=== PATIENT | female | born 1990 | race Caucasian/White ===

== ENCOUNTER 2019-01-05 08:00 | Inpatient (IN) | payer BC, SELFPAY ==
[2019-01-05 06:23] VITALS: BMI 20.5
[2019-01-05] MEDS: Lactated Ringers 1,000 ML 50 ML IV ×2 (08:30→15:18)
--- NOTE | 2019-01-05 08:47 | PCM.HP.OB ---
History Date of Admission: 01/05/19 Final DEB: 01/11/19 Final DEB Source: US <20 weeks Gestational age: 39 Weeks and 1 Days History of this : This is a 28 year-old, G [2], P [1], at 39+1 weeks gestational age presenting for labor evaluation following initiation of irregular contractions and nauseous and shakey feeling overnight. Patient denies DFM, VB or LOF. Patient initially 3.5/70/-3 and ballotable and then has made cervical change to 4/80/-2. Patient is GBS positive and desires an epidural for pain management during her labor. Allergies mebendazole [From Vermox] Allergy (Verified 01/05/19 06:27) Other Home Medications: Home Medications Calcium Carbonate [Tums] 200 mg PO PRN PRN 01/05/19 Vit No.130/Iron/Folic [ Tablet] 1 each PO DAILY 01/05/19 Thyroid,Pork [Sliding Joint Maker Thyroid] 15 mg PO DAILY 01/05/19 Smoking Status: Never smoker Alcohol: None Number of Fetus(es): 1 Heart Tracing: Baseline 145, moderate variability, few accels, no decels TOCO Analysis: Irregular q 5-10 minutes, mildly palpable History Past Pregnancies: Past Pregnancies Delivery Date Name GA/Weeks Outcome Route Weight Infant Gender Labor Length Anesthesia Delivery Location Provider FO05/2014 40 wks Live - vag. hematoma PP 7#14oz F Epidural [place] [facility]: See [facility] Records Expected Infant Delivery Method: Spontaneous Vaginal Describe any other labor & delivery plans:: Plans for epidural - desires mobility as long as possible Number of Visits: 16 Review of Systems Constitutional: Denies: Chills, Fever, Weight Change HEENT: Denies: Head Aches, Sinus Congestion, Sinus Drainage Cardiovascular: Denies: Chest Pain, Palpitations Respiratory: Denies: Cough, Shortness of breath at rest, Sputum production Gastrointestinal: Denies: Abdominal Pain, Nausea, Vomiting Genitourinary: Denies: Dysuria Musculoskeletal: Denies: Joint Pain, Joint Tenderness Skin: Denies: Rash, Wounds Neurological: Denies: Numbness, Tingling, Focal weakness Psychiatric: Denies: Anxiety, Depression, Homicidal Ideations, Suicidal Ideations Hematologic/ Lymphatic: Denies: Easy Bruising, Easy Bleeding Physical Exam Vitals: VSS, Afebrile General: Alert, Oriented x3, No apparent distress HEENT: Atraumatic, Normocephalic. 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 Negative for: Vulvar lesions Estimated gestational size: Appropriate for gestational size Presentation: Cephalic Cervix Dilation (cm): 4 Station: -2 Effacement (%): 80 Assessment/Plan This is a 28 year-old, G [2], P [1], at 39+1 weeks gestational age, Labor, Category I FHT. P 1) Admit patient, back-up physicians notified of admission 2) Start GBS abx prophylaxis now 3) Epidural on request 4) Reassess for cervical change PRN Angeles Ornelas WOLF HUNTER-CNM
[2019-01-05 08:52] LABS: Absolute Lymphocyte Count 1.35 X10^3/ul (0.83-4.51); Absolute Neutrophil Count 4.9 X10^3/uL (2.0-7.7); Basophil# 0.02 X10^3/uL; Basophil% 0.3 % (0-1); Eosinophil# 0.06 X10^3/uL; Eosinophils% 0.9 % (0-5); Hematocrit 35.7 % (37-47); Hemoglobin 11.9 g/dl (12.0-15.0); Lymphocyte # 1.35 X10^3/ul (4.0); Lymphocyte % 19.2 % (19-41); Mean Corp Hgb Conc 33.3 g/gl (32-36); Mean Corpuscular Hgb 29.5 pg (27.0-32.0); Mean Corpuscular Volume 88.6 fL (81-99); Mean Platelet Vol. 9.6 fl (6.2-12.0); Monocyte# 0.62 X10^3/uL; Monocyte% 8.8 % (0-10); Neutrophil # 4.93 X10^3/uL (2.7-7.7); Neutrophil % 70.1 % (47-70); POSITIVE COUNT NO; POSITIVE DIFFERENTIAL NO; POSITIVE MORPHOLOGY NO; Platelet Count 209 K/mm3 (150-450); RBC Distribution Width CV 14.1 % (11.6-14.6); RBC Distribution Width SD 45.7 fl (35.1-43.9); Red Blood Count 4.03 M/mm3 (4.2-5.4)
--- NOTE | 2019-01-05 08:52 | HP.PCM_ITS ---
History Date of Admission: 01/05/19 Final DEB: 01/11/19 Final DEB Source: US <20 weeks Gestational age: 39 Weeks and 1 Days History of this : This is a 28 year-old, G [2], P [1], at 39+1 weeks gestational age presenting for labor evaluation following initiation of irregular contractions and nauseous and shakey feeling overnight. Patient denies DFM, VB or LOF. Patient initially 3.5/70/-3 and ballotable and then has made cervical change to 4/80/-2. Patient is GBS positive and desires an epidural for pain management during her labor. Allergies mebendazole [From Vermox] Allergy (Verified 01/05/19 06:27) Other Home Medications: Home Medications Calcium Carbonate [Tums] 200 mg PO PRN PRN 01/05/19 Vit No.130/Iron/Folic [ Tablet] 1 each PO DAILY 01/05/19 Thyroid,Pork [Health Concierge Thyroid] 15 mg PO DAILY 01/05/19 Smoking Status: Never smoker Alcohol: None Number of Fetus(es): 1 Heart Tracing: Baseline 145, moderate variability, few accels, no decels TOCO Analysis: Irregular q 5-10 minutes, mildly palpable History Past Pregnancies: Past Pregnancies Delivery Date Name GA/Weeks Outcome Route Weight Infant Gender Labor Length Anesthesia Delivery Location Provider FO05/2014 40 wks Live - vag. hematoma PP 7#14oz F Epidural [place] [facility]: See [facility] Expected Infant Delivery Method: Spontaneous Vaginal Describe any other labor & delivery plans:: Plans for epidural - desires mobility as long as possible Number of Visits: 16 Review of Systems Constitutional: Denies: Chills, Fever, Weight Change HEENT: Denies: Head Aches, Sinus Congestion, Sinus Drainage Cardiovascular: Denies: Chest Pain, Palpitations Respiratory: Denies: Cough, Shortness of breath at rest, Sputum production Gastrointestinal: Denies: Abdominal Pain, Nausea, Vomiting Genitourinary: Denies: Dysuria Musculoskeletal: Denies: Joint Pain, Joint Tenderness Skin: Denies: Rash, Wounds Neurological: Denies: Numbness, Tingling, Focal weakness Psychiatric: Denies: Anxiety, Depression, Homicidal Ideations, Suicidal Ideations Hematologic/ Lymphatic: Denies: Easy Bruising, Easy Bleeding Physical Exam Vitals: VSS, Afebrile General: Alert, Oriented x3, No apparent distress HEENT: Atraumatic, Normocephalic. 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 Negative for: Vulvar lesions Estimated gestational size: Appropriate for gestational size Presentation: Cephalic Cervix Dilation (cm): 4 Station: -2 Effacement (%): 80 Assessment/Plan This is a 28 year-old, G [2], P [1], at 39+1 weeks gestational age, Labor, Category I FHT. P 1) Admit patient, back-up physicians notified of admission 2) Start GBS abx prophylaxis now 3) Epidural on request 4) Reassess for cervical change PRN Angeles Ornelas [employer]-CNM
--- NOTE | 2019-01-05 12:26 | PCM.PN.OB ---
Subjective: Patient has walked around the unit, reporting still irregular contractions but that at times seem stronger and at other times feels like they did this morning. Patient denies sensation of rectal pressure. Patient requests cervical change to assess for labor progress. Objective: VSS, Afebrile Baseline 135, moderate variability, + accels, no decels Ctx irregular q 1-6 minutes, mild to moderately strong to palpation SVE: Unchanged, /-3 (last exam of /-2 was during contraction) - Physical Exam General: Alert, Oriented x3, Cooperative HEENT: Atraumatic, Normocephalic Lungs: Normal air movement Cardiovascular: Regular rate, No murmurs Abdomen: Soft, Non Tender Extremities: No edema, Capillary Refill Less than 3 Seconds Skin: No rashes, No breakdown Musculoskeletal: No Tenderness to Palpation of Joints or Extremities Neurological: Cranial nerves II-XII grossly intact Psych/Mental Status: Normal Affect, Appropriate Weight: 131 lb 6.328 oz Body Mass Index (BMI) 20.5 Laboratory Tests Past 24 Hrs 01/05/19 01/05/19 08:30 08:30 WBC 7.0 RBC 4.03 L Hgb 11.9 L Hct 35.7 L MCV 88.6 MCH 29.5 MCHC 33.3 RDW 14.1 RDW Differential 45.7 H Plt Count 209 MPV 9.6 Immature Gran % (Auto) 0.700 Neut % (Auto) 70.1 H Lymph % (Auto) 19.2 [place] % (Auto) 8.8 Eos % (Auto) 0.9 Baso % (Auto) 0.3 Absolute Neuts (auto) 4.9 Absolute Lymphs (auto) 1.35 Total Counted Not Reportable Blood Type Cancelled Antibody Screen Cancelled Medical Necessity - Tobacco Use Smoking Status: Never smoker Assessment/Plan IUP @ 39+1 weeks, Category I FHT, Early Active Labor P: 1) Options for labor augmentation discussed - pitocin or AROM. Risks/benefits/alternatives discussed. 2) Patient desires to continue natural methods to help promote labor; sitting on birthing ball, ambulation and nipple stimulation discussed. 3) Continue expectant management at this time. Angeles Ornelas APRN-CNM
[2019-01-05] MEDS: fentaNYL-bupivacaine (epidural) 100 ML BAG EPIDURAL (15:36)
[2019-01-05] MEDS: Oxytocin 30 units/NS 500 ml 30 UNITS/500 ML IV.SOLN IV (17:45)
[2019-01-05] MEDS: Oxytocin 30 units/NS 500 ml 30 UNITS/500 ML IV.SOLN 334 UNITS IV (19:03)
[2019-01-05] MEDS: Oxytocin 30 units/NS 500 ml 30 UNITS/500 ML IV.SOLN 167 UNITS IV (19:35)
--- NOTE | 2019-01-05 19:36 | PCM.OPRPT ---
Report of Operation Date of Procedure: 01/05/19 Pre-Operative Diagnosis: Labor @ 39.1 weeks Post-Operative Diagnosis: of viable girl baby Vaginal Delivery Maternal Presentation: Active Labor Patient presented in labor this morning with irregular contractions and feelings of nausea and shakiness. Patient progressed to 4cm and then elected for labor augmentation by Dr. Odilon ARRIAZA using AROM and pitocin. Patient received epidural and then progressed well to C/C/0 station with spontaneous urge to push. Amniotic Membrane Rupture Type: Artificial Amniotic Fluid Description: Clear Final DEB: 01/11/19 Final DEB Source: US <20 weeks Gestational age: 39 Weeks and 1 Days Date of Procedure: 01/05/19 Pre-Operative Diagnosis: Labor @ 39.1 weeks Post-Operative Diagnosis: of viable girl baby Surgery/ Procedure Performed: Spontaneous Vaginal Delivery Type of Anesthesia: Epidural Description of Procedure: Patient pushed well with urge and delivered a viable girl baby over intact perineum at 1855. head delivered OA and then restituted to EMMANUEL SNEED and then OP. Double nuchal cord noted, delay of shoulders noted and shoulders and body was not delivered until next contraction. Terminal meconium noted after baby delivered. Baby was placed on maternal abdomen where he was dried and stimulated. Mouth and nose was bulb suctioned. Infant then had spontaneous cry and respirations. Apgars 8 and 9. weight pending. Umbilical cord then immediately camped and cut and cord blood banking and cord tissue collection done per patient request. Cord blood sample also sent for maternal blood status of O+. Placenta delivered spontaneously by maternal effort via Mac mechanism. Placenta intact with 3VC. Large gush of blood initially noted with fundal massage, IV pitocin initiated for active management of the 3rd stage. FF midline 2FB below umbilicus. EBL = 250cc. Upon inspection of vaginal vault, intact perineum. ++labial swelling noted; patient pushed for ~30 minutes. Ice pack applied to perineum. Patient reports hx of large hematoma after delivery of last child. Will monitor for s/s of vaginal hematoma closely. Sponge and needle count correct. Vaginal sweep negative. Baby to breast, bonding and skin to skin initiated. Angeles Ornelas PRESS CUTTER-CNM Presentation: Vertex Placental Delivery Description: Spontaneous Placenta Disposition: [facility] Cord Vessel Description: 3 Vessels Cord Entanglement: Around neck x 2, loose Estimated Blood Loss: 250 Infant A gender: Female (1 minute): 8 (5 minute): 9 Episiotomy Description: None Laceration: None Medications given after delivery: IV Pitocin Complications: None
[2019-01-06] VITALS: BP 99/55; PULSE 77; RESP 17; TEMP 36.7
[2019-01-06] MEDS: Ibuprofen 600 MG Tablet PO ×4 (00:10→18:40)
[2019-01-06 04:00] VITALS: BP 112/55; PULSE 77; RESP 17; TEMP 37.1
[2019-01-06] MEDS: Acetaminophen 500 MG Tablet 1000 MG PO ×2 (07:48→15:51)
[2019-01-06 08:00] VITALS: BP 111/63; PULSE 65; RESP 15; TEMP 37.1
--- NOTE | 2019-01-06 08:20 | PCM.PN.OB ---
Subjective: Review with nursing. Average lochia. - Physical Exam General: Alert, Cooperative, No apparent distress Vital Signs Temp Pulse Resp BP 98.8 F 77 17 112/55 L 01/06/19 04:00 01/06/19 04:00 01/06/19 04:00 01/06/19 04:00 Oxygen Delivery Method Room Air Weight: 59.6 kg Body Mass Index (BMI) 20.5 Intake and Output for Last 24 Hours 01/04/19 01/05/19 01/06/19 23:59 23:59 23:59 Intake Total 4245 / 4245 Output Total 2100 / 2100 Balance 2145 / 2145 Laboratory Tests Past 24 Hrs 01/05/19 01/05/19 01/05/19 08:30 08:30 12:36 WBC 7.0 RBC 4.03 L Hgb 11.9 L Hct 35.7 L MCV 88.6 MCH 29.5 MCHC 33.3 RDW 14.1 RDW Differential 45.7 H Plt Count 209 MPV 9.6 Immature Gran % (Auto) 0.700 Neut % (Auto) 70.1 H Lymph % (Auto) 19.2 [place] % (Auto) 8.8 Eos % (Auto) 0.9 Baso % (Auto) 0.3 Absolute Neuts (auto) 4.9 Absolute Lymphs (auto) 1.35 Total Counted Not Reportable Blood Type Cancelled O POSITIVE Antibody Screen Cancelled NEGATIVE Medical Necessity - Tobacco Use Smoking Status: Never smoker Assessment/Plan day #1 status post spontaneous vaginal delivery. Patient is doing well. Routine care. Infant is breast-feeding and doing well.
[2019-01-06 11:44] VITALS: BP 95/53; PULSE 88; RESP 15; TEMP 36.6
[2019-01-06 15:45] VITALS: BP 108/61; PULSE 70; RESP 16; TEMP 36.9
[2019-01-06 20:00] VITALS: BP 102/55; PULSE 62; RESP 16; TEMP 36.6
[2019-01-07] MEDS: Acetaminophen 500 MG Tablet 1000 MG PO (00:23)
[2019-01-07] MEDS: Ibuprofen 600 MG Tablet PO ×3 (00:24→13:23)
[2019-01-07 02:00] VITALS: BP 111/67; PULSE 57; RESP 16; TEMP 36.7
--- NOTE | 2019-01-07 08:06 | PCM.PN.OB ---
Subjective: Doing well per patient and nursing staff. Ambulating and taking PO without difficulty. Voiding and passing flatus. without difficulty. Taking tylenol and Ibuprofen for pain. Planning D/C home today. - Physical Exam General: Alert, Oriented x3 HEENT: Atraumatic, Normocephalic Neck: Trachea Midline Lungs: Clear to auscultation, Normal air movement, No rhonchi, No wheeze Cardiovascular: Regular rate, Regular Rhythm, No murmurs Abdomen: Bowel Sounds Present, Soft, - - Fundus firm 2 below U Extremities: No edema, - - Gino's negative Psych/Mental Status: Normal Affect, Appropriate Comment: lochia rubra small amount, no clots Vital Signs Temp Pulse Resp BP 98.1 F 57 L 16 111/67 01/07/19 02:00 01/07/19 02:00 01/07/19 02:00 01/07/19 02:00 Oxygen Delivery Method Room Air Weight: 131 lb 6.328 oz Body Mass Index (BMI) 20.5 Intake and Output for Last 24 Hours 01/05/19 01/06/19 01/07/19 23:59 23:59 23:59 Intake Total 4245 / 4245 Output Total 2100 / 2100 850 / 850 Balance 2145 / 2145 -850 / -850 Medical Necessity - Tobacco Use Smoking Status: Never smoker Assessment/Plan A: PPD #2 P: 1) Reviewed and care. 2) Reviewed discharge instructions and to follow up at 2 weeks and 6 weeks 3) Rx for Ibuprofen for pain.
--- NOTE | 2019-01-07 09:13 | DCINST_ITS ---
Discharge Diet: No Restrictions Discharge Activity: Return to Normal Activity, May Drive, May Shower, May Take a Tub Bath May resume sexual activity in: 4-6 weeks Weight Bearing Status: Full weight bearing Additional Activity Instructions:: Nothing in the vagina for 4-6 weeks. You may return to work/school in 6 weeks. Call your doctor if your incision/area has: Continuous Slow Oozing, Sudden Increased Bleeding, Increased Pain/ Swelling, Increased Redness, Foul Smelling Discharge Call your doctor if you observe: Fever of 101 or Higher, Inability to urinate, Inability to have a bowel movement, Using more than one pad per hour, Shortness of breath, Chest pain, Uncontrolled pain Additional Instructions: If you experience any of the following, contact your healthcare provider. * Bleeding that soaks a pad every hour for 2 hours * Fever 100.4 or higher * Unrelieved incision or abdominal pain * Swelling, redness, discharge or bleeding from your incision or ep isiotomy site * Your incision begins to separate * Problems urinating (including inability to urinate or burning while urinating). * Visual changes * Severe headache * Flu-like symptoms * Pain or redness in one of both of your breasts * Pain, warmth, tenderness or swelling in your legs, especially the calf area * Frequent nausea and vomiting * Symptoms of depression or anxiety If you experience any of the following, call 911 or go to the nearest Emergency Room. * Chest pain * Problems breathing * Seizure activity * Partial or complete paralysis of a body part, slurred speech, weakness or drooping of the face, or a sudden inability to walk or hold your balance Allergies/Adverse Reactions: Allergies mebendazole [From Vermox] Allergy (Verified 01/05/19 06:27) Other Medications to take at Discharge Calcium Carbonate [Tums] 200 mg PO PRN PRN 01/05/19 Vit No.130/Iron/Folic [ Tablet] 1 each PO DAILY 01/05/19 Thyroid,Pork [Black Puller Thyroid] 15 mg PO DAILY 01/05/19 Ibuprofen [Motrin] 600 mg PO Q6H PRN PRN #30 tab 01/07/19 The following prescriptions were given: Ibuprofen [Motrin] 600 mg PO Q6H PRN PRN #30 tab PRN Reason: Mild Pain (-10/23) Please Follow Up With: Annia Gutierrez CNM When: Call to make an appointment with your doctor in 2 weeks and 6 weeks. Primary Care Physician: Zak Giron [Primary Care Provider] - Test Results: Test results from this visit will be discussed in further detail at your follow- up appointment, if applicable.
[2019-01-07 13:00] VITALS: BP 112/75; PULSE 86; RESP 16; TEMP 36.8
[2019-01-07] MEDS: Senna/Docusate Sodium 1 Tablet PO (13:22)
--- NOTE | 2019-01-07 17:43 | NURSING ---
1615 Discharged to home with baby. States she wants to go home and feels able to care for herself and her . To car via wheelchair with baby in car seat in her lap,
== END 2019-01-07 16:15 | disposition home or self-care (01) | DRG 807 ==
LOC: WPOUT 08:07
PROVIDERS: Advanced Practice Midwife; Admitting Provider Obstetrics & Gynecology; Family Provider Family Medicine Geriatric Medicine; PCP Family Medicine Geriatric Medicine; Referring Provider Obstetrics & Gynecology; Visit Provider Obstetrics & Gynecology
DX: O77.0 Labor and delivery complicated by meconium in amniotic fluid (principal); Z37.0 Single live birth; O99.613 Diseases of the digestive system complicating pregnancy, third trimester; K21.9 Gastro-esophageal reflux disease without esophagitis; E06.3 Autoimmune thyroiditis; O99.283 Endocrine, nutritional and metabolic diseases complicating pregnancy, third trimester; O69.81X0 Labor and delivery complicated by cord around neck, without compression, not applicable or unspecified; O99.824 Streptococcus B carrier state complicating childbirth; Z3A.39 39 weeks gestation of pregnancy
CPT/HCPCS: 59025; 59050; 85025; 86850; 86900; 99218; J7120; G0378

== ENCOUNTER 2025-07-20 17:47 | Inpatient (IN) | payer BC, SELFPAY ==
[2025-07-20] VITALS (7 sets, daily range): BP systolic 112–124; BP diastolic 66–89; PULSE 82–99; RESP 16–17; TEMP 36.6–37.4; O2SAT 97–99; BMI 22.1
--- OUTSIDE RECORDS SUMMARY | 2025-07-20 17:16 | XMS RPT_ITS | CCD ---
Author Organization [facility] Care Team Providers [employer] Tender Name Role Phone Jd Giron Primary Care Provider [phone] French Rhodes MD Primary Care Provider Jd Giron MD Primary Care Provider [phone] Jd Giron MD Primary Care Provider French Rhodes MD Primary Care Provider CELENA KELLOGG Attending Unavailable RHODES, FRENCH N Primary Care Unavailable French Rhodes MD Primary Care Provider French Rhodes MD Primary Care Provider AARTI WELLS Referring Unavailable RHODES, FRENCH N Primary Care Unavailable RUSH ONEIL MD Attending Unavailable CLARICE ARRIAZA, RUSH Nagy Primary Care Unavailable French Rhodes MD Primary Care Provider French Rhodes MD Primary Care Provider RANDY ARRIAZA, DR Rosalia GRAHAM Primary Care Physician Noy harini GIRON MD, DR Rosalia GRAHAM Primary Care Unavailcholo HENNESSY MD, DR PFEIFFER Attending UnavailLIBRADO Kaur Attending Unavailable RHODES, FRENCH Primary Care Unavailable PLOTJESSENIA CAUSEY Attending Unavailable RHODES, FRENCH N Primary Care Unavailable PLOTTS, JESSENIA Referring Unavailable RHODES, FRENCH N Primary Care Unavailable ANNIA GUTIERREZ Attending Unavailable RHODES, FRENCH N Primary Care Unavailable HAANAHI, DONNELL Referring Unavailable RHODES, FRENCH N Primary Care Unavailable PLOTLILLIANA, JESSENIA Attending Unavailable RHODES, FRENCH N Primary Care Unavailable HAANAHI, DONNELL Referring Unavailable RHODES, FRENCH N Primary Care Unavailable DONNELL ROMERO Attending Unavailable RHODES, FRENCH N Primary Care Unavailable HAURY, DONNELL Referring Unavailable RHODES, FRENCH N Primary Care Unavailable RHODES, FRENCH N Primary Care Unavailable HAANAHI, DONNELL Attending Unavailable PLOTTS, JESSENIA Attending Unavailable HAURY, DONNELL Referring Unavailable RHODES, FRENCH N Primary Care Unavailable HAURY, DONNELL Referring Unavailable RHODES, FRENCH N Primary Care Unavailable RHODES, FRENCH N Primary Care Unavailable MARLY ASHRAF Attending Unavailable RHODES, FRENCH N Primary Care Unavailable HAURY, DONNELL Referring Unavailable HERNANDEZ GUTIERREZSSICA Referring Unavailable RHODES, FRENCH N Primary Care Unavailable HAURY, DONNELL Attending Unavailable RHODES, FRENCH N Primary Care Unavailable VANESA, JESSENIA Attending Unavailable RHODES, FRENCH N Primary Care Unavailable PLOTTS, JESSENIA Referring Unavailable RHODES, FRENCH N Primary Care Unavailable Allergies Allergy Classification Reported Allergen(s) Allergy Type Date of Onset Reaction(s) Facility Mebendazole (1 source) Mebendazole Drug Allergy 05-26-2017 [facility] (20 sources) Mebendazole; Translations: [MEBENDAZOLE] Drug Allergy 05-26-2017 Rash, Other: See Comments [place], [place] (10 sources) Mebendazole Drug Allergy 05-26-2017 Other, [facility] Medications Current Medications Medication Drug Class(es) Dates Sig (Normalized) Sig (Original) cetirizine hydrochloride 10 mg oral tablet (1 source) Histamine-1 Receptor Antagonist Start: 11-19-2022 End: 12-03-2022 take 1 tablet by mouth once daily cetirizine (ZYRTEC) 10 mg tablet Take 1 tablet by mouth once daily for 14 days. 14 tablet 0 11/19/2022 12/03/2022 Active Comment on above: Take 1 tablet by [facility] th once daily for 14 days. Nutritional Supplements (SM ESTRO VITAL NUTRIENTS EX ST) TABS (8 sources) Nutritional Supplements (SM ESTRO VITAL NUTRIENTS EX ST) TABS Take by mouth 0 Active pantoprazole 20 mg delayed release oral tablet (1 source) Proton Pump Inhibitor Start: 03-21-2025 take 1 tablet by mouth once daily pantoprazole DR (PROTONIX) 20 mg tablet Take 1 tablet by mouth once daily. 30 tablet 2 03/21/2025 Active PNV no.95/ferrous fum/folic ac ( ORAL) (11 sources) PNV no.95/ferrou s fum/folic ac ( ORAL) Take by mouth. Active sodium chloride flush 0.9 % injection 3 mL (2 sources) Start: 01-27-2022 sodium chloride flush 0.9 % injection 3 mL Start: 10-23-2019 sodium chlorid e flush 0.9 % injection 3 mL thyroid ([facility]) 15 mg oral tab let (20 sources) Start: 12-22-2018 thyroid (PUBLICATION DISTRIBUTOR TH YROID) 15 mg tablet Take 1 tablet by mouth once daily. take one tablet 6 days a week, 1/2 tablet on Sundays 30 tablet 12 12/22/2018 Active Start: 04-18-2018 take 0.5 tablet by m outh once daily PUBLICATION DISTRIBUTOR THYROID 15 MG tablet take 1/2 tablet by mouth once daily 0 04/18/2018 Active take 1 tablet by merced th once daily thyroid ([place]) 30 MG tablet Take 30 mg by mouth daily. Active Comment on above: Take 1 tablet by merced th once daily. take one tablet 6 days a week, 1/2 tablet on Sundays Completed/Discontinued Medications Medication Drug Class(es) Dates Sig (Normalized) Sig (Original) aspirin 81 mg delayed release oral tablet (8 sources) Platelet Aggregation Inhibitor, Nonsteroidal Anti-inflammatory Drug Start: 12-27-2024 End: 02-26-2025 take 1 tablet by mouth once daily aspirin, enteric coated (ECOTRIN LOW STRENGTH) 81 mg EC tablet Indications: Encounter for supervision of high risk in first trimester, antepartum (HCC) Take 1 tablet by mouth once daily. 90 tablet 3 12/27/2024 02/26/2025 Discontinued cholecalciferol, vitamin D3, (VITAMIN D3 ORAL) (20 sources) End: 12-27-2024 take 5000 [IU] by mouth once daily cholecalciferol, vitamin D3, (VITAMIN D3 ORAL) Take 5,000 Units by mouth once daily. 12/27/2024 Discontinued take 5000 [IU] by mouth once mario ly cholecalciferol, vitamin D3, (VITAMIN D3 ORAL) Take 5,000 Units by mouth once daily. Active take 5000 [IU] by mouth once mario ly cholecalciferol, vitamin D3, (VITAMIN D3 ORAL) Take 5,000 Units by mouth once daily. 0 Active cholecalciferol, vitamin D3, (VITAMIN D3 ORAL) Take by mouth. 0 Active Comment on above: Take by mouth. Take 5,000 Units by mouth once daily. HERBAL DRUGS ORAL (6 sources) End: 06-26-2022 HERBAL DRUGS ORAL Take by mouth. Tumeric 0 06/26/2022 Discontinued HERBAL DRUGS ORA L Take by mouth. Tumeric 0 Active Comment on above: Take by mouth. Tumer ic Lactobacillus acidophilus (6 sources) End: 06-26-2022 Lactobacillus acidophilus (PROBIOTIC ORAL) Take by mouth. 0 06/26/2022 Discontinued Lactobacillus ac idophilus (PROBIOTIC ORAL) Take by mouth. 0 Active Comment on above: Take by mouth. medroxyPROGESTERone acetate 10 mg oral tablet (10 sources) Progestin Start: 2023 End: 2024 take 1 tablet by mouth once daily medroxyPROGESTERone (PROVERA) 10 mg tablet Take 1 tablet by mouth once daily. 10 tablet 12/24/2023 12/27/2024 Discontinued Comment on above: Take 1 tablet by merced th once daily. Multivitamin preparation (20 sources) End: 2024 take 1 tablet by mouth twice daily multivitamin (MULTIPLE VITAMIN ESSENTIAL ORAL) Take 1 tablet by mouth twice daily. 12/27/2024 Discontinued take 1 tablet by mouth twice mario ly multivitamin (MULTIPLE VITAMIN ESSENTIAL ORAL) Take 1 tablet by mouth twice daily. Active take 1 tablet by mouth twice mario ly multivitamin (MULTIPLE VITAMIN ESSENTIAL ORAL) Take 1 tablet by mouth twice daily. 0 Active Comment on above: Take 1 tablet by merced th twice daily. VITAMIN K2 ORAL (6 sources) End: 06-26-2022 VITAMIN K2 ORAL Take by mouth. 0 06/26/2022 Discontinued VITAMIN K2 ORAL Take by mouth. 0 Active Comment on above: Take by mouth. Problems Active Problems Problem Classification Problem Date Documented Da te Episodic/Chronic Abdominal pain (2 sources) Left upper quadrant pain; Translations: [Left flank pain] Episodic Conditions associated with dizziness or vertigo (1 source) Dizziness; Translations: [Dizziness and giddiness] Episodic Menstrual disorders (10 sources) Menorrhagia; Translations: [Excessive and frequent menstruation with regular cycle] Onset: 02-19-2023 Chronic Nausea and vomiting (1 source) Nausea; Translations: [Nausea] Episodic Nonmalignant breast conditions (2 sources) Diffuse cystic mastopathy of right breast; Translations: [Diffuse cystic mastopathy of left breast] Onset: 09-01-2022 Chronic Nonmalignant breast conditions (4 sources) Pain of breast; Translations: [Mastodynia] Onset: 09-01-2022 Episodic Nonspecific chest pain (1 source) Chest pain; Translations: [Chest pain, unspecified] Episodic Nutritional deficiencies (3 sources) Vitamin D deficiency; Translations: [Vitamin D deficiency, unspecified] Onset: 12-27-2024 12-27-2024 Chronic Other complications of (7 sources) Heartburn; Translations: [Other specified related conditions, second trimester] Onset: 02-26-2025 02-26-2025 Episodic Other complications of (1 source) Supervision of high risk , unspecified, second trimester; Translations: [Supervision of high risk in second trimester (HCC)] Onset: 03-21-2025 Episodic Other complications of (1 source) Supervision of high risk , unspecified, third trimester; Translations: [Supervision of high risk in third trimester (HCC)] Onset: 03-21-2025 Episodic Other complications of (1 source) Other specified related conditions, second trimester; Translations: [Heartburn during in second trimester (HCC)] Onset: 03-21-2025 Episodic Other connective tissue disease (1 source) Pain in left lower limb; Translations: [Pain in left leg] 12-20-2024 Episodic Other endocrine disorders (1 source) Polycystic ovary; Translations: [Polycystic ovarian syndrome] Chronic Other female genital disorders (1 source) Pruritus of vagina; Translations: [Other specified noninflammatory disorders of vagina] Episodic Other female genital disorders (1 source) Vaginal odor; Translations: [Other specified noninflammatory disorders of vagina] Episodic Other gastrointestinal disorders (1 source) Heartburn; Translations: [Heartburn during in second trimester (HCC)] Onset: 03-21-2025 Episodic Other infections; including parasitic (6 sources) H/O: infectious disease; Translations: [Personal history of other infectious and parasitic diseases] 12-08-2024 Episodic Other inflammatory condition of skin (1 source) Pruritus, unspecified; Translations: [Pruritus] Onset: 06-13-2025 Episodic Other lower respiratory disease (1 source) Cough; Translations: [Cough] Episodic Other nutritional; endocrine; and metabolic disorders (20 sources) H/O: thyroid disorder; Translations: [Personal history of other endocrine, nutritional and metabolic disease] 10-27-2019 Episodic Other screening for suspected conditions (not mental disorders or infectious disease) (20 sources) Inconclusive mammogram; Translations: [Patient encounter status] Onset: 06-28-2018 Resolved: 02-07-2019 02-07-2019 Episodic Other skin disorders (3 sources) Finding of neck region; Translations: [Localized swelling, mass and lump, neck] Episodic Other upper respiratory disease (1 source) Pain in throat; Translations: [Throat pain] Episodic Ovarian cyst (2 sources) Corpus luteum cyst; Translations: [Corpus luteum cyst of ovary, unspecified side] Onset: 12-14-2024 Episodic Residual codes; unclassified (1 source) Gestation period, 8 weeks; Translations: [8 weeks gestation of ] 12-27-2024 Episodic Residual codes; unclassified (1 source) Gestation period, 12 weeks; Translations: [12 weeks gestation of ] 01-25-2025 Episodic Residual codes; unclassified (1 source) Gestation period, 17 weeks; Translations: [17 weeks gestation of ] 02-26-2025 Episodic Residual codes; unclassified (1 source) Gestation period, 25 weeks; Translations: [25 weeks gestation of ] 04-26-2025 Episodic Residual codes; unclassified (1 source) 32 weeks gestation of ; Translations: [32 weeks gestation of (HCC)] Onset: 06-12-2025 Episodic Residual codes; unclassified (1 source) 25 weeks gestation of ; Translations: [25 weeks gestation of (HCC)] Onset: 05-15-2025 Episodic Residual codes; unclassified (1 source) 28 weeks gestation of ; Translations: [28 weeks gestation of (HCC)] Onset: 05-15-2025 Episodic Residual codes; unclassified (1 source) 20 weeks gestation of ; Translations: [20 weeks gestation of (HCC)] Onset: 03-21-2025 Episodic Spontaneous (1 source) Miscarriage; Translations: [Complete or unspecified spontaneous without complication] Episodic Unclassified (11 sources) [facility] Education - COMMON Onset: 12-27-2024 12-27-2024 Unclassified (11 sources) Education - [place] Onset: 12-27-2024 12-27-2024 Unclassified (1 source) Rubella non-immune status, antepartum (HCC); Translations: [Rubella non-immune status, antepartum (HCC)] Onset: 12-28-2024 Past or Other Problems Problem Classification Problem Date Documented Date Episodic/Chronic Bacterial infection; unspecified site (16 sources) Bacteria present; Translations: [Streptococcus, group B, as the cause of diseases classified elsewhere] Onset: 12-16-2018 Resolved: 02-07-2019 02-07-2019 Episodic Genitourinary symptoms and ill-defined conditions (2 sources) Dysuria; Translations: [Painful micturition, unspecified] Onset: 01-25-2025 01-25-2025 Episodic Immunizations and screening for infectious disease (3 sources) Patient encounter status; Translations: [Encounter for screening for infections with a predominantly sexual mode of transmission] Onset: 12-29-2024 12-27-2024 Episodic Other complications of (2 sources) Nausea and vomiting; Translations: [Vomiting of , unspecified] Onset: 06-03-2018 Resolved: 02-07-2019 02-07-2019 Episodic Other complications of (14 sources) Vomiting of , unspecified; Translations: [Unspecified vomiting of , unspecified as to episode of care or not applicable] Onset: 06-03-2018 Resolved: 02-07-2019 02-07-2019 Episodic Other complications of (18 sources) High risk ; Translations: [Supervision of high risk , unspecified, first trimester] Onset: 12-27-2024 12-27-2024 Episodic Other complications of (14 sources) Multigravida of advanced maternal age; Translations: [Supervision of elderly multigravida, first trimester] Onset: 12-27-2024 12-27-2024 Episodic Other complications of (16 sources) Thyroid disease in ; Translations: [Endocrine, nutritional and metabolic diseases complicating , first trimester] Onset: 12-27-2024 12-27-2024 Episodic Other complications of (10 sources) Rubella non-immune; Translations: [Supervision of other high risk pregnancies, unspecified trimester] Onset: 12-28-2024 12-28-2024 Episodic Other complications of (1 source) Endocrine, nutritional and metabolic diseases complicating , second trimester; Translations: [Thyroid disease during in second trimester (HCC)] Onset: 02-26-2025 Episodic Other complications of (1 source) Supervision of elderly multigravida, first trimester; Translations: [Multigravida of advanced maternal age in first trimester (HCC)] Onset: 12-27-2024 Episodic Other complications of (1 source) Supervision of other high risk pregnancies, unspecified trimester; Translations: [Rubella non-immune status, antepartum ([facility])] Onset: 12-28-2024 Episodic Other complications of (1 source) Endocrine, nutritional and metabolic diseases complicating , first trimester; Translations: [Thyroid disease during , first trimester (HCC)] Onset: 02-26-2025 Episodic Other complications of (1 source) Supervision of high risk , unspecified, first trimester; Translations: [Encounter for supervision of high risk in first trimester, antepartum ([facility])] Onset: 12-27-2024 Episodic Other connective tissue disease (1 source) Pain in left leg; Translations: [Left leg pain] Onset: 12-20-2024 Episodic Other female genital disorders (13 sources) History of gynecological disorder; Translations: [Personal history of other diseases of the female genital tract] Onset: 12-27-2024 12-27-2024 Episodic Other female genital disorders (1 source) Personal history of other diseases of the female genital tract; Translations: [History of PCOS] Onset: 12-27-2024 Episodic Other infections; including parasitic (2 sources) Personal history of other infectious and parasitic diseases; Translations: [Personal history of other infectious and parasitic diseases] Onset: 12-08-2024 Episodic Other lower respiratory disease (14 sources) Nodule of lung; Translations: [Solitary pulmonary nodule] Onset: 07-01-2023 12-08-2024 Episodic Other lower respiratory disease (4 sources) Chronic cough; Translations: [Chronic cough] Onset: 12-08-2024 12-07-2024 Episodic Other lower respiratory disease (2 sources) Solitary pulmonary nodule; Translations: [Solitary pulmonary nodule] Onset: 12-07-2024 Episodic Other and delivery including normal (20 sources) Normal ; Translations: [Encounter for supervision of normal , unspecified, unspecified trimester] Onset: 06-27-2018 Resolved: 02-07-2019 02-07-2019 Episodic Comment on above: System added from do cumentation. Status documented as Yes on Admission Residual codes; unclassified (1 source) 17 weeks gestation of ; Translations: [17 weeks gestation of (HCC)] Onset: 02-26-2025 Episodic Residual codes; unclassified (1 source) 12 weeks gestation of ; Translations: [12 weeks gestation of (HCC)] Onset: 01-25-2025 Episodic Residual codes; unclassified (1 source) 8 weeks gestation of ; Translations: [8 weeks gestation of (HCC)] Onset: 12-27-2024 Episodic Sexually transmitted infections (not HIV or hepatitis) (12 sources) Urine chlamydia trachomatis test positive; Translations: [Sexually transmitted chlamydial infection of other sites] Onset: 12-28-2024 12-28-2024 Episodic Thyroid disorders (20 sources) Ricarda thyroiditis; Translations: [Autoimmune thyroiditis] Onset: 05-17-2018 Resolved: 01-25-2025 Chronic Thyroid disorders (20 sources) Disorder of thyroid gland; Translations: [Disorder of thyroid, unspecified] Onset: 02-26-2025 Resolved: 01-25-2025 10-27-2019 Episodic Results Test Name Value Interpretation Reference Range Facil ity BILE ACIDS, TOTALon 06-13-20 25 Bile acid [Moles/Vol] 2.6 umol/L Normal <7.5 [facility] Comment on above: Order Comment: Speci men Type: BLOOD SPECIMEN Ordering Facility: [facility] Address: [address] [place] [address] Result Comment: Refe rence interval applies to fasting specimens. The total serum bile acid concentration is increased after meals; hence, samples should be collected under fasting conditions, when possible. This does not apply to patients for whom intrahepatic cholestasis of as a diagnostic consideration; these patients will need peak bile acid testing, and samples should be postprandial. This serum bile acid assay should not be used for patients receiving ursodeoxycholic acid, nor should it be used as the primary assay for the screening or diagnosis of genetic disorders of bile acid metabolism. Patient Reference Intervals: 0 Days to 5 Months: Not established 6 Months to 23 Months: <25.8 umol/L 2 Years to 4 Years: <20.9 umol/L 5 Years to 9 Years: <12.4 umol/L 10 Years to 19 Years: <13.6 umol/L 20 Years to 59 Years: <7.5 umol/L >=60 Years: <8.3 umol/L Reference Intervals (Non-fasting): First Trimester (up to 13 weeks gestation): < 15.3 umol/L Reference Interval (Non-fasting): Second Trimester (13 - 27 weeks gestation): < 11.4 umol/L Reference Interval (Non-fasting): Third Trimester (> 27 weeks gestation): < 10.4 umol/L Performed By: #### B LINDA #### [facility] CLIA [id number] [address] [place] [address] Hepatic function 2000 panelo n 06-13-2025 Albumin [Mass/Vol] 3.7 g/dL Low 3.9-4.9 [facility] Comment on above: Order Comment: Speci men Type: BLOOD SPECIMEN Ordering Facility: [facility] Address: [address] [place] [address] Performed By: #### 2 4325-3 #### [facility] CLIA [id number] [address] ALP [Catalytic activity/Vol] 176 U/L High 34-123 [facility] Comment on above: Order Comment: Speci men Type: BLOOD SPECIMEN Ordering Facility: [facility] Address: [address] [place] [address] Performed By: #### 2 4325-3 #### [facility] CLIA [id number] [address] [place] ALT With P-5'-P [Catalytic activity/Vol] 21 U/L Normal 7-38 [facility] Comment on above: Order Comment: Speci men Type: BLOOD SPECIMEN Ordering Facility: [facility] Address: [address] [place] [address] Performed By: #### 2 4325-3 #### [facility] CLIA [id number] [address] [place] With P-5'-P [Catalytic activity/Vol] 28 U/L Normal 13-35 [facility] Comment on above: Order Comment: Slava cedeño Type: BLOOD SPECIMEN Ordering Facility: [facility] Address: [address] [place] [address] Performed By: #### 2 4325-3 #### [facility] CLIA [id number] [address] [facility] Bilirubin [Mass/Vol] 0.8 mg/dL Normal 0.2-1.3 [facility] Comment on above: Order Comment: Nicki men Type: BLOOD SPECIMEN Ordering Facility: [facility] Address: [address] [place] [address] Performed By: #### 2 4325-3 #### [facility] CLIA [id number] [address] Bilirubin.conjugate d [Mass/Vol] 0.2 mg/dL Normal <0.3 [facility] Comment on above: Order Comment: Speci men Type: BLOOD SPECIMEN Ordering Facility: [facility] Address: [address] [place] [address] Performed By: #### 2 4325-3 #### [facility] CLIA [id number] [address] Protein [Mass/Vol] 6.8 g/dL Normal 6.3-8.0 [facility] Comment on above: Order Comment: Slava gala Type: BLOOD SPECIMEN Ordering Facility: [facility] Address: [address] [place] [address] Performed By: #### 2 4325-3 #### [facility] CLIA [id number] [address] Demetrio 06-12-2025 OLIVIA Telephone (OBGYWM) VASILELOYDA ([id number]) 1990 F Date Time Provider Department 06/12/25 JESSENIA VALVERDE During your visit today, we recorded the following information about you: Gisell Morales RN 06/12/2025 4:49 PM Signed 32w2d Saw CP today. States provider told her if itching continues to call office for bile salt labs to be ordered. Patient said her itching has still continued and does want lab work done now. Asking if orders can be placed so she can go to the lab tomorrow. Please advise. ROSIO Uriarte Courtney, APRN.CNM 06/12/2025 5:01 PM Signed Labs ordered. ELIZABETH Bernabe Jennifer, RN 06/13/2025 8:38 AM Signed Left message for patient to call office. ROSIO Rodas Deana M, RN 06/13/2025 8:43 AM Signed Patient notified. Nathalia Walker RN Allergies As of Date: 06/12/2025 Noted Allergy Reaction VERMOX (MEBENDAZOLE) 05/11/2018 14 - Other: See Comments Comments: Skin peeled Date Reviewed: 06/12/2025 Reviewed by: Arnold Mckeon LPN - Fully Assessed Reason for Visit: OB Itching [Other] Primary Visit Diagnosis:Pruritus [L29.9] Order(s):BILE ACIDS, TOTAL [SQBILETO] Order #: [id number] FUTURE HEPATIC FUNCTION PNL [SQHFP] Order #: [id number] FUTURE Prescriptions as of 06/13/2025 - Carica Papaya (PAPAYA ENZYME) tab Take 1 tablet by mouth two times a day. - PNV no.95/ferrous fum/folic ac ( ORAL) Take by mouth. - thyroid (PUBLICATION DISTRIBUTOR THYROID) 15 mg tablet Take 1 tablet by mouth once daily. 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] 01/25/2025 Thyroid disease [E07.9] 01/25/2025 History of PCOS [Z87.42] 12/27/2024 Thyroid disease during in second trim*12/27/2024 Supervision of high risk in second tr*12/27/2024 Multigravida of advanced maternal age in first *12/27/2024 with uncertain dates in first trimest*12/27/2024 Rubella non-immune status, antepartum (HCC) [Z3*12/28/2024 Urine positive for Chlamydia trachomatis by PCR*12/28/2024 Heartburn during in second trimester *02/26/2025 Encounter Status:Closed by GISELL MORALES on 06/13/25 Normal [facility] T4 Free SerPl-mCncon 025 Free T4 [Mass/Vol] 0.7 ng/dL Low 0.9-1.7 [facility] Comment on above: Order Comment: Speci gala Type: BLOOD SPECIMEN Ordering Facility: [facility] Address: [address] [place] [address] Performed By: #### G LTGST #### [place] [facility] CLIA [id number] [address] [place], [place] [id number] [place] TSH SerPl-aCncon 06-12-2025 TSH Qn 2.470 m[IU]/L Normal 0.270-4.200 [facility] Comment on above: Order Comment: Slava cedeño Type: BLOOD SPECIMEN Ordering Facility: [facility] Address: [address] [place] [address] Result Comment: If t he patient is , TSH reference range varies by gestational period: First Trimester (weeks 9-12): 0.180-2.990 mIU/L Second Trimester: 0.110-3.980 mIU/L Third Trimester: 0.480-4.710 mIU/L Gustavo Luque et al. A Practical Approach for the Verifications and Determination of Site- and Trimester-Specific Reference Intervals for Thyroid Function tests in . Thyroid, 2019:29:3:412-420. Soto Lui, et al. 2017 Guidelines of the [employer] Thyroid Association for the Diagnosis and Management of Thyroid Disease during and the . Thyroid, 2017:27:3:315-389. Performed By: #### G LTGST #### [facility] CLIA [id number] [address] [place] [address] [place] CBC panel Auto (Bld)on 05-15 Erythrocyte distribution width (RBC) [Ratio] 12.4 % Normal 11.5-15.0 [facility] Comment on above: Order Comment: Slava cedeño Type: BLOOD SPECIMEN Ordering Facility: [facility] Address: [address] [place] [address] Performed By: #### 5 8410-2 #### [facility] CLIA [id number] [address] [place] [address] [place] Hematocrit (Bld) [Volume fraction] 32.4 % Low 36.0-46.0 [facility] Comment on above: Order Comment: Slava cedeño Type: BLOOD SPECIMEN Ordering Facility: [facility] Address: [address] [place] [address] Performed By: #### 5 8410-2 #### [facility] CLIA [id number] [address] [place] [address] [place] Hemoglobin (Bld) [Mass/Vol] 11.1 g/dL Low 11.5-15.5 [facility] Comment on above: Order Comment: Slava cedeño Type: BLOOD SPECIMEN Ordering Facility: [facility] Address: [address] [place] [address] Performed By: #### 5 8410-2 #### [facility] CLIA [id number] [address] [place] [address] [place] MCH (RBC) [Entitic mass] 30.7 pg Normal 26.0-34.0 [facility] Comment on above: Order Comment: Speci men Type: BLOOD SPECIMEN Ordering Facility: [facility] Address: [address] [place] [address] Performed By: #### 5 8410-2 #### [facility] CLIA [id number] [address] [place] [address] [place] MCHC (RBC) [Mass/Vol] 34.3 g/dL Normal 30.5-36.0 [facility] Comment on above: Order Comment: Speci men Type: BLOOD SPECIMEN Ordering Facility: [facility] Address: [address] [place] [address] Performed By: #### 5 8410-2 #### [id number] [address] [place] [address] [place] MCV (RBC) [Entitic vol] 89.8 fL Normal 80.0-100.0 [facility] Comment on above: Order Comment: Speci men Type: BLOOD SPECIMEN Ordering Facility: [facility] Address: [address] [place] [address] Performed By: #### 5 8410-2 #### [id number] [address] [place] [address] [place] Nucleated RBC (Bld) [#/Vol] 10*3/uL Normal <0.01 [facility] Comment on above: Order Comment: Speci men Type: BLOOD SPECIMEN Ordering Facility: [facility] Address: [address] [place] [address] Performed By: #### 5 8410-2 #### [facility] [id number] [address] [place] [address] [place] Platelet mean volume (Bld) [Entitic vol] 9.2 fL Normal 9.0-12.7 [facility] Comment on above: Order Comment: Speci men Type: BLOOD SPECIMEN Ordering Facility: [facility] Address: [address] [place], [place] [address] Performed By: #### 5 8410-2 #### [facility] CLIA [id number] [address] [place] [address] [place] Platelets (Bld) [#/Vol] 234 10*3/uL Normal 150-400 [facility] Comment on above: Order Comment: Speci men Type: BLOOD SPECIMEN Ordering Facility: [facility] Address: [address] [place] [address] Performed By: #### 5 8410-2 #### [facility] CLIA [id number] [address] [place] [address] [place] RBC (Bld) [#/Vol] 3.61 10*6/uL Low 3.90-5.20 [facility] Comment on above: Order Comment: Speci men Type: BLOOD SPECIMEN Ordering Facility: [facility] Address: [address] [place] [address] Performed By: #### 5 8410-2 #### [facility] CLIA [id number] [address] [place] [address] [place] WBC (Bld) [#/Vol] 7.24 10*3/uL Normal 3.70-11.00 [facility] Comment on above: Order Comment: Speci men Type: BLOOD SPECIMEN Ordering Facility[facility] Address: [address] [place], [place] [address] Performed By: #### 5 8410-2 #### [facility] CLIA [id number] [address] [place] [address] [place] GESTATIONAL GLUCOSE SCREEN, 1-HOUR, 50 GRAM, NON-FASTINGon 05-15-2025 Glucose [Mass/Vol] 123 mg/dL Normal 74-134 [facility] Comment on above: Order Comment: Speci men Type: BLOOD SPECIMEN Ordering Facility: [facility] Address: [address] [place] [address] Result Comment: [facility] Congress of Obstetricians and Gynecologists (Jazmin/Shahzad) guidelines state a gestational diabetes mellitus positive screen is made, in women not previously diagnosed with overt diabetes, when the 1 hr plasma glucose level is equal to or above 140 mg/dL. The [facility]al Health Consultant and [facility] recommends a 135 mg/dL cutoff. Performed By: #### G LTGST #### [facility] CLIA [id number] [address] [place] [address] [place] Reagin and Treponema pallidu m IgG and IgM [Interp]on 05-15-2025 T. pallidum IgG+IgM IA Ql (S) Non-Reactive Normal Nonreactive [facility] Comment on above: Order Comment: Slava cedeño Type: BLOOD SPECIMEN Ordering Facility: [facility] Address: [address] [place] [address] Performed By: #### G LTGST #### [facility] CLIA [id number] [address] [place] [address] [place] Reagin+T pallidum IgG+IgM Se rPl-Impon 05-15-2025 Reagin and Treponema pallidum IgG and IgM [Interp] Cannot exclude recent Treponemal infection if specimen collected within 7-10 days after appearance of suspect lesions or 2-3 weeks after an exposure. Clinical correlation is required. Normal [facility] Comment on above: Order Comment: Slava cedeño Type: BLOOD SPECIMEN Ordering Facility: [facility] Address: [address] [place] [address] Performed By: #### G LTGST #### [facility] [id number] [address] [place] [address] [place] T4 Free SerPl-mCncon 025 Free T4 [Mass/Vol] 0.8 ng/dL Low 0.9-1.7 [facility] Comment on above: Order Comment: Speci men Type: BLOOD SPECIMEN Ordering Facility: [facility] Address: [address] [place] [id number] Performed By: #### 5 8410-2 #### [facility] CLIA [id number] [address] [place] [address] [place] TSH SerPl-aCncon 04-26-2025 TSH Qn 2.570 m[IU]/L Normal 0.270-4.200 [facility] Comment on above: Order Comment: Speci men Type: BLOOD SPECIMEN Ordering Facility: [facility] Address: [address] [place] [address] Result Comment: If t he patient is , TSH reference range varies by gestational period: First Trimester (weeks 9-12): 0.180-2.990 mIU/L Second Trimester: 0.110-3.980 mIU/L Third Trimester: 0.480-4.710 mIU/L Gustavo Luque et al. A Practical Approach for the Verifications and Determination of Site- and Trimester-Specific Reference Intervals for Thyroid Function tests in . Thyroid, 2019:29:3:412-420. Soto E, et al. 2017 Guidelines of the Indian Thyroid Association for the Diagnosis and Management of Thyroid Disease during and the . Thyroid, 2017:27:3:315-389. Performed By: #### 5 8410-2 #### [facility] [id number] [address] [place] [address] [place] 36on 04-02-2025 36 Attempted to reach patient by phone to discuss her upcoming appointment this Wednesday. She is unable to complete her testing due to her . - Follow up is for results, so I need to speak with patient to see if she still wants to be seen or to hold off until after her delivery and testing is completed. [facility] T4 Free SerPl-mCncon 02-26-2 025 Free T4 [Mass/Vol] 0.8 ng/dL Low 0.9-1.7 [facility] Comment on above: Order Comment: Speci men Type: BLOOD SPECIMEN Ordering Facility: [facility] Address: [address] [place] [address] Performed By: #### 3 016-3, 3024-7 #### [facility] CLIA [id number] [address] [place] [address] [place] TSH SerPl-aCncon 02-26-2025 TSH Qn 2.760 m[IU]/L Normal 0.270-4.200 [facility] Comment on above: Order Comment: Speci men Type: BLOOD SPECIMEN Ordering Facility: [facility] Address: [address] [place] [address] Result Comment: If t he patient is , TSH reference range varies by gestational period: First Trimester (weeks 9-12): 0.180-2.990 mIU/L Second Trimester: 0.110-3.980 mIU/L Third Trimester: 0.480-4.710 mIU/L Gustavo Luque et al. A Practical Approach for the Verifications and Determination of Site- and Trimester-Specific Reference Intervals for Thyroid Function tests in . Thyroid, 2019:29:3:412-420. Soto E, et al. 2017 Guidelines of the [employer] Thyroid Association for the Diagnosis and Management of Thyroid Disease during and the . Thyroid, 2017:27:3:315-389. Performed By: #### 3 016-3, 3024-7 #### [facility] CLIA [id number] [address] [place] [address] [place] 36on 02-07-2025 36 Reason for call: Sammi, I am sending this telephone encounter to notify this office that this patient cancelled the PFT pre and post bronchodilator apt due to not wanting to take this test while and take the bronchodilator Thank you, Ziggy Harringtno Central Scheduling Normal [facility] Bacteria Ur Culton 5 Bacteria identified Cx Nom (U) ORGANISM ID: 1 >=100,000 CFU/ml Normal urogenital sergio Normal [facility] Comment on above: Performed By: #### 5 8410-2 #### [facility] CLIA [id number] [address] [id number] [place] Examination level ultrasound on 01-25-2025 Indication First trimester anatomic survey Advanced maternal age Impression The patient is referred for a first trimester anatomy scan including nuchal translucency measurement as clinically indicated. - Single, live, intrauterine . - [place] rump length measurement is consistent with the established gestational age. - No malformations visualized on a complete first trimester anatomic assessment. - The nuchal translucency measurement is 1.6 mm. - Not all structural malformations can be detected by ultrasound examination. - A standard anatomic survey at 16 weeks and a detailed exam at 20 weeks is recommended for increased risk. Recommendations - A standard anatomic survey at 16 weeks and a detailed exam at 20 weeks for increased risk. - Additional follow up as clinically indicated. Maternal Assessment Height 170 cm Height (ft) 5 ft Height (in) 7 in Physical Exam Initial weight (lb) 112 lb Initial BMI 17.54 kg/m Maternal assessment other: 4 Para 2 REMOTE READ Method Transabdominal ultrasound examination [place] . Number of fetuses: 1 Dating LMP on: 10/06/2024 GA by LMP 15 w + 6 d DEB by LMP: 07/13/2025 GA by prior assessment 12 w + 4 d DEB by prior assessment: 08/05/2025 Ultrasound examination on: 01/25/2025 GA by U/S based upon: CRL GA by U/S 13 w + 0 d DEB by U/S: 08/02/2025 Assigned: based on ultrasound (CRL), selected on 12/27/2024 Assigned GA 12 w + 4 d Assigned DEB: 08/05/2025 General Evaluation Cardiac activity present Placenta: posterior Cord vessels: 3 vessel cord Amniotic fluid: normal amount Biometry Standard FHR 155 bpm CRL 67.4 mm 13w 0d 74% Hadlock NT 1.60 mm First Trimester Anatomy Calvarium: normal Falx cerebri: normal Choroid plexus: normal Profile: normal Nasal bone: normal Retronasal triangle: normal Maxilla: normal Mandible: normal Nuchal translucency: Unremarkable Situs: normal Cardiac position: normal Cardiac axis: normal 4-chamber view: normal 4-chamber view with color: normal 5-[id number] view: normal Abdominal cord insertion: normal Stomach: normal Kidneys: normal Bladder: normal Color doppler of perivesical umbilical arteries: normal Vertebral alignment: normal Arms: normal Hands: normal Legs: normal Feet: normal Maternal Structures Uterus / Cervix Uterus: Visualized Uterus length 143 mm Uterus width 100 mm Uterus height 88 mm Uterus Vol 657.0 cm Ovaries / Tubes / Adnexa Rt ovary: Visualized Rt ovary D1 28 mm Rt ovary D2 43 mm Rt ovary D3 19 mm Rt ovary Vol 11.6 cm Lt ovary: Visualized Lt ovary D1 30 mm Lt ovary D2 34 mm Lt ovary D3 21 mm Lt ovary Vol 11.4 cm Performed By: Marcia Jain RDMS, RVT Read By: Holley Montes M.D. MATERNAL MEDICINE [facility] Radiology Study observation (narrative) [facility] UA DIP, URINE (POC)on 2024 BILIRUBIN UA (POCT) Negative Negative [facility] CLARITY UA (POCT) [facility] COLOR UA (POCT) Yellow [facility] GLUCOSE UA (POCT) Negative Negative mg/dL [facility] Hemoglobin Ql (U) Negative Negative [facility] Interpretation and review of laboratory results Abnormal [facility] KETONE UA (POCT) Negative Negative mg/dL [facility] LEUKOCYTES UA (POCT) Small Abnormal Negative [facility] NITRITE UA (POCT) Negative Negative [facility] PH UA (POCT) 7.5 4.5 - 8.0 [facility] Protein Ql (U) Negative Negative mg/dL [facility] SPECIFIC GRAVITY UA (POCT) 1.015 1.005 - 1.030 [facility] UROBILINOGEN UA (POCT) 0.2 Normal E.U./dL [facility] Location:[facility], [address] [facility], [place], [place], [id number] [place] [address] POINT OF CARE [facility] 36on 01-23-2025 36 Called patient to schedule a follow up appointment with Dr. Singleton. Patient is unable to complete the CT, and per Dr. Foley, patient should be seen 2-3 months after PFT test. Left My Chart message. Unable to to leave message on telephone. Normal [facility] C. trachomatis+N. gonorrhoea e DNA MARY+probe Ql (Unsp spec)on 12-29-2024 C. trachomatis rRNA MARY+probe Ql (Unsp spec) Not detected Normal Not detected [facility] Comment on above: Order Comment: Speci men Type: BLOOD SPECIMEN Order[facility] Address: [address] [place] [address] Performed By: #### G LTGST #### [facility] CLIA [id number] [address] [place] [address] [place] N. gonorrhoeae rRNA MARY+probe Ql (Unsp spec) Not detected Normal Not detected [facility] Comment on above: Order Comment: Speci men Type: BLOOD SPECIMEN Ordering Facility[facility] Address: [address] [place] [address] Performed By: #### G LTGST #### [facility] CLIA [id number] [address] [place] [address] [place] [facility] T. vaginalis DNA MARY+probe Ql (Unsp spec) Not detected Normal Not detected [facility] Comment on above: Order Comment: Speci men Type: BLOOD SPECIMEN Order[facility] Address: [address] [place] [address] Performed By: #### G LTGST #### [facility] CLIA [id number] [address] [place] [address] [place] 25([place])[facility]3 [facility] 25-hydroxyvitamin D3 [Mass/Vol] 32.9 ng/mL Normal 31.0-80.0 [facility] Comment on above: Order Comment: Speci men Type: BLOOD SPECIMEN Ordering Facility[facility] Address: [address] [place] [address] Result Comment: Clas sification of 25 [place] Vitamin D status: Deficiency/Insufficiency: < or = 30 ng/ml. Sufficiency/Optimal Levels: 31-80 ng/mL Toxicity: > 100 ng/mL. Test performed by chemiluminescent immunoassay. Performed By: #### G LTGST #### [facility] CLIA [id number] [address] [place] [address] [place] Bacteria Ur Culton Bacteria identified Cx Nom (U) ORGANISM ID: 1 10,000 -<50,000 CFU/ml Normal urogenital sergio Normal [facility] Comment on above: Performed By: #### 5 8410-2 #### [facility] CLIA [id number] [address] [place] [address] [place] C. trachomatis+N. gonorrhoea e DNA MARY+probe Ql (Unsp spec)on 12-27-2024 C. trachomatis rRNA MARY+probe Ql (Unsp spec) Detected Abnormal Not detected [facility] Comment on above: Order Comment: Speci men Type: BLOOD SPECIMEN Order[facility] Address: [address] [place] [address] Performed By: #### 5 195-3, 09465-9, 01557-4 #### [facility] CLIA [id number] [address] [place] [address] [place] N. gonorrhoeae rRNA MARY+probe Ql (Unsp spec) Not detected Normal Not detected [facility] Comment on above: Order Comment: Speci men Type: BLOOD SPECIMEN Order[facility] Address: [address] [place] [address] Performed By: #### 5 195-3, 12576-8, 89447-4 #### [facility] CLIA [id number] [address] [place] [address] [place] CBC W Auto Differential pane l (Bld)on 12-27-2024 Basophils (Bld) [#/Vol] 0.05 10*3/uL Normal <0.11 [facility] Comment on above: Order Comment: Speci men Type: BLOOD SPECIMEN Order[facility] Facility[facility] Address: [address] [place] [address] Performed By: #### 5 7021-8 #### [facility] CLIA [id number] [address] [place] [address] [place] Basophils/100 WBC (Bld) 0.8 % Normal [facility] Comment on above: Order Comment: Speci men Type: BLOOD SPECIMEN Ordering Facility[facility] Address: [address] [place] [address] Performed By: #### 5 7021-8 #### [facility] CLIA [id number] [address] [place] [address] [place] Differential cell count method Nom (Bld) Auto Normal [facility] Comment on above: Order Comment: Speci men Type: BLOOD SPECIMEN Order[facility] Address: [address] [place] [address] Performed By: #### 5 7021-8 #### [facility] CLIA [id number] [address] [place] [address] [place] Eosinophils (Bld) [#/Vol] 0.03 10*3/uL Normal <0.46 [facility] Comment on above: Order Comment: Speci men Type: BLOOD SPECIMEN Order[facility] Address: [address] [place] [address] Performed By: #### 5 7021-8 #### [facility] CLIA [id number] [address] [place] [address] [place] Eosinophils/100 WBC (Bld) 0.5 % Normal [facility] Comment on above: Order Comment: Speci men Type: BLOOD SPECIMEN Ordering Facility[facility] Address: [address] [place] [address] Performed By: #### 5 7021-8 #### [facility] CLIA [id number] [address] [place] [address] [place] Erythrocyte distribution width (RBC) [Ratio] 12.5 % Normal 11.5-15.0 [facility] Comment on above: Order Comment: Speci men Type: BLOOD SPECIMEN Ordering Facility: [facility] Address: [address] [place] [address] Performed By: #### 5 7021-8 #### [facility] CLIA [id number] [address] [place] [address] [place] Hematocrit (Bld) [Volume fraction] 41.9 % Normal 36.0-46.0 [facility] Comment on above: Order Comment: Speci men Type: BLOOD SPECIMEN Ordering Facility[facility] Address: [address] [place] [address] Performed By: #### 5 7021-8 #### [facility] CLIA [id number] [address] [place] [address] [place] Hemoglobin (Bld) [Mass/Vol] 14.0 g/dL Normal 11.5-15.5 [facility] Comment on above: Order Comment: Speci men Type: BLOOD SPECIMEN Ordering Facility: [facility] Address: [address] [place] [address] Performed By: #### 5 7021-8 #### [facility] CLIA [id number] [address] [place] [address] [place] Immature granulocytes (Bld) [#/Vol] 10*3/uL Normal <0.10 [facility] Comment on above: Order Comment: Speci men Type: BLOOD SPECIMEN Ordering Facility: [facility] Address: [address] [place] [address] Performed By: #### 5 7021-8 #### [facility] CLIA [id number] [address] [place] [address] [place] Immature granulocytes/100 WBC (Bld) 0.3 % Normal [facility] Comment on above: Order Comment: Speci men Type: BLOOD SPECIMEN Ordering Facility[facility] Address: [address] [place] [address] Performed By: #### 5 7021-8 #### [facility] CLIA [id number] [address] [place] [address] [place] Lymphocytes (Bld) [#/Vol] 1.32 10*3/uL Normal 1.00-4.00 [facility] Comment on above: Order Comment: Speci men Type: BLOOD SPECIMEN Ordering Facility: [facility] Address: [address] [place] [address] Performed By: #### 5 7021-8 #### [facility] CLIA [id number] [address] [place] [address] [place] Lymphocytes/100 WBC (Bld) 20.4 % Normal [facility] Comment on above: Order Comment: Speci men Type: BLOOD SPECIMEN Ordering Facility[facility] Address: [address] [place] [address] Performed By: #### 5 7021-8 #### [facility] CLIA [id number] [address] [place] [address] [place] MCH (RBC) [Entitic mass] 29.4 pg Normal 26.0-34.0 [facility] Comment on above: Order Comment: Speci men Type: BLOOD SPECIMEN Ordering Facility[facility] Address: [address] [place] [address] Performed By: #### 5 7021-8 #### [facility] CLIA [id number] [address] [place] [address] [place] MCHC (RBC) [Mass/Vol] 33.4 g/dL Normal 30.5-36.0 [facility] Comment on above: Order Comment: Speci men Type: BLOOD SPECIMEN Ordering Facility[facility] Address: [address] [place] [address] Performed By: #### 5 7021-8 #### [facility] CLIA [id number] [address] [place] [address] [place] MCV (RBC) [Entitic vol] 88.0 fL Normal 80.0-100.0 [facility] Comment on above: Order Comment: Speci men Type: BLOOD SPECIMEN Ordering Facility: [facility] Address: [address] [place] [address] Performed By: #### 5 7021-8 #### [facility] CLIA [id number] [address] [place] [address] [place] Monocytes (Bld) [#/Vol] 0.47 10*3/uL Normal <0.87 [facility] Comment on above: Order Comment: Speci men Type: BLOOD SPECIMEN Ordering Facility[facility] Address: [address] [place] [address] Performed By: #### 5 7021-8 #### [facility] CLIA [id number] [address] [place] [address] [place] [place] Monocytes/100 WBC (Bld) 7.3 % Normal [facility] Comment on above: Order Comment: Speci men Type: BLOOD SPECIMEN Ordering Facility: [facility] Address: [address] [place] [address] Performed By: #### 5 7021-8 #### [facility] CLIA [id number] [address] [place] [address] [place] Neutrophils (Bld) [#/Vol] 4.58 10*3/uL Normal 1.45-7.50 [facility] Comment on above: Order Comment: Speci men Type: BLOOD SPECIMEN Ordering Facility: [facility] Address: [address] [place] [address] Performed By: #### 5 7021-8 #### [facility] CLIA [id number] [address] [place] [address] [place] Neutrophils/100 WBC (Bld) 70.7 % Normal [facility] Comment on above: Order Comment: Speci men Type: BLOOD SPECIMEN Ordering Facility: [facility] Address: [address] [place] [address] Performed By: #### 5 7021-8 #### [facility] CLIA [id number] [address] [place] [address] [place] Nucleated RBC (Bld) [#/Vol] 10*3/uL Normal <0.01 [facility] Comment on above: Order Comment: Speci men Type: BLOOD SPECIMEN Ordering Facility: [facility] Address: [address] [place] [address] Performed By: #### 5 7021-8 #### [facility] CLIA [id number] [address] [place] [address] [place] Nucleated RBC/100 WBC (Bld) [Ratio] 0.0 /100 WBC Normal [facility] Comment on above: Order Comment: Speci men Type: BLOOD SPECIMEN Ordering Facility: [facility] Address: [address] [place] [address] Performed By: #### 5 7021-8 #### [facility] CLIA [id number] [address] [place] [address] [place] Platelet mean volume (Bld) [Entitic vol] 9.3 fL Normal 9.0-12.7 [facility] Comment on above: Order Comment: Speci men Type: BLOOD SPECIMEN Ordering Facility: [facility] Address: [address] [place] [address] Performed By: #### 5 7021-8 #### [facility] CLIA [id number] [address] [place] [address] [place] Platelets (Bld) [#/Vol] 249 10*3/uL Normal 150-400 [facility] Comment on above: Order Comment: Speci men Type: BLOOD SPECIMEN Ordering Facility: [facility] Address: [address] [place] [address] Performed By: #### 5 7021-8 #### [facility] CLIA [id number] [address] [place] [address] [place] RBC (Bld) [#/Vol] 4.76 10*6/uL Normal 3.90-5.20 [facility] Comment on above: Order Comment: Speci men Type: BLOOD SPECIMEN Ordering Facility: [facility] Address: [address] [place] [address] Performed By: #### 5 7021-8 #### [facility] CLIA [id number] [address] [place] [address] [place] WBC (Bld) [#/Vol] 6.47 10*3/uL Normal 3.70-11.00 [facility] Comment on above: Order Comment: Speci men Type: BLOOD SPECIMEN Ordering Facility: [facility] Address: [address] [place] [address] Performed By: #### 5 7021-8 #### [facility] CLIA [id number] [address] [place] [address] [place] HBV surface Ag Ser Qlon 12-14 HBV surface Ag Ql (S) Negative Normal Negative [facility] Comment on above: Order Comment: Speci men Type: BLOOD SPECIMEN Ordering Facility: [facility] Address: [address] [place] [address] Performed By: #### 5 195-3, 14991-9, 17243-6 #### [facility] CLIA [id number] [address] [place] [address] [place] HCV Ab Ser Qlon 12-27-2024 HCV Ab Ql (S) Negative Normal Negative [facility] Comment on above: Order Comment: Speci men Type: BLOOD SPECIMEN Ordering Facility: [facility] Address: [address] [place] [address] Result Comment: The result suggests no evidence of infection with Hepatitis C virus. Should recent infection be suspected, repeat testing may be considered 4-6 weeks after this draw. Performed By: #### G LTGST #### [facility] CLIA [id number] [address] [place] [address] [place] HIV 1+2 Ab IA Qlon 5 HIV 1 and 2 Ab IA.rapid Nom (S/P/Bld) Normal [facility] Comment on above: Order Comment: Speci men Type: BLOOD SPECIMEN Ordering Facility: [facility] Address: [address] [place] [address] Result Comment: Test not indicated. Performed By: #### 5 195-3, 10494-0, 40739-1 #### [facility] CLIA [id number] [address] [place] [address] [place] HIV 1+2 Ab+HIV1 p24 Ag IA Ql Non-Reactive Normal Nonreactive [facility] Comment on above: Order Comment: Speci men Type: BLOOD SPECIMEN Ordering Facility: [facility] Address: [address] [place] [address] Performed By: #### 5 195-3, 21141-0, 36847-1 #### [facility] CLIA [id number] [address] [place] [address] [place] [facility] [place] HIV immunoassay testing algorithm interpretation (S/P/Bld) [Interp] Normal [facility] Comment on above: Order Comment: Speci men Type: BLOOD SPECIMEN Ordering Facility: [facility] Address: [address] [place] [address] Result Comment: No e vidence of HIV-1 or HIV-2 infection. Should recent infection be suspected, repeat testing may be considered 2-3 weeks after this draw. [place] Rev. Code 3701.243(E): This information has been disclosed to you from confidential records protected from disclosure by state law. You shall make no further disclosure of this information without the specific, written, and informed release of the individual to whom it pertains or as otherwise permitted by state law. A general authorization for the release of medical or other information is not sufficient for the purpose of the release of HIV test results or diagnoses. Performed By: #### 5 195-3, 98401-2, 46733-4 #### [facility] CLIA [id number] [address] [place] [address] [place] HbA1c (Bld)on 12-27-2024 Average glucose Estimated from glycated hemoglobin (Bld) [Mass/Vol] 94 mg/dL Normal [facility] Comment on above: Order Comment: Slava cedeño Type: BLOOD SPECIMEN Ordering Facility: [facility] Address: [address] [place] [address] Result Comment: eAG: (Estimated average glucose) is a calculated value from HgbA1c and is claims service representative of the average blood glucose level in the last 2-3 month period. Performed By: #### G LTGST #### [facility] CLIA [id number] [address] [place] [address] HbA1c (Bld) [Mass fraction] 4.9 % Normal 4.3-5.6 [facility] Comment on above: Order Comment: Slava cedeño Type: BLOOD SPECIMEN Ordering Facility: [facility] Address: [address] [place] [address] Result Comment: [place] Diabetes Association guidelines indicate that patients with HgbA1c in the range 5.7-6.4% are at increased risk for development of diabetes, and intervention by lifestyle modification may be beneficial. HgbA1c greater or equal to 6.5% is considered diagnostic of diabetes. 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 Method Transabdominal ultrasound examination, Transvaginal ultrasound examination. View: Adequate visualization [place] . Number of embryos: 1 Dating LMP on: 10/06/2024 GA by LMP 11 w + 5 d DEB by LMP: 07/13/2025 Ultrasound examination on: 12/27/2024 GA by U/S based upon: CRL GA by U/S 8 w + 3 d DEB by U/S: 08/05/2025 Assigned: based on ultrasound (CRL), selected on 12/27/2024 Assigned GA 8 w + 3 d Assigned DEB: 08/05/2025 Biometry Standard FHR 169 bpm CRL 19.3 mm 8w 3d 81% Hadlock Assessment Gestational sac: visualized Location: intrauterine Yolk sac: visualized Embryo: visualized CRL 19.3 mm 8w 3d 81% [place]lock Cardiac activity: present FHR 169 bpm General Evaluation Cardiac activity present. FHR 169 bpm Performed By: Donnell Romero NP Read By: Donnell Romero NP MATERNAL MEDICINE [facility] Radiology Study observation (narrative) [facility] RUBELLA IGG ANTIBODYon 12-27 RUBELLA IGG AB, QUAL Negative Abnormal Positive [facility] Comment on above: Order Comment: Slava cedeño Type: BLOOD SPECIMEN Ordering Facility: [facility] Address: [address] [place] [address] Result Comment: The result suggests no history of Rubella vaccination or exposure to Rubella virus, however, some individuals with past history of Rubella vaccination may test negative using this test as immunity to Rubella virus wanes over time after vaccination. Please correlate with vaccination history if applicable. Performed By: #### 5 8410-2 #### [facility] CLIA [id number] [address] [place] [address] [place] Reagin and Treponema pallidu m IgG and IgM [Interp]on 12-27-2024 T. pallidum IgG+IgM IA Ql (S) Non-Reactive Normal Nonreactive [facility] Comment on above: Order Comment: Slava cedeño Type: BLOOD SPECIMEN Ordering Facility: [facility] Address: [address] [place] [address] Performed By: #### 5 195-3, 03643-0, 53060-7 #### [facility] CLIA [id number] [address] [place] [address] [place] Reagin+T pallidum IgG+IgM Se rPl-Impon 12-27-2024 Reagin and Treponema pallidum IgG and IgM [Interp] Cannot exclude recent Treponemal infection if specimen collected within 7-10 days after appearance of suspect lesions or 2-3 weeks after an exposure. Clinical correlation is required. Normal [facility] Comment on above: Order Comment: Speci men Type: BLOOD SPECIMEN Ordering Facility: [facility] Address: [address] [place] [address] Performed By: #### 5 195-3, 08475-6, 31612-6 #### [facility] CLIA [id number] [address] [place] [address] [place] T4 Free SerPl-mCncon 025 Free T4 [Mass/Vol] 0.9 ng/dL Normal 0.9-1.7 [facility] Comment on above: Order Comment: Speci men Type: BLOOD SPECIMEN Ordering Facility: [facility] Address: [address] [place] [address] Performed By: #### G LTGST #### [facility] CLIA [id number] [address] [place] [address] [place] TRICHOMONAS VAGINALIS NAATon 12-27-2024 T. vaginalis DNA MARY+probe Ql (Unsp spec) Not detected Normal Not detected [facility] Comment on above: Order Comment: Speci men Type: BLOOD SPECIMEN Ordering Facility: [facility] Address: [address] [place] [address] Performed By: #### 5 195-3, 17860-8, 80143-3 #### [facility] CLIA [id number] [address] [place] [address] [place] TSH SerPl-aCncon 12-27-2024 TSH Qn 2.570 m[IU]/L Normal 0.270-4.200 [facility] Comment on above: Order Comment: Speci men Type: BLOOD SPECIMEN Ordering Facility: [facility] Address: [address] [place] [address] Result Comment: If t he patient is , TSH reference range varies by gestational period: First Trimester (weeks 9-12): 0.180-2.990 mIU/L Second Trimester: 0.110-3.980 mIU/L Third Trimester: 0.480-4.710 mIU/L Gustavo Luque et al. A Practical Approach for the Verifications and Determination of Site- and Trimester-Specific Reference Intervals for Thyroid Function tests in . Thyroid, 2019:29:3:412-420. Soto Lui, et al. 2017 Guidelines of the [place] Thyroid Association for the Diagnosis and Management of Thyroid Disease during and the . Thyroid, 2017:27:3:315-389. Performed By: #### G LTGST #### [facility] CLIA [id number] [address] [place] [address] [place] TYPE + SCREEN PRENATALon ABO group Nom (Bld) O [facility] Blood group antibody screen Ql Negative [facility] Rh Nom (Bld) Positive [facility] Type and Screen Expiration 12/30/2024 23:59 [facility] ABO O Normal [facility] Comment on above: Order Comment: Speci men Type: BLOOD SPECIMEN Ordering Facility: [facility] Address: [address] [place] [address] Performed By: #### T SPN #### [facility] CLIA [id number] [address] [place] [address] [place] Rh Nom (Bld) Positive Normal [facility] Comment on above: Order Comment: Speci men Type: BLOOD SPECIMEN Ordering Facility[facility] Address: [address] [place] [address] Performed By: #### T SPN #### [facility] CLIA [id number] [address] [place] [address] [place] TYPE AND SCREEN EXPIRATION 12/30/2024 23:59 Normal [facility] Comment on above: Order Comment: Speci men Type: BLOOD SPECIMEN Ordering Facility[facility] Address: [address] [place] [address] Performed By: #### T SPN #### [facility] CLIA [id number] [address] [place], [place] [address] [address] [place] 36on 12-25-2024 36 Call placed to [facility] in [place], [place] at [phone], Faxed request to [facility] at [phone], they state they will provide an encrypted code to view images. Will notify provider once available. Additionally it appears patient was seen by OB on 12/20/24 and is currently . Sending to provider as FYI. [facility] CNOVon 12-20-2024 CNOV Office Visit (OBGYWM ) LOYDA BURNETTE ([id number]) 1990 F Date Time Provider Department 12/20/24 1:45 PM JESSENIA VALVERDE OBGYWM During your visit today, we recorded the following information about you: Blood pressure Weight Last Period 100/66 52.6 kg 11/03/24 Jessenia Valverde APRN.CNM 12/20/2024 3:10 PM Signed Loyda Youssefmariam is a 34 year old female who presents as an add on for problem visit of a sharp burning feeling behind left knee since yesterday. She contacted gerontological nurse practitioner nurse and was unable to go to Urgent Care or ED last night. Reports area has no redness, warmth or tenderness to touch. She is concerned she has a DVT. Patient is approximately 6 weeks gestation. OB History Gravida2 Para2 Term1 Preterm0 AB0 Living2 SAB0 IAB0 Ectopic0 Multiple0 Live Births2 Comment: 1st delivery was in [place], no or delivery complications per patient Molder Machine Tender History LMP: 10/09/2023 (Exact Date), Having periods Age at Menarche: Age at First : Age at Menopause: Molder Machine Tender History Comments: Sexual Activity: Yes; Male Contraception: Not used PAST MEDICAL HISTORY Diagnosis Date H/O Ricarda thyroiditis Ricarda's disease Thyroid disease PAST SURGICAL HISTORY Procedure Laterality Date NONE FAMILY HISTORY Problem Relation Age of Onset Thyroid Mother hashimotos Stroke Father Diabetes Father Heart disease Father No Known Problems Sister No Known Problems Sister Thyroid Brother hypo Stroke Maternal Grandfather Heart Attack Maternal Grandfather 55 Breast Cancer Paternal Grandmother 45 Cancer Paternal Grandmother bladder Pancreatic Cancer Paternal Grandfather No Known Problems Daughter No Known Problems Daughter Melanoma Paternal Uncle Social History Tobacco Use Smoking status: Never Smokeless tobacco: Never Vaping Use Vaping status: Never Used Substance Use Topics Alcohol use: Yes Comment: Seldom Drug use: No Current Outpatient Medications Medication Sig cholecalciferol, vitamin D3, (VITAMIN D3 ORAL) Take 5,000 Units by mouth once daily. thyroid (PUBLICATION DISTRIBUTOR THYROID) 15 mg tablet Take 1 tablet by mouth once daily. take one tablet 6 days a week, 1/2 tablet on Sundays multivitamin (MULTIPLE VITAMIN ESSENTIAL ORAL) Take 1 tablet by mouth twice daily. medroxyPROGESTERone (PROVERA) 10 mg tablet Take 1 tablet by mouth once daily. (Patient not taking: Reported on 12/20/2024) No current facility-administered medications for this visit. Allergies As of Date: 12/20/2024 Allergen Noted Reaction VERMOX [MEBENDAZOLE] 05/11/2018 Other: See Comments Fully Assessed 12/20/2024 REVIEW OF SYSTEMS Abdomen: Positive for nausea- no emesis Bladder: No dysuria, gross hematuria, urinary frequency, urinary urgency, or incontinence. Breast: No breast lumps, nipple d/c, overlying skin changes, redness or skin retraction. Expanded ROS: N/A Allergies and current medication updated:Yes SENSITIVE EXAM: Sensitive exam not performed. EXAM: LMP 10/09/2023 GENERAL: pleasant, female in no apparent distress HEENT: Normocephalic NECK: Supple and full range of motion DERMATOLOGY: Normal BREAST: deferred CHEST: Normal inspiratory effort ABDOMEN: Deferred PELVIC: deferred BIMANUAL: deferred NEURO: alert and oriented x3,exam grossly non-focal EXTREMITIES: normal NO redness to area on left leg. Soreness is towards the lateral aspect of the knee. Not tender to palpation. ASSESSMENT AND PLAN: Assessment AND Plan Left leg pain Positive blood test (HCC) - Support provided - Pain consistent with pulled muscle around knee area - Reviewed s/s of DVT and when to notify office - RTO - already scheduled NODutch Valverde APRN.CNM Allergies As of Date: 12/20/2024 Noted Allergy Reaction VERMOX (MEBENDAZOLE) 05/11/2018 14 - Other: See Comments Comments: Skin peeled Date Reviewed: 12/20/2024 Reviewed by: Wilfredo Fernández MA - Fully Assessed Primary Visit Diagnosis:Left leg pain [M79.605] Other Visit Diagnosis:Positive blood test (HCC) [Z32.01] Prescriptions as of 12/20/2024 - medroxyPROGESTERone (PROVERA) 10 mg tablet Take 1 tablet by mouth once daily. - cholecalciferol, vitamin D3, (VITAMIN D3 ORAL) Take 5,000 Units by mouth once daily. - thyroid (PUBLICATION DISTRIBUTOR THYROID) 15 mg tablet Take 1 tablet by mouth once daily. take one tablet 6 days a week, 1/2 tablet on Sundays - multivitamin (MULTIPLE VITAMIN ESSENTIAL ORAL) Take 1 tablet by mouth twice daily. 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 [facility] LOYDA BURNETTE ([id number]) 1990 F Date Time Provider Department 12/19/24 JESSENIA VALVERDE During your visit today, we recorded the following information about you: Korin Trejo, ROSIO 12/19/2024 5:05 PM Signed LMP 11/03 approximately 6w4d Patient called with c/o dull, lightly sharp pain behind her left knee that started last night. Pain rate of 4. Patient denies redness, swelling, or warmth to the touch. Patient concerned for possible DVT, but only because of the location of the pain. Denies hx of DVT. Advised that patient could be seen at [facility] or ER tonight since office is closing. Scheduled patient for a visit with CP for tomorrow afternoon. Patient will call to cancel if she is evaluated tonight instead. Korin Trejo RN Allergies As of Date: 12/19/2024 Noted Allergy Reaction VERMOX (MEBENDAZOLE) 05/11/2018 14 - Other: See Comments Comments: Skin peeled Date Reviewed: 12/26/2023 Reviewed by: Korin Cook MD - Fully Assessed Reason for Visit: Early OB Possible DVT [Other] Prescriptions as of 12/19/2024 - medroxyPROGESTERone (PROVERA) 10 mg tablet Take 1 tablet by mouth once daily. - cholecalciferol, vitamin D3, (VITAMIN D3 ORAL) Take 5,000 Units by mouth once daily. - thyroid (PUBLICATION DISTRIBUTOR THYROID) 15 mg tablet Take 1 tablet by mouth once daily. take one tablet 6 days a week, 1/2 tablet on Sundays - multivitamin (MULTIPLE VITAMIN ESSENTIAL ORAL) Take 1 tablet by mouth twice daily. 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] Thyroid disease [E07.9] Encounter Status:Closed by KORIN TREJO on 12/19/24 Normal [facility] ABO/Rh (Gel)on 2024 ABO/Rh Interp Positive Invalid Interpretation Code [facility] Comment on above: Performed By: #### H AC, ISAIAS, SAMANTHA, ADIFF, CBC, ABOGEL #### [address] [address] UAMICon 2024 UA Bacteria 1+ /hpf Abnormal Negative [facility] Comment on above: Performed By: #### U A, UAMIC #### [place] [id number] UA RBC Rare Normal 0-2 [facility] Comment on above: Performed By: #### U A, UAMIC #### [address] [address] UA Squam Epithelial 3-5 Normal 0-20 [facility] Comment on above: Performed By: #### U A, UAMIC #### [address] [address] UA WBC 3-5 Normal 0-5 [facility] Comment on above: Performed By: #### U A, UAMIC #### [address] [address] .Auto Diffon 12-14-2024 Basophil, Absolute 0.0 10 3/mcL Normal 0.0-0.3 [facility] Comment on above: Performed By: #### H AC, ISAIAS, SAMANTHA, ADIFF, CBC, ABOGEL #### [address] [address] Basophils/100 WBC (Bld) 0.7 % Normal 0.0-2.5 [facility] Comment on above: Performed By: #### H ISAIAS SHEN MDW, ADIFF, CBC, ABOGEL #### [place] [id number] Eosinophil, Absolute 0.1 10 3/mcL Normal 0.0-0.7 [facility] Comment on above: Performed By: #### H ISAIAS SHEN MDW, ADIFF, CBC, ABOGEL #### [address] [address] Eosinophils/100 WBC (Bld) 1.0 % Normal 0.0-6.0 [facility] Comment on above: Performed By: #### H CG, ANEU, MDW, ADIFF, CBC, ABOGEL #### [address] [address] Lymphocyte, Absolute 1.3 10 3/mcL Normal 0.9-4.3 [facility] Comment on above: Performed By: #### H CG, ANEU, MDW, ADIFF, CBC, ABOGEL #### [address] [address] Lymphocytes/100 WBC (Bld) 23.0 % Normal 20.0-40.0 [facility] Comment on above: Performed By: #### H CG, ANEU, MDW, ADIFF, CBC, ABOGEL #### [address] [address] Monocyte, Absolute 0.4 10 3/mcL Normal 0.1-1.4 [facility] Comment on above: Performed By: #### H CG, ANEU, MDW, ADIFF, CBC, ABOGEL #### [address] [address] Monocytes/100 WBC (Bld) 6.4 % Normal 2.0-13.0 [facility] Comment on above: Performed By: #### H CG, ANEU, MDW, ADIFF, CBC, ABOGEL #### [address] [address] Neutrophils/100 WBC (Bld) 68.9 % Normal 50.0-75.0 [facility] Comment on above: Performed By: #### H CG, ANEU, MDW, ADIFF, CBC, ABOGEL #### [address] [address] .MDWon 12-14-2024 Monocyte Distribution Width 16.55 Normal 0.00-20.00 [facility] Comment on above: Result Comment: For ED adult patients suspected of sepsis, MDW<=20.0 does not rule out sepsis or risk of sepsis Performed By: #### H CG, ANEU, MDW, ADIFF, CBC, ABOGEL #### [address] [address] .NEUABSon 12-14-2024 Neutrophil, Absolute 4.0 10 3/mcL Normal 2.3-8.1 [facility] Comment on above: Performed By: #### H AC, SAMANTHA ESPARZA, ADIFF, CBC, ABOGEL #### [address] [address] CBCon 12-14-2024 Erythrocyte distribution width (RBC) [Ratio] 13.1 % Normal 11.5-15.5 [facility] Comment on above: Performed By: #### H AC, SAMANTHA ESPARZA, ADIFF, CBC, ABOGEL #### [place] [address] Hematocrit (Bld) [Volume fraction] 40.1 % Normal 34.0-46.0 [facility] Comment on above: Performed By: #### H ISAIAS SHEN MDW, ADIFF, CBC, ABOGEL #### [place] [address] Hgb 13.6 G/dL Normal 12.0-16.0 [facility] Comment on above: Performed By: #### H ISAIAS SHEN MDW, ADIFF, CBC, ABOGEL #### [place] [id number] MCH (RBC) [Entitic mass] 30.1 pg Normal 27.0-33.0 [facility] Comment on above: Performed By: #### H AC, SAMANTHA ESPARZA, ADIFF, CBC, ABOGEL #### [place] [id number] MCHC 34.0 G/dL Normal 32.0-36.0 [facility] Comment on above: Performed By: #### H AC, SAMANTHA ESPARZA, ADIFF, CBC, ABOGEL #### [place] [address] MCV (RBC) [Entitic vol] 88.6 fL Normal 80.0-99.0 [facility] Comment on above: Performed By: #### H AC, ISAIAS, W, ADIFF, CBC, ABOGEL #### [place] [id number] Platelet 249 10 3/mcL Normal 150-450 [facility] Comment on above: Performed By: #### H AC, SAMANTHA ESPARZA, ADELIZABETH, CBC, ABOGEL #### [facility] [address] [place] [id number] Platelet mean volume (Bld) [Entitic vol] 7.4 fL Normal 6.6-10.5 [facility] Comment on above: Performed By: #### H ISAIAS SHEN MDW, ADIFF, CBC, ABOGEL #### [facility] [address] [place] [address] RBC 4.53 10 6/mcL Normal 4.10-5.30 [facility] Comment on above: Performed By: #### H ISAIAS SHEN MDW, ADELIZABETH, CBC, ABOGEL #### [place] [id number] [place] [address] WBC 5.8 10 3/mcL Normal 4.5-10.8 [facility] Comment on above: Performed By: #### H ISAIAS SHEN MDW, ADIFF, CBC, ABOGEL #### [address] [address] HCGon 12-14-2024 Date of LMP unknown Normal [facility] Comment on above: Performed By: #### H ISAIAS SHEN MDW, ADIFF, CBC, ABOGEL #### [address] [address] hCG, quantitative 19341.1 mIU/mL Normal [facility] Comment on above: Result Comment: Pardeep titative hCG reference ranges: Non adults. . . . . . . . . . .0 - 5 mIU/mL (All values referenced to 1st IRP / 3rd IS 75/537 standards.) females based on gestational age: 1 week. . . . . . . . . . . . . . . .5 - 50 mIU/mL 2 weeks . . . . . . . . . . . . . . .50 - 500 mIU/mL 3 weeks . . . . . . . . . . . . . . .100 - 10,000 mIU/ml 4 weeks . . . . . . . . . . . . . . .1,000 - 30,000 mIU/mL 6-8 weeks . . . . . . . . . . . . . . .12,000 - 270,000 mIU/mL 12 weeks . . . . . . . . . . . . . . .15,000 - 220,000 mIU/mL 2nd trimester . . . . . . . . . . . .2,500 - 82,000 mIU/mL 3rd trimester . . . . . . . . . . . .2,400 - 50,000 mIU/mL Performed By: #### H CG, ANEU, MDW, ADIFF, CBC, ABOGEL #### [place] [address] LABORATORYOrdered By: Martinez marina on 12-14-2024 Beta HCG ( test) Ql (U) Positive (12/14/24 10:56 PM) [facility] Work Phone: LABORATORYOrdered By: Angy Goyal on 12-14-2024 ABO and Rh group Nom (Bld) Blood group O Rh(D) positive Invalid Interpretation Code AH BB Auto SS RhIg Indicated Patient: NOT RhIg Bart (12/14/24 10:52 PM) Normal AH BB Manual SS LABORATORYOrdered By: Kelechi genao on 12-14-2024 Appearance (U) Clear (12/14/24 10:52 PM) Normal Clear AH Auto Urine SS Bacteria LM.HPF (Urine sed) [#/Area] 1 /[HPF] Invalid Interpretation Code Negative AH Auto Urine SS Bilirubin Ql (U) Negative (12/14/24 10:52 PM) Normal Neg-Trace AH Auto Urine SS Color (U) Yellow (12/14/24 10:52 PM) Normal AH Auto Urine SS Glucose Test strip (U) [Mass/Vol] Negative Normal Negative AH Auto Urine SS Hemoglobin Auto test strip (U) [Mass/Vol] Negative (12/14/24 10:52 PM) Normal Neg-Trace AH Auto Urine SS Ketones Ql (U) Trace mg/dL Normal Neg-Trace AH Auto Urine SS UA Leuk Est Moderate *ABN* (12/14/24 10:52 PM) Invalid Interpretation Code Negative AH Auto Urine SS UA Nitrite Negative (12/14/24 10:52 PM) Normal Negative AH Auto Urine SS UA pH 5.0 (12/14/24 10:52 PM) Normal 5.0 - 8.0 AH Auto Urine SS UA Protein Negative Normal Negative AH Auto Urine SS UA RBC Rare /HPF Normal 0-2 AH Auto Urine SS UA Spec Grav 1.020 (12/14/24 10:52 PM) Normal 1.006-1.029 AH Auto Urine SS UA Specimen Type Clean Catch (12/14/24 10:52 PM) Normal AH Auto Urine SS UA Squam Epithelial 3-5 /HPF Normal 0-20 AH Au to Urine SS UA Urobilinogen 0.2 E.U./dL Normal 0.2-1.0 AH Auto Urine SS WBC LM.HPF (Urine sed) [#/Area] 3-5 /HPF Normal 0-5 AH Auto Urine SS LABORATORYOrdered By: SYSTEM SYSTEM on 12-14-2024 Basophils (Bld) [#/Vol] 0.0 103/mcL Normal 0.0 - 0.3 10^3/mcL AH Workflow SS Basophils/100 WBC (Bld) 0.7 % Normal 0.0 - 2.5 % AH Workflow SS Eosinophils (Bld) [#/Vol] 0.1 103/mcL Normal 0.0 - 0.7 10^3/mcL AH Workflow SS Eosinophils/100 WBC (Bld) 1.0 % Normal 0.0 - 6.0 % AH Workflow SS Erythrocyte distribution width (RBC) [Ratio] 13.1 % Normal 11.5 - 15.5 % [facility] [place] [address].1 m[IU]/mL Invalid Interpretation Code ADM SS Comment on above: Interpretive Data: Q uantitative hCG reference ranges: Non adults. . . . . . . . . . .0 - 5 mIU/mL (All values referenced to 1st IRP / 3rd IS 75/537 standards.) females based on gestational age: 1 week. . . . . . . . . . . . . . . .5 - 50 mIU/mL 2 weeks . . . . . . . . . . . . . . .50 - 500 mIU/mL 3 weeks . . . . . . . . . . . . . . .100 - 10,000 mIU/ml 4 weeks . . . . . . . . . . . . . . .1,000 - 30,000 mIU/mL 6-8 weeks . . . . . . . . . . . . . . .12,000 - 270,000 mIU/mL 12 weeks . . . . . . . . . . . . . . .15,000 - 220,000 mIU/mL 2nd trimester . . . . . . . . . . . .2,500 - 82,000 mIU/mL 3rd trimester . . . . . . . . . . . .2,400 - 50,000 mIU/mL Hematocrit (Bld) [Volume fraction] 40.1 % Normal 34.0 - 46.0 % AH Workflow SS Hemoglobin (Bld) [Mass/Vol] 13.6 G/dL Normal 12.0 - 16.0 G/dL AH Workflow SS Lymphocytes (Bld) [#/Vol] 1.3 103/mcL Normal 0.9 - 4.3 10^3/mcL AH Workflow SS Lymphocytes/100 WBC (Bld) 23.0 % Normal 20.0 - 40.0 % AH Workflow SS MCH (RBC) [Entitic mass] 30.1 pg Normal 27.0 - 33.0 pg AH Workflow SS MCHC 34.0 G/dL Normal 32.0 - 36.0 G/dL AH Workflow SS MCV (RBC) [Entitic vol] 88.6 fL Normal 80.0 - 99.0 fL AH Workflow SS Monocyte distribution width Auto (Bld) [Entitic vol] 16.55 1 Normal 0.00 - 20.00 AH Workflow SS Comment on above: Result Comment: For ED adult patients suspected of sepsis, MDW<=20.0 does not rule out sepsis or risk of sepsis Monocytes (Bld) [#/Vol] 0.4 103/mcL Normal 0.1 - 1.4 10^3/mcL AH Workflow SS Monocytes/100 WBC (Bld) 6.4 % Normal 2.0 - 13.0 % AH Workflow SS Neutrophils (Bld) [#/Vol] 4.0 103/mcL Normal 2.3 - 8.1 10^3/mcL AH Workflow SS Neutrophils/100 WBC (Bld) 68.9 % Normal 50.0 - 75.0 % AH Workflow SS Platelet mean volume (Bld) [Entitic vol] 7.4 fL Normal 6.6 - 10.5 fL AH Workflow SS Platelets (Bld) [#/Vol] 249 103/mcL Normal 150 - 450 10^3/mcL Workflow SS RBC (Bld) [#/Vol] 4.53 106/mcL Normal 4.10 - 5.3 0 10^6/mcL Workflow SS WBC (Bld) [#/Vol] 5.8 103/mcL Normal 4.5 - 10.8 10^3/mcL Workflow SS LABORATORYOrdered By: Clement Hurtado on 12-14-2024 Date of LMP unknown Invalid Interpretation Code Chemistry S UAon 12-14-2024 Color (U) Yellow Normal [facility] Comment on above: Performed By: #### U A, UAMIC #### [place] [address] Glucose (U) [Mass/Vol] Negative Normal Negative [facility] Comment on above: Performed By: #### U A, UAMIC #### [place] [address] Ketones Ql (U) Trace Normal Neg-Trace [facility] Comment on above: Performed By: #### U A, UAMIC #### [place] [address] UA Appear Clear Normal Clear [facility] Comment on above: Performed By: #### U A, UAMIC #### [place] [address] UA Blood Negative Normal Neg-Trace [facility] Comment on above: Performed By: #### U A, UAMIC #### [place] [address] UA Leuk Est Moderate Abnormal Negative [facility] Comment on above: Performed By: #### U A, UAMIC #### [place] [address] UA Nitrite Negative Normal Negative [facility] Comment on above: Performed By: #### U A, UAMIC #### [place] [address] UA pH 5.0 Normal 5.0 - 8.0 [facility] Comment on above: Performed By: #### U A, UAMIC #### [address] [place], [place] [address] UA Protein Negative Normal Negative [facility] Comment on above: Performed By: #### U A, UAMIC #### [facility] [address] [place] [address] UA Spec Grav 1.020 Normal 1.006-1.029 [facility] Comment on above: Performed By: #### U A, UAMIC #### [facility] [address] [place] [address] UA Specimen Type Clean Catch Normal [facility] Comment on above: Performed By: #### U A, UAMIC #### [facility] [address] [place] [address] UA Urobilinogen 0.2 E.U./dL Normal 0.2-1.0 [facility] Comment on above: Performed By: #### U A, UAMIC #### [place] [address] Urobilinogen (U) [Mass/Vol] Negative Normal Neg-Trace [facility] Comment on above: Performed By: #### U A, UAMIC #### [facility] [address] [place] [id number] 37on 12-08-2024 37 YOUR APPOINTMENT TOHyun DIMAS WAS WITH THE [facility], COPD CLINIC, PULMONARY AND SLEEP MEDICINE OFFICE. PLEASE CALL OUR OFFICE AT [phone] IF YOU HAVE NOT RECEIVED YOUR TEST RESULTS 7 DAYS AFTER TESTING IS COMPLETED. PLEASE REMEMBER TO REQUEST REFILLS AT YOUR OFFICE VISITS. PHONE/FAX REQUESTS REQUIRE 48-72 HOURS FOR RESPONSE. A FRIENDLY REMINDER COPAYS ARE DUE AT TIME OF SERVICE. THANK YOU. Our Patients Are Important! We want to improve and you can help. After your visit we want you to feel: Listened to, Respected and have your health care explained. You may receive a survey asking you about your visit. Please complete the survey. We will use your feedback to make improvements. COVID-19 VACCINATION INFORMATION: PH. [phone] [email or web address] VACCINE [facility] Central Scheduling [phone] [facility] Sleep Scheduling [phone] Normal [facility] Office Visiton 12-08-2024 Follow-up visit [id number] Loyda Burnette 1990 F Date Provider Department Center 12/08/2024 [id number] [place] [facility] ACH PUL None Chart Close Cosign Required by: Albino Foley DO[VICKIE] Family History Problem Relation Age of Onset Breast cancer Paternal Grandmother 53 Family Status - Relation Status Age at Paternal Grandmother Level of Service:69129 [place] OFFICE/OUTPATIENT NEW MODERATE MDM 45 MINUTES (GC) Reason for Visit and Comments: New Patient [542] Normal [facility] Progress Noteon 12-08-2024 Progress Note --- Attestation signed by Albino Foley DO at 12/11/2024 5:22 PM I saw and evaluated the patient, participating in the barry portions of the service. I reviewed the resident?s note. I agree with the resident?s findings and plan. Albino Foley DO [facility]- Pulmonary and Sleep Medicine NEW PATIENT VISIT REFERRING PHYSICIAN: No referring provider defined for this encounter. CHIEF COMPLAINT/REASON FOR REFERRAL: Chief Complaint Patient presents with New Patient History of Present Illness: Loyda Burnette is a 33 y.o. female with a history of hypothyroidism, right lung nodule who presents for initial evaluation of chronic cough. She previously had a CT chest in [facility] in [place], [place]. Records are not available, but appears to have been done around March 2023. She had negative CXR 01/2022, images not available but report is. She says about a year and a half ago she had cyclic fevers in [place] over a period of a few weeks. She was hospitalized and received a CT scan which revealed a 6 mm subpleural nodule. She was told initially that she had cancer and was seen by Oncology but then saw Pulmonology who told her the nodule was round and appeared to be fluid filled and unlikely to be cancer. A [address] was recommended. She received an penicillin injection and her symptoms all resolved and did not return. She has no residual symptoms, generally quite active, and has two children, gets some dyspnea only when her thyroid replacement is off. She is concerned about the radiation of CT scan. She is currently trying to get . Discussed it would be advised to get repeat CT to ensure nodule has not grown in size. She would ideally like a low dose screening CT chest if possible. She tried to get records sent from hospital in [place] but they were unable to. Coccidioides Ab, TP (Eia) (PHX) Abnormal Positive Reference range: Negative (NOTE) Coccidioides Antibody Enzyme Immunoassay (EIA) may have lower specificity than Coccidioides Antibody Immunodiffusion (IMDF). This is especially true if only the IgM EIA is positive. EIA results should only be interpreted in conjunction with IMDF results. If IMDF results are negative, correlation with the clinical findings and repeat testing in 1 to 3 weeks may be warranted. The [employer] Cocci Ab EIA Test Kit measures the expression of Anti-TP IgM antibodies and Anti-CF IgG antibodies. Antibodies against the TP antigen become measurable early in the acute phase of infection, between the first [50%] and third [90%] weeks of onset, while antibodies against the CF antigen become measureable between the second and 28th week. Test Performed at: [employer] [facility] [address] [place] [id number] Coccidioides Ab, Cf (Eia) (PHX) Negative Reference range: Negative (NOTE) Coccidioides Antibody Enzyme Immunoassay (EIA) may have lower specificity than Coccidioides Antibody Immunodiffusion (IMDF). This is especially true if only the IgM EIA is positive. EIA results should only be interpreted in conjunction with IMDF results. If IMDF results are negative, correlation with the clinical findings and repeat testing in 1 to 3 weeks may be warranted. Assessment and Plan: Diagnosis Plan 1. Solid nodule of lung 6 mm to [address] lung screening follow up low dose 2. Pulmonary nodule, right CT lung screening follow up low dose 3. Chronic cough 4. History of coccidioidomycosis CT lung screening follow up low dose Complete PFT pre and post bronchodilator 5. Encounter for routine care HCG, quantitative, HCG, quantitative, Had subpleural nodule in the right lower lobe seen on CT chest in March 2023. Appears to have had positive Coccidiomycosis serologies at that time. Was recommended by Pulmonology in [place] to get [address] chest but was lost to follow up. She is low risk as she is a never smoker with no occupational exposures. Will send message to obtain CT images from [place] if possible. Discussed risks and benefits of repeat CT chest with her and she is agreeable to get repeat scan. Ordered low dose CT chest to minimize radiation exposure. Ordered serum beta HCG for 1 week prior to scan. If positive CT would need rescheduled. Non urgent PFT ordered Fellow, Pulmonology PastMedical History Past Medical History: Diagnosis Date Hypothyroid Miscarried within last 12 months Past Surgical History History reviewed. No pertinent surgical history. Allergies Allergies Allergen Reactions Mebendazole Other and Rash Other reaction(s): Other, skin peeling SKIN PEELING Skin peeled Medications Current Outpatient Medications: thyroid ([place]) 30 MG tablet, Take 30 mg by mouth d (more content not included)... Normal [facility] CBC panel Auto (Bld)on 10-01 Erythrocyte distribution width (RBC) [Ratio] 12.6 % 11.5 - 15.0 % [facility] Hematocrit (Bld) [Volume fraction] 41.3 % 36.0 - 46.0 % [facility] Hemoglobin (Bld) [Mass/Vol] 13.8 g/dL 11.5 - 15.5 g/dL [facility] MCH (RBC) [Entitic mass] 29.2 pg 26.0 - 34.0 pg [facility] MCHC (RBC) [Mass/Vol] 33.4 g/dL 30.5 - 36.0 g/dL [facility] MCV (RBC) [Entitic vol] 87.5 fL 80.0 - 100.0 fL [facility] Nucleated RBC (Bld) [#/Vol] <0.01 k/uL [facility] Platelet mean volume (Bld) [Entitic vol] 9.4 fL 9.0 - 12.7 fL [facility] Platelets (Bld) [#/Vol] 263 10*3/uL 150 - 400 k/uL [facility] RBC (Bld) [#/Vol] 4.72 10*6/uL 3.90 - 5.2 0 m/uL [facility] WBC (Bld) [#/Vol] 5.39 10*3/uL 3.70 - 11. 00 k/uL [facility] HCG QUANTITATIVEon 3 HCG.beta subunit Qn <5.0 mIU/mL [facility] Patient Letteron 03-23-2023 Patient Letter (Inserted Image. Noy ble to display) March 23, 2023 LOYDA BURNETTE [address] [place] [address] Date 03/23/23 Dear Loyda, Due to a change in our schedule, your appointment with Dr. Oneil on 04/20/23 at 10;10 will have to be rescheduled. We have been trying to reach you and your mailbox is full. Please call our office at [phone] so that we may change this appointment. We are sorry for any inconvenience this may have caused. Sincerely, RUSH ONEIL MD Normal [facility] HCG QUANTITATIVEon 3 HCG.beta subunit Qn <5.0 mIU/mL [facility] BACTERIAL VAGINOSIS NAATon 0 02-11-2023 Lactobacillus crispatus+gasseri+j ensenii + Gardnerella vaginalis + Atopobium vaginae rRNA MARY+probe Ql (Vag fld) Negative Negative for bacterial vaginosis [facility] BART/TRICHOMONAS NAATon 0 02-11-2023 C. glabrata RNA MARY+probe Ql (Vag fld) Negative Negative for Bart glabrata [facility] Bart sp DNA MARY+probe Ql (Vag fld) Negative Negative for Bart species [facility] T. vaginalis DNA MARY+probe Ql (Unsp spec) Negative Negative for Trichomonas vaginalis by amplification [facility] HCG QUANTITATIVEon 3 HCG.beta subunit Qn <5.0 mIU/mL [facility] US Head and neck soft tissue on 09-19-2022 No evidence of cervi west lymphadenopathy. If there is concern for an abnormality not seen by ultrasound, contrast CT could be obtained for further evaluation. Report Dictated on Electronically Signed By: Andrea Sigala Electronically Signed Date/Time: 09/19/2022 12:46 PM [facility] Patient Name: LOYDA DELGADO Exam Date/Time: 09/18/2022 11:11 Procedure: US HEAD NECK SOFT TISSUE Ordering Provider: RHODES RACHEL Reason For Exam: ULTRASOUND HEAD AND NECK: CLINICAL INDICATION: Palpable lump on neck TECHNIQUE: Ultrasonographic evaluation of the head and neck COMPARISON: None FINDINGS: CERVICAL LYMPH NODES: RIGHT: Level 1 (submental/submandibula r): None Level 2 (anterior cervical/upper jugular): None Level 3 (middle jugular): None Level 4 (lower jugular): None Level 5 (posterior compartment): None Level 6 (visceral or central compartment): None LEFT: Level 1 (submental/submandibula r): None Level 2 (anterior cervical/upper jugular): None Level 3 (middle jugular): None Level 4 (lower jugular): None Level 5 (posterior compartment): None Level 6 (visceral or central compartment): None [facility] Andrea Sigala MD - 09/19/2022 Patient Name: LOYDA BURNETTE Exam Date/Time: 09/18/2022 11:11 Procedure: US HEAD NECK SOFT TISSUE Ordering Provider: RHODES RACHEL Reason For Exam: ULTRASOUND HEAD AND NECK: CLINICAL INDICATION: Palpable lump on neck TECHNIQUE: Ultrasonographic evaluation of the head and neck COMPARISON: None FINDINGS: CERVICAL LYMPH NODES: RIGHT: Level 1 (submental/submandibula r): None Level 2 (anterior cervical/upper jugular): None Level 3 (middle jugular): None Level 4 (lower jugular): None Level 5 (posterior compartment): None Level 6 (visceral or central compartment): None LEFT: Level 1 (submental/submandibula r): None Level 2 (anterior cervical/upper jugular): None Level 3 (middle jugular): None Level 4 (lower jugular): None Level 5 (posterior compartment): None Level 6 (visceral or central compartment): None IMPRESSION: No evidence of cervical lymphadenopathy. If there is concern for an abnormality not seen by ultrasound, contrast CT could be obtained for further evaluation. Report Dictated on Electronically Signed By: Andrea Sigala Electronically Signed Date/Time: 09/19/2022 12:46 PM EST [employer] US Head and neck soft tissue Ordered By: Andrea Sigala on 09-19-2022 [employer] Work Phone: US Head and neck soft tissue on 09-18-2022 Radiology Study observation (narrative) [employer] CNOVon 09-01-2022 CNOV Office Visit (GENSF) LOYDA BURNETTE ([id number]) 1990 F Date Time Provider Department 09/01/22 1:00 PM CELENA KELLOGG During your visit today, we recorded the following information about you: Temperature Pulse Blood pressure Weight 98.1 degrees 99/minute 111/80 49.9 kg Last Period 08/08/22 Celena Kellogg PA-C 09/01/2022 4:51 PM Signed MEDICAL BREAST PATIENT NAME: Loyda Burnette September 01, 2022 REFERRAL: She is self-referred for an opinion regarding right breast pain. 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 The patient denies any breast masses, skin changes, or nipple discharge. She previously reported right breast pain with a lump while , for which 04/2021 bilateral diagnostic imaging with right US revealed multiple probably benign 4 mm- 8 mm lobulated areas in the UOQ 2 cmfn (correlating with area of pain and possibly representing debris within ducts). 3 month follow-up right US in 06/2021 revealed a 2.4 cm area of duct ectasia or edema for which US guided biopsy was recommended. She saw a general surgeon, Dr. Leigh, who felt this lesion was likely duct ectasia and possibly inflammatory changes of the ducts/bresat tissue. This it was decided to closely follow-up. Repeat right US in 10/2021 revealed a benign now 9 mm dilated duct consistent with duct ectasia or debris at 11:00, 4 cmfn. She stopped in early 2021 before she had the repeat US in 10/2021 revealing the smaller dilated duct. She had a miscarriage ~10 months ago and her cycles became irregular after that. They have improved but they are still off. She has now had right breast pain again in the same area since 06/2022 with possible lumpy tissue but not as significant as before. The pain is intermittent and is worse with her cycle. It radiates into the axillary region at times. She does not take any exogenous hormones, drinks 1 coffee daily and denies any trauma. Her vitamin D level was No results found for: VITD25. She takes vitamin D 5000 units and a multivitamin daily. BMD: No PERSONAL BREAST HISTORY: Past breast history (prior to this encounter) is as follows: Breast biopsy: No Breast cysts: No Breast surgery: No Breast cancer: No CANCER SURVEILLANCE: Mammograms: Yes bilateral diagnostic imaging, Date in [facility]: 04/2021; results - as above Breast MRI: No Colonoscopy: No RISK FACTORS FOR BREAST CANCER: Age at the onset of menses: 15 years of age. P: 2 Age at the of first child: 23 years of age. She breast fed for 6 years total. Age at menopause: The patient is not menopausal at this time. Post-menopausal hormone therapy: Not applicable She has an intact uterus and ovaries She does not use any control. History of Mantle Radiation prior to the age of 29: No Obesity: No Body mass index is 17.23 kg/m?. Current Weight: 110 lbs Mammographic density: The breasts are extremely dense which limits the sensitivity of mammography Personal History of Benign Atypical Breast Biopsy: No Alcohol use: 1 glass of wine q 2-3 months PAST MEDICAL HISTORY: PAST MEDICAL HISTORY Diagnosis Date H/O Ricarda thyroiditis Ricarda's disease Thyroid disease Patient specifically denies history of: DVT, PE, migraine headaches WITH AURA, migraine headaches without aura, abnormal uterine bleeding, abnormal uterine biopsies, osteopenia, and osteoporosis. PAST SURGICAL HISTORY: PAST SURGICAL HISTORY Procedure Laterality Date NONE SOCIAL HISTORY: Social History Tobacco Use Smoking status: Never Smokeless tobacco: Never Vaping Use Vaping Use: Never used Substance Use Topics Alcohol use: Yes Comment: Seldom Drug use: No Caffeine intake: 1 coffee / day, occasional pop Exercise: Never FAMILY HISTORY: Family history of breast cancer: PGM around 49 years old, Family history of ovarian cancer: None Number of sisters: 2 Number of maternal aunts: 2 Number of paternal aunts: 0 Ashkenazi Ancestry: no Has Patient had Genetic Testing? No Other Cancer: PGM had bladder cancer in 60s. PGF had pancreatic cancer. Paternal uncle had melanoma. There is no family history of prostate, colon, uterine, pancreatic, gastric, brain, renal cell or thyroid cancer. There is no family history of sarcoma or leukemia. Osteoporosis: Mother Stroke: Father at 69. MGF in 60s Blood Clot: None Heart attack: MGF in 60s Thyroid Nodule or Goiter: Mother has Ricarda's (like patient). Autism: None FAMILY HISTORY Problem Relation Age of Onset Thyroid Mother hashimotos Stroke Father Diabetes Father Heart disease Father No Known Problems Sister No Known Problems S (more content not included)... Normal [facility] D-Dimer, Innovanceon 03-19-2 022 D-Dimer, Innovance 0.37 mg/L Normal <0.19-0.50 [facility] Comment on above: Result Comment: Inno pittman D-Dimer values of <0.50 mg/L FEU can be used in combination with a pre-test probability model (e.g. Well's) to exclude pulmonary embolism (PE) disease, as well as an aid in the diagnosis of deep vein thrombosis (DVT). Performed By: #### D DI2 #### [facility] [employer] [facility] [address] [place] [address] D-Dimer, Quantitativeon 08-0 D-Dimer, Quant 0.37 mg/L <0.19 - 0.50 [facility] Comment on above: Innovance D-Dimer va lues of <0.50 mg/L FEU can be used in combination with a pre-test probability model (e.g. Well's) to exclude pulmonary embolism (PE) disease, as well as an aid in the diagnosis of deep vein thrombosis (DVT). Test Performed by [facility], [address] , [place], [place] [id number] [place] [address] LAB [facility] CBC W Auto Differential pane l (Bld)on 03-11-2022 Abs Immature Gran <0.03 <0.10 k/uL [facility] Basophils (Bld) [#/Vol] 0.05 10*3/uL <0.11 k/uL [facility] Basophils/100 WBC (Bld) 1.3 % [facility] Differential cell count method Nom (Bld) Auto [facility] Eosinophils (Bld) [#/Vol] 0.05 10*3/uL <0.46 k/uL [facility] Eosinophils/100 WBC (Bld) 1.3 % [facility] Erythrocyte distribution width (RBC) [Ratio] 12.7 % 11.5 - 15.0 % [facility] Hematocrit (Bld) [Volume fraction] 38.2 % 36.0 - 46.0 % [facility] Hemoglobin (Bld) [Mass/Vol] 12.4 g/dL 11.5 - 15.5 g/dL [facility] Immature Gran % 0.3 % [facility] Lymphocytes (Bld) [#/Vol] 1.56 10*3/uL 1.00 - 4.00 k/uL [facility] Lymphocytes/100 WBC (Bld) 39.5 % [facility] MCH (RBC) [Entitic mass] 29.2 pg 26.0 - 34.0 pg [facility] MCHC (RBC) [Mass/Vol] 32.5 g/dL 30.5 - 36.0 g/dL [facility] MCV (RBC) [Entitic vol] 89.9 fL 80.0 - 100.0 fL [facility] Monocytes (Bld) [#/Vol] 0.26 10*3/uL <0.87 k/uL [facility] Monocytes/100 WBC (Bld) 6.6 % [facility] Neutrophils (Bld) [#/Vol] 2.02 10*3/uL 1.45 - 7.50 k/uL [facility] Neutrophils/100 WBC (Bld) 51.0 % [facility] Nucleated RBC (Bld) [#/Vol] 10*3/uL <0.01 k/uL [facility] Nucleated RBC/100 WBC (Bld) [Ratio] 0.0 /100 WBC [facility] Platelet mean volume (Bld) [Entitic vol] 9.0 fL 9.0 - 12.7 fL [facility] Platelets (Bld) [#/Vol] 275 10*3/uL 150 - 400 k/uL [facility] RBC (Bld) [#/Vol] 4.25 10*6/uL 3.90 - 5.2 0 m/uL [facility] WBC (Bld) [#/Vol] 3.95 10*3/uL 3.70 - 11. 00 k/uL [facility] Basic Metabolic Panelon 01-14 Anion gap [Moles/Vol] 9 mmol/L Normal 3-13 [facility] Comment on above: Performed By: #### B MP3, LIPA4, HEMDF, TROPN, DDI2 #### [facility] [address] [place] [address] Calcium [Mass/Vol] 9.0 mg/dL Normal 8.4-10.4 [facility] Comment on above: Performed By: #### B MP3, LIPA4, HEMDF, TROPN, DDI2 #### [facility] [address] [place] [address] CO2 [Moles/Vol] 25 mmol/L Normal 22-30 [facility] Comment on above: Performed By: #### B MP3, LIPA4, HEMDF, TROPN, DDI2 #### [facility] [address] [place] [address] Glucose [Mass/Vol] 103 mg/dL High 70-100 [facility] Comment on above: Performed By: #### B MP3, LIPA4, HEMDF, TROPN, DDI2 #### [facility] [address] [place] [address] Urea nitrogen [Mass/Vol] 8 mg/dL Low 9-20 [facility] Comment on above: Performed By: #### B MP3, LIPA4, HEMDF, TROPN, DDI2 #### [facility] [address] [place] [address] Creatinine [Mass/Vol] 0.76 mg/dL Normal 0.52-1.25 [facility] Comment on above: Performed By: #### B MP3, LIPA4, HEMDF, TROPN, DDI2 #### [facility] [address] [place] [address] eGFR OTHER > 90.0 Normal >60 [facility] Comment on above: Result Comment: KDIG O guidelines provide the following GFR categories: Stage GFR(ml/min/1.73 m2) Terms G1 >=90 Normal or high G2 60-89 Mildly decreased* G3a 45-59 Mildly to moderately decreased G3b 30-44 Moderately to severely decreased G4 15-29 Severely decreased G5 <15 Kidney failure *Relative to young adult level. In the absence of evidence of kidney damage, neither GFR category G1 nor G2 fulfill the criteria for CKD. The CKD-EPI equation is validated in individuals 18 years of age and older. Currently the best equation for estimating glomerular filtration rate (GFR) from serum creatinine in children is the Bedside Talavera equation. It is less accurate in patients with extremes of muscle mass, restriction of dietary protein, ingestion of creatine, extra-renal metabolism of creatinine, or treatment with medications that affect renal tubular creatinine secretion. Performed By: #### B MP3, LIPA4, HEMDF, TROPN, DDI2 #### [facility] [address] [place] [address] GFR/1.73 sq M.predicted among blacks MDRD (S/P/Bld) [Vol rate/Area] mL/min/{1.73_m2} Normal >60 [facility] Comment on above: Performed By: #### B MP3, LIPA4, HEMDF, TROPN, DDI2 #### [facility] [address] [place] [address] Chloride [Moles/Vol] 105 mmol/L Normal 98-107 [facility] Comment on above: Performed By: #### B MP3, LIPA4, HEMDF, TROPN, DDI2 #### [facility] [address] [place] [address] Potassium [Moles/Vol] 3.5 mmol/L Normal 3.5-5.1 [facility] Comment on above: Performed By: #### B MP3, LIPA4, HEMDF, TROPN, DDI2 #### [facility] [address] [place] [address] Sodium [Moles/Vol] 139 mmol/L Normal 135-145 [facility] Comment on above: Performed By: #### B MP3, LIPA4, HEMDF, TROPN, DDI2 #### [facility] [address] [place] [address] Anion gap [Moles/Vol] 9 mmol/L 3 - 13 mmol/L [facility] Work Phone: Calcium [Mass/Vol] 9.0 mg/dL 8.4 - 10. 4 mg/dL [facility] Work Phone: Chloride [Moles/Vol] 105 mmol/L 98 - 107 mmol/L [facility] Work Phone: CO2 [Moles/Vol] 25 mmol/L 22 - 30 mmol/L [facility] Work Phone: Creatinine [Mass/Vol] 0.76 mg/dL 0.52 - 1.25 mg/dL [facility] Work Phone: EGFR IF NonAfrican Indian >90.0 >60 mL/min [facility] Work Phone: Comment on above: KDIGO guidelines pro vide the following GFR categories: Stage GFR(ml/min/1.73 m2) Terms G1 >=90 Normal or high G2 60-89 Mildly decreased* G3a 45-59 Mildly to moderately decreased G3b 30-44 Moderately to severely decreased G4 15-29 Severely decreased G5 <15 Kidney failure *Relative to young adult level. In the absence of evidence of kidney damage, neither GFR category G1 nor G2 fulfill the criteria for CKD. The CKD-EPI equation is validated in individuals 18 years of age and older. Currently the best equation for estimating glomerular filtration rate (GFR) from serum creatinine in children is the Bedside Talavera equation. It is less accurate in patients with extremes of muscle mass, restriction of dietary protein, ingestion of creatine, extra-renal metabolism of creatinine, or treatment with medications that affect renal tubular creatinine secretion. GFR/1.73 sq M.predicted among blacks MDRD (S/P/Bld) [Vol rate/Area] mL/min/{1.73_m2} >60 mL/min [facility] Work Phone: Glucose [Mass/Vol] 103 mg/dL High 70 - 100 mg/dL [facility] Work Phone: Interpretation and review of laboratory results Abnormal [facility] Work Phone: Potassium [Moles/Vol] 3.5 mmol/L 3.5 - 5.1 mmol/L [facility] Work Phone: Sodium [Moles/Vol] 139 mmol/L 135 - 145 mmol/L [facility] Work Phone: Urea nitrogen (BldV) [Mass/Vol] 8 mg/dL Low 9 - 20 mg/dL [facility] Work Phone: Test Performed by [facility], [address] [place] [id number] [place] [address] LAB [facility] Work Phone: CBC with Auto Differentialon 01-27-2022 Absolute Baso # 0.0 10*3/uL 0.0 - 0.2 10*3/uL [facility] Work Phone: Absolute Neut # 2.0 10*3/uL 1.8 - 7.0 10*3/uL [facility] Work Phone: Basophils/100 WBC (Bld) 1.2 % 0.0 - 2.0 % [facility] Work Phone: Eosinophils (Bld) [#/Vol] 0.0 10*3/uL 0.0 - 0.5 10*3/uL [facility] Work Phone: Eosinophils/100 WBC (Bld) 1.2 % 1.0 - 6.0 % [facility] Work Phone: Granulocytes/100 WBC (Bld) 53.2 % 40.0 - 80.0 % [facility] Work Phone: Hematocrit (Bld) [Volume fraction] 37.3 % 35.0 - 47.0 % [facility] Work Phone: 1 Hemoglobin (Bld) [Mass/Vol] 12.9 g/dL 11.7 - 16.0 g/dL [facility] Phone: Interpretation and review of laboratory results Abnormal [facility] Phone: Lymphocytes (Bld) [#/Vol] 1.4 10*3/uL 1.0 - 4.3 10*3/uL [facility] Work Phone: 1 Lymphocytes/100 WBC (Bld) 38.1 % 20.0 - 40.0 % [facility] Phone: MCH (RBC) [Entitic mass] 29.5 pg 26.0 - 34.0 pg [facility] Phone: MCHC (RBC) [Mass/Vol] 34.5 % 32.0 - 36.0 % [facility] Phone: MCV (RBC) [Entitic vol] 85.7 fL 79.0 - 98.0 fL [facility] Work Phone: Monocytes (Bld) [#/Vol] 0.2 10*3/uL 0.0 - 0.8 10*3/uL [facility] Phone: Monocytes/100 WBC (Bld) 6.3 % 2.0 - 10.0 % [facility] Phone: Platelet distribution width (Bld) [Ratio] 12.6 % 11.5 - 14.5 % [facility] Phone: Platelet mean volume (Bld) [Entitic vol] 7.0 fL Low 7.4 - 12.4 fL [facility] Phone: Comment on above: MPV is a calculated measurement using platelet volume ratio. Platelets (Bld) [#/Vol] 466 10*3/uL High 140 - 440 10*3/uL [facility] Work Phone: RBC (Bld) [#/Vol] 4.35 10*6/uL 3.80 - 5.2 0 10*6/uL [facility] Work Phone: WBC (Bld) [#/Vol] 3.8 10*3/uL 3.6 - 10.7 10*3/uL [facility] Work Phone: Test Performed by [facility], [address] [place] [address] [facility] Work Phone: CR Chest Portableon 01-28-20 22 CR Chest Portable Patient Name: LOYDA DELGADO Diagnostic Radiology ACCESSION EXAM DATE/TIME PROCEDURE ORDERING PROVIDER [id number] 01/27/2022 19:50 EDT CR Chest Portable MD USHA, RIVER CPT code 98189 Reason For Exam (CR Chest Portable) chest pain Report CHEST PORTABLE CLINICAL INDICATION: chest pain TECHNIQUE: Portable chest x-ray(s). COMPARISON: June,. FINDINGS: Cardiac and mediastinal silhouette within normal limits. Lungs are grossly clear. No significant vascular congestion. No apparent pleural effusion or pneumothorax. Bony thorax grossly unremarkable. IMPRESSION: 1. No acute findings. Report Dictated on Workstation: [id number] Final Dictated: 01/27/2022 7:56 pm Dictating Physician: MD MEDRANO WENDELL Signed Date and Time: 01/27/2022 7:56 pm Signed by: MD MEDRANO WENDELL Transcribed Date and Time: 01/27/2022 7:56 Normal [facility] D-Dimer, Innovanceon 01-27-2 022 D-Dimer, Innovance 0.40 mg/L Normal <0.19-0.50 [facility] Comment on above: Result Comment: Inno pittman D-Dimer values of <0.50 mg/L FEU can be used in combination with a pre-test probability model (e.g. Well's) to exclude pulmonary embolism (PE) disease, as well as an aid in the diagnosis of deep vein thrombosis (DVT). Performed By: #### B MP3, LIPA4, HEMDF, TROPN, DDI2 #### [facility] [address] [place] [address] D-Dimer, Quantitativeon 01-14 D-Dimer, Quant 0.4 mg/L <0.19 - 0.50 [facility] Work Phone: Comment on above: Innov[employer] D-Dimer va lues of <0.50 mg/L FEU can be used in combination with a pre-test probability model (e.g. Well's) to exclude pulmonary embolism (PE) disease, as well as an aid in the diagnosis of deep vein thrombosis (DVT). EKG 12 Leadon 01-27-2022 [facility] Test Date: 2022-01-27 Pat Name: LOYDA BURNETTE Department: 1CEG Room: 10 Gender: F Ship Keeper: NEYMAR : 1990 Requested By: RIVER KERR Order Number: [id number] Reading MD: River Kerr Measurements Intervals [place] Rate: 102 P: 64 SC: 147 QRS: 67 QRSD: 83 T: 63 QT: 341 QTc: 445 Interpretive Statements Sinus tachycardia Rate [address] segments Electronically Signed On 01-27-2022 19:49:01 EDT by River Kerr [facility] CARDIOLOGY River Kerr M D - [facility] Test Date: 2022-01-27 Pat Name: LOYDA BURNETTE Department: 1CEG Room: 10 Gender: F Ship Keeper: NEYMAR : 1990 Requested By: RIVER KERR Order Number: [id number] Reading MD: River Kerr Measurements Intervals [place] Rate: 102 P: 64 SC: 147 QRS: 67 QRSD: 83 T: 63 QT: 341 QTc: 445 Interpretive Statements Sinus tachycardia Rate [address] segments Electronically Signed On 01-27-2022 19:49:01 EDT by River Kerr [facility] Work Phone: [facility] Work Phone: HCG,Urine Qualon 01-27-2022 Beta HCG ( test) Ql (U) Negative Normal Negative [facility] Comment on above: Result Comment: Plea se note: Very dilute urine specimens, as indicated by a low specific gravity, may not contain claims service representative levels of hCG. If is still suspected, a first morning urine specimen should be collected 48 hours later and tested. is the most common reason for HCG in urine, although choriocarcinoma, hydatidiform mole, and certain nontropho- blastic malignancies also result in detectable urinary HCG levels. Sensitivity = 20mIU/mL. Performed By: #### H CGUR #### [facility] [address] [place] [address] [facility] Urine Qual [place] 2021 Beta HCG ( test) Ql (U) Negative Negative NA [facility] Work Phone: Comment on above: Please note: Very di lute urine specimens, as indicated by a low specific gravity, may not contain claims service representative levels of hCG. If is still suspected, a first morning urine specimen should be collected 48 hours later and tested. is the most common reason for HCG in urine, although choriocarcinoma, hydatidiform mole, and certain nontropho- blastic malignancies also result in detectable urinary HCG levels. Sensitivity = 20mIU/mL. Test Performed by [facility], [address] [place] [address] [facility] Work Phone: Hemogram w/ Autodiffon 01-27 Abs Baso Cnt 0.0 10*3/uL Normal 0.0-0.2 [facility] Comment on above: Performed By: #### B MP3, LIPA4, HEMDF, TROPN, DDI2 #### [facility] [address] [place] [address] Abs Neutrophile Cnt 2.0 10*3/uL Normal 1.8-7.0 [facility] Comment on above: Performed By: #### B MP3, LIPA4, HEMDF, TROPN, DDI2 #### [facility] [address] [place] [address] Basophils/100 WBC (Bld) 1.2 % Normal 0.0-2.0 [facility] Comment on above: Performed By: #### B MP3, LIPA4, HEMDF, TROPN, DDI2 #### [address] [address] Eosinophils (Bld) [#/Vol] 0.0 10*3/uL Normal 0.0-0.5 [facility] Comment on above: Performed By: #### B MP3, LIPA4, HEMDF, TROPN, DDI2 #### [address] [address] Eosinophils/100 WBC (Bld) 1.2 % Normal 1.0-6.0 [facility] Comment on above: Performed By: #### B MP3, LIPA4, HEMDF, TROPN, DDI2 #### [address] [address] Erythrocyte distribution width (RBC) [Ratio] 12.6 % Normal 11.5-14.5 [facility] Comment on above: Performed By: #### B MP3, LIPA4, HEMDF, TROPN, DDI2 #### [address] [address] Granulocytes/100 WBC (Bld) 53.2 % Normal 40.0-80.0 [facility] Comment on above: Performed By: #### B MP3, LIPA4, HEMDF, TROPN, DDI2 #### [address] [address] Hematocrit (Bld) [Volume fraction] 37.3 % Normal 35.0-47.0 [facility] Comment on above: Performed By: #### B MP3, LIPA4, HEMDF, TROPN, DDI2 #### [address] [address] Hemoglobin (Bld) [Mass/Vol] 12.9 g/dL Normal 11.7-16.0 [facility] Comment on above: Performed By: #### B MP3, LIPA4, HEMDF, TROPN, DDI2 #### [address] [address] Lymphocytes (Bld) [#/Vol] 1.4 10*3/uL Normal 1.0-4.3 [facility] Comment on above: Performed By: #### B MP3, LIPA4, HEMDF, TROPN, DDI2 #### [facility] [address] [place] [address] Lymphocytes/100 WBC (Bld) 38.1 % Normal 20.0-40.0 [facility] Comment on above: Performed By: #### B MP3, LIPA4, HEMDF, TROPN, DDI2 #### [address] [address] [place] [address] MCH (RBC) [Entitic mass] 29.5 pg Normal 26.0-34.0 [facility] Comment on above: Performed By: #### B MP3, LIPA4, HEMDF, TROPN, DDI2 #### [address] [address] [place] [address] MCHC 34.5 % Normal 32.0-36.0 [facility] Comment on above: Performed By: #### B MP3, LIPA4, HEMDF, TROPN, DDI2 #### [address] [address] [place] [address] MCV (RBC) [Entitic vol] 85.7 fL Normal 79.0-98.0 [facility] Comment on above: Performed By: #### B MP3, LIPA4, HEMDF, TROPN, DDI2 #### [address] [address] [place] [address] Monocytes (Bld) [#/Vol] 0.2 10*3/uL Normal 0.0-0.8 [facility] Comment on above: Performed By: #### B MP3, LIPA4, HEMDF, TROPN, DDI2 #### [address] [address] Monocytes/100 WBC (Bld) 6.3 % Normal 2.0-10.0 [facility] Comment on above: Performed By: #### B MP3, LIPA4, HEMDF, TROPN, DDI2 #### [address] [address] Platelet mean volume (Bld) [Entitic vol] 7.0 fL Low 7.4-12.4 [facility] Comment on above: Result Comment: MPV is a calculated measurement using platelet volume ratio. Performed By: #### B MP3, LIPA4, HEMDF, TROPN, DDI2 #### [address] [address] Platelets (Bld) [#/Vol] 466 10*3/uL High 140-440 [facility] Comment on above: Performed By: #### B MP3, LIPA4, HEMDF, TROPN, DDI2 #### [address] [address] RBC (Bld) [#/Vol] 4.35 10*6/uL Normal 3.80-5.20 [facility] Comment on above: Performed By: #### B MP3, LIPA4, HEMDF, TROPN, DDI2 #### [address] [address] WBC (Bld) [#/Vol] 3.8 10*3/uL Normal 3.6-10.7 [facility] Comment on above: Performed By: #### B MP3, LIPA4, HEMDF, TROPN, DDI2 #### [address] [address] Lipaseon 01-27-2022 Lipase [Catalytic activity/Vol] 76 U/L Normal 23-300 [facility] Comment on above: Performed By: #### B MP3, LIPA4, HEMDF, TROPN, DDI2 #### [address] [address] Lipase [Catalytic activity/Vol] 76 U/L 23 - 300 U/L [facility] Work Phone: Test Performed by [facility], [address] [place] [address] [facility] LAB [facility] Work Phone: No Panel Informationon 01-27 Test Performed by [facility], [address] [place] [address] [facility] Work Phone: Troponin Ion 01-27-2022 Troponin I.cardiac [Mass/Vol] ng/mL Normal 0.000-0.034 [facility] Comment on above: Result Comment: . Performed By: #### B MP3, LIPA4, HEMDF, TROPN, DDI2 #### [facility] [address] [place] [address] Troponin x1on 01-27-2022 Troponin I.cardiac [Mass/Vol] ng/mL 0.000 - 0.034 ng/mL [facility] Work Phone: Comment on above: . XR CHEST PORTABLEon 01-28-20 Patient Name: LOYDA DELGADO Diagnostic Radiology ACCESSION EXAM DATE/TIME PROCEDURE ORDERING PROVIDER [id number] 01/27/2022 19:50 EDT CR Chest Portable MD KERR VIJAY CPT code 55189 Reason For Exam (CR Chest Portable) chest pain Report CHEST PORTABLE CLINICAL INDICATION: chest pain TECHNIQUE: Portable chest x-ray(s). COMPARISON: June,. FINDINGS: Cardiac and mediastinal silhouette within normal limits. Lungs are grossly clear. No significant vascular congestion. No apparent pleural effusion or pneumothorax. Bony thorax grossly unremarkable. IMPRESSION: 1. No acute findings. Report Dictated on Workstation: [id number] --- Final --- Dictated: 01/27/2022 7:56 pm Dictating Physician: MD MEDRANO WENDELL Signed Date and Time: 01/27/2022 7:56 pm Signed by: MD MEDRANO WENDELL Transcribed Date and Time: 01/27/2022 7:56 [facility] Yassine Jackson MD - 01/27/2022 Patient Name: LOYDA BURNETTE Diagnostic Radiology ACCESSION EXAM DATE/TIME PROCEDURE ORDERING PROVIDER [id number] 01/27/2022 19:50 EDT CR Chest Portable MD USHA RIVER CPT code 58763 Reason For Exam (CR Chest Portable) chest pain Report CHEST PORTABLE CLINICAL INDICATION: chest pain TECHNIQUE: Portable chest x-ray(s). COMPARISON: June,. FINDINGS: Cardiac and mediastinal silhouette within normal limits. Lungs are grossly clear. No significant vascular congestion. No apparent pleural effusion or pneumothorax. Bony thorax grossly unremarkable. IMPRESSION: 1. No acute findings. Report Dictated on Workstation: [email or web address] --- Final --- Dictated: 01/27/2022 7:56 pm Dictating Physician: MD MEDRANO WENDELL Signed Date and Time: 01/27/2022 7:56 pm Signed by: MD MEDRANO WENDELL Transcribed Date and Time: 01/27/2022 7:56 [facility] Work Phone: Radiology Study observation (narrative) [facility] Work Phone: XR CHEST PORTABLEOrdered By: Yassine Medrano on 01-27-2022 [facility] Work Phone: US Breast Limited Righton US Breast Limited Right Patient Name: LOYDA BURNETTE Ultrasound ACCESSION EXAM DATE/TIME PROCEDURE ORDERING PROVIDER [id number] 01/20/2022 15:32 EDT US Breast Limited Right MD RHODES RACHEL NICOLE CPT code 26858 Reason For Exam (US Breast Limited Right) abnormal right breast imaging, R92.8 Report REASON FOR EXAM: follow-up at short interval from prior study. PROCEDURE: US BREAST LIMITED RIGHT: JANUARY 20, 2022 - . FINDINGS: Patient presents for her first short-term follow-up for a probably benign right breast mass. Ultrasound: Targeted sonographic evaluation the right breast was performed using Doppler. At the 12:00 position, 3 cm from nipple there is a circumscribed avascular anechoic mass measuring 0.4 x 0.2 x 1.0 cm. This is consistent with a benign cyst on today's examination. No further follow-up is required. IMPRESSION: Benign right breast cyst ASSESSMENT: Category 2 Benign RECOMMENDATION: Routine screening mammogram of both breasts. Screening mammograms to begin at the age of 39. . Report Dictated on Final Signed Date and Time: 01/20/2022 3:45 pm Signed by: DO [place] RACHEL [facility] US Breast Limited Righton US Breast Limited Right Patient Name: LOYDA BURNETTE Ultrasound ACCESSION EXAM DATE/TIME PROCEDURE ORDERING PROVIDER [id number] 07/18/2021 14:08 EST US Breast Limited Right MD RHODES RACHEL NICOLE CPT code 13655 Reason For Exam (US Breast Limited Right) Right breast lump Report REASON FOR EXAM: confirmation of a palpable mass. PROCEDURE: US BREAST LIMITED RIGHT: JULY 18, 2021 - . FINDINGS: The patient is a 30-year-old complaining of a palpable lump in the right breast. The patient is currently breast-feeding. Sonogram of the right breast was performed. In the area of palpable concern at the 12:00 position 3 cm from the nipple there is a prominent duct versus the cystic area measuring 1.3 x 0.3 x 0.9 cm. There is no vascular flow. Mobile internal echoes are noted indicating debris. Short-term follow-up is recommended. Sonogram of the left breast is performed at the 11:00 position 1 cm from the nipple in the area of the palpable concern. No discrete solid or cystic masses are identified. IMPRESSION: Probable benign no right breast finding. Short-term follow-up is recommended. ASSESSMENT: Category 3 Probably benign RECOMMENDATION: Ultrasound of the right breast in 6 months. . Report Dictated on Final Signed Date and Time: 07/18/2021 2:07 pm Signed by: MD JOE LAUREN B [facility] US ABDOMEN COMPLETEOrdered B y: Orlando Bowman on 01-20-2021 Patient Name: LOYDA DELGADO Ultrasound ACCESSION EXAM DATE/TIME PROCEDURE ORDERING PROVIDER [id number] 01/20/2021 11:15 EDT US Abdomen Complete UNASSIGNED, UNASSIGNED CPT code 44041 Reason For Exam (US Abdomen Complete) gilberts syndrome Report Indication: Gilbert's syndrome. Ultrasound of the abdomen was performed. The liver is normal in echotexture. There are no focal intrahepatic masses. The gallbladder is visualized and is without evidence of cholelithiasis. There is no intra or extrahepatic biliary ductal dilatation. The common bile duct measures 2.2 mm. The visualized portions of pancreas are unremarkable. Cursory evaluation of the kidneys shows no evidence of hydronephrosis. The spleen is not enlarged. The proximal portions of the aorta and IVC are within normal limits. Impression: 1. Unremarkable abdominal ultrasound. Report Dictated on --- Final --- Dictating Physician: DO KEMP ANTHONY Signed Date and Time: 01/20/2021 1:38 pm Signed by: DO KEMP ANTHONY Transcribed Date and Time: 01/20/2021 1:39 [facility] Work Phone: [facility], [facility] Incoming Radiology Results From [facility] - 01/20/2021 1:39 PM EDT Patient Name: LOYDA BURNETTE Ultrasound ACCESSION EXAM DATE/TIME PROCEDURE ORDERING PROVIDER [id number] 01/20/2021 11:15 EDT US Abdomen Complete UNASSIGNED, UNASSIGNED CPT code 50634 Reason For Exam (US Abdomen Complete) gilberts syndrome Report Indication: Gilbert's syndrome. Ultrasound of the abdomen was performed. The liver is normal in echotexture. There are no focal intrahepatic masses. The gallbladder is visualized and is without evidence of cholelithiasis. There is no intra or extrahepatic biliary ductal dilatation. The common bile duct measures 2.2 mm. The visualized portions of pancreas are unremarkable. Cursory evaluation of the kidneys shows no evidence of hydronephrosis. The spleen is not enlarged. The proximal portions of the aorta and IVC are within normal limits. Impression: 1. Unremarkable abdominal ultrasound. Report Dictated on --- Final --- Dictating Physician: DO KEMP ANTHONY Signed Date and Time: 01/20/2021 1:38 pm Signed by: DO KEMP ANTHONY Transcribed Date and Time: 01/20/2021 1:39 [facility] Work Phone: [facility] Work Phone: US ABDOMEN COMPLETEon 2020 US ABDOMEN COMPLETE Final Report DATE OF EXAM: Nov 01 2020 8:58AM AWU 1040 - US ABDOMEN COMPLETE / PROCEDURE REASON: [email or web address] Physician Interpretation EXAMINATION: COMPLETE ABDOMINAL ULTRASOUND CLINICAL HISTORY: Abdominal pain TECHNIQUE: Sonography of the abdomen was performed. Images were obtained and stored in a permanent archive. MQ: UAbC_2 COMPARISON: None RESULT: Pancreas: Normal sonographic appearance. Portions obscured: Tail Lesions: None Liver: Echotexture: Normal, homogeneous. Echogenicity: Normal Surface contour: Smooth Lesions: None. Biliary: No intrahepatic biliary duct dilation. CBD: 0.3 cm at the hilum. Gallbladder: Normal caliber -Contents: No cholelithiasis -Wall: Normal -Other: No pericholecystic fluid. Spleen: Craniocaudal length: 11.7 cm normal Lesions: None Right Kidney: -Renal length: 10.4 cm -Parenchyma: Normal parenchymal echogenicity. Normal parenchymal thickness. -Collecting system: No hydronephrosis. -Calculus: No echogenic, shadowing calculus. -Lesion: None. Left Kidney: -Renal length: 10.5 cm -Parenchyma: Normal parenchymal echogenicity. Normal parenchymal thickness. -Collecting system: No hydronephrosis. -Calculus: No echogenic, shadowing calculus. -Lesion: None. Bladder: Normal. IVC: Imaged segment is patent. Abdominal Aorta: Imaged segment is patent. Maximum Diameter: 1.9 cm Ascites: None. IMPRESSION: Within normal limits. Monotyper: PSCB Transcribe Date/Time: Nov 01 2020 2:05P Dictated by : PIEDAD SPRAGUE MD This examination was interpreted and the report reviewed and electronically signed by: PIEDAD SPRAGUE MD on Nov 01 2020 2:07PM EST Normal [facility] MRI ABDOMEN W/WO CONTRASTon 06-28-2020 MRI ABDOMEN W/WO CONTRAST MRI ABDOMEN W/WO CONTRAST Ordering Physician: Orlando Bowman MD 06/28/2020 10:45 AM MRI OF THE ABDOMEN WITH SPECIAL ATTENTION TO THE LIVER: CLINICAL STATEMENT: Liver lesion follow-up. 7 mm suspected hemangioma identified on recent ultrasound. COMPARISON: Abdominal ultrasound 05/05/2020. TECHNIQUE: MRI of the liver was obtained utilizing T2 axial fat sat, T2 coronal fat sat, T1 weighted chemical shift, T1 axial fat sat, and multiphase postcontrast T1 axial fat-saturated sequences. CONTRAST: 5 cc injection of gadolinium (Gadavist). FINDINGS: The heart and lung bases are normal. The stomach, small bowel, and visualized colon are normal. The liver is normal in contour and size. There is no loss of signal within the liver parenchyma on out of phase imaging. There is a 6 mm round T2 hyperintense lesion at the liver dome. This correlates with the rounded hyperechoic nodule shown on the comparison ultrasound. The lesion is too small to further characterize on postcontrast enhanced imaging but appears to be much less conspicuous on the delayed phase images. There are no other liver lesions. Biliary tree, gallbladder, pancreas, spleen, adrenal glands and kidneys are unremarkable. IMPRESSION: 1. 6 mm lesion at the dome of the liver is too small to characterize but likely a small hemangioma when correlated with the prior ultrasound. There are no other liver lesions. 2. Otherwise, unremarkable exam. Dictated by Monorail Hooker: Jose Perkins DO Reviewed and Signed by: Frank Sheridan MD ---- Electronic Signature on File ---- Signed By: Frank Sheridan MD [email or web address] Dictated: 06/28/2020 1:33 PM Signed: 06/28/2020 5:25 PM Reported By: FRANK SHERIDAN M.D. Signed By: FRANK SHERIDAN M.D. [facility] US ABDOMEN LIMITEDon 05-05- 020 US ABDOMEN LIMITED US ABDOMEN LIMITED Ordering Physician: Cornell Sparrow DO 05/05/2020 6:30 AM LIMITED ABDOMINAL ULTRASOUND: Clinical Statement: Abnormal findings of blood chemistry. Comparison: None. FINDINGS: The visualized pancreas is unremarkable. No pancreatic duct dilatation. The liver is not enlarged measuring 15.9 cm in length. Liver parenchymal echogenicity is within normal limits. There is a small round hyperechoic nodule in the subcapsular portion of the right hepatic lobe at the dome of the liver measuring 7 mm. There are no other hepatic lesions. No intrahepatic bile duct dilatation. The common duct diameter is within normal limits, less than 2 mm. The gallbladder is not enlarged. No gallstones, wall thickening or pericholecystic fluid. IMPRESSION: 1. Nonenlarged liver with a 7 mm hyperechoic lesion involving the right hepatic lobe. In an asymptomatic patient without a history of malignancy and without risk factors, this is most likely an incidental hemangioma. There are no other liver lesions. The liver is otherwise sonographically normal in appearance. 2. Unremarkable gallbladder and pancreas. ---- Electronic Signature on File ---- Signed By: Frank Sheridan MD [email or web address] Dictated: 05/05/2020 9:30 AM Signed: 05/05/2020 9:34 AM Reported By: FRANK SHERIDAN M.D. Signed By: FRANK SHERIDAN M.D. [facility] CT Abdomen Pelvis Wo [facility] 10-23-2019 [facility] Incoming Radiology Results From [facility] - 10/23/2019 11:21 PM EDT Patient Name: LOYDA BURNETTE ---CT--- Exam Date/Time 10/23/2019 23:06:[address] Abdomen/Pelvis (No PO, No IV) Ordering Physician JOSÉ MIGUEL ROTH Accession Number [id number] CPT4 Codes 11685 (CT Abdomen/Pelvis (No PO, No IV)) Reason For Exam left flank and luq pain Report CT ABDOMEN AND PELVIS WITHOUT CONTRAST CLINICAL INDICATION: left flank and luq pain TECHNIQUE: CT scan of the abdomen and pelvis, without IV contrast. Multiplanar reformations. COMPARISON: None. FINDINGS: Abdomen: Solid organ evaluation limited due to lack of IV contrast. Visualized lung bases grossly unremarkable. No radiopaque gallstones. Kidneys grossly unremarkable. No intrarenal calculi, significant hydronephrosis or abnormal perinephric fluid collection. Remainder of abdominal parenchyma grossly unremarkable. Pelvis: No apparent calcifications or significant dilatation in the distal ureters. Bowel grossly unremarkable. Appendix within normal limits. No significant, free peritoneal fluid or apparent adenopathy. Abdominal aorta is nonaneurysmal. Probable left ovary noted along left pelvic sidewall appears prominent or mildly enlarged, nonspecific. Axial skeleton grossly intact. IMPRESSION: 1. No apparent urolithiasis or significant hydronephrosis.. 2. Questionable prominent or mildly enlarged left ovary of uncertain etiology or significance. Follow-up may be warranted. Report Dictated on Workstation: [id number] --- Final --- Dictating Physician: MD MEDRANO WENDELL Signed Date and Time: 10/23/2019 11:20 pm Signed by: MD MEDRANO WENDELL Transcribed Date and Time: 10/23/2019 11:21 [place], [place] Patient Name: LOYDA DELGADO ---CT--- Exam Date/Time 10/23/2019 23:06:[address] Abdomen/Pelvis (No PO, No IV) Ordering Physician JOSÉ MIGUEL ROTH Accession Number [id number] CPT4 Codes 61585 (CT Abdomen/Pelvis (No PO, No IV)) Reason For Exam left flank and luq pain Report CT ABDOMEN AND PELVIS WITHOUT CONTRAST CLINICAL INDICATION: left flank and luq pain TECHNIQUE: CT scan of the abdomen and pelvis, without IV contrast. Multiplanar reformations. COMPARISON: None. FINDINGS: Abdomen: Solid organ evaluation limited due to lack of IV contrast. Visualized lung bases grossly unremarkable. No radiopaque gallstones. Kidneys grossly unremarkable. No intrarenal calculi, significant hydronephrosis or abnormal perinephric fluid collection. Remainder of abdominal parenchyma grossly unremarkable. Pelvis: No apparent calcifications or significant dilatation in the distal ureters. Bowel grossly unremarkable. Appendix within normal limits. No significant, free peritoneal fluid or apparent adenopathy. Abdominal aorta is nonaneurysmal. Probable left ovary noted along left pelvic sidewall appears prominent or mildly enlarged, nonspecific. Axial skeleton grossly intact. IMPRESSION: 1. No apparent urolithiasis or significant hydronephrosis.. 2. Questionable prominent or mildly enlarged left ovary of uncertain etiology or significance. Follow-up may be warranted. Report Dictated on Workstation: [id number] --- Final --- Dictating Physician: MD MEDRANO WENDELL Signed Date and Time: 10/23/2019 11:20 pm Signed by: MD MEDRANO WENDELL Transcribed Date and Time: 10/23/2019 11:21 [place], [place] Comprehensive Metabolic Pane sirisha 10-23-2019 Albumin [Mass/Vol] 5.4 g/dL High 3.5 - 5 g/dL [place], [place] ALP [Catalytic activity/Vol] 78 U/L 38 - 126 U/L [place] ALT [Catalytic activity/Vol] 22 U/L 13 - 69 U/L [place] Anion gap [Moles/Vol] 10 mmol/L [place] AST [Catalytic activity/Vol] 32 U/L 15 - 46 U/L [place] Bilirubin Ql (U) 1.8 mg/dL High 0.2 - 1.3 mg/dL [place], [place] Calcium [Mass/Vol] 10.1 mg/dL 8.4 - 10. 4 mg/dL [place] Chloride [Moles/Vol] 103 mmol/L 98 - 107 mmol/L [place] CO2 [Moles/Vol] 26 mmol/L 22 - 30 mmol/L [place] Creatinine [Mass/Vol] 0.83 mg/dL 0.52 - 1.25 mg/dL [place] EGFR IF NonAfrican Indian >60.0 >60 mL/min [place] Comment on above: Source- MDRD equatio n with creatinine calibration to IDMS(NKDEP) eGFR not recommended for drug dose adjustment GFR/1.73 sq M predicted among blacks MDRD (S/P/Bld) [Vol rate/Area] mL/min/{1.73_m2} >60 mL/min [place] Glucose [Mass/Vol] 109 mg/dL High 70 - 100 mg/dL [place], [place] Interpretation and review of laboratory results Abnormal [place] Potassium [Moles/Vol] 3.8 mmol/L 3.5 - 5.1 mmol/L [place] Protein [Mass/Vol] 8.6 g/dL High 6.3 - 8.2 g/dL [place] Sodium [Moles/Vol] 139 mmol/L 135 - 145 mmol/L [place] Urea nitrogen [Mass/Vol] 16 mg/dL 7 - 20 mg/dL [place] Hemogram (CBC) w/Auto Diffon 10-23-2019 Absolute Baso # 0.1 10*3/uL 0 - 0.2 10*3/uL [place], [place] Absolute Neut # 2.0 10*3/uL 1.8 - 7 10*3/uL [place] Basophils/100 WBC (Bld) 1.2 % 0 - 2 % [place] Eosinophils (Bld) [#/Vol] 0.0 10*3/uL 0 - 0.5 10*3/uL [place] Eosinophils/100 WBC (Bld) 1.1 % 1 - 6 % [place] Erythrocyte distribution width (RBC) [Ratio] 12.9 % 11.5 - 14.5 % [place] Granulocytes/100 WBC (Bld) 45.2 % 40 - 80 % [place] Hematocrit (Bld) [Volume fraction] 42.1 % 35 - 47 % [place] Hemoglobin (Bld) [Mass/Vol] 14.1 g/dL 11.7 - 16 g/dL [place] Interpretation and review of laboratory results Abnormal [place] Lymphocytes (Bld) [#/Vol] 1.9 10*3/uL 1 - 4.3 10*3/uL [place] Lymphocytes/100 WBC (Bld) 43.7 % High 20 - 40 % [place] MCH (RBC) [Entitic mass] 29.8 pg 26 - 34 pg [place] MCHC (RBC) [Mass/Vol] 33.3 % 32 - 36 % [place] MCV (RBC) [Entitic vol] 89.5 fL 79 - 98 fL [place] Monocytes (Bld) [#/Vol] 0.4 10*3/uL 0 - 0.8 10*3/uL [place] Monocytes/100 WBC (Bld) 8.8 % 2 - 10 % [place] Platelet mean volume (Bld) [Entitic vol] 7.2 fL Low 7.4 - 10.4 fL [place] Platelets (Bld) [#/Vol] 303 10*3/uL 140 - 440 10*3/uL [place] RBC (Bld) [#/Vol] 4.71 10*6/uL 3.8 - 5.2 10*6/uL [place] WBC (Bld) [#/Vol] 4.4 10*3/uL 3.6 - 10.7 10*3/uL [place] Test Performed by [facility], [address] , [address] Lipaseon 10-23-2019 Lipase [Catalytic activity/Vol] 167 U/L 23 - 300 U/L [place] Otheron 10-23-2019 Test Performed by [facility], [address] , [address] , URINEon 0 Beta HCG ( test) Ql (U) Negative Negative NA [place] Comment on above: is the mos t common reason for HCG in urine, although choriocarcinoma, hydatidiform mole, and certain nontropho- blastic malignancies also result in detectable urinary HCG levels. Sensitivity = 20mIU/mL. Test Performed by [facility], [address] , [address] T4, Freeon 10-23-2019 Free T4 [Mass/Vol] 0.71 ng/dL Low 0.78 - 2. 19 ng/dL [place] Interpretation and review of laboratory results Abnormal [place] Test Performed by [facility], [address] , [address] TSH without Reflexon 020 Interpretation and review of laboratory results Abnormal [place] TSH Qn 6.783 u[IU]/mL High 0.465 - 4.68 u[IU]/mL [place] Test Performed by [facility], [address] , [address] Urinalysison 10-23-2019 Appearance (U) Turbid Clear NA [place] Bacteria, UA Moderate (6-50) Negative /[HPF] Me [place] Bilirubin Urine Negative Negative mg/dL [place] Color (U) LIGHT YELLOW Lt. Yellow NA [place] Glucose, Ur Normal Normal (<70) mg/dL [place] Ketones Ql (U) Negative Negative mg/dL [place] LEUKOCYTES, UA Negative Negative Angel/uL [place] Mucous Threads Few Negative /[LPF] [place] Nitrite, Urine Negative Negative NA [place] Occult Blood,Urine Negative Negative mg/dL [place] pH (U) 7.0 [pH] [place] Protein (U) [Mass/Vol] Negative Negative mg/dL [place] RBC (U) [#/Vol] Negative 0 - 2 /[HPF] [place] Specific [place], Urine 1.024 [place] Squam Epithel, UA 3-5 3 - 5 /[HPF] [place] Urobilinogen, Urine Normal Normal ( 0-1) mg/dL [place] Volume 12 ml [place] WBC, UA 3-5 0 - 5 /[HPF] [place] Test Performed by [facility], [address] , [address] HGC Urine Qual [place] 2018 Beta HCG ( test) Ql (U) Negative Negative NA [place] Comment on above: is the mos t common reason for HCG in urine, although choriocarcinoma, hydatidiform mole, and certain nontropho- blastic malignancies also result in detectable urinary HCG levels. Sensitivity = 20mIU/mL. Test Performed by [facility], [address] , [place], [place] [id number] [place] [address] Rapid Strep Screenon 019 S. pyogenes Ag Ql (Throat) see below Negative NA [place] Comment on above: NEGATIVE (presumptiv e) for Group A Streptococcus antigen. Method: Immunochromatographic assay. Confirmatory testing to follow. Confirmatory testing performed at an additional cost. Test Performed by [facility], [address] , [address] XR CHEST STANDARD (2 VW)on 08-24-2018 Patient Name: LOYDA DELGADO ---Diagnostic Radiology--- Exam Date/Time 06/24/2019 22:17:45 EST Exam CR Chest PA/LAT Ordering Physician MD USHA, RIVER Accession Number [id number] CPT4 Codes 86584 () Reason For Exam cough Report PA and lateral chest Clinical indication: Cough and sore throat Comparison: None The cardiac silhouette and mediastinal contours are not enlarged. The lungs are clear. No pleural effusions are noted. The osseous structures appear grossly intact. IMPRESSION: NO ACUTE RADIOGRAPHIC ABNORMALITY IS NOTED IN THE CHEST. Report Dictated on --- Final --- Dictating Physician: MD FIGUEROA DIANE Signed Date and Time: 06/24/2019 10:30 pm Signed by: MD FIGUEROA DIANE Transcribed Date and Time: 06/24/2019 10:31 [place] Zakia Zavala [facility] 06/24/2019 10:31 PM EST Patient Name: LOYDA BURNETTE ---Diagnostic Radiology--- Exam Date/Time 06/24/2019 22:17:45 EST Exam CR Chest PA/LAT Ordering Physician MD KERR VIJAY Accession Number [id number] CPT4 Codes 96835 () Reason For Exam cough Report PA and lateral chest Clinical indication: Cough and sore throat Comparison: None The cardiac silhouette and mediastinal contours are not enlarged. The lungs are clear. No pleural effusions are noted. The osseous structures appear grossly intact. IMPRESSION: NO ACUTE RADIOGRAPHIC ABNORMALITY IS NOTED IN THE CHEST. Report Dictated on --- Final --- Dictating Physician: MD FIGUEROA DIANE Signed Date and Time: 06/24/2019 10:30 pm Signed by: MD FIGUEROA DIANE Transcribed Date and Time: 06/24/2019 10:31 [place] XR Neck Soft Tissueon 2018 Patient Name: LOYDA DELGADO ---Diagnostic Radiology--- Exam Date/Time 06/24/2019 22:16:59 EST Exam CR Neck Soft Tissue Ordering Physician MD KERR VIJAY Accession Number [id number] CPT4 Codes 16431 () Reason For Exam neck pain Report Soft tissue neck CLINICAL INDICATION: Neck pain. Sore throat. AP and lateral views were obtained. Epiglottis and aryepiglottic folds show no thickening. There is no narrowing of the subglottic trachea. Prevertebral soft tissues are normal in width. No abnormal air collections are identified. There are no pathologic calcifications noted. IMPRESSION: No acute radiographic abnormality is noted Report Dictated on --- Final --- Dictating Physician: MD FIGUEROA DIANE Signed Date and Time: 06/24/2019 10:29 pm Signed by: MD FIGUEROA DIANE Transcribed Date and Time: 06/24/2019 10:30 [place] [facility] Incoming Radiology Results From [facility] - 06/24/2019 10:31 PM EST Patient Name: LOYDA BURNETTE ---Diagnostic Radiology--- Exam Date/Time 06/24/2019 22:16:59 EST Exam CR Neck Soft Tissue Ordering Physician MD KERR VIJAY Accession Number [id number] CPT4 Codes 76701 () Reason For Exam neck pain Report Soft tissue neck CLINICAL INDICATION: Neck pain. Sore throat. AP and lateral views were obtained. Epiglottis and aryepiglottic folds show no thickening. There is no narrowing of the subglottic trachea. Prevertebral soft tissues are normal in width. No abnormal air collections are identified. There are no pathologic calcifications noted. IMPRESSION: No acute radiographic abnormality is noted Report Dictated on --- Final --- Dictating Physician: MD FIGUEROA DIANE Signed Date and Time: 06/24/2019 10:29 pm Signed by: MD FIGUEROA DIANE Transcribed Date and Time: 06/24/2019 10:30 [place] Vital Signs Date Time Vital Sign Value Performing Clinician Facility 04-26-2025 09:59-0400 Body mass index (BMI) [Ratio] 19.89 kg/m2 Jessenia Plotts [employer] Work Phone: [facility] 04-26-2025 09:59-0400 Body weight 57.61 kg Jessenia Plotts [employer] Work Phone: [facility] 04-26-2025 09:59-0400 Diastolic blood pressure 60 mm[Hg] Jessenia Plotts [employer] Work Phone: [facility] 04-26-2025 09:59-0400 Systolic blood pressure 108 mm[Hg] Jessenia Plotts [employer] Work Phone: [facility] 02-26-2025 08:13-0400 Body mass index (BMI) [Ratio] 18.48 kg/m2 Donnell Haanahi [employer] Work Phone: [facility] 02-26-2025 08:13-0400 Body weight 53.52 kg Donnell Haanahi [employer]NAGER [employer] Work Phone: [facility] 02-26-2025 08:13-0400 Diastolic blood pressure 60 mm[Hg] Donnell Haury [employer]NAGER [employer] Work Phone: [facility] 02-26-2025 08:13-0400 Systolic blood pressure 102 mm[Hg] Donnell Haury [employer] Work Phone: [facility] 01-25-2025 10:11-0400 Body mass index (BMI) [Ratio] 18.01 kg/m2 Marly Ashraf MD Work Phone: [facility] 01-25-2025 10:11-0400 Body weight 52.16 kg Marly Ashraf MD Work Phone: [facility] 01-25-2025 10:11-0400 Diastolic blood pressure 58 mm[Hg] Marly Ashraf MD Work Phone: [facility] 01-25-2025 10:11-0400 Systolic blood pressure 92 mm[Hg] Marly Ashraf MD Work Phone: [facility] 12-29-2024 07:14-0400 Body mass index (BMI) [Ratio] 18.17 kg/m2 Donnell Haury [employer] Work Phone: [facility] 12-29-2024 07:14-0400 Body weight 52.62 kg Donnell Haury [employer]NAGER [employer] Work Phone: [facility] 12-29-2024 07:14-0400 Diastolic blood pressure 60 mm[Hg] Donnell Haury [employer]NAGER [employer] Work Phone: [facility] 12-29-2024 07:14-0400 Systolic blood pressure 100 mm[Hg] Donnell Haury [employer]NAGER [employer] Work Phone: [facility] 12-27-2024 09:53-0400 Body height 170.2 cm Donnell Haury [employer]NAGER [employer] Work Phone: [facility] 12-27-2024 09:53-0400 Body mass index (BMI) [Ratio] 18.01 kg/m2 Donnell Haury [employer] Work Phone: [facility] 12-27-2024 09:53-0400 Body weight 52.16 kg Donnell Haury [employer]NAGER [employer] Work Phone: [facility] 12-27-2024 09:53-0400 Diastolic blood pressure 64 mm[Hg] Donnell Haury [employer]NAGER [employer] Work Phone: [facility] 12-27-2024 09:53-0400 Systolic blood pressure 108 mm[Hg] Donnell Romero [employer]GER [employer] Work Phone: [facility] 12-20-2024 14:10-0400 Body mass index (BMI) [Ratio] 18.17 kg/m2 Jessenia Valverde [employer] Work Phone: [facility] 12-20-2024 14:10-0400 Body weight 52.62 kg Jessenia Valverde [employer]GER [employer] Work Phone: [facility] 12-20-2024 14:10-0400 Diastolic blood pressure 66 mm[Hg] [facility] [employer] Work Phone: [facility] 12-20-2024 14:10-0400 Systolic blood pressure 100 mm[Hg] Jessenia Valverde [employer]NAGER [employer] Work Phone: [facility] 2024 01:15-0400 Diastolic Blood Pressure Non-Invasive 72 mm[Hg] DR MARGARETTE HENNESSY MD [facility] 2024 01:15-0400 Heart rate 76 /min DR MARGARETTE HENNESSY MD [facility] 2024 01:15-0400 Respiratory rate 18 /min DR MARGARETTE HENNESSY MD [facility] 2024 01:15-0400 Systolic Blood Pressure Non-Invasive 104 mm[Hg] DR MARGARETTE HENNESSY MD [facility] 12-14-2024 22:27-0400 Blood Pressure Cuff Size DR MARGARETTE HENNESSY MD [facility] 12-14-2024 22:27-[address] MARGARETTE HENNESSY MD [facility] 12-14-2024 22:27-[address] MARGARETTE HENNESSY MD [facility] 12-14-2024 22:27-0400 Body temperature 98.06 [degF] DR MARGARETTE HENNESSY MD [facility] 12-14-2024 22:27-0400 Body weight [address] MARGARETTE HENNESSY MD [facility] 12-14-2024 22:27-0400 Diastolic Blood Pressure Non-Invasive 74 mm[Hg] DR MARGARETTE HENNESSY MD [facility] 12-14-2024 22:27-0400 Heart rate 66 /min DR MARGARETTE HENNESSY MD [facility] 12-14-2024 22:27-0400 Respiratory rate 18 /min DR MARGARETTE HENNESSY MD [facility] 12-14-2024 22:27-0400 Systolic Blood Pressure Non-Invasive 114 mm[Hg] DR MARGARETTE HENNESSY MD [facility] 12-08-2024 13:05-0400 Body height 173.7 cm Librado Singleton MD Work Phone: [facility] 12-08-2024 13:05-0400 Body mass index (BMI) [Ratio] 17.28 kg/m2 Librado Singleton MD Work Phone: [facility] 12-08-2024 13:05-0400 Body weight 52.16 kg Librado Singleton MD Work Phone: [facility] 12-08-2024 13:05-0400 Diastolic blood pressure 67 mm[Hg] Librado Singleton MD Work Phone: [facility] 12-08-2024 13:05-0400 Heart rate 94 /min Librado Singleton MD Work Phone: [facility] 12-08-2024 13:05-0400 Respiratory rate 14 /min Librado Singleton MD Work Phone: [facility] 12-08-2024 13:05-0400 SaO2% (BldA) [Mass fraction] 98 % Librado Singleton MD Work Phone: [facility] [employer] Comment on above: 12-08-2024 13:05-0400 Systolic blood pressure 102 mm[Hg] Librado Snigleton MD Work Phone: [facility] 12-24-2023 15:46-0400 Body mass index (BMI) [Ratio] 17.54 kg/m2 Korin Cook MD Work Phone: [facility] 12-24-2023 15:46-0400 Body weight 50.8 kg Korin Cook MD Work Phone: [facility] 12-24-2023 15:46-0400 Diastolic blood pressure 64 mm[Hg] Korin Cook MD Work Phone: [facility] 12-24-2023 15:46-0400 Systolic blood pressure 98 mm[Hg] Korin Cook MD Work Phone: [facility] 10-01-2023 14:38-0500 Body weight 51.71 kg Donnell Romero MANAGER COMMERCIAL.CHEESE WE[employer]HER Work Phone: [facility] 10-01-2023 14:38-0500 Diastolic blood pressure 60 mm[Hg] Donnell Haury MANAGER COMMERCIAL.CHEESE WEIGHER Work Phone: [facility] 10-01-2023 14:38-0500 Systolic blood pressure 102 mm[Hg] Donnell Haury MANAGER COMMERCIAL.CHEESE WEIGHER Work Phone: [facility] 02-11-2023 09:48-0400 Body height 170.2 cm Laura Calero APRN.CHEESE WEIGHER Work Phone: [facility] 02-11-2023 09:48-0400 Body weight 50.35 kg Laura Calero APRN.CHEESE WEIGHER Work Phone: [facility] 02-11-2023 09:48-0400 Diastolic blood pressure 64 mm[Hg] Laura Frankie MANAGER COMMERCIAL.CHEESE WEIGHER Work Phone: [facility] 02-11-2023 09:48-0400 Systolic blood pressure 98 mm[Hg] Laura Calero MANAGER COMMERCIAL.CHEESE WEIGHER Work Phone: [facility] 06-26-2022 13:46-0500 Body weight 49.53 kg Vida Donald MD Work Phone: [facility] 06-26-2022 13:46-0500 Diastolic blood pressure 68 mm[Hg] Vida Donald MD Work Phone: [facility] 06-26-2022 13:46-0500 Systolic blood pressure 94 mm[Hg] Vida Donald MD Work Phone: [facility] 05-08-2022 10:41-0400 Body weight 48.99 kg Laura Calero APRN.CHEESE WEIGHER Work Phone: [facility] 05-08-2022 10:41-0400 Diastolic blood pressure 60 mm[Hg] Laura Calero APRN.CHEESE WEIGHER Work Phone: [facility] 05-08-2022 10:41-0400 Systolic blood pressure 96 mm[Hg] Laura Calero APRN.CHEESE WEIGHER Work Phone: [facility] 03-11-2022 14:12-0400 Body weight 48.53 kg Laura Calero APRN.CHEESE WEIGHER Work Phone: [facility] 03-11-2022 14:12-0400 Diastolic blood pressure 60 mm[Hg] Laura Calero MANAGER COMMERCIAL.CHEESE WEIGHER Work Phone: [facility] 03-11-2022 14:12-0400 Systolic blood pressure 110 mm[Hg] Laura Calero MANAGER COMMERCIAL.CHEESE WEIGHER Work Phone: [facility] 01-27-2022 21:00-0400 Diastolic blood pressure 73 mm[Hg] River Kerr MD Work Phone: [facility] 01-27-2022 21:00-0400 Heart rate 66 /min River Kerr MD Work Phone: [facility] 01-27-2022 21:00-0400 Respiratory rate 16 /min River Kerr MD Work Phone: [facility] 01-27-2022 21:00-0400 SaO2% (BldA) [Mass fraction] 98 % River Kerr MD Work Phone: [facility] 01-27-2022 21:00-0400 Systolic blood pressure 112 mm[Hg] River Kerr MD Work Phone: [facility] 01-27-2022 19:38-0400 Body mass index (BMI) [Ratio] 16.76 kg/m2 River Kerr MD Work Phone: [facility] 01-27-2022 19:38-0400 Body temperature 98.29 [degF] River Kerr MD Work Phone: [facility] 01-27-2022 19:38-0400 Body weight 48.53 kg River Kerr MD Work Phone: [facility] 10-23-2019 21:38-0400 BMI (Body Mass Index) 17.23 kg/m2 [facility] 10-23-2019 21:38-0400 Body Temperature 98.01 [degF] [facility] 10-23-2019 21:38-0400 Body weight 49.9 kg [facility] , [place] 10-23-2019 21:38-0400 BP Diastolic 88 mm[Hg] [facility] [place] 10-23-2019 21:38-0400 BP Systolic 127 mm[Hg] [facility] [place] 10-23-2019 21:38-0400 Height 170.2 cm [facility] [place] 10-23-2019 21:38-0400 Pulse (Heart Rate) 90 /min [facility] 10-23-2019 21:38-0400 Pulse Oximetry 100 % [facility] [place] 10-23-2019 21:38-0400 Respiratory Rate 16 /min [facility], [place] 06-24-2019 21:44-0500 Body Temperature 98.4 [degF] Riversanjiv Kerr [facility], [place] 06-24-2019 21:44-0500 BP Diastolic 90 mm[Hg] River Kerr [facility] [place] 06-24-2019 21:44-0500 BP Systolic 123 mm[Hg] River Kerr [facility] [place] 06-24-2019 21:44-0500 Pulse (Heart Rate) 89 /min River Kerr [facility], [place] 06-24-2019 21:44-0500 Pulse Oximetry 98 % River Kerr [facility], [place] 06-24-2019 21:44-0500 Respiratory Rate 20 /min [facility] [place] Encounters Encounter Date Encounter Type Care Provider Facility Start: 06-13-2025 End: 06-13-2025 ambulatory JESSENIA PLOTLILLIANA Facility:[facility] Start: 06-12-2025 End: 06-12-2025 ambulatory ANNIA GUTIERREZ Facility:[facility] Start: 05-15-2025 End: 05-15-2025 ambulatory JESSENIA LATROBE HOSPITALLILLIANA Facility:[facility] Start: 04-26-2025 End: 04-26-2025 ambulatory DONNELL ROMERO Facility:[facility] Start: 04-26-2025 End: 04-26-2025 Patient encounter procedure Jessenia Valverde APRN.CNM Work Phone: OB/Gynecology Comment on above: Screening for diabet es mellitus (Primary Dx); Supervision of high risk in second trimester (HCC); Thyroid disease during , first trimester (HCC); Heartburn during in second trimester (HCC); 25 weeks gestation of (HCC); Thyroid disease during in second trimester (HCC) Start: 04-02-2025 End: 04-03-2025 Telephone encounter Librado Singleton MD Work Phone: [facility] [place] Comment on above: Follow-up (Testing u nable to be completed.) Start: 03-21-2025 End: 03-21-2025 ambulatory JESSENIA VALVERDE Facility:[facility] Start: 02-28-2025 End: 04-30-2025 Follow-up encounter Donnell Romero APRN.CNP Work Phone: OB/Gynecology Start: 02-26-2025 End: 02-26-2025 ambulatory DONNELL ROMERO Facility:[facility] Start: 02-26-2025 End: 02-26-2025 Patient encounter procedure Donnell Romero APRN.CNP Work Phone: OB/Gynecology Comment on above: Supervision of high risk in second trimester (HCC) (Primary Dx); 17 weeks gestation of (HCC); Thyroid disease during , first trimester (HCC); Heartburn during in second trimester (HCC) Start: 02-07-2025 End: 02-08-2025 Telephone encounter Librado Singleton MD Work Phone: [facility] Comment on above: Other (PFT) Start: 01-25-2025 End: 03-27-2025 Follow-up encounter Marly Ashraf MD Work Phone: OB/Gynecology Start: 01-25-2025 End: 01-25-2025 Patient encounter procedure Marly Ashraf MD Work Phone: OB/Gynecology Comment on above: Encounter for superv ision of high risk in first trimester, antepartum (HCC) (Primary Dx); Multigravida of advanced maternal age in first trimester (HCC); Vitamin D deficiency; Thyroid disease during , first trimester (HCC); History of PCOS; 12 weeks gestation of (HCC); Painful urination Multigravida of adva nced maternal age in first trimester (HCC) (Primary Dx); Encounter for supervision of high risk in first trimester, antepartum (HCC) Start: 01-25-2025 End: 01-25-2025 ambulatory FRENCH RHODES Facility:[facility] Start: 01-23-2025 End: 01-30-2025 Telephone encounter Librado Singleton MD Work Phone: [facility] Start: 12-30-2024 End: 03-01-2025 Follow-up encounter Donnell Romero APRN.CNP Work Phone: OB/Gynecology Start: 12-29-2024 End: 12-29-2024 ambulatory DONNELL ROMERO Facility:[facility] Start: 12-29-2024 End: 12-29-2024 Patient encounter procedure Donnell Romero APRN.CNP Work Phone: OB/Gynecology Comment on above: Screen for STD (sexu ally transmitted disease) (Primary Dx) Start: 12-28-2024 End: 01-01-2025 Follow-up encounter Donnell Romero APRN.CNP Work Phone: OB/Gynecology Comment on above: Results Start: 12-27-2024 End: 02-26-2025 Follow-up encounter Donnell Romero APRN.CNP Work Phone: OB/Gynecology Start: 12-27-2024 End: 12-27-2024 ambulatory DONNELL ROMERO Facility:[facility] Start: 12-27-2024 End: 12-27-2024 Patient encounter procedure Donnell Romero APRN.CNP Work Phone: OB/Gynecology Comment on above: Encounter for superv ision of high risk in first trimester, antepartum (HCC) (Primary Dx); with uncertain dates in first trimester (HCC); 8 weeks gestation of (HCC); Multigravida of advanced maternal age in first trimester (HCC); History of PCOS; Thyroid disease during , first trimester (HCC); Screen for STD (sexually transmitted disease); Vitamin D deficiency Start: 12-25-2024 End: 01-03-2025 Telephone encounter Jocelin Gonzalez RN [facility] [place] Comment on above: Care Coordination (O SF imaging) Start: 12-20-2024 End: 12-20-2024 ambulatory JESSENIA VALVERDE Facility:[facility] Start: 12-20-2024 End: 12-20-2024 Patient encounter procedure Jessenia Valverde APRN.CNM Work Phone: OB/Gynecology Comment on above: Left leg pain (Prima ry Dx); Positive blood test (HCC) Start: 12-19-2024 End: 12-19-2024 Telephone encounter Jessenia Valverde APRN.CNM Work Phone: OB/Gynecology Comment on above: Early OB Possible DV T Start: 12-16-2024 End: 12-16-2024 ambulatory Carol Calderon RN NURSE AUTO TIRE RECAPPER Comment on above: Information Start: 12-14-2024 End: 2024 Emergency department patient visit DR MARGARETTE HENNESSY MD [facility] Start: 12-08-2024 End: 12-08-2024 ambulatory LIBRADO SINGLETON [facility] Start: 12-08-2024 End: 12-08-2024 Office outpatient new 45 minutes Librado Singleton MD Work Phone: [facility] [place] Comment on above: Solid nodule of lung 6 mm to 8 mm in diameter (Primary Dx); Pulmonary nodule, right; Chronic cough; History of coccidioidomycosis; Encounter for test, result unknown Start: 12-24-2023 End: 12-24-2023 Office outpatient visit 15 minutes Korin Cook MD Work Phone: OB/Gynecology Comment on above: Missed menses (Prima ry Dx) Start: 12-08-2023 ambulatory Vida anderson MD Work Phone: OB/Gynecology Comment on above: Missing periods Start: 10-04-2023 Orders Only Donnell MELO RN.CHEESE WEIGHER Work Phone: OB/Gynecology Comment on above: Results Start: 10-01-2023 End: 10-01-2023 Patient encounter procedure Donnell Romero APRN.CHEESE WEIGHER Work Phone: OB/Gynecology Comment on above: Missed menses (Prima ry Dx) Start: 09-20-2023 Telephone encounter Laura lui APRN.CHEESE WEIGHER Work Phone: OB/Gynecology Comment on above: Missed Menses Start: 07-27-2023 End: 05-07-2024 ambulatory Belgica White RN [facility] Clinical Communication Start: 07-27-2023 End: 05-07-2024 Patient encounter procedure [facility] Start: 05-21-2023 End: 05-21-2023 ambulatory RUSH ONEIL MD Facility:[facility] Start: 04-30-2023 End: 04-30-2023 Subsequent hospital visit by physician Us Biggs [facility] Comment on above: Spotting between men ses [N92.3] Start: 04-29-2023 Telephone encounter Jessenia huerta APRN.CNM Work Phone: OB/Gynecology Comment on above: Patient Question Start: 03-25-2023 Telephone encounter Laura lui APRN.CHEESE WEIGHER Work Phone: OB/Gynecology Comment on above: Spotting Start: 02-19-2023 ambulatory AARTI WELLS Facility:1 [id number] Start: 02-19-2023 Telephone encounter Aarti mills MD Work Phone: OB/Gynecology Comment on above: possible Start: 02-11-2023 End: 02-11-2023 Patient encounter procedure Laura Calero APRN.CHEESE WEIGHER Work Phone: OB/Gynecology Comment on above: Encounter for gyneco logical examination with abnormal finding (Primary Dx); Vagina itching; Vaginal odor; Spotting between menses Start: 02-11-2023 End: 02-11-2023 Patient encounter status Laura Calero APRN.CHEESE WEIGHER Work Phone: OB/Gynecology Start: 11-20-2022 Telephone encounter Tasia Queen MD Work Phone: General Surgery Comment on above: Appointment Start: 11-19-2022 End: 11-19-2022 Subsequent hospital visit by physician [facility] Exam Room 1 [facility] Comment on above: Mastodynia Start: 11-18-2022 E-mail encounter fro m caregiver Celena Kellogg PA-C Work Phone: [facility] Start: 11-18-2022 Follow-up encounter Celena Frankel PA-C Work Phone: [facility] Comment on above: Mammogram/US follow- up Start: 11-02-2022 ambulatory Julia Caba RN [facility] Clinical Communication Start: 11-02-2022 Patient encounter procedure Julia Pichardoa Clinical Communication Start: 10-25-2022 ambulatory Faith ceja RN NURSE AUTO TIRE RECAPPER Comment on above: Opened In Error Start: 09-18-2022 End: 09-18-2022 Subsequent hospital visit by physician French Rhodes MD Work Phone: [facility] Imaging Comment on above: Localized swelling, mass and lump, neck Start: 09-14-2022 Transcribe Orders French Rhodes MD Work Phone: [facility] Central Scheduling Comment on above: Localized swelling, mass and lump, neck (Primary Dx) Start: 09-01-2022 End: 09-01-2022 ambulatory CELENA KELLOGG Facility:[facility] Start: 06-26-2022 End: 06-26-2022 Patient encounter procedure Vida Donald MD Work Phone: OB/Gynecology Comment on above: Mastalgia (Primary D x) Start: 05-08-2022 End: 05-08-2022 Patient encounter procedure Laura Calero APRN.CHEESE WEIGHER Work Phone: OB/Gynecology Comment on above: Irregular menses (Pr imary Dx); Polycystic ovaries Start: 03-19-2022 End: 03-19-2022 Subsequent hospital visit by physician French Rhodes MD Work Phone: [facility] Laboratory Start: 03-17-2022 End: 03-17-2022 Subsequent hospital visit by physician French Rhodes MD Work Phone: [facility] Dept Start: 03-11-2022 End: 03-11-2022 Patient encounter procedure Laura Calero APRN.CHEESE WEIGHER Work Phone: OB/Gynecology Comment on above: Menorrhagia with reg ular cycle (Primary Dx); Dizziness Start: 03-11-2022 Telephone encounter Laura lui APRN.CHEESE WEIGHER Work Phone: OB/Gynecology Comment on above: Clinical Update Start: 03-09-2022 Telephone encounter Aarti mills MD Work Phone: OB/Gynecology Comment on above: Patient Update Start: 02-10-2022 End: 02-10-2022 Subsequent hospital visit by physician French Rhodes [facility] Start: 01-27-2022 End: 01-27-2022 Emergency department patient visit River Kerr MD Work Phone: [facility] Emergency Dept Comment on above: Chest pain, unspecif ied type (Primary Dx) Start: 01-20-2022 End: 01-20-2022 Subsequent hospital visit by physician French Rhodes MD Work Phone: [facility] Comment on above: Arrived Start: 01-01-2022 End: 01-01-2022 ambulatory Jessenia Valverde MANAGER COMMERCIAL.CNM Work Phone: OB/Gynecology Comment on above: Spontaneous (Primary Dx); Ricarda's thyroiditis Start: 01-01-2022 End: 01-01-2022 Telemedicine consultation with patient Jessenia Valverde MANAGER COMMERCIAL.CNM Work Phone: [facility] Start: 01-20-2021 End: 01-20-2021 Subsequent hospital visit by physician Mary Carrion Rm 02 MARY Carrion Comment on above: Arrived Start: 10-23-2019 End: 10-23-2019 Emergency department patient visit José Miguel Escalante Work Phone: [facility] Comment on above: Nausea (Primary Dx); Abdominal pain, left upper quadrant; Left flank pain Start: 06-24-2019 End: 06-24-2019 Emergency department patient visit River Kerr Work Phone: [facility] Comment on above: Throat pain (Primary Dx); Cough Procedures Date Procedure Procedure Detail Performing Clinician Start: 02-26-2025 Thyrotropin [Units/v olume] in Serum or Plasma Librado Singleton MD Work Phone: Start: 01-25-2025 Urnls dip stick/tabl et rgnt auto w/o microscopy Marly Ashraf MD Work Phone: Start: 01-25-2025 Us preg uterus after 1st trimest 08/16 gestation Donnell Haury MANAGER COMMERCIAL.CHEESE WEIGHER Work Phone: Start: 12-27-2024 Antibody screen HONG VALVERDE Comment on above: Order Comment: Speci men Type: BLOOD SPECIMEN Ordering Facility: [facility] Address: [address] [place] [address] Performed By: #### T SPN #### [facility] CLIA [id number] [address] [place] [address] [place] [address] [place] Start: 12-27-2024 Us uterus l imited 1/ fetuses Donnell Romero APRN.CHEESE WEIGHER Work Phone: Start: 12-27-2024 Thyrotropin [Units/v olume] in Serum or Plasma Librado Singleton MD Work Phone: Start: 02-11-2023 BACTERIAL VAGINOSIS NAAT Laura Calero APRN.CHEESE WEIGHER Work Phone: Start: 02-11-2023 Iadna trichomonas va ginalis amplified probe tech Laura Calero APRN.CHEESE WEIGHER Work Phone: Start: 03-19-2022 Fibrin dgradj produc ts d-dimer quantitative French Rhodes MD Work Phone: Start: 01-27-2022 Urine test visual color cmprsn meths River Kerr MD Work Phone: Start: 01-27-2022 Basic metabolic pane l calcium total River Kerr MD Work Phone: Start: 01-27-2022 Radiologic exam ches t single view River Kerr MD Work Phone: Start: 01-27-2022 Ecg routine ecg w/le ast 12 lds w/i&r River Kerr MD Work Phone: Start: 07-01-2021 Adult depression scr eening assessment Jessenia Valverde APRN.CNM Work Phone: Start: 01-20-2021 Us abdominal real ti me w/image documentation Orlando Bowman MD Work Phone: Start: 10-23-2019 Ct abdomen & pelvis w/o contrast material José Miguel Allen datatracker Work Phone: Start: 10-23-2019 Assay of free thyroxine José Miguel Allen datatracker Work Phone: Start: 10-23-2019 Assay of lipase José Miguel A datatracker Work Phone: Start: 10-23-2019 Assay of thyroid stimulating hormone tsh José Miguel Allen datatracker Work Phone: Start: 10-23-2019 Blood count complete auto&auto difrntl wbc José Miguel Allen datatracker Work Phone: Start: 10-23-2019 Comprehensive metabo lic panel José Miguel Allen datatracker Work Phone: Start: 10-23-2019 Urine test visual color cmprsn meths José Miguel Allen datatracker Work Phone: Start: 10-23-2019 Urnls dip stick/tabl et rgnt auto w/o microscopy José Miguel Allen datatracker Work Phone: Start: 06-24-2019 Urine test visual color cmprsn meths River Adnaylli Work Phone: Start: 06-24-2019 Radiologic examinati on neck soft tissue Riversita Tijerinalli Work Phone: Start: 06-24-2019 Radiologic exam ches t 2 views River MariaaMemorightlli Work Phone: Start: 06-24-2019 Iaad ia streptococcu s group a Riversita LeroyMemorightllAOMi Work Phone: Plan of Treatment Date Care Activity Detail Author Start: 2064 RSV Immunization for Adults (1 - 1-dose 75+ series) RSV Immunization for Adults (1 - 1-dose 75+ series) [employer] Start: 2049 RSV Immunization aged 60 or older (1 - 1-dose 60+ series) RSV Immunization aged 60 or older (1 - 1-dose 60+ series) [facility] Start: 12-16-2039 Zoster Vaccines (1 of 2) Zoster Vaccines (1 of 2) [facility] Start: 12-16-2039 Shingles Vaccine (1 of 2) Shingles Vaccine (1 of 2) [facility] [place] [place] Start: 12-16-2031 PAP TESTING PAP TESTING [facility] Start: 02-26-2026 HPV TESTING HPV TESTING [facility] Start: 02-26-2026 PAP TESTING PAP TESTING [facility] Start: 02-26-2026 Screening for malignant neoplasm of cervix [facility] Start: 02-26-2026 Thyroid stimulating hormone measurement TSH Level [facility] Start: 12-27-2025 Thyroid stimulating hormone measurement TSH Level [facility] Start: 06-10-2025 RSV Vaccine (1 - Risk 1-dose series) RSV Vaccine (1 - Risk 1-dose series) [facility] Start: 05-15-2025 End: 05-15-2025 Patient encounter procedure 05/15/2025 1:00 PM EDT Routine Office Visit OB/Gynecology [address] [place] [address] Annia Gutierrez APRN.CNM [address] [place] [address] OB - prefers midwives OB/Gynecology Comment on above: OB - prefers midwives Start: 05-15-2025 End: 05-15-2025 ambulatory 05/15/2025 12:45 PM EDT Results Only [facility] [address] [place] [address] glucose [facility] Comment on above: glucose Start: 04-26-2025 End: 07-26-2025 ANEMIA REFLEX PANEL ANEMIA REFLEX PANEL Lab Routine Supervision of high risk in second trimester (HCC) 25 weeks gestation of (HCC) Expected: 04/26/2025, Expires: 07/26/2025 [facility] Comment on above: Expected: 04/26/2025, Expires: Start: 04-26-2025 End: 04-26-2026 GESTATIONAL GLUCOSE SCREEN, 1-HOUR, 50 GRAM, NON-FASTING GESTATIONAL GLUCOSE SCREEN, 1-HOUR, 50 GRAM, NON-FASTING Lab Routine Screening for diabetes mellitus Supervision of high risk in second trimester (HCC) 25 weeks gestation of (HCC) Expected: 04/26/2025, Expires: 04/26/2026 [facility] Work Phone: Comment on above: Expected: 04/26/2025, Expires: Start: 04-26-2025 End: 04-26-2026 SYPHILIS TREPONEMAL W/REFLEX SYPHILIS TREPONEMAL W/REFLEX Lab Routine Supervision of high risk in second trimester (HCC) 25 weeks gestation of ([facility]) Expected: 04/26/2025, Expires: 04/26/2026 [facility] Comment on above: Expected: 04/26/2025, Expires: Start: 04-16-2025 Influenza vaccination [facility] Start: 04-06-2025 End: 04-06-2025 Patient encounter procedure [facility] [place] Start: 03-21-2025 End: 03-21-2025 Patient encounter procedure [facility] Comment on above: Anatomy Anatomy/OB Start: 02-26-2025 End: 02-26-2025 Patient encounter procedure 02/26/2025 8:00 AM EDT Routine Office Visit OB/Gynecology [address] [place] [address] Donnell Romero APRN.CHEESE WEIGHER [address] [place] [address] OB OB/Gynecology Comment on above: OB Start: 02-21-2025 End: 02-21-2025 Patient encounter procedure 02/21/2025 10:00 AM EDT Routine Office Visit OB/Gynecology [address] [place] [address] Lisy Gomez MD [address] [place] [address] OB OB/Gynecology Comment on above: OB Start: 02-02-2025 End: 02-02-2025 Patient encounter procedure 02/02/2025 2:15 PM EDT Appointment [facility] [address] [place] [phone] Librado Singleton MD [address], [place] [phone] [facility] Start: 02-02-2025 Subsequent hospital visit by physician 02/02/2025 2:15 PM EDT Hospital Encounter [facility] [address] [place] [id number] Librado Singleton MD [address], [place] [phone] [facility] Start: 01-25-2025 End: 01-25-2025 Patient encounter procedure OB/Gynecology Comment on above: Positive test Nuchal Declined pelvic exam /STD screening with new OB Start: 01-19-2025 End: 01-19-2025 Patient encounter procedure 01/19/2025 9:15 AM EDT [place] [facility] [place] [address] [place] [address] Librado Singleton MD [address], [place] [phone] [facility] [place] Start: 12-27-2024 End: 03-28-2025 25-hydroxyvitamin D3 [Mass/volume] in Serum or Plasma [facility] Comment on above: Expected: 12/27/2024, Expires: Start: 12-27-2024 End: 03-28-2025 ANEMIA REFLEX PANEL [facility] Work Phone: Comment on above: Expected: 12/27/2024, Expires: Start: 12-27-2024 End: 03-28-2025 Hemoglobin A1c in Blood [facility] Comment on above: Expected: 12/27/2024, Expires: Start: 12-27-2024 End: 03-28-2025 Hepatitis B virus surface Ag [Presence] in Serum [facility] Comment on above: Expected: 12/27/2024, Expires: Start: 12-27-2024 End: 03-28-2025 Hepatitis C virus Ab [Presence] in Serum [facility] Comment on above: Expected: 12/27/2024, Expires: Start: 12-27-2024 End: 03-28-2025 HIV 1+2 Ab [Presence] in Serum or Plasma by Immunoassay [facility] Comment on above: Expected: 12/27/2024, Expires: Start: 12-27-2024 End: 12-27-2025 OBSTETRIC ULTRASOUND WHI OBSTETRIC ULTRASOUND WHI Anc Imaging Routine Encounter for supervision of high risk in first trimester, antepartum (HCC) Expected: 12/27/2024, Expires: 12/27/2025 [facility] Comment on above: Expected: 12/27/2024, Expires: Start: 12-27-2024 End: 03-28-2025 RUBELLA IGG ANTIBODY [facility] Comment on above: Expected: 12/27/2024, Expires: Start: 12-27-2024 End: 03-28-2025 SYPHILIS TREPONEMAL W/REFLEX [facility] Comment on above: Expected: 12/27/2024, Expires: Start: 12-27-2024 End: 03-28-2025 Thyrotropin [Units/volume] in Serum or Plasma [facility] Comment on above: Expected: 12/27/2024, Expires: Start: 12-27-2024 End: 03-28-2025 Thyroxine (T4) free [Mass/volume] in Serum or Plasma [facility] Comment on above: Expected: 12/27/2024, Expires: Start: 12-27-2024 End: 12-27-2024 Patient encounter procedure 12/27/2024 9:30 AM EDT Initial Office Visit OB/Gynecology [address] [place] [address] Donnell Romero, MANAGER COMMERCIAL.CHEESE WEIGHER [address] [place] [address] Positive test OB/Gynecology Comment on above: Positive test Start: 12-20-2024 End: 12-20-2024 Patient encounter procedure 12/20/2024 1:45 PM EDT Office Visit OB/Gynecology [address] [place] [phone] Jessenia Valverde APRN.CNM [address] [place] [address] Early OB - rule out DVT. See phone note OB/Gynecology Comment on above: Early OB - rule out DVT. See phone note Start: 12-08-2024 End: 12-08-2025 Complete PFT pre and post bronchodilator Complete PFT pre and post bronchodilator PFT Routine History of coccidioidomycosis Expected: 12/08/2024 (Approximate), Expires: 12/08/2025 [facility] Comment on above: Expected: 12/08/2024 (Approximate), Expi res: 12/08/2025 Start: 12-08-2024 End: 12-08-2025 CT Chest for screening WO contrast CT lung screening follow up low dose Imaging Routine Pulmonary nodule, right History of coccidioidomycosis Solid nodule of lung 6 mm to 8 mm in diameter Expected: 12/08/2024, Expires: 12/08/2025 [facility]: Expected: 12/08/2024, Expires: Start: 12-08-2024 End: 12-08-2025 HCG, quantitative, HCG, quantitative, Lab Routine Encounter for test, result unknown Expected: 12/08/2024 (Approximate), Expires: 12/08/2025 [facility] Work Phone: Comment on above: Expected: 12/08/2024 (Approximate), Expi res: 12/08/2025 Start: 04-16-2024 COVID-19 Vaccine () COVID-19 Vaccine () [facility] Start: 04-16-2024 COVID-19 Vaccine () COVID-19 Vaccine () [facility] Start: 04-16-2024 Influenza vaccination [facility] Start: 10-01-2023 End: 12-31-2023 Choriogonadotropin.beta subunit [Units/volume] in Serum or Plasma [facility] Work Phone: Comment on above: Expected: 10/01/2023, Expires: 4 Start: 10-01-2023 End: 12-31-2023 Estradiol (E2) [Mass/volume] in Serum or Plasma [facility] Work Phone: Comment on above: Expected: 10/01/2023, Expires: Start: 10-01-2023 End: 12-31-2023 Follitropin [Units/volume] in Serum or Plasma [facility] Work Phone: Comment on above: Expected: 10/01/2023, Expires: 4 Start: 10-01-2023 End: 12-31-2023 Prolactin [Mass/volume] in Serum or Plasma [facility] Work Phone: Comment on above: Expected: 10/01/2023, Expires: 4 Start: 10-01-2023 End: 12-31-2023 TESTOSTERONE, FREE AND TOTAL [facility] Work Phone: Comment on above: Expected: 10/01/2023, Expires: 4 Start: 08-16-2023 Behavioral Health Screening Behavioral Health Screening [facility] Start: 08-16-2023 Depression Assessment Depression Assessment [facility] Start: 04-16-2023 Covid-19 Vaccine () Covid-19 Vaccine () [facility] Start: 04-16-2023 Influenza vaccination [facility] Start: 03-25-2023 End: 03-25-2024 PELVIC US WHI PELVIC US WHI Anc Imaging Routine Spotting between menses Expected: 03/25/2023, Expires: 03/25/2024 [facility] Work Phone: Comment on above: Expected: 03/25/2023, Expires: 4 Start: 02-19-2023 End: 04-21-2023 Choriogonadotropin.beta subunit [Units/volume] in Serum or Plasma HCG QUANTITATIVE Lab Routine Missed menses Expected: 02/19/2023, Expires: 04/21/2023 [facility] Work Phone: Comment on above: Expected: 02/19/2023, Expires: 3 Start: 08-16-2022 DEPRESSION ASSESSMENT DEPRESSION ASSESSMENT [facility] Start: 07-01-2022 Adult depression screening assessment DEPRESSION SCREENING [facility] Start: 04-16-2022 Influenza vaccination [facility] Start: 08-16-2021 DEPRESSION ASSESSMENT DEPRESSION ASSESSMENT [facility] Start: 04-16-2021 Influenza vaccination Flu vaccine (Season Ended) [facility] Work Phone: Start: 12-16-2019 Screening for malignant neoplasm of cervix [facility] Start: 04-16-2019 Influenza vaccination Flu vaccine (#1) [place], [place] Start: 2016 HPV Vaccine (1 - 3-dose SCDM series) HPV Vaccine (1 - 3-dose SCDM series) [facility] Start: 2010 Cervical cancer screen Cervical cancer screen [place], [place] Start: 2010 Screening for malignant neoplasm of cervix [facility] Start: 2008 DTaP/Tdap/Td vaccine (1 - Tdap) DTaP/Tdap/Td vaccine (1 - Tdap) [facility] Start: 2008 DTaP/Tdap/Td Vaccines (1 - Tdap) DTaP/Tdap/Td Vaccines (1 - Tdap) [facility] Start: 2008 Hepatitis B Vaccine (1 of 3 - 19+ 3-dose series) Hepatitis B Vaccine (1 of 3 - 19+ 3-dose series) [facility] Start: 2008 Hepatitis B Vaccines (1 of 3 - 19+ 3-dose series) Hepatitis B Vaccines (1 of 3 - 19+ 3-dose series) [facility] Start: 2008 Urine microalbumin profile [facility] Start: 12-16-2007 Anxiety Screening Anxiety Screening [facility] Start: 12-16-2007 Depression Screening Depression Screening [facility] Start: 12-16-2007 HEPATITIS C SCREENING HEPATITIS C SCREENING [facility] Start: 12-16-2007 Hepatitis C screening [facility] Start: 2004 HIV screen HIV screen [place], [place] Start: 2004 HIV screening HIV screen [facility] Start: 2002 Varicella vaccination Varicella Vaccines (1 of 2 - 13+ 2-dose series) [facility] Start: 2001 COVID-19 Vaccine (1) COVID-19 Vaccine (1) [facility] Work Phone: Start: 2001 Depression Screen Depression Screen [facility] Start: 2001 Depression Screening Depression Screening [facility] Start: 2000 DTaP/Tdap/Td vaccine (1 - Tdap) DTaP/Tdap/Td vaccine (1 - Tdap) [place], [place] Start: 1994 COVID-19 VACCINE (#1) COVID-19 VACCINE (#1) [facility] Start: 1994 COVID-19 Vaccine (1) COVID-19 Vaccine (1) [facility] Start: 1990 MMR Vaccines (1 of 1 - Standard series) MMR Vaccines (1 of 1 - Standard series) [facility] Start: 1990 Varicella vaccination Varicella Vaccines (1 of 2 - 2-dose childhood series) [facility] Start: 1990 Varicella Vaccine (1 of 2 - 2-dose childhood series) Varicella Vaccine (1 of 2 - 2-dose childhood series) [facility] Start: 06-17-1990 COVID-19 VACCINE (#1) COVID-19 VACCINE (#1) [facility] Start: 1989 HEPATITIS B (1 of 3 - 3-dose series) HEPATITIS B (1 of 3 - 3-dose series) [facility] Start: 1989 Hepatitis B Vaccine (1 of 3 - 3-dose series) Hepatitis B Vaccine (1 of 3 - 3-dose series) [facility] Start: 1989 Hepatitis B Vaccines (1 of 3 - 3-dose series) Hepatitis B Vaccines (1 of 3 - 3-dose series) [facility] Start: 1989 Hepatitis C screening Hepatitis C screen [facility] Work Phone: Start: 1989 HIV screening HIV Screening [facility] Start: 1989 Thyroid stimulating hormone measurement TSH Level [facility] Bacteria identified in Urine by Culture BACTERIAL CULTURE, URINE Microbiology Routine Encounter for supervision of high risk in first trimester, antepartum (HCC) 12/27/2024 10:54 AM EDT [facility] Bacteria identified in Urine by Culture BACTERIAL CULTURE, URINE Microbiology Routine Encounter for supervision of high risk in first trimester, antepartum ([facility]) Painful urination 01/25/2025 11:17 AM T [facility] Work Phone: Chlamydia trachomatis+Neisseria gonorrhoeae DNA [Presence] in Unspecified specimen by MARY with probe detection GONORRHEA/CHLAMYDIA NAAT Lab Routine Screen for STD (sexually transmitted disease) 12/27/2024 10:54 AM T [facility] Chlamydia trachomatis+Neisseria gonorrhoeae DNA [Presence] in Unspecified specimen by MARY with probe detection GONORRHEA/CHLAMYDIA NAAT Lab Routine Screen for STD (sexually transmitted disease) Ordered: 12/29/2024 [facility] Comment on above: Ordered: 12/29/2024 End: 10-23-2019 Culture, Urine Culture, Urine Microbiology Add-On One Time for 1 Occurrences starting 10/23/2019 until 10/23/2019 [facility] Comment on above[facility] One Time for 1 Occurrences starting 04/2020 until 10/23/2019 End: 11-19-2022 DBT Breast - bilateral diagnostic Bilateral diagnostic mammogram with tomosynthesis Imaging Routine Mastodynia Once for 1 Occurrences starting 11/19/2022 until 11/19/2022 [facility] Work Phone: Comment on above: Once for 1 Occurrences starting 11/20/19 23 until 11/19/2022 End: 06-24-2019 Group A Strep Screen By PCR Group A Strep Screen By PCR Microbiology STAT Once for 1 Occurrences starting 06/24/2019 until 06/24/2019 [facility] Comment on above: Once for 1 Occurrences starting 06/24/20 19 until 06/24/2019 Group A Strep Screen By PCR Group A Strep Screen By PCR Microbiology STAT 06/24/2019 9:54 PM EST [facility] End: 01-27-2022 Lipase [Enzymatic activity/volume] in Serum or Plasma Lipase Lab Add-On One Time for 1 Occurrences starting 01/27/2022 until 01/27/2022 [facility] Work Phone: Comment on above: One Time for 1 Occurrences starting 01/14 until 01/27/2022 End: 06-24-2019 Respiratory Virus PCR Panel Respiratory Virus PCR Panel Microbiology Routine One Time for 1 Occurrences starting 06/24/2019 until 06/24/2019 [facility] Comment on above: One Time for 1 Occurrences starting 04/2019 until 06/24/2019 Respiratory Virus PC R Panel Respiratory Virus PCR Panel Microbiology STAT 06/24/2019 9:55 PM SER[facility] End: 02-26-2026 Thyrotropin [Units/volume] in Serum or Plasma THYROID STIMULATING HORMONE Lab Routine Thyroid disease during , first trimester ([facility]) Once per month for 5 Occurrences starting 02/26/2025 until 02/26/2026 [facility] Work Phone: Comment on above: Once per month for 5 Occurrences startin g 02/26/2025 until 02/26/2026 Thyrotropin [Units/volume] in Serum or Plasma THYROID STIMULATING HORMONE Lab Routine Thyroid disease during , first trimester ([facility]) 02/26/2025 8:43 AM T [facility] End: 02-26-2026 Thyroxine (T4) free [Mass/volume] in Serum or Plasma T4 FREE/FREE THYROXINE Lab Routine Thyroid disease during , first trimester ([facility]) Once per month for 5 Occurrences starting 02/26/2025 until 02/26/2026 [facility] Comment on above: Once per month for 5 Occurrences startin g 02/26/2025 until 02/26/2026 Thyroxine (T4) free [Mass/volume] in Serum or Plasma T4 FREE/FREE THYROXINE Lab Routine Thyroid disease during , first trimester ([facility]) 02/26/2025 8:43 AM EDT [facility] TRICHOMONAS VAGINALI S NAAT TRICHOMONAS VAGINALIS NAAT Lab Routine Screen for STD (sexually transmitted disease) 12/27/2024 10:54 AM EDT [facility] TRICHOMONAS VAGINALI S NAAT TRICHOMONAS VAGINALIS NAAT Lab Routine Screen for STD (sexually transmitted disease) Ordered: 12/29/2024 [facility] Work Phone: Comment on above: Ordered: 12/29/2024 End: 01-20-2022 US BREAST LIMITED RIGHT [facility] Work Phone: Comment on above: Once for 1 Occurrences starting 01/21/20 22 until 01/20/2022 End: 09-18-2022 US Head and neck soft tissue [facility] Work Phone: Comment on above: Once for 1 Occurrences starting 09/18/19 23 until 09/18/2022 End: 04-23-2024 Us transvaginal US FEMALE PELVIS TRANSVAG Radiology Routine Spotting between menses 1 Occurrences starting 03/25/2023 until 04/23/2024 [facility] Work Phone: Comment on above: 1 Occurrences starting 03/25/2023 until 04/23/2024 Us transvaginal US FEMALE PELVIS TRANSVAG Radiology Routine Spotting between menses 04/30/2023 1:04 PM EDT [facility] Work Phone: [facility] Immunizations Immunization Date Immunization Notes Care Provider [facility] 09-01-2019 influenza, injectabl e, quadrivalent, preservative free Jessenia Plotts MANAGER COMMERCIAL.CNM Work Phone: [facility] 09-01-2019 influenza virus vacc ine, unspecified formulation French Rhodes MD Work Phone: [facility] 06-03-2018 influenza, injectabl e, quadrivalent, contains preservative Jessenia Plotts MANAGER COMMERCIAL.CNM Work Phone: [facility] Payers Date Payer Category Payer Blue [place] Blue [facility] BLUE CARD POS OOS [id number] 2022 [employer] - [place] BLUE CROSS [id number] 2022 Unknown [id number] 2022 Unknown [id number] 2020 Unknown MMO MMO [employer] [id number] 2020-Present [phone] [address] [place] [address] PPO [id number] 2020 Unknown MEDICAL [employer] M [employer] [address] [id number] 2020-Present [address] [place] [address] [id number] 2019 Unknown [id number] 2017 Unknown [id number] 2008 Unknown [id number] 1989 Unknown [id number] 1989 Unknown [id number] Self-pay [id number] Social History Date Type Detail Facility Start: 06-24-2019 End: 06-26-2022 Tobacco smoking status NHIS Never smoker [facility] Work Phone: Start: 06-24-2019 End: 02-26-2025 Alcohol intake Ex-drinker (finding) [facility] Start: 1990 Sex Assigned At Not on file M [facility] [place] Start: 10-23-2019 End: 06-26-2022 Tobacco use and exposure Never used [facility] Start: 10-30-2021 End: 12-20-2024 Alcohol intake Current drinker of alcohol (finding) [facility] Start: 02-26-2021 History SDOH Alcohol Comment Seldom [facility] Start: 2021 End: 11-19-2022 Exposure to SARS-CoV-2 (event) Not sure [facility] Start: 1990 Sex Assigned At Female [facility] Start: 07-01-2021 End: 02-11-2023 History of Social function [facility] Start: 07-01-2021 End: 02-11-2023 Tobacco use panel [facility] Start: 04-28-2017 Adult Depression Screening Assessment 2 [facility] Start: 09-17-2022 Gender identity Identifies as female gender (finding) [facility] Start: 09-17-2022 Sexual orientation Heterosexual (fin pita) [facility] [employer] Start: 04-30-2020 End: 03-16-2022 Sex Female (finding) [facility] Tobacco smoking status [facility] Start: 11-12-2024 [facility] Goals Date Patient Goal Desired Activity /State Personal health goal Functional Status Date Assessment Result Facility 2024 Functional Status Independent [facility] 12-14-2024 Functional Status Standard Safet y ID band on, Call device within reach, Bed in low position, Wheels locked, Upper/Half-Length side-rails up, Phone within reach, personal items within reach, Bedside Cart Locked, Visitor at bedside, Safety level maintained [facility] Mental Status Date Assessment Result Facility 2024 Mental Status Orientation Oriented x 4 [facility] 12-14-2024 [facility]-16[facility]2018 to 04-26-2025 Quick Notes - Jessenia Valverde APRN.CNM - 04/26/2025 10:19 AM EDTPrenatal Quick Notes - Jessenia Valverde APRN.CNM - 04/26/2025 10:19 AM EDTPatient InstructionsPatient Instructions Note Date & Type Note Facility 04-26-2025 Progress note Formatting of t his note might be different from the original. S: Loyda Burnette is a 34 year old female who presents at 25 weeks gestation for a routine visit. Positive movements. Increased fatigue. Denies headache, visual changes, chest pain, shortness of breath, vaginal bleeding, leakage of fluid, or dysuria. O: See flow sheet Gen: No apparent distress Abd: Gravid, nontender ASSESSMENT/PLAN: 1. Screening for diabetes mellitus 2. Supervision of high risk in second trimester 3. Thyroid disease during , first trimester 4. Heartburn during in second trimester 5. 25 weeks gestation of - Thyroid studies today - Continue vitamin - Opting out of ASA - Planning on The Fresh Test for GCT - RTO 4 weeks or sooner if needed Jessenia Valverde APRN.CNM [facility] 04-26-2025 Miscellaneous Notes S: Loyda Burnette is a 34 year old female who presents at 25 weeks gestation for a routine visit. Positive movements. Increased fatigue. Denies headache, visual changes, chest pain, shortness of breath, vaginal bleeding, leakage of fluid, or dysuria. O: See flow sheet Gen: No apparent distress Abd: Gravid, nontender ASSESSMENT/PLAN: 1. Screening for diabetes mellitus 2. Supervision of high risk in second trimester 3. Thyroid disease during , first trimester 4. Heartburn during in second trimester 5. 25 weeks gestation of - Thyroid studies today - Continue vitamin - Opting out of ASA - Planning on The Fresh Test for GCT - RTO 4 weeks or sooner if needed Jessenia Valverde APRN.CNM documented in this encounter [facility] 04-26-2025 Instructions Diego Cornell MA - 04/26/2025 9:57 AM EDT SEQUENTIAL SCREENINGS The [facility] offers sequential screenings for women who are interested in screenings for chromosomal abnormalities and certain defects during a . The sequential screen combines ultrasound and blood tests to determine the risk of chromosomal abnormalities, including Down's Syndrome (Trisomy 21) and Trisomy 18, as well as open neural tube defects including spina bifida. Ultrasound examination is performed between 11 weeks and 13 weeks gestational age. Blood tests are drawn after the ultrasound and again later in the between 15 and 21 weeks gestational age. Please let your physician know if you are interested in this testing. It will require an appointment with our communications engineering technician. This is not an ultrasound performed by a physician in our office during a routine visit. SIGNS AND SYMPTOMS OF LABOR 1. Contractions every 10 minutes or more often 2. Clear, pink, or brownish fluid (water) leaking from vagina 3. Feeling that baby is pushing down, pressure 4. Low, dull backache 5. Cramps that feel like a period 6. Cramps with or without diarrhea If you notice any of the above symptoms, contact our office at [phone] and ask to speak with a nurse. After hours, you can call doctors registry at [phone] OR call [facility] at [phone] and ask to have the doctor gerontological nurse practitioner paged. If you consider this an emergency, dial or go to your nearest emergency department. NEED HELP? Are you dealing with a violent or abusive relationship? Are you a victim of rape or sexual assult? Call [facility] ([place]) 24 hour Crisis Hotline: 859.957.8517 or 838-819-3910. MANUAL Your Guide to a Healthy manual is now on-line. Visit [email or web address] ncyGuide to download your free copy Oral Glucose Tolerance Test During Your provider has ordered an oral glucose tolerance test. For more information: My [facility] Oral Glucose Tolerance Test How do I prepare for my one-hour glucose test? You don t need to prepare for your one-hour glucose screening. Most care providers recommend avoiding foods high in sugar for breakfast. For example, pancakes, donuts or juice. If you re testing later in the day, be aware that eating large amounts of sugar for lunch may affect your results. Can you eat before a glucose screening test? Yes, you can eat normally before your glucose screening test. What can I expect on the day of the glucose screening? On the day of your glucose screening, follow instructions given to you by your care provider or the lab (if applicable). Be sure to know exactly where to go for the screening and if you need an appointment. Safe Sleep for For more information: [email or web address] Safe Sleep Healthy babies are safest when sleeping on their backs at nighttime and during naps. Side sleeping is not as safe as back sleeping and is not advised. documented in this encounter [facility] 04-02-2025 Telephone encounter Note Attempted to reach patient by phone to discuss her upcoming appointment this Wednesday. She is unable to complete her testing due to her . - Follow up is for results, so I need to speak with patient to see if she still wants to be seen or to hold off until after her delivery and testing is completed. Sending mychart msg. [facility] 04-02-2025 Miscellaneous Notes Attempted to reach patient by phone to discuss her upcoming appointment this Wednesday. She is unable to complete her testing due to her . - Follow up is for results, so I need to speak with patient to see if she still wants to be seen or to hold off until after her delivery and testing is completed. Sending mychart msg. documented in this encounter [facility] 02-26-2025 Progress note Formatting of t his note might be different from the original. EH - S: Loyda is a 34 year old female who presents at 17w1d for a routine visit. Feeling movement. Denies headache, visual changes, chest pain, shortness of breath, vaginal bleeding, leakage of fluid, or dysuria. Experiencing some heartburn. O: See flow sheet Gen: No apparent distress Abd: Gravid, nontender ASSESSMENT/PLAN: 1. Supervision of high risk in second trimester ([facility]) - ICD9: V23.9, ICD10: O09.92 (primary diagnosis) - Continue PNV - Declines LDA - Drives long distance - discussed appropriate timing/option of virtual visits 2. 17 weeks gestation of ([facility]) - ICD9: V22.2, ICD10: Z3A.17 - Anatomy ultrasound next visit 3. Thyroid disease during , first trimester ([facility]) - ICD9: 648.13, 246.9, ICD10: O99.281, E07.9 - Standing thyroid orders placed. To have done q 4-6 weeks. - Continue medication 4. Heartburn during in second trimester ([facility]) - ICD9: 646.83, 787.1, ICD10: O26.892, R12 - Discussed Tums vs Pepcid PTL precautions reviewed. RTO in 4 weeks or sooner as needed. Donnell Romero APRN.CHEESE WEIGHER [facility] 02-26-2025 Miscellaneous Notes EH - S: Loyda is a 34 year old female who presents at 17w1d for a routine visit. Feeling movement. Denies headache, visual changes, chest pain, shortness of breath, vaginal bleeding, leakage of fluid, or dysuria. Experiencing some heartburn. O: See flow sheet Gen: No apparent distress Abd: Gravid, nontender ASSESSMENT/PLAN: 1. Supervision of high risk in second trimester ([facility]) - ICD9: V23.9, ICD10: O09.92 (primary diagnosis) - Continue PNV - Declines LDA - Drives long distance - discussed appropriate timing/option of virtual visits 2. 17 weeks gestation of ([facility]) - ICD9: V22.2, ICD10: Z3A.17 - Anatomy ultrasound next visit 3. Thyroid disease during , first trimester ([facility]) - ICD9: 648.13, 246.9, ICD10: O99.281, E07.9 - Standing thyroid orders placed. To have done q 4-6 weeks. - Continue medication 4. Heartburn during in second trimester ([facility]) - ICD9: 646.83, 787.1, ICD10: O26.892, R12 - Discussed Tums vs Pepcid PTL precautions reviewed. RTO in 4 weeks or sooner as needed. Donnell Romero APRN.CHEESE WEIGHER documented in this encounter [facility] 02-26-2025 Instructions Diego Cornell MA - 02/26/2025 8:12 AM EDT SEQUENTIAL SCREENINGS The [facility] offers sequential screenings for women who are interested in screenings for chromosomal abnormalities and certain defects during a . The sequential screen combines ultrasound and blood tests to determine the risk of chromosomal abnormalities, including Down's Syndrome (Trisomy 21) and Trisomy 18, as well as open neural tube defects including spina bifida. Ultrasound examination is performed between 11 weeks and 13 weeks gestational age. Blood tests are drawn after the ultrasound and again later in the between 15 and 21 weeks gestational age. Please let your physician know if you are interested in this testing. It will require an appointment with our communications engineering technician. This is not an ultrasound performed by a physician in our office during a routine visit. SIGNS AND SYMPTOMS OF LABOR 1. Contractions every 10 minutes or more often 2. Clear, pink, or brownish fluid (water) leaking from vagina 3. Feeling that baby is pushing down, pressure 4. Low, dull backache 5. Cramps that feel like a period 6. Cramps with or without diarrhea If you notice any of the above symptoms, contact our office at [phone] and ask to speak with a nurse. After hours, you can call doctors registry at [phone] OR call [facility] at [phone] and ask to have the doctor gerontological nurse practitioner paged. If you consider this an emergency, dial 5-7-1 or go to your nearest emergency department. NEED HELP? Are you dealing with a violent or abusive relationship? Are you a victim of rape or sexual assult? Call [facility] ([place]) 24 hour Crisis Hotline: 742.209.5601 or 212-196-6512. MANUAL Your Guide to a Healthy manual is now on-line. Visit [email or web address] to download your free copy documented in this encounter [facility] 02-07-2025 Telephone encounter Note Reason for call: Sammi, I am sending this telephone encounter to notify this office that this patient cancelled the PFT pre and post bronchodilator apt due to not wanting to take this test while and take the bronchodilator Thank you, Ziggy Harrington Central Scheduling [facility] 02-07-2025 Miscellaneous Notes Reason for call: Sammi I am sending this telephone encounter to notify this office that this patient cancelled the PFT pre and post bronchodilator apt due to not wanting to take this test while and take the bronchodilator Thank you, Ziggy [facility] Central Scheduling documented in this encounter [facility] 01-25-2025 Progress note Formatting of t his note might be different from the original. S: Loyda denies LOF, contractions or vaginal bleeding. Patient reports some urinary discomfort. O: 12w4d, see flow sheet SENSITIVE EXAM: Sensitive exam not performed. A/P: Assessment & Plan Encounter for supervision of high risk in first trimester, antepartum (HCC) Urinary discomfort Orders: UA DIP, URINE (POC) BACTERIAL CULTURE, URINE Multigravida of advanced maternal age in first trimester (HCC) Vitamin D deficiency Thyroid disease during , first trimester (HCC) Continue PUBLICATION DISTRIBUTOR thyroid History of PCOS 12 weeks gestation of (HCC) Marly Ashraf MD [facility] 01-25-2025 Miscellaneous Notes S: Loyda denies LOF, contractions or vaginal bleeding. Patient reports some urinary discomfort. O: 12w4d, see flow sheet SENSITIVE EXAM: Sensitive exam not performed. A/P: Assessment & Plan Encounter for supervision of high risk in first trimester, antepartum (HCC) Urinary discomfort Orders: UA DIP, URINE (POC) BACTERIAL CULTURE, URINE Multigravida of advanced maternal age in first trimester (HCC) Vitamin D deficiency Thyroid disease during , first trimester (HCC) Continue PUBLICATION DISTRIBUTOR thyroid History of PCOS 12 weeks gestation of ([facility]) Marly Ashraf MD documented in this encounter [facility] 01-25-2025 Instructions Ml Yen MA - 01/25/2025 9:59 AM EDT SEQUENTIAL SCREENINGS The [facility] offers sequential screenings for women who are interested in screenings for chromosomal abnormalities and certain defects during a . The sequential screen combines ultrasound and blood tests to determine the risk of chromosomal abnormalities, including Down's Syndrome (Trisomy 21) and Trisomy 18, as well as open neural tube defects including spina bifida. Ultrasound examination is performed between 11 weeks and 13 weeks gestational age. Blood tests are drawn after the ultrasound and again later in the between 15 and 21 weeks gestational age. Please let your physician know if you are interested in this testing. It will require an appointment with our communications engineering technician. This is not an ultrasound performed by a physician in our office during a routine visit. SIGNS AND SYMPTOMS OF LABOR 1. Contractions every 10 minutes or more often 2. Clear, pink, or brownish fluid (water) leaking from vagina 3. Feeling that baby is pushing down, pressure 4. Low, dull backache 5. Cramps that feel like a period 6. Cramps with or without diarrhea If you notice any of the above symptoms, contact our office at [phone] and ask to speak with a nurse. After hours, you can call doctors registry at [phone] OR call [facility] at [phone] and ask to have the doctor gerontological nurse practitioner paged. If you consider this an emergency, dial 9--1 or go to your nearest emergency department. NEED HELP? Are you dealing with a violent or abusive relationship? Are you a victim of rape or sexual assult? Call [facility] ([place]) 24 hour Crisis Hotline: 111.413.4217 or 710-068-9756. MANUAL Your Guide to a Healthy manual is now on-line. Visit [email or web address] to download your free copy documented in this encounter [facility] 01-23-2025 Telephone encounter Note Called patient to schedule a follow up appointment with Dr. Singleton. Patient is unable to complete the CT, and per Dr. Foley, patient should be seen 2-3 months after PFT test. Left My Chart message. Unable to to leave message on telephone. [facility] 01-23-2025 Miscellaneous Notes Called patient to schedule a follow up appointment with Dr. Singleton. Patient is unable to complete the CT, and per Dr. Foley, patient should be seen 2-3 months after PFT test. Left My Chart message. Unable to to leave message on telephone. documented in this encounter [facility] [employer] 12-29-2024 Note HNO ID: [id number] Author: DONNELL ROMERO APRN.CHEESE WEIGHER Service: ? Author Type: Nurse Practitioner Type: Progress Notes Filed: 12/29/2024 07:51 Note Text: Loyda Burnette is a 34 year old female who presents for STD screening. HPI: Loyda had declined pelvic exam and vaginal cultures at new OB visit two days ago as she was having pink spotting. STD screening was done through urine and positive for chlamydia. Patient has been for over a decade and denied concerns for STI exposure. She and her are very surprised by this result and upset. She is here for vaginal cultures today. OB History Gravida4 Para2 Term1 Preterm0 AB1 Living2 SAB0 IAB0 Ectopic0 Multiple0 Live Births2 Comment: 1st delivery was in [place], no or delivery complications per patient Molder Machine Tender History LMP: 10/06/2024 (Approximate), Age at Menarche: Age at First : Age at Menopause: Molder Machine Tender History Comments: Sexual Activity: Yes; Male Contraception: Not used PAST MEDICAL HISTORY Diagnosis Date - H/O Ricarda thyroiditis - Ricarda's disease - Thyroid disease PAST SURGICAL HISTORY Procedure Laterality Date - NONE FAMILY HISTORY Problem Relation Age of Onset - Thyroid Mother hashimotos - Stroke Father - Diabetes Father - Heart disease Father - No Known Problems Sister - No Known Problems Sister - Thyroid Brother hypo - Stroke Maternal Grandfather - Heart Attack Maternal Grandfather 55 - Breast Cancer Paternal Grandmother 45 - Cancer Paternal Grandmother bladder - Pancreatic Cancer Paternal Grandfather - No Known Problems Daughter - No Known Problems Daughter - Melanoma Paternal Uncle Social History Tobacco Use - Smoking status: Never - Smokeless tobacco: Never Vaping Use - Vaping status: Never Used Substance Use Topics - Alcohol use: Not Currently Comment: Seldom - Drug use: No Current Outpatient Medications Medication Sig - PNV no.95/ferrous fum/folic ac ( ORAL) Take by mouth. - thyroid (PUBLICATION DISTRIBUTOR THYROID) 15 mg tablet Take 1 tablet by mouth once daily. take one tablet 6 days a week, 1/2 tablet on Sundays - aspirin, enteric coated (ECOTRIN LOW STRENGTH) 81 mg EC tablet Take 1 tablet by mouth once daily. (Patient not taking: Reported on 12/29/2024) No current facility-administered medications for this visit. Allergies As of Date: 12/29/2024 Allergen Noted Reaction VERMOX [MEBENDAZOLE] 05/11/2018 Other: See Comments Fully Assessed 12/29/2024 REVIEW OF SYSTEMS Expanded ROS: TEMPERATURE REGULATOR PYROMETER: + pink spotting Allergies and current medication updated:Yes SENSITIVE EXAM: The sensitive examination was discussed with the Patient or Patient's Authorized Product Development Ecologist. As applicable, any other physician, advance practice provider, medical student, or other health professional student that will be observing or involved in the sensitive examination for educational or training purposes was discussed with the Patient or Authorized Product Development Ecologist. The Patient or Authorized Product Development Ecologist has agreed to proceed with the sensitive examination. (Sensitive examination includes inspection and/or palpation of the breasts, pelvis, prostate and anorectal regions). EXAM: BP 100/60 Wt 116 lb (52.6kg) LMP 10/06/2024 GENERAL: pleasant, female in no apparent distress HEENT: Normocephalic, atraumatic, mucus membranes moist, and no lesions CHEST: Normal inspiratory effort PELVIC: external genitalia normal, normal Bartholin's glands, urethra, [place]'s glands, no vulvar lesions, no cervical lesions, good vaginal support, + thick discharge, normal appearing perineal body and perianal region NEURO: alert and oriented x3,exam grossly non-focal EXTREMITIES: normal ASSESSMENT AND PLAN: 1. Screen for STD (sexually transmitted disease) - ICD9: V74.5, ICD10: Z11.3 - Discussed chance of false positive - Recommend vaginal culture - Emotional support provided - Brief POCUS confirms cardiac activity - If positive, plan for treatment with Azithromycin Donnell Romero APRN.CHEESE WEIGHER Medical Decision Making: Problems: Low: Acute, uncomplicated illness or injury Data: Unique test(s) ordered: 2 Risk: Minimal: Minimal risk from testing/treatment Medical Decision Making Level: 3 - Low [facility] 12-29-2024 History of Present illness Narrative Loyda Burnette is a 34 year old female who presents for STD screening. HPI: Loyda had declined pelvic exam and vaginal cultures at new OB visit two days ago as she was having pink spotting. STD screening was done through urine and positive for chlamydia. Patient has been for over a decade and denied concerns for STI exposure. She and her are very surprised by this result and upset. She is here for vaginal cultures today. OB History Gravida4 Para2 Term1 Preterm0 AB1 Living2 SAB0 IAB0 Ectopic0 Multiple0 Live Births2 Comment: 1st delivery was in [place], no or delivery complications per patient Molder Machine Tender History LMP: 10/06/2024 (Approximate), Age at Menarche: Age at First : Age at Menopause: Molder Machine Tender History Comments: Sexual Activity: Yes; Male Contraception: Not used PAST MEDICAL HISTORY Diagnosis Date H/O Ricarda thyroiditis Ricarda's disease Thyroid disease PAST SURGICAL HISTORY Procedure Laterality Date NONE FAMILY HISTORY Problem Relation Age of Onset Thyroid Mother hashimotos Stroke Father Diabetes Father Heart disease Father No Known Problems Sister No Known Problems Sister Thyroid Brother hypo Stroke Maternal Grandfather Heart Attack Maternal Grandfather 55 Breast Cancer Paternal Grandmother 45 Cancer Paternal Grandmother bladder Pancreatic Cancer Paternal Grandfather No Known Problems Daughter No Known Problems Daughter Melanoma Paternal Uncle Social History Tobacco Use Smoking status: Never Smokeless tobacco: Never Vaping Use Vaping status: Never Used Substance Use Topics Alcohol use: Not Currently Comment: Seldom Drug use: No Current Outpatient Medications Medication Sig PNV no.95/ferrous fum/folic ac ( ORAL) Take by mouth. thyroid (PUBLICATION DISTRIBUTOR THYROID) 15 mg tablet Take 1 tablet by mouth once daily. take one tablet 6 days a week, 1/2 tablet on Sundays aspirin, enteric coated (ECOTRIN LOW STRENGTH) 81 mg EC tablet Take 1 tablet by mouth once daily. (Patient not taking: Reported on 12/29/2024) No current facility-administered medications for this visit. Allergies As of Date: 12/29/2024 Allergen Noted Reaction VERMOX [MEBENDAZOLE] 05/11/2018 Other: See Comments Fully Assessed 12/29/2024 REVIEW OF SYSTEMS Expanded ROS: TEMPERATURE REGULATOR PYROMETER: + pink spotting Allergies and current medication updated:Yes SENSITIVE EXAM: The sensitive examination was discussed with the Patient or Patient's Authorized Product Development Ecologist. As applicable, any other physician, advance practice provider, medical student, or other health professional student that will be observing or involved in the sensitive examination for educational or training purposes was discussed with the Patient or Authorized Product Development Ecologist. The Patient or Authorized Product Development Ecologist has agreed to proceed with the sensitive examination. (Sensitive examination includes inspection and/or palpation of the breasts, pelvis, prostate and anorectal regions). EXAM: BP 100/60 Wt 116 lb (52.6kg) LMP 10/06/2024 GENERAL: pleasant, female in no apparent distress HEENT: Normocephalic, atraumatic, mucus membranes moist, and no lesions CHEST: Normal inspiratory effort PELVIC: external genitalia normal, normal Bartholin's glands, urethra, [place]'s glands, no vulvar lesions, no cervical lesions, good vaginal support, + thick discharge, normal appearing perineal body and perianal region NEURO: alert and oriented x3,exam grossly non-focal EXTREMITIES: normal ASSESSMENT AND PLAN: 1. Screen for STD (sexually transmitted disease) - ICD9: V74.5, ICD10: Z11.3 - Discussed chance of false positive - Recommend vaginal culture - Emotional support provided - Brief POCUS confirms cardiac activity - If positive, plan for treatment with Azithromycin Donnell Romero APRN.CNP Medical Decision Making: Problems: Low: Acute, uncomplicated illness or injury Data: Unique test(s) ordered: 2 Risk: Minimal: Minimal risk from testing/treatment Medical Decision Making Level: 3 - Low documented in this encounter [facility] 12-28-2024 Miscellaneous Notes Pt notified and appt scheduled at 7am with and advised Pt that if she is unable to make appt, then recommended that she go to urgent care closer to home. Ariadna Melara, ROSIO Patient had declined pelvic exam yesterday so STI screening was done through urine. She had stated there was no chance of having an STI, but urine came back + for chlamydia. Please notify patient - I recommend vaginal cultures to see if this could be a false positive as there is a chance this could be a false positive. Donnell Romero APRN.CNP documented in this encounter [facility] 12-28-2024 Telephone encounter Note Pt notified and appt scheduled at 7am with and advised Pt that if she is unable to make appt, then recommended that she go to urgent care closer to home. Ariadna Melara RN [facility] 12-28-2024 Telephone encounter Note Patient had declined pelvic exam yesterday so STI screening was done through urine. She had stated there was no chance of having an STI, but urine came back + for chlamydia. Please notify patient - I recommend vaginal cultures to see if this could be a false positive as there is a chance this could be a false positive. Donnell Romero APRN.CNP [facility] 12-27-2024 Note Addended by: DIEGO CORNELL on: 12/27/2024 10:55 AM Modules accepted: Orders [facility] 12-27-2024 Miscellaneous Notes Addended by: DIEGO CORNELL on: 12/27/2024 10:55 AM Modules accepted: Orders Addended by: DONNELL ROEMRO on: 12/27/2024 10:44 AM Modules accepted: Orders Addended by: DIEGO CORNELL on: 12/27/2024 10:43 AM Modules accepted: Orders Addended by: DIEGO CORNELL on: 12/27/2024 10:42 AM Modules accepted: Orders documented in this encounter [facility] 12-27-2024 Note Addended by: DONNELL ROMERO on: 12/27/2024 10:44 AM Modules accepted: Orders [facility] 12-27-2024 Note Addended by: DIEGO CORNELL on: 12/27/2024 10:43 AM Modules accepted: Orders [facility] 12-27-2024 Note Addended by: DIEGO CORNELL on: 12/27/2024 10:42 AM Modules accepted: Orders [facility] 12-27-2024 Note HNO ID: [id number] Author: DONNELL ROMERO APRN.AFIA Service: ? Author Type: Nurse Practitioner Type: Progress Notes Filed: 12/27/2024 10:33 Note Text: Collection Systems Technician offered: Patient declines. INITIAL OB ASSESSMENT HPI: Loyda is a 34 year old White here to establish Obstetrical Care. Patient's last menstrual period was 10/06/2024. from OB Dating Form. was unplanned but accepted Complaints: Abdominal pain, (pressure, slight cramping) spotting yesterday and this morning. OB History Gravida2 Para2 Term1 Preterm0 AB0 Living2 SAB0 IAB0 Ectopic0 Multiple0 Live Births2 Comment: 1st delivery was in [place], no or delivery complications per patient Previous history: Prior : No History of 4th degree laceration: No History of shoulder dystocia: No History of Hypertensive disorders including pre-eclampsia or gestational hypertension: No History of gestational diabetes: No Patient's Risk Screening for delivery: Have you had a prior branham between 20w and 36w6d? No How many pregnancies have you had before? 3 Did you have a previous baby with a GBS Infection? No Please select all that apply for any prior : N/A MEDICAL/PSYCHOSOCIAL HISTORY: History of hemorrhage or bleeding concerns: No Thyroid Disease: Yes History of chronic hypertension: No History of pre-existing diabetes: No ABO/RH(D) Date Value Ref Range Status 06/03/2018 O POSITIVE Final BMI 18.01 kg/(m2) Last Pap: 02/26/2021 normal History of abnormal pap: No Prior treatment for cervical dysplasia: none. Last HPV: 02/26/2021 negative History of STDs: N/A Partner History of STDs: None Did you have a partner with Herpes? No Tobacco use: No E-Cigarette/Vaping Use: No Caffeine use: Yes, 1 cup of coffee/tea per day Drug use: No Alcohol use: No Multivitamin with Folic acid: Yes Would refuse blood transfusion if medically necessary: No Social Needs: How often does this describe you? I don't have enough money to pay my bills: Never Within the past 12 months, have you worried that your food would run out before you had money to buy more? Never In the past 12 months, has lack of reliable transportation kept you from going to medical appointments or work, or from getting things needed for daily living? Never In the past 12 months, have you had any concerns about having a place to live, or about the condition or quality of your housing? Never Would you like more information on any of the following (please check all that apply)? Not interested Social History: Do you have any history of depression, anxiety, PTSD, or other mood problems? No Do you have a history of abuse or trauma that may impact your experience? No Are you currently employed? Yes Depression/Anxiety Screening: denies symptoms of depression. OB Depression and Anxiety Screening- This Encounter Over the past 2 weeks have you felt down, depressed, or hopeless? Negative Over the past two weeks, have you felt little interest or pleasure in doing things?? Negative Feeling nervous, anxious or on edge 0-Not at all Not being able to stop or control worrying 0-Not al all Anxiety Pre-Screening Total (If >/= 3 additional questions will be reviewed) 0 Genetic Screening: Partner present: Yes Patient verbalized knowledge of partner family health history: Yes Do you or your partner have any personal or family history of defects not previously discussed: No Do you have history of a complicated by anomaly, genetic condition, or demise: No Preeclampsia Risk Screening: Screening for prevention of preeclampsia: High risk factors: Autoimmune disease (e.g. systemic lupus erythematosus, anti-phospholipid antibody syndrome) Moderate risk ractors: Age 35 years or older OB Risk Screening: Completed, no positive findings documented. 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 thyroid (PUBLICATION DISTRIBUTOR THYROID) 15 mg tablet Take 1 tablet by mouth once daily. take one tablet 6 days a week, 1/2 tablet on Sundays 30 tablet 12 No current facility-administered medications for this visit. Allergies As of Date: 12/27/2024 Allergen Noted Reaction VERMOX [MEBENDAZOLE] 05/11/2018 Other: See Comments Fully Assessed 12/20/2024 Does patient have penicillin allergy: No REVIEW OF SYSTEMS: GENERAL: Negative for: Fever or Chills HEENT: Negative for: Headache, Impaired Vision, Ringing in Ears, Nosebleeds NECK: Negative for: Swelling, Pain, Stiffness RESPIRATORY: Negative for: Cough, Wheezing + interm (more content not included)... [facility] 12-27-2024 History of Present illness Narrative Collection Systems Technician offered: Patient declines. INITIAL OB ASSESSMENT HPI: Loyda is a 34 year old White here to establish Obstetrical Care. Patient's last menstrual period was 10/06/2024. from OB Dating Form. was unplanned but accepted Complaints: Abdominal pain, (pressure, slight cramping) spotting yesterday and this morning. OB History Gravida2 Para2 Term1 Preterm0 AB0 Living2 SAB0 IAB0 Ectopic0 Multiple0 Live Births2 Comment: 1st delivery was in [place], no or delivery complications per patient Previous history: Prior : No History of 4th degree laceration: No History of shoulder dystocia: No History of Hypertensive disorders including pre-eclampsia or gestational hypertension: No History of gestational diabetes: No Patient's Risk Screening for delivery: Have you had a prior branham between 20w and 36w6d? No How many pregnancies have you had before? 3 Did you have a previous baby with a GBS Infection? No Please select all that apply for any prior : N/A MEDICAL/PSYCHOSOCIAL HISTORY: History of hemorrhage or bleeding concerns: No Thyroid Disease: Yes History of chronic hypertension: No History of pre-existing diabetes: No ABO/RH(D) Date Value Ref Range Status 06/03/2018 O POSITIVE Final BMI 18.01 kg/(m^2) Last Pap: 02/26/2021 normal History of abnormal pap: No Prior treatment for cervical dysplasia: none. Last HPV: 02/26/2021 negative History of STDs: N/A Partner History of STDs: None Did you have a partner with Herpes? No Tobacco use: No E-Cigarette/Vaping Use: No Caffeine use: Yes, 1 cup of coffee/tea per day Drug use: No Alcohol use: No Multivitamin with Folic acid: Yes Would refuse blood transfusion if medically necessary: No Social Needs: How often does this describe you? I don't have enough money to pay my bills: Never Within the past 12 months, have you worried that your food would run out before you had money to buy more? Never In the past 12 months, has lack of reliable transportation kept you from going to medical appointments or work, or from getting things needed for daily living? Never In the past 12 months, have you had any concerns about having a place to live, or about the condition or quality of your housing? Never Would you like more information on any of the following (please check all that apply)? Not interested Social History: Do you have any history of depression, anxiety, PTSD, or other mood problems? No Do you have a history of abuse or trauma that may impact your experience? No Are you currently employed? Yes Depression/Anxiety Screening: denies symptoms of depression. OB Depression and Anxiety Screening- This Encounter Over the past 2 weeks have you felt down, depressed, or hopeless? Negative Over the past two weeks, have you felt little interest or pleasure in doing things? Negative Feeling nervous, anxious or on edge 0-Not at all Not being able to stop or control worrying 0-Not al all Anxiety Pre-Screening Total (If >/= 3 additional questions will be reviewed) 0 Genetic Screening: Partner present: Yes Patient verbalized knowledge of partner family health history: Yes Do you or your partner have any personal or family history of defects not previously discussed: No Do you have history of a complicated by anomaly, genetic condition, or demise: No Preeclampsia Risk Screening: Screening for prevention of preeclampsia: High risk factors: Autoimmune disease (e.g. systemic lupus erythematosus, anti-phospholipid antibody syndrome) Moderate risk ractors: Age 35 years or older OB Risk Screening: Completed, no positive findings documented. 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 thyroid (PUBLICATION DISTRIBUTOR THYROID) 15 mg tablet Take 1 tablet by mouth once daily. take one tablet 6 days a week, 1/2 tablet on Sundays 30 tablet 12 No current facility-administered medications for this visit. Allergies As of Date: 12/27/2024 Allergen Noted Reaction VERMOX [MEBENDAZOLE] 05/11/2018 Other: See Comments Fully Assessed 12/20/2024 Does patient have penicillin allergy: No REVIEW OF SYSTEMS: GENERAL: Negative for: Fever or Chills HEENT: Negative for: Headache, Impaired Vision, Ringing in Ears, Nosebleeds NECK: Negative for: Swelling, Pain, Stiffness RESPIRATORY: Negative for: Cough, Wheezing + intermittent shortness of breath (2 times per week with activity) GASTROINTESTINAL: Negative for: Heartburn, Constipation, Diarrhea, Blood in stool + nausea MUSCULOSKELETAL: Negative for: Muscle or joint pain, stiffness, Joint swelling NEUROLOGIC/PSYCHIATRIC: Negative for: Weakness, Paralysis, Numbness, Tingling, Tremor, Anxiety, Depression, Memory loss SKIN: Negative for: Rash, Itching GENITOURINARY: Negative for: vaginal itching, vaginal discharge, hematuria or dysuria + slight velazquez vaginal discharge SENSITIVE EXAM: The sensitive examination was discussed with the Patient or Patient's Authorized Product Development Ecologist. As applicable, any other physician, advance practice provider, medical student, or other health professional student that will be observing or involved in the sensitive examination for educational or training purposes was discussed with the Patient or Authorized Product Development Ecologist. The Patient or Authorized Product Development Ecologist has agreed to proceed with the sensitive examination. (Sensitive examination includes inspection and/or palpation of the breasts, pelvis, prostate and anorectal regions). PHYSICAL EXAM: BP 108/64 Ht 5' 7 (1.70m) Wt 115 lb (52.2kg) LMP 10/06/2024 BMI 18.01 kg/(m^2). GENERAL: pleasant in no apparent distress DERMATOLOGY: Normal, without lesions, non-icteric, and non-hirsute NECK: Supple, full range of motion, no adenopathy, and thyroid normal CHEST: Normal inspiratory effort BREAST: soft, non-tender, symmetric, no dominant mass, normal nipple-areolar complex, no lymphadenopathy, and no nipple discharge ABDOMEN: soft, non-tender, and no masses NEURO: alert and oriented x3,exam grossly non-focal PELVIS: DECLINES Limited OB ultrasound exam: single intrauterine and positive cardiac activity ASSESSMENT: 34 year old at Unknown wks gestational age PLAN: 1) Patient oriented to practice. Patient given new OB orientation folder. Discussed nutrition, folic acid supplementation, dietary guidelines, exercise, smoking, alcohol, caffeine, and drug use. Discussed gestational weight gain guidelines. Discussed routine OB labs including STD/HIV. Discussed how to access Your guide to a health and the Aircraft Seat Upholsterer. Discussed hemoglobin electrophoresis. Patient: Declines Reviewed midwifery and photograph developer services that are available. 2) Screening: Hemoglobin A1C: ordered Baby Aspirin: The patient has been counseled about the potential benefits of low dose aspirin in and our recommendation that this be offered to all patients, regardless of whether they meet the high risk criteria specified above. She Accepts Aneuploidy Screening: Discussed aneuploidy screening, nuchal translucency/first trimester early anatomy ultrasound and NIPT. The risks/benefits and limitations of NIPT/aneuploidy screening were reviewed including the potential for false negative and false positive results. The availability of genetic counseling was reviewed. Information on aneuploidy screening was provided. The patient chooses to proceed with First trimester early anatomy ultrasound (12-13w6d) Myriad Carrier Screening: Discussed myriad carrier screening. We discussed the availability of professional-society guided carrier screening and reviewed the conditions screened and limitations of screening. The availability of genetic counseling was reviewed. Information on carrier screening was provided. The patient is considering 3) Patient offered option of Virtual Visits. Patient unsure. May consider in future. ACTIVE PROBLEM LIST Encounter for Supervision of High Risk in First Trimester, Antepartum (Hcc) - 12/27/2024 Comment: Care Checklist Vaccines: [] Flu vaccine [] declined [] RSV vaccine 32 0/7 - 36 6 (Apr - Sep) [] declined [] COVID vaccine [] declined [] TDaP 27-36 [] declined First trimester: [x] Dating US [x] 1st tri labs [x] Pap smear [] Carrier screening - declined [] declined [] NIPT screening - declined [] declined [x] First trimester anatomy scan [] declined [x] universal ASA ordered (start 12w-16w) [] declined [] M Power Consult [] not indicated [] declined Second trimester: [] Anatomy scan [] Mode of Delivery - [] Feeding - [] Pump ordered [] Diabetes screen [] CBC, RPR [] Behavioral Health Screening Third trimester (28-30 weeks): [] Consent [] Contraception [] Surgical Brace Maker [] TeamBirth handout Third trimester (36-40 weeks): [] GBS [] Presentation - [] Scheduled [] yes - Hibiclens, pre-op instructions, CBC, T&S ordered [] no [] H&P [] Preferences worksheet Multigravida of Advanced Maternal Age in First Trimester ([facility]) - 12/27/2024 Comment: December 27, 2024 Age 34 at DEB Donnell Romero APRN.AFIA With Uncertain Dates in First Trimester ([facility]) - 12/27/2024 Comment: December 27, 2024 POCUS not consistent with LMP. Confirm DEB with NT. Donnell Romero APRN.CNP Thyroid Disease During , First Trimester ([facility]) - 12/27/2024 Comment: December 27, 2024 Taking 15 mg of PUBLICATION DISTRIBUTOR thyroid. TSH/T4 ordered. Donnell Romero APRN.CNP History of Pcos - 12/27/2024 Follow up in 4 weeks or sooner prn. Plan for NT scan between 12w0d and 13w6d gestation. Donnell Romero APRN.CHEESE WEIGHER documented in this encounter [facility] 12-27-2024 Instructions Donnell Romero APRN.CNP - 12/27/2024 9:37 AM EDT Please select the following link to access the [facility] Your Guide to a Healthy . [email or web address] MORNING SICKNESS IN by Elisabeth Yi M.D. for [employer] As you may already know, morning sickness can often be more appropriately called evening sickness or ftcuw-eeodkb-qz-the-day sickness. While there are the april few, most women (50-90%) experience some degree of nausea, some have vomiting, and a few develop a severe form of vomiting during called hyperemesis gravidarum. What causes the nausea and vomiting of ? We can't explain why some people feel fine and others are green for months. Even the same woman may feel vastly different in each . There is some relationship between nausea and the level of the hormone hCG. In twin pregnancies, and in other situations where the hCG is greater than expected, nausea and vomiting tend to be worse. In a destined for miscarriage, hCG levels tend to be low, and nausea is often less severe. This being said, a lack of nausea doesn't guarantee that the is destined for miscarriage. The fact that nausea and vomiting are often signs of a healthy can offer a silver lining in the dark cloud of miserable nausea. How long will the nausea last? Fortunately, for most women, nausea and vomiting are a first trimester event, peaking at week 9-10 and waning by week 14-16. When you are feeling bad the weeks can go by slowly but most moms do feel tremendously better by the middle of the . Whether morning sickness is a brief experience or lasts through most of the , there are treatments that can make the weeks or months more tolerable. What can you do about it? Diet: See what works for you. Try eating bland dry foods, and avoid fatty or spicy foods. It is okay to eat a less than perfectly balanced diet in the first trimester. Have your liquids separately from dry foods. Try sports drinks, water, clear juices, Francisco Javier-aid, or non-caffeinated tea. Avoid carbonated beverages that fill up your stomach. Try eating lots of little meals. If you tend to feel sick when you first wake up, leave crackers next to the bed for a quick snack before rising. Keeping healthy snacks with you all day to nibble when you feel queasy can sometimes even prevent nausea from starting. vitamins and nausea: Pre- vitamins can sometimes worsen nausea in . While folate is necessary, especially early in the , it comes as a smaller pill that many people find more tolerable than the complete vitamin pill. Ask your practitioner if it is okay to temporarily replace vitamins and iron with just a folate pill if you find a significant worsening in the level of your nausea from the vitamins. Alternative therapies: Acupressure may be used to treat nausea in , and is not known to have any risks for the fetus. Wristbands (marketed for seasickness) that put pressure on an acupressure point at the wrist are often available at drugstores or travel stores. Cayla root is used for nausea in many traditional cultures. Some women take fresh grated cayla or cayla tablets. It is possible that the pill form contains other ingredients or contaminants, so you may want to try fresh cayla first. Medications: Emetrol is the only nausea medication approved for use in . It is available over the counter and is soothing to the stomach. A prescription medication called Bendectin was available in the 1970s-1979's and was shown to be safe in , but the company stopped marketing it in the [place] due to the costs of liability coverage. Bendectin contained 10 milligrams of vitamin B6 and 10 milligrams of Doxylamine. Two tablets were given at bedtime and a total of up to 4 tablets could be used in a 24-hour period. Interestingly, Unisom , which contains a higher dose (25 mg.) of the same medication, Doxylamine, is currently marketed as an ovej-dye-awudmpm sleeping pill. Ask your practitioner if creating a vitamin B6/Doxylamine combination with aclq-xjz-rrfihie medications would be safe for you. Prescription medications like Compazine and Phenergan can be used if the benefits outweigh possible risks, but these have not been clearly shown to be safe in . Zofran , an expensive anti-nausea medication often used to treat nausea from chemotherapy, can also be used. Can I throw up so much it harms the baby? The act of vomiting cannot hurt your fetus, which is protected inside the uterus. If you get dehydrated or develop a metabolic imbalance, this can be unhealthy. As long as you can keep down liquids, you and your baby will generally do all right. Eat when you feel able. If you are unable to keep anything down, or if you notice potential signs of dehydration such as lightheadedness, or concentrated and/or infrequent urination, call your practitioner. Some women need brief hospital admission for intravenous fluids and anti-nausea medications if their condition becomes severe. This severe form of nausea and vomiting is called Hyperemesis Gravidarum. As with many symptoms of , remind yourself that this, too, shall pass, and you'll have a wonderful baby to show for it! TREATMENT OPTIONS, SHORT VERSION: Frequent small meals Hydrate throughout day [employer] wrist pressure point applicators Cayla root (powdered, in capsules) 250mg four times a day Vitamin B6 25 mg tablet three times a day Also may be taken with half a tablet of Unisom three times a day (Doxylamine 12.5 mg) If severe (weight loss, dehydration), call us and come in for IV hydration and possible medication in the form of injections. Prescription medications such as Phenergan, Compazine, Reglan documented in this encounter [facility] 12-25-2024 Telephone encounter Note Call placed to [facility] in [place], [place] at [phone], Faxed request to [facility] at [phone], they state they will provide an encrypted code to view images. Will notify provider once available. Additionally it appears patient was seen by OB on 12/20/24 and is currently . Sending to provider as FYI. [facility] 12-25-2024 Miscellaneous Notes Call placed to [facility] in [place], [place] at [phone], Faxed request to [facility] at [phone], they state they will provide an encrypted code to view images. Will notify provider once available. Additionally it appears patient was seen by OB on 12/20/24 and is currently . Sending to provider as FYI. documented in this encounter [facility] 12-20-2024 Note HNO ID: [id number] Author: JESSENIA VALVERDE APRN.CNM Service: ? Author Type: Compugraph Operator Type: Progress Notes Filed: 12/20/2024 15:10 Note Text: Loyda Burnette is a 34 year old female who presents as an add on for problem visit of a sharp burning feeling behind left knee since yesterday. She contacted gerontological nurse practitioner nurse and was unable to go to Urgent Care or ED last night. Reports area has no redness, warmth or tenderness to touch. She is concerned she has a DVT. Patient is approximately 6 weeks gestation. OB History Gravida2 Para2 Term1 Preterm0 AB0 Living2 SAB0 IAB0 Ectopic0 Multiple0 Live Births2 Comment: 1st delivery was in [place], no or delivery complications per patient Molder Machine Tender History LMP: 10/09/2023 (Exact Date), Having periods Age at Menarche: Age at First : Age at Menopause: Molder Machine Tender History Comments: Sexual Activity: Yes; Male Contraception: Not used PAST MEDICAL HISTORY Diagnosis Date H/O Ricarda thyroiditis Ricarda's disease Thyroid disease PAST SURGICAL HISTORY Procedure Laterality Date NONE FAMILY HISTORY Problem Relation Age of Onset Thyroid Mother hashimotos Stroke Father Diabetes Father Heart disease Father No Known Problems Sister No Known Problems Sister Thyroid Brother hypo Stroke Maternal Grandfather Heart Attack Maternal Grandfather 55 Breast Cancer Paternal Grandmother 45 Cancer Paternal Grandmother bladder Pancreatic Cancer Paternal Grandfather No Known Problems Daughter No Known Problems Daughter Melanoma Paternal Uncle Social History Tobacco Use Smoking status: Never Smokeless tobacco: Never Vaping Use Vaping status: Never Used Substance Use Topics Alcohol use: Yes Comment: Seldom Drug use: No Current Outpatient Medications Medication Sig cholecalciferol, vitamin D3, (VITAMIN D3 ORAL) Take 5,000 Units by mouth once daily. thyroid (PUBLICATION DISTRIBUTOR THYROID) 15 mg tablet Take 1 tablet by mouth once daily. take one tablet 6 days a week, 1/2 tablet on Sundays multivitamin (MULTIPLE VITAMIN ESSENTIAL ORAL) Take 1 tablet by mouth twice daily. medroxyPROGESTERone (PROVERA) 10 mg tablet Take 1 tablet by mouth once daily. (Patient not taking: Reported on 12/20/2024) No current facility-administered medications for this visit. Allergies As of Date: 12/20/2024 Allergen Noted Reaction VERMOX [MEBENDAZOLE] 05/11/2018 Other: See Comments Fully Assessed 12/20/2024 REVIEW OF SYSTEMS Abdomen: Positive for nausea- no emesis Bladder: No dysuria, gross hematuria, urinary frequency, urinary urgency, or incontinence. Breast: No breast lumps, nipple d/c, overlying skin changes, redness or skin retraction. Expanded ROS: N/A Allergies and current medication updated:Yes SENSITIVE EXAM: Sensitive exam not performed. EXAM: LMP 10/09/2023 GENERAL: pleasant, female in no apparent distress HEENT: Normocephalic NECK: Supple and full range of motion DERMATOLOGY: Normal BREAST: deferred CHEST: Normal inspiratory effort ABDOMEN: Deferred PELVIC: deferred BIMANUAL: deferred NEURO: alert and oriented x3,exam grossly non-focal EXTREMITIES: normal NO redness to area on left leg. Soreness is towards the lateral aspect of the knee. Not tender to palpation. ASSESSMENT AND PLAN: Assessment AND Plan Left leg pain Positive blood test (HCC) - Support provided - Pain consistent with pulled muscle around knee area - Reviewed s/s of DVT and when to notify office - RTO - already scheduled RAUL Valverde APRN.CNM [facility] 12-20-2024 History of Present illness Narrative Loyda Burnette is a 34 year old female who presents as an add on for problem visit of a sharp burning feeling behind left knee since yesterday. She contacted gerontological nurse practitioner nurse and was unable to go to Urgent Care or ED last night. Reports area has no redness, warmth or tenderness to touch. She is concerned she has a DVT. Patient is approximately 6 weeks gestation. OB History Gravida2 Para2 Term1 Preterm0 AB0 Living2 SAB0 IAB0 Ectopic0 Multiple0 Live Births2 Comment: 1st delivery was in [place], no or delivery complications per patient Molder Machine Tender History LMP: 10/09/2023 (Exact Date), Having periods Age at Menarche: Age at First : Age at Menopause: Molder Machine Tender History Comments: Sexual Activity: Yes; Male Contraception: Not used PAST MEDICAL HISTORY Diagnosis Date H/O Ricarda thyroiditis Ricarda's disease Thyroid disease PAST SURGICAL HISTORY Procedure Laterality Date NONE FAMILY HISTORY Problem Relation Age of Onset Thyroid Mother hashimotos Stroke Father Diabetes Father Heart disease Father No Known Problems Sister No Known Problems Sister Thyroid Brother hypo Stroke Maternal Grandfather Heart Attack Maternal Grandfather 55 Breast Cancer Paternal Grandmother 45 Cancer Paternal Grandmother bladder Pancreatic Cancer Paternal Grandfather No Known Problems Daughter No Known Problems Daughter Melanoma Paternal Uncle Social History Tobacco Use Smoking status: Never Smokeless tobacco: Never Vaping Use Vaping status: Never Used Substance Use Topics Alcohol use: Yes Comment: Seldom Drug use: No Current Outpatient Medications Medication Sig cholecalciferol, vitamin D3, (VITAMIN D3 ORAL) Take 5,000 Units by mouth once daily. thyroid (PUBLICATION DISTRIBUTOR THYROID) 15 mg tablet Take 1 tablet by mouth once daily. take one tablet 6 days a week, 1/2 tablet on Sundays multivitamin (MULTIPLE VITAMIN ESSENTIAL ORAL) Take 1 tablet by mouth twice daily. medroxyPROGESTERone (PROVERA) 10 mg tablet Take 1 tablet by mouth once daily. (Patient not taking: Reported on 12/20/2024) No current facility-administered medications for this visit. Allergies As of Date: 12/20/2024 Allergen Noted Reaction VERMOX [MEBENDAZOLE] 05/11/2018 Other: See Comments Fully Assessed 12/20/2024 REVIEW OF SYSTEMS Abdomen: Positive for nausea- no emesis Bladder: No dysuria, gross hematuria, urinary frequency, urinary urgency, or incontinence. Breast: No breast lumps, nipple d/c, overlying skin changes, redness or skin retraction. Expanded ROS: N/A Allergies and current medication updated:Yes SENSITIVE EXAM: Sensitive exam not performed. EXAM: LMP 10/09/2023 GENERAL: pleasant, female in no apparent distress HEENT: Normocephalic NECK: Supple and full range of motion DERMATOLOGY: Normal BREAST: deferred CHEST: Normal inspiratory effort ABDOMEN: Deferred PELVIC: deferred BIMANUAL: deferred NEURO: alert and oriented x3,exam grossly non-focal EXTREMITIES: normal NO redness to area on left leg. Soreness is towards the lateral aspect of the knee. Not tender to palpation. ASSESSMENT AND PLAN: Assessment & Plan Left leg pain Positive blood test (HCC) - Support provided - Pain consistent with pulled muscle around knee area - Reviewed s/s of DVT and when to notify office - RTO - already scheduled RAUL Valverde APRN.CNM documented in this encounter [facility] 12-19-2024 Telephone encounter Note LMP 3/ approximately 6w4d Patient called with c/o dull, lightly sharp pain behind her left knee that started last night. Pain rate of 4. Patient denies redness, swelling, or warmth to the touch. Patient concerned for possible DVT, but only because of the location of the pain. Denies hx of DVT. Advised that patient could be seen at [facility] or ER tonight since office is closing. Scheduled patient for a visit with CP for tomorrow afternoon. Patient will call to cancel if she is evaluated tonight instead. Korin Trejo RN [facility] 12-19-2024 Miscellaneous Notes LMP 3/ approximately 6w4d Patient called with c/o dull, lightly sharp pain behind her left knee that started last night. Pain rate of 4. Patient denies redness, swelling, or warmth to the touch. Patient concerned for possible DVT, but only because of the location of the pain. Denies hx of DVT. Advised that patient could be seen at [facility] or ER tonight since office is closing. Scheduled patient for a visit with CP for tomorrow afternoon. Patient will call to cancel if she is evaluated tonight instead. Korin Trejo RN documented in this encounter [facility] 12-16-2024 Telephone encounter Note Patient calling with wants to know if it is ok to take cranberry supplement pills for urinary tract health in ? NOC is unable to make medication recommendations, recommend patient contact a local pharmacist for advice Patient denies any new or worsening symptoms of which a provider is not aware:Yes . [facility] 12-16-2024 Miscellaneous Notes Patient calling with wants to know if it is ok to take cranberry supplement pills for urinary tract health in ? NOC is unable to make medication recommendations, recommend patient contact a local pharmacist for advice Patient denies any new or worsening symptoms of which a provider is not aware:Yes . documented in this encounter [facility] 2024 Hospital Discharge instructions Patient Education 2024 00:47:00 Abdominal Pain, Early Abdominal Pain and Early The tests you had show that you are , but the exact cause of your pain isn t clear. Some pain and bleeding are common early in . Often they stop, and you can go on to have a normal and baby. Other times the pain or bleeding can be signs of a miscarriage or ectopic . An ectopic is a very serious problem. At this time it is unclear if your will continue normally, if you will have a miscarriage, or if you could have an ectopic . Below is some information about this. Miscarriage At this time we don t know whether you will have a miscarriage, or if things will clear up and your will continue normally. We understand that this is emotionally difficult. There is little we can say to change the way you feel. But understand that miscarriages are common. About 1 or 2 out of every [address] Some end even before you know you are . This happens for a number of reasons, and usually we never figure out why. It s important you know that it is not your fault. It didn t happen because you did anything wrong. Having sex or exercising does not cause a miscarriage. These activities are usually safe unless you have pain or bleeding or your doctor tells you to stop. Even minor falls won t cause a miscarriage. Miscarriages happen because things were not developing as they were supposed to. No medicine can prevent a miscarriage. Ectopic In a normal , the fertilized egg attaches to the wall of the womb (uterus). In an ectopic or tubal , the fertilized egg attaches outside the uterus, usually in the fallopian tube. Very rarely, the egg attaches to an ovary or somewhere else in the abdomen. An ectopic is much less common than a miscarriage, but it is very serious. The baby cannot survive, and as it grows it can rupture the tube. This can cause internal bleeding and even . Risk factors for an ectopic are: An ectopic in the past Pelvic inflammatory disease, or PID Endometriosis Smoking An IUD Additional tests Because we don t know what s causing your symptoms, you will need more tests to figure out what the problem is. You may need the following. Ultrasound An ultrasound can usually find a normal as early as 4 to 5 weeks along. If the ultrasound does not show the baby inside the uterus, it means one of the following. You have a normal less than 4 weeks along You are having or recently had a miscarriage You have an ectopic Quantitative HCG This test measures the amount of a hormone in your blood. Comparing today's test result to a repeat test in 2 days will show whether you have a normal . Laparoscopy This is a type of surgery. The healthcare provider will put a tube with a light inside your belly (abdomen) to look directly at your pelvic organs. This test is used when it is not safe to wait 2 days for blood test results. Important information If you do have an ectopic , there is a small chance that the growing fetus can tear the fallopian tube. This can cause severe internal bleeding. If this happens, you may have: Sudden severe pain in your lower abdomen Vaginal bleeding Weakness, dizziness, and sometimes fainting If any of these symptoms occur: Call 911or return right away to the hospital. Don't drive yourself. Don't go to your healthcare provider's office or to a clinic. Go to the hospital. Home care Follow these guidelines to help care for yourself at home: Rest until your next exam. Don t do anything strenuous. Eat a light diet with foods that are easy to digest. Don t have sex until your healthcare provider says it s OK. Follow-up care Follow up with your healthcare provider, or as advised. If you were told to have a repeat blood test in 2 days, it s important to get it done. If you had an X-ray or ultrasound, a radiologist will review it. You will be told of any new findings that may affect your care. Call 911 Call 911 if you have any of these: Severe pain and very heavy bleeding Severe lightheadedness, passing out, or fainting Rapid heart rate Trouble breathing Confused or difficulty waking up When to seek medical advice Call your healthcare provider right away if any of these occur: The pain in your abdomen gets worse, either suddenly or gradually. You are dizzy or weak when you stand. You have heavy vaginal bleeding. This means soaking 1 pad an hour for 3 hours. You have vaginal bleeding for more than 5 days. You have repeated vomiting or diarrhea. The pain in your abdomen moves to the lower right. You have blood in your vomit or bowel movements. This will be dark red or black. You have a fever of 100.4 F (38 C) or higher, or as directed by your healthcare provider. 4652-1788 [employer]. [address] [place] [address]. All rights reserved. This information is not intended as a substitute for professional medical care. Always follow your healthcare professional's instructions. [facility] 12/14/2024 22:26:12 With:Follow-up with your molder setter, return if any worsening or concerning symptoms as discussed. Address:Unknown When:2-4 days [facility] 2024 Emergency department Discharge summary Discharge Instructions Thank you for allowing [facility] to assist you with your healthcare needs. The following is important discharge information regarding your hospital visit. Diagnosis from Today's Visit Corpus luteum cyst What to Do Next Instructions from Your Care Team No qualifying data available. Post Acute Orders No qualifying data available. You Need to Schedule the Following Appointments Follow Up with Follow-up with your molder setter, return if any worsening or concerning symptoms as discussed. When:Within 2-4 days Allergies NKA Medications Please ask your primary doctor or pharmacist before taking any other medication not listed, including over the counter drugs, herbal medications, vitamins and or supplements as they may interact with your home medications. Please take this list to your next doctor s visit. Bring all medications you take, including over the counter medications, herbals and other supplements with you to your doctor s visit. Patients and families are reminded to discard old lists and to update any records with all medication providers or retail pharmacies. Education Materials Abdominal Pain and Early The tests you had show that you are , but the exact cause of your pain isn t clear. Some pain and bleeding are common early in . Often they stop, and you can go on to have a normal and baby. Other times the pain or bleeding can be signs of a miscarriage or ectopic . An ectopic is a very serious problem. At this time it is unclear if your will continue normally, if you will have a miscarriage, or if you could have an ectopic . Below is some information about this. Miscarriage At this time we don t know whether you will have a miscarriage, or if things will clear up and your will continue normally. We understand that this is emotionally difficult. There is little we can say to change the way you feel. But understand that miscarriages are common. About 1 or 2 out of every [address] Some end even before you know you are . This happens for a number of reasons, and usually we never figure out why. It s important you know that it is not your fault. It didn t happen because you did anything wrong. Having sex or exercising does not cause a miscarriage. These activities are usually safe unless you have pain or bleeding or your doctor tells you to stop. Even minor falls won t cause a miscarriage. Miscarriages happen because things were not developing as they were supposed to. No medicine can prevent a miscarriage. Ectopic In a normal , the fertilized egg attaches to the wall of the womb (uterus). In an ectopic or tubal , the fertilized egg attaches outside the uterus, usually in the fallopian tube. Very rarely, the egg attaches to an ovary or somewhere else in the abdomen. An ectopic is much less common than a miscarriage, but it is very serious. The baby cannot survive, and as it grows it can rupture the tube. This can cause internal bleeding and even . Risk factors for an ectopic are: An ectopic in the past Pelvic inflammatory disease, or PID Endometriosis Smoking An IUD Additional tests Because we don t know what s causing your symptoms, you will need more tests to figure out what the problem is. You may need the following. Ultrasound An ultrasound can usually find a normal as early as 4 to 5 weeks along. If the ultrasound does not show the baby inside the uterus, it means one of the following. You have a normal less than 4 weeks along You are having or recently had a miscarriage You have an ectopic Quantitative HCG This test measures the amount of a hormone in your blood. Comparing today's test result to a repeat test in 2 days will show whether you have a normal . Laparoscopy This is a type of surgery. The healthcare provider will put a tube with a light inside your belly (abdomen) to look directly at your pelvic organs. This test is used when it is not safe to wait 2 days for blood test results. Important information If you do have an ectopic , there is a small chance that the growing fetus can tear the fallopian tube. This can cause severe internal bleeding. If this happens, you may have: Sudden severe pain in your lower abdomen Vaginal bleeding Weakness, dizziness, and sometimes fainting If any of these symptoms occur: Call 911or return right away to the hospital. Don't drive yourself. Don't go to your healthcare provider's office or to a clinic. Go to the hospital. Home care Follow these guidelines to help care for yourself at home: Rest until your next exam. Don t do anything strenuous. Eat a light diet with foods that are easy to digest. Don t have sex until your healthcare provider says it s OK. Follow-up care Follow up with your healthcare provider, or as advised. If you were told to have a repeat blood test in 2 days, it s important to get it done. If you had an X-ray or ultrasound, a radiologist will review it. You will be told of any new findings that may affect your care. Call 911 Call 911 if you have any of these: Severe pain and very heavy bleeding Severe lightheadedness, passing out, or fainting Rapid heart rate Trouble breathing Confused or difficulty waking up When to seek medical advice Call your healthcare provider right away if any of these occur: The pain in your abdomen gets worse, either suddenly or gradually. You are dizzy or weak when you stand. You have heavy vaginal bleeding. This means soaking 1 pad an hour for 3 hours. You have vaginal bleeding for more than 5 days. You have repeated vomiting or diarrhea. The pain in your abdomen moves to the lower right. You have blood in your vomit or bowel movements. This will be dark red or black. You have a fever of 100.4 F (38 C) or higher, or as directed by your healthcare provider. [id number] [employer]. [address] [place] [address], [place] [address]. All rights reserved. This information is not intended as a substitute for professional medical care. Always follow your healthcare professional's instructions. Additional Information VACCINATE! IT SAVES LIVES! Members of the community who have not yet received the COVID-19 vaccine and would like to receive it can visit one of [facility] vaccine clinics. There are many vaccine clinic locations within the [facility]. For locations and available times, please visit [email or web address] It is important to note that some COVID mobile vaccine clinics are held outdoors and may be canceled in rainy or stormy conditions. To learn more about pediatric vaccinations (ages 5-11), we invite you to visit the [facility] webpage. [email or web address] Move [email or web address]/pa [email or web address]-[email or web address] [email or web address]-[email or web address].html To learn more about the COVID-19 vaccine, we invite you to visit the CDC website for a list of frequently asked questions. https://www.cdc.gov/coronavirus/2 019-ncov/vaccines/faq.html [facility] Patient Portal Access Instructions: Stay connected with your healthcare team and access your personal medical information anytime with the [facility] Patient Portal. If you would like a full copy of your medical records please contact the [facility] Medical Records Department Wednesday through Wednesday between 8a.m. and 4:30p.m. Please follow the directions below to access the portal: 1.Access the email account you provided upon registration to the hospital.2.Look for an invitation email from [facility].3.Open the email and access the invitation link: Accept Invitation to [facility]4.Fill in the required bruno to create your account. Sign into [email or web address] with your username and password that you created in the above steps to stay up to date. You can then view a summary of results, a summary of your visits, and the ability to download your summaries to your computer or send the information securely to a physician. Remember that your healthcare information is confidential, so carefully consider who you will allow to register on the [facility] Patient Portal for access to your information. You can also access the [facility] Patient Portal on the [employer] kei. Simply click on Health Records under Health Data and then click on the [employer] logo. HOW TO SAFELY DISPOSE OF PRESCRIPTION MEDICATIONS Please use one of the following methods to safely dispose of your unused medications. 1.Use a drug disposal kit: the drug disposal pouch allows you to safely discard your old and unused drugs. Ask your nurse to give you one when you are discharged.2.Visit a local take-back location: Many local pharmacies and police departments have programs that collect old and unwanted prescription drugs. Call your local pharmacy or go to http://[employer].[facility]/1I9Bz6z to find one close to you.3.Make use of household items: Use cat litter or old coffee grounds to dispose medications if other options are not available. Mix your drugs with these household products, seal them in an airtight container and throw it into the garbage. Call [facility]: [phone] to be sure your drugs can be disposed of in this way. Some medicines may require a different approach.4.Never flush your medications down the toilet. IF YOU HAVE BEEN PRESCRIBED AN OPIOIDS FOR PAIN If you have been prescribed an opioid (such as hydrocodone, oxycodone or morphine), it is critical to understand the possible side effects and risks of opioid pain medications. Even when taken as directed, opioids can have several side effects including: Tolerance, meaning you might need to take more of a medication for the same pain relief. Nausea, vomiting and/or constipation. Sleepiness, dizziness, dry mouth, confusion, depression or itching. Physical dependence, meaning you have withdrawal symptoms when a medication is stopped ? this can develop within a few days. KNOW YOUR RESPONSIBILITIES It is important to know exactly how much and how often to take the opioid pain medications you are prescribed. Never take opioids in higher amounts or more often than prescribed. Do not combine opioids with alcohol or other drugs that cause drowsiness, such as benzodiazepines, also known as benzos, including diazepam and alprazolam, muscle relaxants or sleep aids. Never sell or share prescription opioids. This is illegal. Store opioids in a secure place and out of reach of others (including children, family, friends and visitors). The last page(s) of this document has been signed and retained as a CHART COPY Signatures Patient Education Materials Abdominal Pain, Early Medication Leaflets My discharge plan and instructions have been reviewed and explained to me and I,LOYDA BURNETTE understand my current condition and have read and understand these discharge instructions. I have received a written copy of the plan/instructions. If I have questions, I am aware that I should contact my doctor. Patient/Product Development Ecologist Signature: Date/Time: Relationship to Patient: ____ Witness Name/Signature: Date/Time: [facility] 12-08-2024 History of Present illness Narrative [facility] Pulmonary and Sleep Medicine NEW PATIENT VISIT REFERRING PHYSICIAN: No referring provider defined for this encounter. CHIEF COMPLAINT/REASON FOR REFERRAL: Chief Complaint Patient presents with New Patient History of Present Illness: Loyda Burnette is a 33 y.o. female with a history of hypothyroidism, right lung nodule who presents for initial evaluation of chronic cough. She previously had a CT chest in [facility] in [place], [place]. Records are not available, but appears to have been done around March 2023. She had negative CXR 01/2022, images not available but report is. She says about a year and a half ago she had cyclic fevers in [place] over a period of a few weeks. She was hospitalized and received a CT scan which revealed a 6 mm subpleural nodule. She was told initially that she had cancer and was seen by Oncology but then saw Pulmonology who told her the nodule was round and appeared to be fluid filled and unlikely to be cancer. A [address] was recommended. She received an penicillin injection and her symptoms all resolved and did not return. She has no residual symptoms, generally quite active, and has two children, gets some dyspnea only when her thyroid replacement is off. She is concerned about the radiation of CT scan. She is currently trying to get . Discussed it would be advised to get repeat CT to ensure nodule has not grown in size. She would ideally like a low dose screening CT chest if possible. She tried to get records sent from hospital in [place] but they were unable to. Coccidioides Ab, TP (Eia) (PHX) Abnormal Positive Reference range: Negative (NOTE) Coccidioides Antibody Enzyme Immunoassay (EIA) may have lower specificity than Coccidioides Antibody Immunodiffusion (IMDF). This is especially true if only the IgM EIA is positive. EIA results should only be interpreted in conjunction with IMDF results. If IMDF results are negative, correlation with the clinical findings and repeat testing in 1 to 3 weeks may be warranted. The [employer] Cocci Ab EIA Test Kit measures the expression of Anti-TP IgM antibodies and Anti-CF IgG antibodies. Antibodies against the TP antigen become measurable early in the acute phase of infection, between the first [50%] and third [90%] weeks of onset, while antibodies against the CF antigen become measureable between the second and 28th week. Test Performed at: [employer] [facility] [address] [place] [id number] Coccidioides Ab, Cf (Eia) (PHX) Negative Reference range: Negative (NOTE) Coccidioides Antibody Enzyme Immunoassay (EIA) may have lower specificity than Coccidioides Antibody Immunodiffusion (IMDF). This is especially true if only the IgM EIA is positive. EIA results should only be interpreted in conjunction with IMDF results. If IMDF results are negative, correlation with the clinical findings and repeat testing in 1 to 3 weeks may be warranted. Assessment and Plan: Diagnosis Plan 1. Solid nodule of lung 6 mm to [address] lung screening follow up low dose 2. Pulmonary nodule, right CT lung screening follow up low dose 3. Chronic cough 4. History of coccidioidomycosis CT lung screening follow up low dose Complete PFT pre and post bronchodilator 5. Encounter for routine care HCG, quantitative, HCG, quantitative, Had subpleural nodule in the right lower lobe seen on CT chest in March 2023. Appears to have had positive Coccidiomycosis serologies at that time. Was recommended by Pulmonology in [place] to get [address] chest but was lost to follow up. She is low risk as she is a never smoker with no occupational exposures. Will send message to obtain CT images from [place] if possible. Discussed risks and benefits of repeat CT chest with her and she is agreeable to get repeat scan. Ordered low dose CT chest to minimize radiation exposure. Ordered serum beta HCG for 1 week prior to scan. If positive CT would need rescheduled. Non urgent PFT ordered Fellow, Pulmonology PastMedical History Past Medical History: Diagnosis Date Hypothyroid Miscarried within last 12 months Past Surgical History History reviewed. No pertinent surgical history. Allergies Allergies Allergen Reactions Mebendazole Other and Rash Other reaction(s): Other, skin peeling SKIN PEELING Skin peeled Medications Current Outpatient Medications: thyroid ([place]) 30 MG tablet, Take 30 mg by mouth daily., Disp: , Rfl: Social History Social History Socioeconomic History Marital status: Spouse name: Not on file Number of children: Not on file Years of education: Not on file Highest education level: Not on file Occupational History Not on file Tobacco Use Smoking status: Never Smokeless tobacco: Never Substance and Sexual Activity Alcohol use: Not Currently Drug use: Never Sexual activity: Not on file Other Topics Concern Not on file Social History Narrative Not on file Social Drivers of Health Financial Resource Strain: Not on file Food Insecurity: Not on file Transportation Needs: Not on file Physical Activity: Not on file Stress: Not on file Social Connections: Not on file Intimate Partner Violence: Not on file Housing Stability: Not on file FamilyHistory Family History Problem Relation Name Age of Onset Breast cancer Paternal Grandmother 53 Review of Systems Review of Systems Constitutional: Negative for chills, diaphoresis, fever and unexpected weight change. Respiratory: Negative for cough, chest tightness, shortness of breath and wheezing. Cardiovascular: Negative for chest pain and leg swelling. Musculoskeletal: Negative for arthralgias and joint swelling. Allergic/Immunologic: Negative for environmental allergies. All other systems reviewed and are negative. Physical Exam Vitals: 12/08/24 1305 BP: 102/67 BP Location: Left arm Patient Position: Sitting BP Cuff Size: Adult Pulse: 94 Resp: 14 SpO2: 98% Weight: 52.2 kg (115 lb) Height: 1.737 m (5' 8.4) Physical Exam Constitutional: General: She is not in acute distress. Appearance: Normal appearance. She is not ill-appearing. Cardiovascular: Rate and Rhythm: Normal rate and regular rhythm. Heart sounds: Normal heart sounds. No murmur heard. No friction rub. No gallop. Pulmonary: Effort: Pulmonary effort is normal. No respiratory distress. Breath sounds: Normal breath sounds. No stridor. No wheezing, rhonchi or rales. Musculoskeletal: Right lower leg: No edema. Left lower leg: No edema. Neurological: Mental Status: She is alert and oriented to person, place, and time. Mental status is at baseline. Psychiatric: Mood and Affect: Mood normal. Behavior: Behavior normal. LABS and Studies: Available studies were personally reviewed. Salient findings summarized in HPI & A/P Imaging: CXR portable: No results found for this or any previous visit. CXR (2V): No results found for this or any previous visit. CT Chest: No results found for this or any previous visit. CTA Chest: No results found for this or any previous visit. PFT's & Sleep studies: Other Studies: Reviewed and as per electronic record. CxR/CT images personally reviewed by me when available; salient findings summarized in A/P. documented in this encounter [facility] 12-08-2024 History of Present illness Narrative [facility]- Pulmonary and Sleep Medicine NEW PATIENT VISIT REFERRING PHYSICIAN: No referring provider defined for this encounter. CHIEF COMPLAINT/REASON FOR REFERRAL: Chief Complaint Patient presents with New Patient History of Present Illness: Loyda Burnette is a 33 y.o. female with a history of hypothyroidism, right lung nodule who presents for initial evaluation of chronic cough. She previously had a CT chest in [facility] in [place], [place]. Records are not available, but appears to have been done around March 2023. She had negative CXR 01/2022, images not available but report is. She says about a year and a half ago she had cyclic fevers in [place] over a period of a few weeks. She was hospitalized and received a CT scan which revealed a 6 mm subpleural nodule. She was told initially that she had cancer and was seen by Oncology but then saw Pulmonology who told her the nodule was round and appeared to be fluid filled and unlikely to be cancer. A [address] was recommended. She received an penicillin injection and her symptoms all resolved and did not return. She has no residual symptoms, generally quite active, and has two children, gets some dyspnea only when her thyroid replacement is off. She is concerned about the radiation of CT scan. She is currently trying to get . Discussed it would be advised to get repeat CT to ensure nodule has not grown in size. She would ideally like a low dose screening CT chest if possible. She tried to get records sent from hospital in [place] but they were unable to. Coccidioides Ab, TP (Eia) (PHX) Abnormal Positive Reference range: Negative (NOTE) Coccidioides Antibody Enzyme Immunoassay (EIA) may have lower specificity than Coccidioides Antibody Immunodiffusion (IMDF). This is especially true if only the IgM EIA is positive. EIA results should only be interpreted in conjunction with IMDF results. If IMDF results are negative, correlation with the clinical findings and repeat testing in 1 to 3 weeks may be warranted. The [employer] Cocci Ab EIA Test Kit measures the expression of Anti-TP IgM antibodies and Anti-CF IgG antibodies. Antibodies against the TP antigen become measurable early in the acute phase of infection, between the first [50%] and third [90%] weeks of onset, while antibodies against the CF antigen become measureable between the second and 28th week. Test Performed at: [facility] [address] [address] Coccidioides Ab, Cf (Eia) (PHX) Negative Reference range: Negative (NOTE) Coccidioides Antibody Enzyme Immunoassay (EIA) may have lower specificity than Coccidioides Antibody Immunodiffusion (IMDF). This is especially true if only the IgM EIA is positive. EIA results should only be interpreted in conjunction with IMDF results. If IMDF results are negative, correlation with the clinical findings and repeat testing in 1 to 3 weeks may be warranted. Assessment and Plan: Diagnosis Plan 1. Solid nodule of lung 6 mm to [address] lung screening follow up low dose 2. Pulmonary nodule, right CT lung screening follow up low dose 3. Chronic cough 4. History of coccidioidomycosis CT lung screening follow up low dose Complete PFT pre and post bronchodilator 5. Encounter for routine care HCG, quantitative, HCG, quantitative, Had subpleural nodule in the right lower lobe seen on CT chest in March 2023. Appears to have had positive Coccidiomycosis serologies at that time. Was recommended by Pulmonology in [place] to get [address] chest but was lost to follow up. She is low risk as she is a never smoker with no occupational exposures. Will send message to obtain CT images from [place] if possible. Discussed risks and benefits of repeat CT chest with her and she is agreeable to get repeat scan. Ordered low dose CT chest to minimize radiation exposure. Ordered serum beta HCG for 1 week prior to scan. If positive CT would need rescheduled. Non urgent PFT ordered Fellow, Pulmonology PastMedical History Past Medical History: Diagnosis Date Hypothyroid Miscarried within last 12 months Past Surgical History History reviewed. No pertinent surgical history. Allergies Allergies Allergen Reactions Mebendazole Other and Rash Other reaction(s): Other, skin peeling SKIN PEELING Skin peeled Medications Current Outpatient Medications: thyroid ([place]) 30 MG tablet, Take 30 mg by mouth daily., Disp: , Rfl: Social History Social History Socioeconomic History Marital status: Spouse name: Not on file Number of children: Not on file Years of education: Not on file Highest education level: Not on file Occupational History Not on file Tobacco Use Smoking status: Never Smokeless tobacco: Never Substance and Sexual Activity Alcohol use: Not Currently Drug use: Never Sexual activity: Not on file Other Topics Concern Not on file Social History Narrative Not on file Social Drivers of Health Financial Resource Strain: Not on file Food Insecurity: Not on file Transportation Needs: Not on file Physical Activity: Not on file Stress: Not on file Social Connections: Not on file Intimate Partner Violence: Not on file Housing Stability: Not on file FamilyHistory Family History Problem Relation Name Age of Onset Breast cancer Paternal Grandmother 53 Review of Systems Review of Systems Constitutional: Negative for chills, diaphoresis, fever and unexpected weight change. Respiratory: Negative for cough, chest tightness, shortness of breath and wheezing. Cardiovascular: Negative for chest pain and leg swelling. Musculoskeletal: Negative for arthralgias and joint swelling. Allergic/Immunologic: Negative for environmental allergies. All other systems reviewed and are negative. Physical Exam Vitals: 12/08/24 1305 BP: 102/67 BP Location: Left arm Patient Position: Sitting BP Cuff Size: Adult Pulse: 94 Resp: 14 SpO2: 98% Weight: 52.2 kg (115 lb) Height: 1.737 m (5' 8.4) Physical Exam Constitutional: General: She is not in acute distress. Appearance: Normal appearance. She is not ill-appearing. Cardiovascular: Rate and Rhythm: Normal rate and regular rhythm. Heart sounds: Normal heart sounds. No murmur heard. No friction rub. No gallop. Pulmonary: Effort: Pulmonary effort is normal. No respiratory distress. Breath sounds: Normal breath sounds. No stridor. No wheezing, rhonchi or rales. Musculoskeletal: Right lower leg: No edema. Left lower leg: No edema. Neurological: Mental Status: She is alert and oriented to person, place, and time. Mental status is at baseline. Psychiatric: Mood and Affect: Mood normal. Behavior: Behavior normal. LABS and Studies: Available studies were personally reviewed. Salient findings summarized in HPI & A/P Imaging: CXR portable: No results found for this or any previous visit. CXR (2V): No results found for this or any previous visit. CT Chest: No results found for this or any previous visit. CTA Chest: No results found for this or any previous visit. PFT's & Sleep studies: Other Studies: Reviewed and as per electronic record. CxR/CT images personally reviewed by me when available; salient findings summarized in A/P. Cosigned by Albino Foley DO at 12/11/2024 5:22 PM EDT Associated attestation - Albino Foley DO - 12/11/2024 5:22 PM EDT I saw and evaluated the patient, participating in the barry portions of the service. I reviewed the resident s note. I agree with the resident s findings and plan. Albino Foley DO documented in this encounter [facility] 12-08-2024 Instructions Beny Carey MA - 12/08/2024 1:00 PM EDT YOUR APPOINTMENT TODAY WAS WITH THE [facility] LUNG NODULE CLINIC, COPD CLINIC, PULMONARY AND SLEEP MEDICINE OFFICE. PLEASE CALL OUR OFFICE AT [phone] IF YOU HAVE NOT RECEIVED YOUR TEST RESULTS 7 DAYS AFTER TESTING IS COMPLETED. PLEASE REMEMBER TO REQUEST REFILLS AT YOUR OFFICE VISITS. PHONE/FAX REQUESTS REQUIRE 48-72 HOURS FOR RESPONSE. A FRIENDLY REMINDER COPAYS ARE DUE AT TIME OF SERVICE. THANK YOU. Our Patients Are Important! We want to improve and you can help. After your visit we want you to feel: Listened to, Respected and have your health care explained. You may receive a survey asking you about your visit. Please complete the survey. We will use your feedback to make improvements. COVID-19 VACCINATION INFORMATION: PH. [phone] [email or web address] [facility] Central Scheduling [phone] [facility] Sleep Scheduling [phone] documented in this encounter [facility] 12-24-2023 History of Present illness Narrative Loyda Burnette is a 33 year old female who presents for problem visit missed periods for 5 month(s). HPI: Has now had a second episode of missed menses two months in a row. Previously occurred in August and September. Was going to take provera but bleeding started spontaneously. Was having normal periods prior. Previously diagnosed with PCOS based on ultrasound findings. Labs have always been normal. Last done in September. 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 Currently with breast tenderness and bloating. Has not taken a recent test bur others have been negative. Would be ok if occurs. OB History T1 L2 SAB0 IAB0 Ectopic0 Multiple0 Live Births2 Comment: 1st delivery was in [place], no or delivery complications per patient Molder Machine Tender History LMP: 10/09/2023 (Exact Date), Having periods Age at Menarche: Age at First : Age at Menopause: Molder Machine Tender History Comments: Sexual Activity: Yes; Male Contraception: None PAST MEDICAL HISTORY Diagnosis Date H/O Ricarda thyroiditis Ricarda's disease Thyroid disease PAST SURGICAL HISTORY Procedure Laterality Date NONE FAMILY HISTORY Problem Relation Age of Onset Thyroid Mother hashimotos Stroke Father Diabetes Father Heart disease Father No Known Problems Sister No Known Problems Sister Thyroid Brother hypo Stroke Maternal Grandfather Heart Attack Maternal Grandfather 55 Breast Cancer Paternal Grandmother 45 Cancer Paternal Grandmother bladder Pancreatic Cancer Paternal Grandfather No Known Problems Daughter No Known Problems Daughter Melanoma Paternal Uncle Social History Tobacco Use Smoking status: Never Smokeless tobacco: Never Vaping Use Vaping Use: Never used Substance Use Topics Alcohol use: Yes Comment: Seldom Drug use: No Current Outpatient Medications Medication Sig cholecalciferol, vitamin D3, (VITAMIN D3 ORAL) Take 5,000 Units by mouth once daily. thyroid (PUBLICATION DISTRIBUTOR THYROID) 15 mg tablet Take 1 tablet by mouth once daily. take one tablet 6 days a week, 1/2 tablet on Sundays (Patient taking differently: Take 45 mg by mouth once daily.) multivitamin (MULTIPLE VITAMIN ESSENTIAL ORAL) Take 1 tablet by mouth twice daily. medroxyPROGESTERone (PROVERA) 10 mg tablet Take 1 tablet by mouth once daily. No current facility-administered medications for this visit. Allergies As of Date: 12/24/2023 Allergen Noted Reaction VERMOX [MEBENDAZOLE] 05/11/2018 Other: See Comments Fully Assessed 12/24/2023 REVIEW OF SYSTEMS Abdomen: No abdominal pain, nausea, vomiting, diarrhea, or constipation. Bladder: No dysuria, gross hematuria, urinary frequency, urinary urgency, or incontinence. Breast: tender. Expanded ROS: GENERAL: No weight loss, malaise or fevers TEMPERATURE REGULATOR PYROMETER: Negative for abnormal vaginal bleeding, abnormal vaginal discharge PSYCH: Negative for sleep disturbance, mood disorder and recent psychosocial stressors Allergies and current medication updated:Yes EXAM: BP 98/64 Wt 112 lb (50.8kg) LMP 10/09/2023 GENERAL: pleasant, female in no apparent distress HEENT: Normocephalic, atraumatic, mucus membranes moist, and no lesions NECK: full range of motion DERMATOLOGY: Normal, without lesions, non-icteric, and non-hirsute BREAST: deferred CHEST: Normal inspiratory effort ABDOMEN: Deferred PELVIC: deferred BIMANUAL: deferred NEURO: alert and oriented x3,exam grossly non-focal EXTREMITIES: normal ASSESSMENT AND PLAN: Encounter Diagnosis ICD-10-CM 1. Missed menses N92.6 Take provera to start a period. May help reset her cycle. Missed may be a component of PCOS despite to other s/s of PCOS Korin Cook MD documented in this encounter [facility] 12-08-2023 Telephone encounter Note Appointment recommended. Donnell Romero APRN.CNP [facility] 12-08-2023 Miscellaneous Notes Appointment recommended. Donnell Romero APRN.CNP Patient last seen in office on 10/01/23 for missed menses. Marcia John RN documented in this encounter [facility] 12-08-2023 Telephone encounter Note Patient last seen in office on 10/01/23 for missed menses. Marcia John RN [facility] 10-04-2023 Miscellaneous Notes Patient called back, reviewed below. Would like Provera rx - plans to use if she doesn't get her menstrual cycle within 1 week. Declines contraception. To follow up if she doesn't have a cycle with Provera use or if she would like to discuss preconception. Donnell Romero APRN.CNP Left voicemail for patient to call back. Wanted to review normal lab results. Can trial Provera to initiate cycle if she would like - would take for 10 days and then have a withdraw bleed within 2-3 days. 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 Risk of uterine hyperplasia when going longer than 3+ months without menses. Donenll Romero APRN.CNP documented in this encounter [facility] 10-04-2023 History of Present illness Narrative Patient called back - answered additional questions about the menstrual cycle. Would like to have Provera rx if her cycle doesn't come within the next week. To follow up if cycle doesn't occur. Donnell Romero APRN.CHEESE WEIGHER documented in this encounter [facility] 10-01-2023 History of Present illness Narrative Loyda Burnette is a 32 year old female who presents for problem visit for amenorrhea. HPI: Gunner reports LMP 07/20/23. Had one or two days of spotting in August. Had negative test in August. Reports a faint positive, but reported a negative test 3 days later. History of Hasimoto's, managed by functional medicine, Jacquelyn Washington. Just had thyroid labs about a month ago and normal. Has noticed sensitivity of nipples as well. Known PCOS diagnosis. OB History T1 L2 SAB0 IAB0 Ectopic0 Multiple0 Live Births2 Comment: 1st delivery was in [place], no or delivery complications per patient Molder Machine Tender History LMP: 07/20/2023 (Within Days), Having periods Age at Menarche: Age at First : Age at Menopause: Molder Machine Tender History Comments: Sexual Activity: Yes; Male Contraception: None PAST MEDICAL HISTORY Diagnosis Date H/O Ricarda thyroiditis Ricarda's disease Thyroid disease PAST SURGICAL HISTORY Procedure Laterality Date NONE FAMILY HISTORY Problem Relation Age of Onset Thyroid Mother hashimotos Stroke Father Diabetes Father Heart disease Father No Known Problems Sister No Known Problems Sister Thyroid Brother hypo Stroke Maternal Grandfather Heart Attack Maternal Grandfather 55 Breast Cancer Paternal Grandmother 45 Cancer Paternal Grandmother bladder Pancreatic Cancer Paternal Grandfather No Known Problems Daughter No Known Problems Daughter Melanoma Paternal Uncle Social History Tobacco Use Smoking status: Never Smokeless tobacco: Never Vaping Use Vaping Use: Never used Substance Use Topics Alcohol use: Yes Comment: Seldom Drug use: No Current Outpatient Medications Medication Sig cholecalciferol, vitamin D3, (VITAMIN D3 ORAL) Take 5,000 Units by mouth once daily. thyroid (PUBLICATION DISTRIBUTOR THYROID) 15 mg tablet Take 1 tablet by mouth once daily. take one tablet 6 days a week, 1/2 tablet on Sundays (Patient taking differently: Take 45 mg by mouth once daily.) multivitamin (MULTIPLE VITAMIN ESSENTIAL ORAL) Take 1 tablet by mouth twice daily. No current facility-administered medications for this visit. Allergies As of Date: 10/01/2023 Allergen Noted Reaction VERMOX [MEBENDAZOLE] 05/11/2018 Other: See Comments Fully Assessed 02/11/2023 REVIEW OF SYSTEMS Abdomen: No bloating, early satiety, indigestion, or increased flatulence. No abdominal pain, nausea, vomiting, diarrhea, or constipation. Bladder: No dysuria, gross hematuria, urinary frequency, urinary urgency, or incontinence. Breast: No breast lumps, nipple d/c, overlying skin changes, redness or skin retraction. Expanded ROS: N/A Allergies and current medication updated:Yes EXAM: BP 102/60 Wt 114 lb (51.7kg) LMP 07/20/2023 GENERAL: pleasant, female in no apparent distress HEENT: Normocephalic, atraumatic, mucus membranes moist, and no lesions DERMATOLOGY: Normal, without lesions, non-icteric, and non-hirsute BREAST: deferred CHEST: Normal inspiratory effort PELVIC: deferred BIMANUAL: deferred NEURO: alert and oriented x3,exam grossly non-focal EXTREMITIES: normal ASSESSMENT AND PLAN: 1. Missed menses - ICD9: 626.4, ICD10: N92.6 - Discussed possible reasons for missed menses ( stress, weight changes, lifestyle changes) - Prior diagnosis of PCOS likely cause. Reviewed increased risk for obesity, insulin resistance, hyperlipidemia, hypertension, and uterine hyperplasia - Labs today, confirm negative for - Plan for Provera to initiate cycle if all negative Donnell Romero APRN.CNP Medical Decision Making: Problems: Moderate: New problem with uncertain prognosis Data: Unique test(s) ordered: 3+ Risk: Low: Low risk from testing/treatment Medical Decision Making Level: 4 - Moderate documented in this encounter [facility] 09-20-2023 Miscellaneous Notes Patient called back. Her UPT is negative. Visit scheduled with AG. Korin Trejo RN Patient called to report that her LMP was 12/5. Took a faint positive UPT 3 weeks. Reports that she read the test after the recommended time. Advised patient to take another test today and to call the office with her results. Korin Trejo RN documented in this encounter [facility] 07-27-2023 Telephone encounter Note S: Patient spoke with [facility] nurse regarding request to cancel OV. B: Onset of symptoms/concern: 07/28/23 A: Pt requests to have OV canceled. Pt will call back in for rescheduling. R: Canceled OV per pt's request. Patient understands care advice. No further needs at this time. Patient instructed to call back with new or worsening symptoms. Charted in [facility] eCW, routed TE to Holley Malik per practice page. Reason for Disposition [1] Follow-up call to recent contact AND [2] information only call, no triage required Protocols used: Information Only Call - No [id number] [facility] 07-27-2023 Miscellaneous Notes S: Patient spoke with [facility] nurse regarding request to cancel OV. B: Onset of symptoms/concern: 07/28/23 A: Pt requests to have OV canceled. Pt will call back in for rescheduling. R: Canceled OV per pt's request. Patient understands care advice. No further needs at this time. Patient instructed to call back with new or worsening symptoms. Charted in [facility] eCW, routed TE to Holley Gan per practice page. Reason for Disposition [1] Follow-up call to recent contact AND [2] information only call, no triage required Protocols used: Information Only Call - No [id number] documented in this encounter [facility] 04-30-2023 History of Present illness Narrative Radiology Service Progress Note PATIENT NAME: Loyda Burnette DATE OF SERVICE: April 30, 2023 TIME: 1:01 PM PATIENT IDENTITY VERIFICATION COMPLETED USING TWO (2) IDENTIFIERS: Name and Date of confirmed by patient verbally. FALL SCREENING: Has the patient had 2 falls in the last year or 1 fall with injury or currently using an Ambulatory Assistive Device (Walker, Cane, Wheelchair, Crutches, etc.)? No PATIENT GENDER DATA: Female. status: : No status: NO. PATIENT RELEVANT IMPLANT DATA REVIEWED: Not Applicable RADIOLOGY DEPARTMENT: Ultrasound PERIPHERAL IV DATA: Not applicable SIGNED BY: RT Qian(Wesly) April 30, 2023 1:01 PM documented in this encounter [facility] 04-29-2023 Miscellaneous Notes Spoke with pt and below information given. Pt will stop in lab and blood work drawn. Radha Bueno LPN I will order blood HCG level and we can go from there. Order placed. Jessenia Valverde APRN.CNM Pt calling and stated that she is 10d late for her menses. Her last LMP was 03/20/23. She has taken a with a negative result. Pt stated that she is having some pain on her RLQ pain that is described as a sharp ache that she rates as a 3-4 on a pain scale. That is intermittent. She has noted this for the past 3 days. No other issues or concerns. Pt is not actively trying for but they are not preventing it either. Please advise from here. Radha Bueno LPN documented in this encounter [facility] 03-29-2023 Miscellaneous Notes Patient notified. She will call back if she decides she needs it faxed elsewhere. Gisell Morales RN Attempted to notify patient. No answer and unable to leave a message. Mailbox is full. Korin Trejo RN Order filed. Laura Calero APRN.CHEESE WEIGHER Per 02/11/23 office note, but to have pelvic US if she has spotting. Patient called to request the ultrasound. She is having spotting. Currently out of town for a month. May or may not have the order faxed to another facility. She will let us know. Please place pelvic US order. Patient wants notified once done. Korin Trejo RN documented in this encounter [facility] 02-22-2023 Miscellaneous Notes Negative for . Message sent via [employer] by provider. Korin Trejo RN Patient notified. Patient is going to call her pharmacist to inquire about doxycycline. Left message for patient to call office. Korin Trejo RN HCG quants filed Patient called stating that she had a faint positive line on her home test and called asking if she could have an order for a blood test. Patient states that she is not sure when her last menses was d/t having irregular spotting. Patient states that she is taking doxycycline d/t a lyme disease diagnosis and is uncertain if doxycycline can be taking if . documented in this encounter [facility] 02-11-2023 History of Present illness Narrative Collection Systems Technician offered: Patient declines. Loyda is a 32 year old who presents for an annual gynecologic exam with complaints, intermittent vaginal itching x 5 months. No change in discharge . Fishy odor after SI for past 2 months. PCOS - irregular menses prior to , now usually regular. Thyroid panel normal last month. Menses: cycles every 28-32 days and 4-7 days of flow. Spotting for last month instead of menses. Spotting stopped yesterday. Negative home UPT one week ago. Contraception: none Happy if occurs. HPV vaccine: No Last Pap: 03/03/2021 normal HPV: 03/03/2021 negative History of abnormal pap: No Last mammogram: 2020 right breast duct ectasia or debris and is benign 11/19/2022 - normal US at [facility] Sexually active: Yes History of STDS: None Patient concerns for STD exposure: No. Pain with intercourse: No Postcoital bleeding: Not usually. Increase in spotting recently with spotting over last month. OB History T1 L2 SAB0 IAB0 Ectopic0 Multiple0 Live Births2 Comment: 1st delivery was in [place], no or delivery complications per patient Molder Machine Tender History LMP: 02/01/2023, Having periods Age at Menarche: Age at First : Age at Menopause: Molder Machine Tender History Comments: Sexual Activity: Yes; Male Contraception: None PAST MEDICAL HISTORY Diagnosis Date H/O Ricarda thyroiditis Ricarda's disease Thyroid disease PAST SURGICAL HISTORY Procedure Laterality Date NONE FAMILY HISTORY Problem Relation Age of Onset Thyroid Mother hashimotos Stroke Father Diabetes Father Heart disease Father No Known Problems Sister No Known Problems Sister Thyroid Brother hypo Stroke Maternal Grandfather Heart Attack Maternal Grandfather 55 Breast Cancer Paternal Grandmother 45 Cancer Paternal Grandmother bladder Pancreatic Cancer Paternal Grandfather No Known Problems Daughter No Known Problems Daughter Melanoma Paternal Uncle SOCIAL HISTORY Social History Tobacco Use Smoking status: Never Smokeless tobacco: Never Vaping Use Vaping Use: Never used Substance Use Topics Alcohol use: Yes Comment: Seldom Drug use: No REVIEW OF SYSTEMS Abdomen: No abdominal pain, nausea, vomiting, diarrhea, or constipation. No bloating, early satiety, indigestion, or increased flatulence. Bladder: No dysuria, gross hematuria, urinary frequency, urinary urgency, or incontinence. Breast: No breast lumps, nipple d/c, overlying skin changes, redness or skin retraction. Allergies and current medication updated:Yes EXAM: BP 98/64 Ht 5' 7 (1.70m) Wt 111 lb (50.3kg) LMP 02/01/2023 BMI 17.38 kg/(m^2). GENERAL: pleasant, female in no apparent distress HEENT: Normocephalic, atraumatic, mucus membranes moist, and no lesions NECK: Supple, full range of motion, no adenopathy, and thyroid normal DERMATOLOGY: Normal, without lesions, non-icteric, and non-hirsute BREAST: soft, non-tender, symmetric, no dominant mass, normal nipple-areolar complex, no lymphadenopathy, and no nipple discharge CHEST: Normal inspiratory effort ABDOMEN: soft, non-tender, and no masses PELVIC: external genitalia normal, normal Bartholin's glands, urethra, [place]'s glands, no vulvar lesions, no cervical lesions, good vaginal support, physiologic discharge present, normal appearing perineal body and perianal region. Small amount blood in vagina. BIMANUAL: uterus normal size, shape and consistency, no adnexal masses, and non-tender RECTOVAGINAL: deferred. NEURO: alert and oriented x3,exam grossly non-focal EXTREMITIES: normal ASSESSMENT/PLAN: 1) Health maintenance: Pap/HPV up to date. Mammogram starting age 40. Nutrition, exercise and routine health maintenance exams reviewed. Calcium/Vitamin D supplementation information provided. 2. Vagina itching - ICD9: 698.1, ICD10: N89.8 - BART/TRICHOMONAS NAAT - BACTERIAL VAGINOSIS NAAT 3. Spotting between menses - ICD9: 626.6, ICD10: N92.3 Home UPT negative one week ago. Discussed repeating UPT vs serum. She prefers serum HCG. discussed that her next menses may reset her cycle and spotting may subsequently stop. If it does not, she should notify the office and pelvic ultrasound would be ordered - HCG QUANTITATIVE 4) Contraception: none. Contraceptive options reviewed and information provided. 5) STD screening: Declined STD check. 6) Follow up one year or sooner as needed Laura Calero APRN.AFIA documented in this encounter [facility] 11-20-2022 Miscellaneous Notes We tried to reach Pt by phone, the mailbox was full and a message wasn not able to be left.. Dr. Leigh's recommendation below is for her to continue to follow up with [facility] and Celena Kellogg PA-C. As Dr. Leigh stated below, they are the breast specialists and are managing her care. I am trying to reach Pt to cancel appointment with Dr. Leigh for Wednesday11/23/2022 at 8am. Thank you! Delphine Lazo RN documented in this encounter [facility] 11-19-2022 Miscellaneous Notes Pt refused mammogram due to possibility of . Ultrasound only. Laura Washington RT(R)(M) documented in this encounter [facility] 11-19-2022 Note Formatting of this n ote might be different from the original. Pt refused mammogram due to possibility of . Ultrasound only. Laura Washington RT(R)(M) [facility] 11-19-2022 Note Formatting of this n ote might be different from the original. Pt refused mammogram due to possibility of . Ultrasound only. Laura Washington RT(R)(M) T [facility] 11-02-2022 Telephone encounter Note S: Patient spoke with [facility] nurse regarding palpitations B: Onset of symptoms/concern tonight A: Patient states she is doing a liver cleanse and taking supplements x 4 days, not eating dairy, gluten or sugar x 30 days prior. Patient states she woke up out of her sleep feeling anxious, shaky and like her heart was racing. HR is 100 now and she is currently not feeling palpitations. Patient states she is not taking supplements tonight. Patient is feeling better than when she initially called. R: Patient instructed to not take supplements until she discusses them with PCP. Patient understands care advice. No further needs at this time. CALL BACK IF: * Chest pain, lightheadedness or difficulty breathing occurs * Heart beating over 140 beats / minute * More than 3 extra or skipped beats / minute * You become worse Reason for Disposition Palpitations Protocols used: Heart Rate and Heartbeat [id number] [facility] 11-02-2022 Miscellaneous Notes S: Patient spoke with [facility] nurse regarding palpitations B: Onset of symptoms/concern tonight A: Patient states she is doing a liver cleanse and taking supplements x 4 days, not eating dairy, gluten or sugar x 30 days prior. Patient states she woke up out of her sleep feeling anxious, shaky and like her heart was racing. HR is 100 now and she is currently not feeling palpitations. Patient states she is not taking supplements tonight. Patient is feeling better than when she initially called. R: Patient instructed to not take supplements until she discusses them with PCP. Patient understands care advice. No further needs at this time. CALL BACK IF: * Chest pain, lightheadedness or difficulty breathing occurs * Heart beating over 140 beats / minute * More than 3 extra or skipped beats / minute * You become worse Reason for Disposition Palpitations Protocols used: Heart Rate and Heartbeat [id number] documented in this encounter [facility] 10-25-2022 Miscellaneous Notes Chart opened in error documented in this encounter [facility] 09-01-2022 Note HNO ID: [id number] Author: Celena Kellogg PA-C Service: ? Author Type: Physician Rodent Control Worker Type: Progress Notes Filed: 09/01/2022 4:51 PM Note Text: MEDICAL BREAST PATIENT NAME: Loyda Burnette September 01, 2023 REFERRAL: She is self-referred for an opinion regarding right breast pain. 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 The patient denies any breast masses, skin changes, or nipple discharge. She previously reported right breast pain with a lump while , for which 04/2021 bilateral diagnostic imaging with right US revealed multiple probably benign 4 mm- 8 mm lobulated areas in the UOQ 2 cmfn (correlating with area of pain and possibly representing debris within ducts). 3 month follow-up right US in 06/2021 revealed a 2.4 cm area of duct ectasia or edema for which US guided biopsy was recommended. She saw a general surgeon, Dr. Leigh, who felt this lesion was likely duct ectasia and possibly inflammatory changes of the ducts/bresat tissue. This it was decided to closely follow-up. Repeat right US in 10/2021 revealed a benign now 9 mm dilated duct consistent with duct ectasia or debris at 11:00, 4 cmfn. She stopped in early 2021 before she had the repeat US in 10/2021 revealing the smaller dilated duct. She had a miscarriage ~10 months ago and her cycles became irregular after that. They have improved but they are still off. She has now had right breast pain again in the same area since 06/2022 with possible lumpy tissue but not as significant as before. The pain is intermittent and is worse with her cycle. It radiates into the axillary region at times. She does not take any exogenous hormones, drinks 1 coffee daily and denies any trauma. Her vitamin D level was No results found for: VITD25. She takes vitamin D 5000 units and a multivitamin daily. BMD: No PERSONAL BREAST HISTORY: Past breast history (prior to this encounter) is as follows: Breast biopsy: No Breast cysts: No Breast surgery: No Breast cancer: No CANCER SURVEILLANCE: Mammograms: Yes bilateral diagnostic imaging, Date in [facility]: 04/2021; results - as above Breast MRI: No Colonoscopy: No RISK FACTORS FOR BREAST CANCER: Age at the onset of menses: 15 years of age. P: 2 Age at the of first child: 23 years of age. She breast fed for 6 years total. Age at menopause: The patient is not menopausal at this time. Post-menopausal hormone therapy: Not applicable She has an intact uterus and ovaries She does not use any control. History of Mantle Radiation prior to the age of 29: No Obesity: No Body mass index is 17.23 kg/m?. Current Weight: 110 lbs Mammographic density: The breasts are extremely dense which limits the sensitivity of mammography Personal History of Benign Atypical Breast Biopsy: No Alcohol use: 1 glass of wine q 2-3 months PAST MEDICAL HISTORY: PAST MEDICAL HISTORY Diagnosis Date H/O Ricarda thyroiditis Ricarda's disease Thyroid disease Patient specifically denies history of: DVT, PE, migraine headaches WITH AURA, migraine headaches without aura, abnormal uterine bleeding, abnormal uterine biopsies, osteopenia, and osteoporosis. PAST SURGICAL HISTORY: PAST SURGICAL HISTORY Procedure Laterality Date NONE SOCIAL HISTORY: Social History Tobacco Use Smoking status: Never Smokeless tobacco: Never Vaping Use Vaping Use: Never used Substance Use Topics Alcohol use: Yes Comment: Seldom Drug use: No Caffeine intake: 1 coffee / day, occasional pop Exercise: Never FAMILY HISTORY: Family history of breast cancer: PGM around 50 years old, Family history of ovarian cancer: None Number of sisters: 2 Number of maternal aunts: 2 Number of paternal aunts: 0 Ashkenazi Ancestry: no Has Patient had Genetic Testing? No Other Cancer: PGM had bladder cancer in 60s. PGF had pancreatic cancer. Paternal uncle had melanoma. There is no family history of prostate, colon, uterine, pancreatic, gastric, brain, renal cell or thyroid cancer. There is no family history of sarcoma or leukemia. Osteoporosis: Mother Stroke: Father at 69. MGF in 60s Blood Clot: None Heart attack: MGF in 60s Thyroid Nodule or Goiter: Mother has Ricarda's (like patient). Autism: None FAMILY HISTORY Problem Relation Age of Onset Thyroid Mother hashimotos Stroke Father Diabetes Father Heart disease Father No Known Problems Sister No Known Problems Sister Thyroid Brother hypo Stroke Maternal Grandfather Heart Attack Maternal Grandfather 55 Breast Cancer Paternal Grandmother 45 Cancer Paternal Grandmother bladder Pancreatic Cancer Paternal Grandfather No Known Problems Daughter No Known Problems Daughter Melanoma Pat (more content not included)... [facility] 06-26-2022 History of Present illness Narrative Loyda Burnette is a 31 year old female who presents for right breast tenderness for one week. Pt reports she had similar symptoms last year. She had a mammogram and ultrasound completed and was found to have a right breast cyst. Pain is intermittent and worsened with palpation. Denies trying anything for the pain. LMP 06/20-06/26. Denies any nipple discharge, skin changes around breast or nipple inversion. agree w/ above. Denies trauma to the area. OB History T1 L2 SAB0 IAB0 Ectopic0 Multiple0 Live Births2 Comment: 1st delivery was in [place], no or delivery complications per patient Molder Machine Tender History LMP: 06/20/2022, Having periods Age at Menarche: Age at First : Age at Menopause: Molder Machine Tender History Comments: Sexual Activity: Yes; Male Contraception: None PAST MEDICAL HISTORY Diagnosis Date H/O Ricarda thyroiditis Ricarda's disease Thyroid disease PAST SURGICAL HISTORY Procedure Laterality Date NONE FAMILY HISTORY Problem Relation Age of Onset Thyroid Mother hashimotos Stroke Father Diabetes Father Heart disease Father No Known Problems Sister No Known Problems Sister Thyroid Brother hypo Stroke Maternal Grandfather Heart Attack Maternal Grandfather 55 Breast Cancer Paternal Grandmother 45 Cancer Paternal Grandmother bladder Pancreatic Cancer Paternal Grandfather No Known Problems Daughter No Known Problems Daughter Melanoma Paternal Uncle Social History Tobacco Use Smoking status: Never Smokeless tobacco: Never Vaping Use Vaping Use: Never used Substance Use Topics Alcohol use: Yes Comment: Seldom Drug use: No Current Outpatient Medications Medication Sig cholecalciferol, vitamin D3, (VITAMIN D3 ORAL) Take by mouth. thyroid (PUBLICATION DISTRIBUTOR THYROID) 15 mg tablet Take 1 tablet by mouth once daily. take one tablet 6 days a week, 1/2 tablet on Sundays (Patient taking differently: Take 22 mg by mouth once daily. 15 mg on Fridays) multivitamin (MULTIPLE VITAMIN ESSENTIAL ORAL) Take 1 tablet by mouth twice daily. VITAMIN K2 ORAL Take by mouth. (Patient not taking: Reported on 06/26/2022) Lactobacillus acidophilus (PROBIOTIC ORAL) Take by mouth. (Patient not taking: Reported on 05/08/2022) HERBAL DRUGS ORAL Take by mouth. Tumeric No current facility-administered medications for this visit. Allergies As of Date: 06/26/2022 Allergen Noted Reaction VERMOX [MEBENDAZOLE] 05/11/2018 Other: See Comments Fully Assessed 06/26/2022 REVIEW OF SYSTEMS Abdomen: No bloating, early satiety, indigestion, or increased flatulence. No abdominal pain, nausea, vomiting, diarrhea, or constipation. Bladder: No dysuria, gross hematuria, urinary frequency, urinary urgency, or incontinence. Breast: right breast lump. No nipple d/c, overlying skin changes, redness or skin retraction. Allergies and current medication updated:Yes EXAM: BP 94/68 Wt 109 lb 3.2 oz (49.5kg) LMP 06/20/2022 GENERAL: pleasant, female in no apparent distress BREAST: soft, non-tender, symmetric, no dominant mass, normal nipple-areolar complex, no lymphadenopathy, no nipple discharge, and in both breasts upper outer quadrant there is some dense tissue but no discrete mases ASSESSMENT AND PLAN: right breast tenderness. NEG imaging last year. Same symptoms w/o discrete mass. Monitor the area and if other changes notify office and we will order imaging Reviewed previous mammogram Medical Decision Making: Medical Decision Making Level: 1 - N/A Vida Donald MD documented in this encounter [facility] 05-08-2022 History of Present illness Narrative Collection Systems Technician offered: Patient declines. Loyda Burnette is a 31 year old female who presents for problem visit continuing with irregular menses. HPI: Continues to have irregular menstrual bleeding. Recently menses 10 days late then had menses. Now having intermenstrual spotting. Last spotting had some long dark stringy clots. Wants to have another baby so she does not want menstrual regulation with contraception. Known PCOS. BMI 16.92, which is her normal. Estradiol, FSH and TSH. Pelvic US 10/2019 and 07/2021 both with polycystic ovaries. Vitex supplement - started 2 weeks ago, supplement for PCOS. OB History T1 L2 SAB0 IAB0 Ectopic0 Multiple0 Live Births2 Comment: 1st delivery was in [place], no or delivery complications per patient Molder Machine Tender History LMP: 04/18/2022, Having periods Age at Menarche: Age at First : Age at Menopause: Molder Machine Tender History Comments: Sexual Activity: Yes; Male Contraception: None PAST MEDICAL HISTORY Diagnosis Date H/O Ricarda thyroiditis Ricarda's disease Thyroid disease PAST SURGICAL HISTORY Procedure Laterality Date NONE FAMILY HISTORY Problem Relation Age of Onset Thyroid Mother hashimotos Stroke Father Diabetes Father Heart disease Father No Known Problems Sister No Known Problems Sister Thyroid Brother hypo Stroke Maternal Grandfather Heart Attack Maternal Grandfather 55 Breast Cancer Paternal Grandmother 45 Cancer Paternal Grandmother bladder Pancreatic Cancer Paternal Grandfather No Known Problems Daughter No Known Problems Daughter Melanoma Paternal Uncle Social History Tobacco Use Smoking status: Never Smokeless tobacco: Never Vaping Use Vaping Use: Never used Substance Use Topics Alcohol use: Yes Comment: Seldom Drug use: No Current Outpatient Medications Medication Sig cholecalciferol, vitamin D3, (VITAMIN D3 ORAL) Take by mouth. VITAMIN K2 ORAL Take by mouth. thyroid (PUBLICATION DISTRIBUTOR THYROID) 15 mg tablet Take 1 tablet by mouth once daily. take one tablet 6 days a week, 1/2 tablet on Sundays (Patient taking differently: Take 22 mg by mouth once daily. 15 mg on Fridays) multivitamin (MULTIPLE VITAMIN ESSENTIAL ORAL) Take 1 tablet by mouth twice daily. Lactobacillus acidophilus (PROBIOTIC ORAL) Take by mouth. (Patient not taking: Reported on 05/08/2022) HERBAL DRUGS ORAL Take by mouth. Tumeric No current facility-administered medications for this visit. Allergies As of Date: 05/08/2022 Allergen Noted Reaction VERMOX [MEBENDAZOLE] 05/11/2018 Other: See Comments Fully Assessed 03/11/2022 REVIEW OF SYSTEMS Denies family history of clotting disorders. Denies personal history of DVT, CVD, hypertension or migraine with aura. Non-smoker. Allergies and current medication updated:Yes EXAM: BP 96/60 Wt 108 lb (49.0kg) LMP 04/18/2022 GENERAL: pleasant, female in no apparent distress CHEST: Normal inspiratory effort NEURO: alert and oriented x3,exam grossly non-focal ASSESSMENT/PLAN: 1. Irregular menses - ICD9: 626.4, ICD10: N92.6 (primary diagnosis) - known PCOS -Discussed causes of irregular menses including PCOS and low BMI. Her BMI is currently 16.92 and she states her usual weight is 105-112 lbs. dietary recall reviewed with patient and she is encouraged to eat lunch on a regular basis, add snacks and add healthy fat to diet. - Recommend PNVFA 2. Polycystic ovaries - ICD9: 256.4, ICD10: E28.2 -See above -Discussed regulation of menses with contraception. She does not wish to do this as she desires future . Discussed that OCP could be used for 2 to 3 months to reset her cycle. Patient will consider an notify me if she would like to proceed. All questions answered. Follow-up as needed. Laura Calero APRN.AFIA I spent a total of 35 minutes on the date of the service which included preparing to see the patient, [id number] patient care, completing clinical documentation, obtaining and/or reviewing separately obtained history, performing a medically appropriate examination, and counseling and educating the patient/family/caregiver. documented in this encounter [facility] 03-11-2022 History of Present illness Narrative Collection Systems Technician offered: Patient declines. Loyda Burnette is a 31 year old female who presents for problem visit heavy menses since SAB 2 months ago. HPI: Menses regular since stopping 08/2021. Before pregnancies, menses were irregular. 12/2021 SAB - heavy bleedng x 1 week following SAB. January 20 - menses 7 days and heavy. February 05 - bleeding x 11 days, initially spotting then heavy x 6 days and then tapered off. 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 Was changing regular tampon every 1-2 hours on heaviest day of bleeding. Is now wearing pads since bleeding has lessened. [place] dizzy and pulse rate 113-120 this afternoon and lasted 60-90 minutes. She does sometimes have rapid heart rate with Hashimotio's when TSH below 2. 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 UPT negative today. Is not interested in contraception to control menses. Is happy if occurs. OB History T1 L2 SAB0 IAB0 Ectopic0 Multiple0 Live Births2 Comment: 1st delivery was in [place], no or delivery complications per patient Molder Machine Tender History LMP: 03/08/2022, Having periods Age at Menarche: Age at First : Age at Menopause: Molder Machine Tender History Comments: Sexual Activity: Yes; Male Contraception: None PAST MEDICAL HISTORY Diagnosis Date H/O Ricarda thyroiditis Ricarda's disease Thyroid disease PAST SURGICAL HISTORY Procedure Laterality Date NONE FAMILY HISTORY Problem Relation Age of Onset Thyroid Mother hashimotos Stroke Father Diabetes Father Heart disease Father No Known Problems Sister No Known Problems Sister Thyroid Brother hypo Stroke Maternal Grandfather Heart Attack Maternal Grandfather 55 Breast Cancer Paternal Grandmother 45 Cancer Paternal Grandmother bladder Pancreatic Cancer Paternal Grandfather No Known Problems Daughter No Known Problems Daughter Melanoma Paternal Uncle Social History Tobacco Use Smoking status: Never Smoker Smokeless tobacco: Never Used Vaping Use Vaping Use: Never used Substance Use Topics Alcohol use: Yes Comment: Seldom Drug use: No Current Outpatient Medications Medication Sig cholecalciferol, vitamin D3, (VITAMIN D3 ORAL) Take by mouth. VITAMIN K2 ORAL Take by mouth. Lactobacillus acidophilus (PROBIOTIC ORAL) Take by mouth. thyroid (PUBLICATION DISTRIBUTOR THYROID) 15 mg tablet Take 1 tablet by mouth once daily. take one tablet 6 days a week, 1/2 tablet on Sundays multivitamin (MULTIPLE VITAMIN ESSENTIAL ORAL) Take 1 tablet by mouth twice daily. HERBAL DRUGS ORAL Take by mouth. Deanna No current facility-administered medications for this visit. Allergies As of Date: 03/11/2022 Allergen Noted Reaction VERMOX [MEBENDAZOLE] 05/11/2018 Other: See Comments Fully Assessed 03/11/2022 REVIEW OF SYSTEMS Abdomen: No bloating, early satiety, indigestion, or increased flatulence. No abdominal pain, nausea, vomiting, diarrhea, or constipation. Allergies and current medication updated:Yes EXAM: BP 110/60 Wt 107 lb (48.5kg) LMP 03/08/2022 GENERAL: pleasant, female in no apparent distress CHEST: Normal inspiratory effort ABDOMEN: soft, non-tender and no masses PELVIC: external genitalia normal, normal Bartholin's glands, urethra, [place]'s glands, no vulvar lesions, no cervical lesions, good vaginal support, physiologic discharge present, normal appearing perineal body and perianal region. Blood in vaginal vault. Cervical os closed. BIMANUAL: uterus normal size, shape and consistency, no adnexal masses and non-tender NEURO: alert and oriented x3,exam grossly non-focal ASSESSMENT/PLAN: 1. Menorrhagia with regular cycle - ICD9: 626.2, ICD10: N92.0 (primary diagnosis) - Discussed changes in menses. Discussed HMB and treatment including contraception. Pt is not interested in any contraception. - UPT negative today - CBC + DIFF 2. Dizziness - ICD9: 780.4, ICD10: R42 - CBC + DIFF Will notify of results. Follow- up as needed. Bleeding precautions - she will notify office with continued or increased HMB. Laura Calero APRN.AFIA I spent a total of 25 minutes on the date of the service which included preparing to see the patient, [id number] patient care, completing clinical documentation, obtaining and/or reviewing separately obtained history, performing a medically appropriate examination, counseling and educating the patient/family/caregiver and ordering medications, tests, or procedures. documented in this encounter [facility] 03-11-2022 Miscellaneous Notes Called patient. Has not taken a UPT. Will take one today and call the office if she has a positive result. Otherwise she would like to keep her appointment today. Reports that her bleeding has slowed down to nearly spotting. Korin Trejo RN Please ask pt if she has taken a UPT in the past couple of days. If not, please ask her to take one. Laura Calero APRN.AFIA documented in this encounter [facility] 03-09-2022 Miscellaneous Notes Appointment given. Reviewed bleeding precautions. Korin Trejo RN Recommend appointment for follow up of irregular bleeding Patient of CP. Had missed ab 12/2021. Since then she has had irregular bleeding. In January she had two menses and the second one lasted 11 days. She started bleeding again yesterday. Heavier then normal menses for her. Using regular tampon and changing it every 2 hours. No chest pain, shortness of breath or dizziness. Does feel more fatigued, but she has been getting over a cold so she thinks it could be related to that illness. Trying to conceive. Please advise. Gisell Morales RN documented in this encounter [facility] 01-27-2022 Hospital Discharge instructions River Kerr MD - 01/27/2022 Return here if your symptoms get worse; Return for fever also The following attachments cannot be sent through Care Everywhere.Chest Pain ([place])documented in this encounter [facility] Work Phone: 01-01-2022 History of Present illness Narrative VIRTUAL VISIT PROGRESS NOTE This is a virtual visit using Routehappy video visit. It required patient-provider interaction for the medical decision making as documented below. Loyda Burnette is a 31 year old female seen for questions/ follow up after recent miscarriage. Patient had positive test earlier this month and then began to have cramping and bleeding. She went to ED and HCG levels decreased from 10.4 to 5.6 which was consistent with a spontaneous . Patient reports having bleeding for approximately 5 days that was just like a period. Interested in becoming as soon as possible. HISTORY REVIEWED (electronic chart updated): PAST MEDICAL HISTORY Diagnosis Date H/O Ricarda thyroiditis Ricarda's disease Thyroid disease PAST SURGICAL HISTORY Procedure Laterality Date NONE FAMILY HISTORY Problem Relation Age of Onset Thyroid Mother hashimotos Stroke Father Diabetes Father Heart disease Father No Known Problems Sister No Known Problems Sister Thyroid Brother hypo Stroke Maternal Grandfather Heart Attack Maternal Grandfather 55 Breast Cancer Paternal Grandmother 45 Cancer Paternal Grandmother bladder Pancreatic Cancer Paternal Grandfather No Known Problems Daughter No Known Problems Daughter Melanoma Paternal Uncle Social History Tobacco Use Smoking status: Never Smoker Smokeless tobacco: Never Used Vaping Use Vaping Use: Never used Substance Use Topics Alcohol use: Yes Comment: Seldom Drug use: No Current Outpatient Medications Medication Sig cholecalciferol, vitamin D3, (VITAMIN D3 ORAL) Take by mouth. VITAMIN K2 ORAL Take by mouth. Lactobacillus acidophilus (PROBIOTIC ORAL) Take by mouth. HERBAL DRUGS ORAL Take by mouth. Tumeric thyroid (PUBLICATION DISTRIBUTOR THYROID) 15 mg tablet Take 1 tablet by mouth once daily. take one tablet 6 days a week, 1/2 tablet on Sundays multivitamin (MULTIPLE VITAMIN ESSENTIAL ORAL) Take 1 tablet by mouth twice daily. No current facility-administered medications for this visit. ALLERGIES Allergen Reactions Vermox [Mebendazole] Other: See Comments Skin peeled REVIEW OF SYSTEMS: GENERAL: feeling well without fatigue, no recent change in weight, activity level is normal TEMPERATURE REGULATOR PYROMETER: denies abnormal vaginal bleeding, no vaginal discharge SKIN: no rash PSYCH: denies depressed or anxious mood, sleep is normal All other ROS: negative PHYSICAL EXAMINATION: VIDEO EXAM: (if completed, performed via video enabled technology) GENERAL: alert and appropriate, in no distress, well-hydrated, well nourished and happy, smiling, interactive SKIN: no rash noted RESPIRATORY: breathing non-labored NEUROLOGIC: no obvious deficit ASSESSMENT/PLAN: 1. 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 I spent a total of 25 minutes on the date of the service which included preparing to see the patient, [id number] patient care, completing clinical documentation, obtaining and/or reviewing separately obtained history and counseling and educating the patient/family/caregiver Jessenia Valverde APRN.CNM documented in this encounter [facility] 12-16-2018 History of Past i llness Narrative Problem Noted Date Resolved Date Positive GBS test 12/16/2018 02/07/2019 Genetic testing 06/28/2018 02/07/2019 Overview: Negative NT. Sequential screening ordered. JENNIFER Supervision of normal 06/27/2018 02/07/2019 Nausea and vomiting during 06/03/2018 02/07/2019 Overview: 06/03/18 Vitamin B6 started. SW documented as of this encounter (statuses as of 01/01/2022) [facility] History of Past illness Narrative* Problem Noted Date Resolved Date Positive GBS test 12/16/2018 02/07/2019 Genetic testing 06/28/2018 02/07/2019 Overview: Negative NT. Sequential screening ordered. JENNIFER Supervision of normal 06/27/2018 02/07/2019 Nausea and vomiting during 06/03/2018 02/07/2019 Overview: 06/03/18 Vitamin B6 started. SW documented as of this encounter (statuses as of 03/09/2022) [facility] History of Past illness Narrative* Problem Noted Date Resolved Date Positive GBS test 12/16/2018 02/07/2019 Genetic testing 06/28/2018 02/07/2019 Overview: Negative NT. Sequential screening ordered. JENNIFER Supervision of normal 06/27/2018 02/07/2019 Nausea and vomiting during 06/03/2018 02/07/2019 Overview: 06/03/18 Vitamin B6 started. SW documented as of this encounter (statuses as of 03/11/2022) [facility] History of Past illness Narrative* Problem Noted Date Resolved Date Positive GBS test 12/16/2018 02/07/2019 Genetic testing 06/28/2018 02/07/2019 Overview: Negative NT. Sequential screening ordered. SW Supervision of normal 06/27/2018 02/07/2019 Nausea and vomiting during 06/03/2018 02/07/2019 Overview: 06/03/18 Vitamin B6 started. SW documented as of this encounter (statuses as of 03/11/2022) [facility] History of Past illness Narrative* Problem Noted Date Resolved Date Positive GBS test 12/16/2018 02/07/2019 Genetic testing 06/28/2018 02/07/2019 Overview: Negative NT. Sequential screening ordered. SW Supervision of normal 06/27/2018 02/07/2019 Nausea and vomiting during 06/03/2018 02/07/2019 Overview: 06/03/18 Vitamin B6 started. SW documented as of this encounter (statuses as of 05/08/2022) [facility] History of Past illness Narrative* Problem Noted Date Resolved Date Positive GBS test 12/16/2018 02/07/2019 Genetic testing 06/28/2018 02/07/2019 Overview: Negative NT. Sequential screening ordered. SW Supervision of normal 06/27/2018 02/07/2019 Nausea and vomiting during 06/03/2018 02/07/2019 Overview: 06/03/18 Vitamin B6 started. SW documented as of this encounter (statuses as of 06/26/2022) [facility] History of Past illness Narrative* Problem Noted Date Resolved Date Positive GBS test 12/16/2018 02/07/2019 Genetic testing 06/28/2018 02/07/2019 Overview: Negative NT. Sequential screening ordered. SW Supervision of normal 06/27/2018 02/07/2019 Nausea and vomiting during 06/03/2018 02/07/2019 Overview: 06/03/18 Vitamin B6 started. SW documented as of this encounter (statuses as of 10/25/2022) [facility] History of Past illness Narrative* Problem Noted Date Resolved Date Positive GBS test 12/16/2018 02/07/2019 Genetic testing 06/28/2018 02/07/2019 Overview: Negative NT. Sequential screening ordered. SW Supervision of normal 06/27/2018 02/07/2019 Nausea and vomiting during 06/03/2018 02/07/2019 Overview: 06/03/18 Vitamin B6 started. SW documented as of this encounter (statuses as of 11/18/2022) [facility] History of Past illness Narrative* Problem Noted Date Resolved Date Positive GBS test 12/16/2018 02/07/2019 Genetic testing 06/28/2018 02/07/2019 Overview: Negative NT. Sequential screening ordered. SW Supervision of normal 06/27/2018 02/07/2019 Nausea and vomiting during 06/03/2018 02/07/2019 Overview: 06/03/18 Vitamin B6 started. SW documented as of this encounter (statuses as of 11/20/2022) [facility] History of Past illness Narrative* Problem Noted Date Resolved Date Positive GBS test 12/16/2018 02/07/2019 Genetic testing 06/28/2018 02/07/2019 Overview: Negative NT. Sequential screening ordered. SW Supervision of normal 06/27/2018 02/07/2019 Nausea and vomiting during 06/03/2018 02/07/2019 Overview: 06/03/18 Vitamin B6 started. SW documented as of this encounter (statuses as of 02/11/2023) [facility] History of Past illness Narrative* Problem Noted Date Diagnosed Date Resolved Date Positive GBS test 12/16/2018 02/07/2019 Genetic testing 06/28/2018 02/07/2019 Overview: Negative NT. Sequential screening ordered. SW Supervision of normal 06/27/2018 02/07/2019 Nausea and vomiting during 06/03/2018 02/07/2019 Overview: 06/03/18 Vitamin B6 started. SW documented as of this encounter (statuses as of 02/23/2023) [facility] History of Past illness Narrative* Problem Noted Date Diagnosed Date Resolved Date Positive GBS test 12/16/2018 02/07/2019 Genetic testing 06/28/2018 02/07/2019 Overview: Negative NT. Sequential screening ordered. SW Supervision of normal 06/27/2018 02/07/2019 Nausea and vomiting during 06/03/2018 02/07/2019 Overview: 06/03/18 Vitamin B6 started. SW documented as of this encounter (statuses as of 03/30/2023) [facility] History of Past illness Narrative* Problem Noted Date Diagnosed Date Resolved Date Positive GBS test 12/16/2018 02/07/2019 Genetic testing 06/28/2018 02/07/2019 Overview: Negative NT. Sequential screening ordered. SW Supervision of normal 06/27/2018 02/07/2019 Nausea and vomiting during 06/03/2018 02/07/2019 Overview: 06/03/18 Vitamin B6 started. SW documented as of this encounter (statuses as of 04/29/2023) [facility] History of Past illness Narrative* Problem Noted Date Diagnosed Date Resolved Date Positive GBS test 12/16/2018 02/07/2019 Genetic testing 06/28/2018 02/07/2019 Overview: Negative NT. Sequential screening ordered. SW Supervision of normal 06/27/2018 02/07/2019 Nausea and vomiting during 06/03/2018 02/07/2019 Overview: 06/03/18 Vitamin B6 started. SW documented as of this encounter (statuses as of 05/01/2023) [facility] History of Past illness Narrative* Problem Noted Date Diagnosed Date Resolved Date Positive GBS test 12/16/2018 02/07/2019 Genetic testing 06/28/2018 02/07/2019 Overview: Negative NT. Sequential screening ordered. SW Supervision of normal 06/27/2018 02/07/2019 Nausea and vomiting during 06/03/2018 02/07/2019 Overview: 06/03/18 Vitamin B6 started. SW documented as of this encounter (statuses as of 09/20/2023) [facility] History of Past illness Narrative* Problem Noted Date Diagnosed Date Resolved Date Positive GBS test 12/16/2018 02/07/2019 Genetic testing 06/28/2018 02/07/2019 Overview: Negative NT. Sequential screening ordered. SW Supervision of normal 06/27/2018 02/07/2019 Nausea and vomiting during 06/03/2018 02/07/2019 Overview: 06/03/18 Vitamin B6 started. SW documented as of this encounter (statuses as of 10/01/2023) [facility] History of Past illness Narrative* Problem Noted Date Diagnosed Date Resolved Date Positive GBS test 12/16/2018 02/07/2019 Genetic testing 06/28/2018 02/07/2019 Overview: Negative NT. Sequential screening ordered. SW Supervision of normal 06/27/2018 02/07/2019 Nausea and vomiting during 06/03/2018 02/07/2019 Overview: 06/03/18 Vitamin B6 started. SW documented as of this encounter (statuses as of 10/04/2023) [facility] History of Past illness Narrative* Problem Noted Date Diagnosed Date Resolved Date Positive GBS test 12/16/2018 02/07/2019 Genetic testing 06/28/2018 02/07/2019 Overview: Negative NT. Sequential screening ordered. JENNIFER Supervision of normal 06/27/2018 02/07/2019 Nausea and vomiting during 06/03/2018 02/07/2019 Overview: 06/03/18 Vitamin B6 started. SW documented as of this encounter (statuses as of 10/04/2023) [facility] + Plan note Future Scheduled Tests Laboratory* Thyroid Stimulating Hormone 04/24/25 * Thyroid Stimulating Hormone 01/01/25 * Free T4 01/01/25 * Vitamin D Level 04/24/25 * Complete Metabolic Panel 04/24/25 * Complete Metabolic Panel 01/01/25 [facility] Evaluation note* Diagnosis Spontaneous - Primary Unspecified spontaneous without mention of complication Ricarda's thyroiditis Chronic lymphocytic thyroiditis documented in this encounter [facility] note* Diagnosis Chest pain, unspecified type- Primary documented in this encounter [facility] Work Phone: Evaluation note* Diagnosis Menorrhagia with regular cycle- Primary Excessive or frequent menstruation Dizziness Dizziness and giddiness documented in this encounter [facility] note* Diagnosis Irregular menses- Primary Irregular menstrual cycle Polycystic ovaries documented in this encounter [facility] note* Diagnosis Mastalgia- Primary Mastodynia documented in this encounter [facility] note* Diagnosis Mastodynia documented in this encounter [facility] note* Diagnosis Localized swelling, mass and lump, neck- Primary Swelling, mass, or lump in head and neck Localized swelling, mass and lump, neck Swelling, mass, or lump in head and neck documented in this encounter [facility] note* Diagnosis Encounter for gynecological examination with abnormal finding- Primary Routine gynecological examination Vagina itching Pruritus of genital organs Vaginal odor Unspecified symptom associated with female genital organs Spotting between menses Metrorrhagia documented in this encounter [facility] note* Diagnosis Missed menses- Primary Absence of menstruation documented in this encounter [facility] note* Diagnosis Spotting between menses- Primary Metrorrhagia documented in this encounter [facility] note* Diagnosis Missed menses- Primary Absence of menstruation documented in this encounter [facility] note* Diagnosis Spotting between menses Metrorrhagia documented in this encounter [facility] note* Diagnosis Missed menses- Primary Absence of menstruation documented in this encounter [facility] note* Diagnosis Missed menses- Primary Absence of menstruation documented in this encounter [facility] note* Diagnosis Localized swelling, mass and lump, neck Swelling, mass, or lump in head and neck documented in this encounter [facility] note* Diagnosis Solid nodule of lung 6 mm to 8 mm in diameter- Primary Pulmonary nodule, right Other diseases of lung, not elsewhere classified Chronic cough Cough History of coccidioidomycosis Encounter for test, result unknown documented in this encounter [facility] note* Diagnosis Left leg pain- Primary Pain in limb Positive blood test (HCC) examination or test, positive result documented in this encounter [facility] note* Diagnosis Encounter for supervision of high risk in first trimester, antepartum (HCC)- Primary with uncertain dates in first trimester ([facility]) 8 weeks gestation of ([facility]) state, incidental Multigravida of advanced maternal age in first trimester ([facility]) History of PCOS Personal history of other genital system and obstetric disorders Thyroid disease during , first trimester ([facility]) Screen for STD (sexually transmitted disease) Screening examination for venereal disease Vitamin D deficiency Unspecified vitamin D deficiency documented in this encounter [facility] note* Diagnosis Screen for STD (sexually transmitted disease)- Primary Screening examination for venereal disease documented in this encounter [facility] note* Diagnosis Encounter for supervision of high risk in first trimester, antepartum (HCC)- Primary Multigravida of advanced maternal age in first trimester ([facility]) Vitamin D deficiency Unspecified vitamin D deficiency Thyroid disease during , first trimester ([facility]) History of PCOS Personal history of other genital system and obstetric disorders 12 weeks gestation of ([facility]) state, incidental Painful urination Dysuria * Assessment & Plan Note - Marly Ashraf MD - 01/25/2025 10:51 AM EDTAssociated Problem(s): Multigravida of advanced maternal age in first trimester (HCC) * Assessment & Plan Note - Marly Ashraf MD - 01/25/2025 10:51 AM EDTAssociated Problem(s): Thyroid disease during , first trimester (HCC) Continue PUBLICATION DISTRIBUTOR thyroid * Assessment & Plan Note - Marly Ashraf MD - 01/25/2025 10:51 AM EDTAssociated Problem(s): History of PCOS * Assessment & Plan Note - Marly Ashraf MD - 01/25/2025 10:51 AM EDTAssociated Problem(s): Encounter for supervision of high risk in first trimester, antepartum ([facility]) Urinary discomfort Orders: UA DIP, URINE (POC) BACTERIAL CULTURE, URINE [facility]* Diagnosis Encounter for supervision of high risk in first trimester, antepartum (HCC)- Primary Multigravida of advanced maternal age in first trimester ([facility]) Vitamin D deficiency Unspecified vitamin D deficiency Thyroid disease during , first trimester ([facility]) History of PCOS Personal history of other genital system and obstetric disorders 12 weeks gestation of ([facility]) state, incidental Painful urination Dysuria Multigravida of advanced maternal age in first trimester (HCC)- Primary Encounter for supervision of high risk in first trimester, antepartum ([facility]) [facility]* Diagnosis Encounter for supervision of high risk in first trimester, antepartum ([facility])- Primary Multigravida of advanced maternal age in first trimester ([facility]) Vitamin D deficiency Unspecified vitamin D deficiency Thyroid disease during , first trimester ([facility]) History of PCOS Personal history of other genital system and obstetric disorders 12 weeks gestation of ([facility]) state, incidental Painful urination Dysuria Supervision of high risk in second trimester ([facility])- Primary Unspecified high-risk 17 weeks gestation of ([facility]) state, incidental Thyroid disease during , first trimester ([facility]) Heartburn during in second trimester ([facility]) documented in this encounter [facility] note* Diagnosis Urine positive for Chlamydia trachomatis by PCR- Primary Encounter for supervision of high risk in first trimester, antepartum ([facility])- Primary Multigravida of advanced maternal age in first trimester ([facility]) Vitamin D deficiency Unspecified vitamin D deficiency Thyroid disease during , first trimester ([facility]) History of PCOS Personal history of other genital system and obstetric disorders 12 weeks gestation of ([facility]) state, incidental Painful urination Dysuria documented in this encounter [facility] note* Diagnosis Encounter for supervision of high risk in first trimester, antepartum ([facility])- Primary Multigravida of advanced maternal age in first trimester ([facility]) Vitamin D deficiency Unspecified vitamin D deficiency Thyroid disease during , first trimester ([facility]) History of PCOS Personal history of other genital system and obstetric disorders 12 weeks gestation of ([facility]) state, incidental Painful urination Dysuria Screening for diabetes mellitus- Primary Supervision of high risk in second trimester ([facility]) Unspecified high-risk Thyroid disease during , first trimester ([facility]) Heartburn during in second trimester ([facility]) 25 weeks gestation of ([facility]) state, incidental Thyroid disease during in second trimester ([facility]) documented in this encounter [facility] course Narrative No data available for this section [facility] Reason for referral (narrative)* Diagnostic Procedure Only (Routine) - Pending Review Specialty Diagnoses / Procedures Referred By Crispin nichole Referred To Contact [facility] Diagnoses Spotting between menses Procedures US FEMALE PELVIS TRANSVAG US TRANSVAGINAL Laura Calero APRN.CHEESE WEIGHER [address] [place] [address] [facility] Referral ID Status Reason Start Date Expiration Date Visits Requested Visits Authorized [id number] Pending Review Auto-Generat ed Referral 03/25/2023 04/23/2024 1 1 * Diagnostic Procedure Only (Routine) - Pending Review Specialty Diagnoses / Procedures Referred By Contac t Referred To Contact [facility] Diagnoses Spotting between menses Procedures PELVIC US WHI US PELVIC NONOBSTETRIC REAL-TIME IMAGE COMPLETE Laura Calero APRN.CNP [address] [place] [address] [facility] [address] [place] [address] Referral ID Status Reason Start Date Expiration Date Visits Requested Visits Authorized [id number] Pending Review Auto-Generat ed Referral 03/25/2023 03/24/2024 1 1 [facility] for visit Narrative* Diagnostic Procedure Only (Routine) - Closed Specialty Diagnoses / Procedures Referred By Contac t Referred To Contact [facility] Diagnoses Spotting between menses Procedures US FEMALE PELVIS TRANSVAG US TRANSVAGINAL Laura Calero APRN.CHEESE WEIGHER [address] [place] [address] [place] [address] Referral ID Status Reason Start Date Expiration Date V isits Requested Visits Authorized [id number] Closed Auto-Generate d Referral 03/25/2023 04/23/2024 1 1 [facility] note* Bibi Bey: PERFORM Event Display: Patient Summary Documents Authored Date: [id number] [facility] Discharge Instructions * Instructions* River Kerr MD - 06/24/2019 Please return for fever greater than 100.4 * Attachments The following attachments cannot be sent through Care Everywhere. * Cough ([place]) documented in this encounter* Attachments The following attachments cannot be sent through Care Everywhere. 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 ACP-Advance Directive ACP-Power of Robotic Weld Technician Documents on File Type Date Recorded 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 Advance Directive(s) 12/25/2021 8:31 AM Summary Purpose Family History No Family History Records FoundNo Family History Records FoundNo Family History Records FoundNo Family History Records FoundNo Family History Records FoundNo Family History Records FoundNo Family History Records Found No data available for this section No Family History Records FoundNo Family History Records FoundNo Family History Records FoundNo Family History Records Found Additional Source Comments Reason for Visit (unrecogniz ed section and content) Reason Comments Pharyngitis Reason Comments Back Pain bilateral lower back pain Abdominal Pain LUQ pain Dizziness near syncope x2 toda y, lightheaded and dizziness Reason Comments Miscarriage Reason Comments Chest Pain began for days ago. RIGHT side of the chest. Nausea episodes of nausea f ollowed by chills Reason Comments Patient Update Reason Comments Vaginal Problem Reason Comments Clinical Update Reason Comments Menstrual Problem Irregular menses Reason Comments Breast Problem Reason Comments Opened In Error Reason Onset Date Comments Palpitations 11/02/2022 Reason Comments Appointment Reason Comments Well Woman Reason Comments possible Reason Comments Spotting Reason Comments Patient Question Reason Comments Missed Menses Reason Comments missed menses Reason Comments Results Reason Onset Date Comments Release of Information 07/27/2023 Reason Comments New Patient Reason Comments Information Reason Comments Early OB Possible DVT Reason Onset Date Comments Results 12/28/2024 Reason Onset Date Comments Care Coordination 12/25/2024 [facility] Reason Onset Date Comments Care 01/25/2025 Reason Comments US Specialty Diagnoses / Procedures Referred By Crispin nichole Referred To Contact [facility] Diagnoses Encounter for supervision of high risk in first trimester, antepartum (HCC) Procedures OBSTETRIC ULTRASOUND WHI US PREG UTERUS AFTER 1ST TRIMEST GESTATION Donnell Romero APRN.[place] [address] Phone: tel: fax: [facility] [address] [place] [address] Referral ID Status Reason Start Date Expiration Date V isits Requested Visits Authorized [id number] Closed Auto-Generate d Referral 12/27/2024 12/27/2025 1 1 Reason Onset Date Comments Other 02/07/2025 PFT Reason Onset Date Comments Care 02/26/2025 Reason Onset Date Comments Follow-up 04/02/2025 Testing unable t o be completed. Reason Onset Date Comments Care 04/26/2025 INFORMATION SOURCE (unrecogn ized section and content) DATE CREATED AUTHOR 07/04/2020 [facility] [place] DATE CREATED AUTHOR AUTHOR'S ORGANIZ ATION 11/03/2020 [facility] DATE CREATED AUTHOR AUTHOR'S ORGANIZ ATION 01/31/2022 [facility] DATE CREATED AUTHOR AUTHOR'S ORGANIZ ATION 03/27/2022 [facility] DATE CREATED AUTHOR AUTHOR'S ORGANIZ ATION 09/02/2022 [facility] DATE CREATED AUTHOR AUTHOR'S ORGANIZ ATION 02/20/2023 [facility] DATE CREATED AUTHOR AUTHOR'S ORGANIZ ATION 05/24/2023 [facility] DATE CREATED AUTHOR AUTHOR'S ORGANIZ ATION 12/24/2024 [facility] DATE CREATED AUTHOR AUTHOR'S ORGANIZ ATION 04/03/2025 [facility] DATE CREATED AUTHOR AUTHOR'S ORGANIZ ATION 06/13/2025 [facility] DATE CREATED AUTHOR AUTHOR'S ORGANIZ ATION 06/15/2025 [facility] Source Comments (unrecognize d section and content) In the event this informatio n is protected by the Federal Confidentiality of Alcohol and Drug Abuse Patient Records regulations: The Federal rules restrict any use of the information to criminally investigate or prosecute any alcohol or drug abuse patient.[facility] the event this information is protected by the Federal Confidentiality of Alcohol and Drug Abuse Patient Records regulations: The Federal rules restrict any use of the information to criminally investigate or prosecute any alcohol or drug abuse patient.[facility] HospitalIn the event this information is protected by the Federal Confidentiality of Alcohol and Drug Abuse Patient Records regulations: The Federal rules restrict any use of the information to criminally investigate or prosecute any alcohol or drug abuse patient.[facility] HospitalIn the event this information is protected by the Federal Confidentiality of Alcohol and Drug Abuse Patient Records regulations: The Federal rules restrict any use of the information to criminally investigate or prosecute any alcohol or drug abuse patient.[facility] HospitalIn the event this information is protected by the Federal Confidentiality of Alcohol and Drug Abuse Patient Records regulations: The Federal rules restrict any use of the information to criminally investigate or prosecute any alcohol or drug abuse patient.[facility] HospitalIn the event this information is protected by the Federal Confidentiality of Alcohol and Drug Abuse Patient Records regulations: The Federal rules restrict any use of the information to criminally investigate or prosecute any alcohol or drug abuse patient.[facility] HospitalIn the event this information is protected by the Federal Confidentiality of Alcohol and Drug Abuse Patient Records regulations: The Federal rules restrict any use of the information to criminally investigate or prosecute any alcohol or drug abuse patient.[facility] HospitalIn the event this information is protected by the Federal Confidentiality of Alcohol and Drug Abuse Patient Records regulations: The Federal rules restrict any use of the information to criminally investigate or prosecute any alcohol or drug abuse patient.[facility] HospitalIn the event this information is protected by the Federal Confidentiality of Alcohol and Drug Abuse Patient Records regulations: The Federal rules restrict any use of the information to criminally investigate or prosecute any alcohol or drug abuse patient.[facility] HospitalIn the event this information is protected by the Federal Confidentiality of Alcohol and Drug Abuse Patient Records regulations: The Federal rules restrict any use of the information to criminally investigate or prosecute any alcohol or drug abuse patient.[facility] HospitalIn the event this information is protected by the Federal Confidentiality of Alcohol and Drug Abuse Patient Records regulations: The Federal rules restrict any use of the information to criminally investigate or prosecute any alcohol or drug abuse patient.[facility] HospitalIn the event this information is protected by the Federal Confidentiality of Alcohol and Drug Abuse Patient Records regulations: The Federal rules restrict any use of the information to criminally investigate or prosecute any alcohol or drug abuse patient.[facility] HospitalIn the event this information is protected by the Federal Confidentiality of Alcohol and Drug Abuse Patient Records regulations: The Federal rules restrict any use of the information to criminally investigate or prosecute any alcohol or drug abuse patient.[facility] HospitalIn the event this information is protected by the Federal Confidentiality of Alcohol and Drug Abuse Patient Records regulations: The Federal rules restrict any use of the information to criminally investigate or prosecute any alcohol or drug abuse patient.[facility] HospitalIn the event this information is protected by the Federal Confidentiality of Alcohol and Drug Abuse Patient Records regulations: The Federal rules restrict any use of the information to criminally investigate or prosecute any alcohol or drug abuse patient.[facility] HospitalIn the event this information is protected by the Federal Confidentiality of Alcohol and Drug Abuse Patient Records regulations: The Federal rules restrict any use of the information to criminally investigate or prosecute any alcohol or drug abuse patient.[facility] HospitalIn the event this information is protected by the Federal Confidentiality of Alcohol and Drug Abuse Patient Records regulations: The Federal rules restrict any use of the information to criminally investigate or prosecute any alcohol or drug abuse patient.[facility] HospitalIn the event this information is protected by the Federal Confidentiality of Alcohol and Drug Abuse Patient Records regulations: The Federal rules restrict any use of the information to criminally investigate or prosecute any alcohol or drug abuse patient.[facility] HospitalIn the event this information is protected by the Federal Confidentiality of Alcohol and Drug Abuse Patient Records regulations: The Federal rules restrict any use of the information to criminally investigate or prosecute any alcohol or drug abuse patient.[facility] HospitalIn the event this information is protected by the Federal Confidentiality of Alcohol and Drug Abuse Patient Records regulations: The Federal rules restrict any use of the information to criminally investigate or prosecute any alcohol or drug abuse patient.[facility] HospitalIn the event this information is protected by the Federal Confidentiality of Alcohol and Drug Abuse Patient Records regulations: The Federal rules restrict any use of the information to criminally investigate or prosecute any alcohol or drug abuse patient.[facility] HospitalIn the event this information is protected by the Federal Confidentiality of Alcohol and Drug Abuse Patient Records regulations: The Federal rules restrict any use of the information to criminally investigate or prosecute any alcohol or drug abuse patient.[facility] HospitalIn the event this information is protected by the Federal Confidentiality of Alcohol and Drug Abuse Patient Records regulations: The Federal rules restrict any use of the information to criminally investigate or prosecute any alcohol or drug abuse patient.[facility] HospitalIn the event this information is protected by the Federal Confidentiality of Alcohol and Drug Abuse Patient Records regulations: The Federal rules restrict any use of the information to criminally investigate or prosecute any alcohol or drug abuse patient.[facility] HospitalIn the event this information is protected by the Federal Confidentiality of Alcohol and Drug Abuse Patient Records regulations: The Federal rules restrict any use of the information to criminally investigate or prosecute any alcohol or drug abuse patient.[facility] HospitalIn the event this information is protected by the Federal Confidentiality of Alcohol and Drug Abuse Patient Records regulations: The Federal rules restrict any use of the information to criminally investigate or prosecute any alcohol or drug abuse patient.[facility] HospitalIn the event this information is protected by the Federal Confidentiality of Alcohol and Drug Abuse Patient Records regulations: The Federal rules restrict any use of the information to criminally investigate or prosecute any alcohol or drug abuse patient.[facility] HospitalIn the event this information is protected by the Federal Confidentiality of Alcohol and Drug Abuse Patient Records regulations: The Federal rules restrict any use of the information to criminally investigate or prosecute any alcohol or drug abuse patient.[facility] HospitalIn the event this information is protected by the Federal Confidentiality of Alcohol and Drug Abuse Patient Records regulations: The Federal rules restrict any use of the information to criminally investigate or prosecute any alcohol or drug abuse patient.[facility] HospitalIn the event this information is protected by the Federal Confidentiality of Alcohol and Drug Abuse Patient Records regulations: The Federal rules restrict any use of the information to criminally investigate or prosecute any alcohol or drug abuse patient.[facility] HospitalIn the event this information is protected by the Federal Confidentiality of Alcohol and Drug Abuse Patient Records regulations: The Federal rules restrict any use of the information to criminally investigate or prosecute any alcohol or drug abuse patient.[facility] HospitalIn the event this information is protected by the Federal Confidentiality of Alcohol and Drug Abuse Patient Records regulations: The Federal rules restrict any use of the information to criminally investigate or prosecute any alcohol or drug abuse patient.[facility] HospitalIn the event this information is protected by the Federal Confidentiality of Alcohol and Drug Abuse Patient Records regulations: The Federal rules restrict any use of the information to criminally investigate or prosecute any alcohol or drug abuse patient.[facility] HospitalIn the event this information is protected by the Federal Confidentiality of Alcohol and Drug Abuse Patient Records regulations: The Federal rules restrict any use of the information to criminally investigate or prosecute any alcohol or drug abuse patient.[facility] Care Teams (unrecognized sec tion and content) [employer] Relationship Specialty Start Date End Date French Rhodes MD [address] [place] [id number] PCP - General Family Practice 10/09/21 [employer] Relationship Specialty Start Date End Date Jd Giron MD [address] [place] [id number] PCP - General 06/24/19 [employer] Relationship Specialty Start Date End Date Jd Giron MD [address] [place] [id number] PCP - General 06/24/19 [employer] T[employer] Relationship Specialty Start Date End Date Jd Giron MD [address] [place] [address] [place] [address] PCP - General 06/24/19 [employer] T[employer] Relationship Specialty Start Date End Date French Rhodes MD [address] [place] [id number] PCP - General Family Practice 10/09/21 [employer] T[employer] Relationship Specialty Start Date End Date French Rhodes MD [address] [place] [address] [phone] PCP - General Family Practice 10/09/21 [employer] T[employer] Relationship Specialty Start Date End Date Jd Giron MD [address] [place] [address] PCP - General 06/24/19 [employer] Range T[employer] Relationship Specialty Start Date End Date French Rhodes MD [address] [place] [id number] PCP - General Family Medicine 10/09/21 [employer] T[employer] Relationship Specialty Start Date End Date French Rhodes MD [address] [place] [id number] PCP - General Family Medicine 10/09/21 [employer] T[employer] Relationship Specialty Start Date End Date French Rhodes MD [address] [place] [place] [address] PCP - General 01/22/22 [employer] T[employer] Relationship Specialty Start Date End Date French Rhodes MD [address] [place] [id number] PCP - General Family Medicine 10/09/21 [employer] T[employer] Relationship Specialty Start Date End Date French Rhodes MD [address] [place] [address] PCP - General 01/22/22 [employer] T[employer] Relationship Specialty Start Date End Date French Rhodes MD [address] [place] [address] PCP - General Family Medicine 10/09/21 [employer] T[employer] Relationship Specialty Start Date End Date French Rhodes MD [address] [place] [phone] PCP - General Family Medicine 10/09/21 [employer] T[employer] Relationship Specialty Start Date End Date French Rhodes MD [address] [place] [id number] PCP - General Family Medicine 10/09/21 [employer] Range T[employer] Relationship Specialty Start Date End Date French Rhodes MD [address] [place] [address] [id number] PCP - General Family Medicine 10/09/21 [employer] T[employer] Relationship Specialty Start Date End Date French Rhodes MD [address] [place] [id number] PCP - General Family Medicine 10/09/21 [employer] T[employer] Relationship Specialty Start Date End Date French Rhodes MD [address] [place] [id number] PCP - General Family Medicine 10/09/21 [employer] T[employer] Relationship Specialty Start Date End Date French Rhodes MD [address] [place] [address] [id number] PCP - General Family Medicine 10/09/21 [employer] Range Tender Relationship Specialty Start Date End Date French Rhodes MD [address] [place] [address] [id number] PCP - General Family Medicine 10/09/21 [employer] T[employer] Relationship Specialty Start Date End Date French Rhodes MD [address] [place] [address] PCP - General Family Medicine 10/09/21 [employer] T[employer] Relationship Specialty Start Date End Date [facility] [place] [address] PCP - General 01/22/22 [employer] T[employer] Relationship Specialty Start Date End Date French Rhodes [facility] [place] [address] PCP - General 01/22/22 [employer] Range Tender Relationship Specialty Start Date End Date French Rhodes MD [address] [place] [address] PCP - General Family Medicine 10/09/21 [employer] T[employer] Relationship Specialty Start Date End Date French Rhodes MD [address] [place] [address] PCP - General Family Medicine 10/09/21 [employer] T[employer] Relationship Specialty Start Date End Date French Rhodes MD [address] [place] [address] PCP - General Family Medicine 10/09/21 [employer] T[employer] Relationship Specialty Start Date End Date French Rhodes MD [address] [place] [address] PCP - General Family Medicine 10/09/21 [employer] T[employer] Relationship Specialty Start Date End Date French Rhodes MD [facility] [address] [place] [address] PCP - General 01/22/22 [employer] T[employer] Relationship Specialty Start Date End Date French Rhodes MD [address] [place] [address] PCP - General Family Medicine 10/09/21 [employer] T[employer] Relationship Specialty Start Date End Date French Rhodes MD [address] [place] [address] PCP - General Family Medicine 10/09/21 [employer] T[employer] Relationship Specialty Start Date End Date French Rhodes MD [address] [place] [address] PCP - General 01/22/22 [employer] Range T[employer] Relationship Specialty Start Date End Date French Rhodes MD [address] [place] [address] PCP - General 01/22/22 [employer] T[employer] Relationship Specialty Start Date End Date French Rhodes MD [address] [place] [address] PCP - General Family Medicine 10/09/21 [employer] Range Tender Relationship Specialty Start Date End Date French Rhodes MD [address] [place] [address] PCP - General Family Medicine 10/09/21 [employer] T[employer] Relationship Specialty Start Date End Date French Rhodes MD [address] [place] [address] PCP - General Family Medicine 10/09/21 Scheduled Active and Recently Administ ered Medications (unrecognized section and content) Medication Order 01/25/2022 01/26/2022 01/27/2022 sodium chloride flush 0.9 % injection 3 mL(Linked Group 1) 3 mL, IntraVENous, EVERY 8 HOURS, First dose on Wed01/27/22 at 1944, Until Discontinued, Flush line with 3-5 mL 1944 (Due) Linked Groups Order Group 1: Saline lock IV (COMPLETED) Routine, CONTINUOUS, Starting on Wed01/27/22 at 1944, Until Specified And sodium chloride flush 0.9 % injection 3 mLJump to med 3 mL, IntraVENous, EVERY 8 HOURS, First dose on Wed01/27/22 at 1944, Until Discontinued
Flush line with 3-5 mL
FOR RECORDS PERTAINING TO PATIENTS WHO ARE OR HAVE BEEN ENROLLED IN A CHEMICAL DEPENDENCY/SUBSTANCEABUSE PROGRAM, SOME INFORMATION MAY BE OMITTED. This clinical summary was aggregated from multiple sources. Caution should be exercised in using it in the provision of clinical care. This summary normalizes information from multiple sources, and as a consequence, information in this document may materially change the coding, format and clinical context of patient data. In addition, data may be omitted in some cases. CLINICAL DECISIONS SHOULD BE BASED ON THE PRIMARY CLINICAL RECORDS. [facility]. provides no warranty or guarantee of the accuracy or completeness of information in this document.
--- OUTSIDE RECORDS SUMMARY | 2025-07-20 18:11 | XMS RPT_ITS | CCD ---
Author Organization [facility] Care Team Providers Care [place] Supervisor Name Role Phone Jd Giron Primary Care Provider French Rhodes MD Primary Care Provider Jd Giron MD Primary Care Provider Jd Giron MD Primary Care Provider French [...] Mebendazole (1 source) Mebendazole Drug Allergy 05-26-2017 [facility] (20 sources) Mebendazole; Translations: [MEBENDAZOLE] Drug Allergy 05-26-2017 Rash, Other: See Comments [place], [place] (10 sources) Mebendazole Drug Allergy 05-26-2017 Other, [facility] Medications Current Medications Medication Drug Class(es) [...] flush 0.9 % injection 3 mL thyroid (nursing home) 15 mg oral tab let (20 sources) Start: 12-22-2018 thyroid (DIRECTOR OF ACCOUNTS RECEIVABLE TH YROID) 15 mg tablet Take 1 tablet by mouth once daily. take one tablet 6 days a week, 1/2 tablet on Sundays 30 tablet 12 12/22/2018 Active Start: 04-18-2018 take 0.5 tablet by m outh once daily DIRECTOR OF ACCOUNTS RECEIVABLE THYROID 15 MG tablet take 1/2 tablet by mouth once daily 0 04/18/2018 Active take 1 tablet by merced th once daily thyroid ([place]) 30 MG tablet Take 30 mg by [...] unspecified trimester; Translations: [Rubella non-immune status, antepartum ([facility])] Onset: 12-28-2024 Episodic Other complications of (1 source) Endocrine, nutritional and metabolic diseases complicating , first trimester; Translations: [Thyroid disease during , first trimester (HCC)] Onset: 02-26-2025 Episodic Other complications of (1 source) Supervision of high risk , unspecified, first trimester; Translations: [Encounter for supervision of high risk in first trimester, antepartum ([facility])] Onset: 12-27-2024 Episodic Other connective tissue disease [...] Bile acid [Moles/Vol] 2.6 umol/L Normal <7.5 [facility] Comment on above: Order Comment: Speci men Type: BLOOD SPECIMEN Ordering Facility: [facility] Address: [address] [place] [address] Result Comment: Refe rence interval applies to [...] umol/L Performed By: #### B LINDA #### [facility] CLIA [id number] [address] [place] [address] Hepatic function 2000 panelo n 06-13-2025 Albumin [Mass/Vol] 3.7 g/dL Low 3.9-4.9 [facility] Comment on above: Order Comment: Speci men Type: BLOOD SPECIMEN Ordering Facility: [facility] Address: [address] [place] [address] Performed By: #### 2 4325-3 #### [facility] CLIA [id number] [address] ALP [Catalytic activity/Vol] 176 U/L High 34-123 [facility] Comment on above: Order Comment: Speci men Type: BLOOD SPECIMEN Ordering Facility: [facility] Address: [address] [place] [address] Performed By: #### 2 4325-3 #### [facility] CLIA [id number] [address] [place] ALT With P-5'-P [Catalytic activity/Vol] 21 U/L Normal 7-38 [facility] Comment on above: Order Comment: Speci men Type: BLOOD SPECIMEN Ordering Facility: [facility] Address: [address] [place] [address] Performed By: #### 2 4325-3 #### [facility] CLIA [id number] [address] [place] AST With P-5'-P [Catalytic activity/Vol] 28 U/L Normal 13-35 [facility] Comment on above: Order Comment: Slava cedeño Type: BLOOD SPECIMEN Ordering Facility: [facility] Address: [address] [place] [address] Performed By: #### 2 4325-3 #### [facility] CLIA [id number] [address] OF [facility] Bilirubin [Mass/Vol] 0.8 mg/dL Normal 0.2-1.3 [facility] Comment on above: Order Comment: Nicki men Type: BLOOD SPECIMEN Ordering Facility: [facility] Address: [address] [place] [address] Performed By: #### 2 4325-3 #### [facility] CLIA [id number] [address] Bilirubin.conjugate d [Mass/Vol] 0.2 mg/dL Normal <0.3 [facility] Comment on above: Order Comment: Speci men Type: BLOOD SPECIMEN Ordering Facility: [facility] Address: [address] [place] [address] Performed By: #### 2 4325-3 #### [facility] CLIA [id number] [address] Protein [Mass/Vol] 6.8 g/dL Normal 6.3-8.0 [facility] Comment on above: Order Comment: Slava gala Type: BLOOD SPECIMEN Ordering Facility: [facility] Address: [address] [place] [address] Performed By: #### 2 4325-3 #### [facility] CLIA [id number] [address] Demetrio 06-12-2025 OLIVIA Telephone (OBGYWM) VASILELOYDA ([id number]) 1990 F Date Time Provider Department 06/12/25 [...] [L29.9] Order(s):BILE ACIDS, TOTAL [SQBILETO] Order #: [id number] FUTURE HEPATIC FUNCTION PNL [SQHFP] Order #: [id number] FUTURE Prescriptions as of 06/13/2025 - Carica Papaya (PAPAYA ENZYME) tab Take 1 tablet by mouth two times a day. - PNV no.95/ferrous fum/folic ac ( ORAL) Take by mouth. - thyroid (DIRECTOR OF ACCOUNTS RECEIVABLE THYROID) 15 mg tablet Take 1 tablet [...] Status:Closed by GISELL MORALES on 06/13/25 Normal [facility] T4 Free SerPl-mCncon 025 Free T4 [Mass/Vol] 0.7 ng/dL Low 0.9-1.7 [facility] Comment on above: Order Comment: Speci gala Type: BLOOD SPECIMEN Ordering Facility: [facility] Address: [address] [place] [address] Performed By: #### G LTGST #### [facility] CLIA [id number] [address] [place], [place] [id number] [place] TSH SerPl-aCncon 06-12-2025 TSH Qn 2.470 m[IU]/L Normal 0.270-4.200 [facility] Comment on above: Order Comment: Slava cedeño Type: BLOOD SPECIMEN Ordering Facility: [facility] Address: [address] [place] [address] Result Comment: If t he patient is , TSH reference range varies by gestational period: First Trimester (weeks 9-12): 0.180-2.990 mIU/L Second Trimester: 0.110-3.980 mIU/L Third Trimester: 0.480-4.710 mIU/L Gustavo Luque et al. A Practical Approach for the Verifications and Determination of Site- and Trimester-Specific Reference Intervals for Thyroid Function tests in . Thyroid, 2019:29:3:412-420. oSto Lui, et al. 2017 Guidelines of the [place] Thyroid Association for the Diagnosis and Management of Thyroid Disease during and the . Thyroid, 2017:27:3:315-389. Performed By: #### G LTGST #### [facility] CLIA [id number] [address] [place] [address] [place] CBC panel Auto (Bld)on 05-15 Erythrocyte distribution width (RBC) [Ratio] 12.4 % Normal 11.5-15.0 [facility] Comment on above: Order Comment: Slava cedeño Type: BLOOD SPECIMEN Ordering Facility: [facility] Address: [address] [place] [address] Performed By: #### 5 8410-2 #### [facility] CLIA [id number] [address] [place] [address] [place] Hematocrit (Bld) [Volume fraction] 32.4 % Low 36.0-46.0 [facility] Comment on above: Order Comment: Slava cedeño Type: BLOOD SPECIMEN Ordering Facility: [facility] Address: [address] [place] [address] Performed By: #### 5 8410-2 #### [facility] CLIA [id number] [address] [place] [address] [place] Hemoglobin (Bld) [Mass/Vol] 11.1 g/dL Low 11.5-15.5 [facility] Comment on above: Order Comment: Slava cedeño Type: BLOOD SPECIMEN Ordering Facility: [facility] Address: [address] [place] [address] Performed By: #### 5 8410-2 #### [facility] CLIA [id number] [address] [place] [address] [place] MCH (RBC) [Entitic mass] 30.7 pg Normal 26.0-34.0 [facility] Comment on above: Order Comment: Speci men Type: BLOOD SPECIMEN Ordering Facility: [facility] Address: [address] [place] [address] Performed By: #### 5 8410-2 #### [facility] CLIA [id number] [address] [place] [address] [place] MCHC (RBC) [Mass/Vol] 34.3 g/dL Normal 30.5-36.0 [facility] Comment on above: Order Comment: Speci men Type: BLOOD SPECIMEN Ordering Facility: [facility] Address: [address] [place] [address] Performed By: #### 5 8410-2 #### [facility] [id number] [address] [place] [address] [place] MCV (RBC) [Entitic vol] 89.8 fL Normal 80.0-100.0 [facility] Comment on above: Order Comment: Speci men Type: BLOOD SPECIMEN Ordering Facility: [facility] Address: [address] [place] [address] Performed By: #### 5 8410-2 #### [facility] [id number] [address] [place] [address] [place] Nucleated RBC (Bld) [#/Vol] 10*3/uL Normal <0.01 [facility] Comment on above: Order Comment: Speci men Type: BLOOD SPECIMEN Ordering Facility: [facility] Address: [address] [place] [address] Performed By: #### 5 8410-2 #### [facility] [id number] [address] [place] [address] [place] Platelet mean volume (Bld) [Entitic vol] 9.2 fL Normal 9.0-12.7 [facility] Comment on above: Order Comment: Speci men Type: BLOOD SPECIMEN Ordering Facility: [facility] Address: [address] [place], [place] [address] Performed By: #### 5 8410-2 #### [facility] CLIA [id number] [address] [place] [address] [place] Platelets (Bld) [#/Vol] 234 10*3/uL Normal 150-400 [facility] Comment on above: Order Comment: Speci men Type: BLOOD SPECIMEN Ordering Facility: [facility] Address: [address] [place] [address] Performed By: #### 5 8410-2 #### [facility] CLIA [id number] [address] [place] [address] [place] RBC (Bld) [#/Vol] 3.61 10*6/uL Low 3.90-5.20 [facility] Comment on above: Order Comment: Speci men Type: BLOOD SPECIMEN Ordering Facility: [facility] Address: [address] [place] [address] Performed By: #### 5 8410-2 #### [facility] CLIA [id number] [address] [place] [address] [place] WBC (Bld) [#/Vol] 7.24 10*3/uL Normal 3.70-11.00 [facility] Comment on above: Order Comment: Speci men Type: BLOOD SPECIMEN Ordering Facility: [facility] Address: [address] [place], [place] [address] Performed By: #### 5 8410-2 #### [facility] CLIA [id number] [address] [place] [address] [place] GESTATIONAL GLUCOSE SCREEN, 1-HOUR, 50 GRAM, NON-FASTINGon 05-15-2025 Glucose [Mass/Vol] 123 mg/dL Normal 74-134 [facility] Comment on above: Order Comment: Speci men Type: BLOOD SPECIMEN Ordering Facility: [facility] Address: [address] [place] [address] Result Comment: [facility] Congress of Obstetricians and Gynecologists (Jazmin/Shahzad) guidelines state a gestational diabetes mellitus positive screen is made, in women not previously diagnosed with overt diabetes, when the 1 hr plasma glucose level is equal to or above 140 mg/dL. The [facility] [employer] Work[employer] [facility] [place] recommends a 135 mg/dL cutoff. Performed By: #### G LTGST #### [facility] CLIA [id number] [address] [place] [address] [place] Reagin and Treponema pallidu m IgG and IgM [Interp]on 05-15-2025 T. pallidum IgG+IgM IA Ql (S) Non-Reactive Normal Nonreactive [facility] Comment on above: Order Comment: Slava cedeño Type: BLOOD SPECIMEN Ordering Facility: [facility] Address: [address] [place] [address] Performed By: #### G LTGST #### [facility] CLIA [id number] [address] [place] [address] [place] Reagin+T pallidum IgG+IgM Se rPl-Impon 05-15-2025 Reagin and Treponema pallidum IgG and IgM [Interp] Cannot exclude recent Treponemal infection if specimen collected within 7-10 days after appearance of suspect lesions or 2-3 weeks after an exposure. Clinical correlation is required. Normal [facility] Comment on above: Order Comment: Slava cedeño Type: BLOOD SPECIMEN Ordering Facility: [facility] Address: [address] [place] [address] Performed By: #### G LTGST #### [facility] [id number] [address] [place] [address] [place] T4 Free SerPl-mCncon 025 Free T4 [Mass/Vol] 0.8 ng/dL Low 0.9-1.7 [facility] Comment on above: Order Comment: Speci men Type: BLOOD SPECIMEN Ordering Facility: [facility] Address: [address] [place] [id number] Performed By: #### 5 8410-2 #### [facility] CLIA [id number] [address] [place] [address] [place] TSH SerPl-aCncon 04-26-2025 TSH Qn 2.570 m[IU]/L Normal 0.270-4.200 [facility] Comment on above: Order Comment: Speci men Type: BLOOD SPECIMEN Ordering Facility: [facility] Address: [address] [place] [address] Result Comment: If t he patient is , TSH reference range varies by gestational period: First Trimester (weeks 9-12): 0.180-2.990 mIU/L Second Trimester: 0.110-3.980 mIU/L Third Trimester: 0.480-4.710 mIU/L Gustavo Luque et al. A Practical Approach for the Verifications and Determination of Site- and Trimester-Specific Reference Intervals for Thyroid Function tests in . Thyroid, 2019:29:3:412-420. Soto E, et al. 2017 Guidelines of the [place] Thyroid Association for the Diagnosis and Management of Thyroid Disease during and the . Thyroid, 2017:27:3:315-389. Performed By: #### 5 8410-2 #### [facility] [id number] [address] [place] [address] [place] 36on 04-02-2025 36 [...] her delivery and testing is completed. [facility] Normal [facility] T4 Free SerPl-mCncon 02-26-2 025 Free T4 [Mass/Vol] 0.8 ng/dL Low 0.9-1.7 [facility] Comment on above: Order Comment: Speci men Type: BLOOD SPECIMEN Ordering Facility: [facility] Address: [address] [place] [address] Performed By: #### 3 016-3, 3024-7 #### [facility] CLIA [id number] [address] [place] [address] [place] TSH SerPl-aCncon 02-26-2025 TSH Qn 2.760 m[IU]/L Normal 0.270-4.200 [facility] Comment on above: Order Comment: Speci men Type: BLOOD SPECIMEN Ordering Facility: [facility] Address: [address] [place] [address] Result Comment: If t he patient is , TSH reference range varies by gestational period: First Trimester (weeks 9-12): 0.180-2.990 mIU/L Second Trimester: 0.110-3.980 mIU/L Third Trimester: 0.480-4.710 mIU/L Gustavo Luque et al. A Practical Approach for the Verifications and Determination of Site- and Trimester-Specific Reference Intervals for Thyroid Function tests in . Thyroid, 2019:29:3:412-420. Soto E, et al. 2017 Guidelines of the [place] Thyroid Association for the Diagnosis and Management of Thyroid Disease during and the . Thyroid, 2017:27:3:315-389. Performed By: #### 3 016-3, 3024-7 #### [facility] CLIA [id number] [address] [place] [address] [place] 36on 02-07-2025 36 Reason for call: Sammi, I am sending this telephone encounter to notify this office that this patient cancelled the PFT pre and post bronchodilator apt due to not wanting to take this test while and take the bronchodilator Thank you, Ziggy Harrington Central Scheduling Normal [facility] Bacteria Ur Culton 5 Bacteria identified Cx Nom (U) ORGANISM ID: 1 >=100,000 CFU/ml Normal urogenital sergio Normal [facility] Comment on above: Performed By: #### 5 8410-2 #### [facility] CLIA [id number] [address] [id number] [place] Examination level ultrasound on 01-25-2025 Indication First trimester anatomic survey Advanced maternal age Impression The patient is referred for a first trimester anatomy scan including nuchal translucency measurement as clinically indicated. - Single, live, intrauterine . - Bullhead rump length measurement is consistent with the [...] view: normal 4-chamber view with color: normal 5-drughq-lmxhncn view: normal Abdominal cord insertion: normal Stomach: [...] Read By: Holley Montes M.D. MATERNAL MEDICINE [facility] Radiology Study observation (narrative) [facility] UA DIP, URINE (POC)on 2024 BILIRUBIN UA (POCT) Negative Negative [facility] CLARITY UA (POCT) Clear [facility] COLOR UA (POCT) Yellow [facility] GLUCOSE UA (POCT) Negative Negative mg/dL [facility] Hemoglobin Ql (U) Negative Negative [facility] Interpretation and review of laboratory results Abnormal [facility] KETONE UA (POCT) Negative Negative mg/dL [facility] LEUKOCYTES UA (POCT) Small Abnormal Negative [facility] NITRITE UA (POCT) Negative Negative [facility] PH UA (POCT) 7.5 4.5 - 8.0 [facility] Protein Ql (U) Negative Negative mg/dL [facility] SPECIFIC GRAVITY UA (POCT) 1.015 1.005 - 1.030 [facility] UROBILINOGEN UA (POCT) 0.2 Normal E.U./dL [facility] Location:[facility], [address] [facility], [place], [place], [id number] [place] [address] POINT OF CARE [facility] 36on 01-23-2025 36 Called patient to schedule a follow up appointment with Dr. Singleton. Patient is unable to complete the CT, and per Dr. Foley, patient should be seen 2-3 months after PFT test. Left My Chart message. Unable to to leave message on telephone. Normal [facility] C. trachomatis+N. gonorrhoea e DNA MARY+probe Ql (Unsp spec)on 12-29-2024 C. trachomatis rRNA MARY+probe Ql (Unsp spec) Not detected Normal Not detected [facility] Comment on above: Order Comment: Speci men Type: BLOOD SPECIMEN Ordering Facility: [facility] Address: [address] [place] [address] Performed By: #### G LTGST #### [facility] CLIA [id number] [address] [place] [address] [place] N. gonorrhoeae rRNA MARY+probe Ql (Unsp spec) Not detected Normal Not detected [facility] Comment on above: Order Comment: Speci men Type: BLOOD SPECIMEN Ordering Facility: [facility] Address: [address] [place] [address] Performed By: #### G LTGST #### [facility] CLIA [id number] [address] [place] [address] [place] TRICHOMONAS VAGINALIS [facility] [place] 12-29-2024 T. vaginalis DNA MARY+probe Ql (Unsp spec) Not detected Normal Not detected [facility] Comment on above: Order Comment: Speci men Type: BLOOD SPECIMEN Ordering Facility: [facility] Address: [address] [place] [address] Performed By: #### G LTGST #### [facility] CLIA [id number] [address] [place] [address] [place] 25(OH)D3 [facility] 25-hydroxyvitamin D3 [Mass/Vol] 32.9 ng/mL Normal 31.0-80.0 [facility] Comment on above: Order Comment: Speci men Type: BLOOD SPECIMEN Ordering Facility: [facility] Address: [address] [place] [address] Result Comment: Clas sification of 25 [place] Vitamin D status: Deficiency/Insufficiency: < or = 30 ng/ml. Sufficiency/Optimal Levels: 31-80 ng/mL Toxicity: > 100 ng/mL. Test performed by chemiluminescent immunoassay. Performed By: #### G LTGST #### [facility] CLIA [id number] [address] [place] [address] [place] Bacteria Ur Culton Bacteria identified Cx Nom (U) ORGANISM ID: 1 10,000 -<50,000 CFU/ml Normal urogenital sergio Normal [facility] Comment on above: Performed By: #### 5 8410-2 #### [facility] CLIA [id number] [address] [place] [address] [place] C. trachomatis+N. gonorrhoea e DNA MARY+probe Ql (Unsp spec)on 12-27-2024 C. trachomatis rRNA MARY+probe Ql (Unsp spec) Detected Abnormal Not detected [facility] Comment on above: Order Comment: Speci men Type: BLOOD SPECIMEN Ordering Facility: [facility] Address: [address] [place] [address] Performed By: #### 5 195-3, 36901-6, 02221-1 #### [facility] CLIA [id number] [address] [place] [address] [place] N. gonorrhoeae rRNA MARY+probe Ql (Unsp spec) Not detected Normal Not detected [facility] Comment on above: Order Comment: Speci men Type: BLOOD SPECIMEN Ordering Facility: [facility] Address: [address] [place] [address] Performed By: #### 5 195-3, 66042-2, 12035-9 #### [facility] CLIA [id number] [address] [place] [address] [place] CBC W Auto Differential pane l (Bld)on 12-27-2024 Basophils (Bld) [#/Vol] 0.05 10*3/uL Normal <0.11 [facility] Comment on above: Order Comment: Speci men Type: BLOOD SPECIMEN Ordering Facility: [facility] Address: [address] [place] [address] Performed By: #### 5 7021-8 #### [facility] CLIA [id number] [address] [place] [address] [place] Basophils/100 WBC (Bld) 0.8 % Normal [facility] Comment on above: Order Comment: Speci men Type: BLOOD SPECIMEN Ordering Facility: [facility] Address: [address] [place] [address] Performed By: #### 5 7021-8 #### [facility] CLIA [id number] [address] [place] [address] [place] Differential cell count method Nom (Bld) Auto Normal [facility] Comment on above: Order Comment: Speci men Type: BLOOD SPECIMEN Ordering Facility: [facility] Address: [address] [place] [address] Performed By: #### 5 7021-8 #### [facility] CLIA [id number] [address] [place] [address] [place] Eosinophils (Bld) [#/Vol] 0.03 10*3/uL Normal <0.46 [facility] Comment on above: Order Comment: Speci men Type: BLOOD SPECIMEN Ordering Facility: [facility] Address: [address] [place] [address] Performed By: #### 5 7021-8 #### [facility] CLIA [id number] [address] [place] [address] [place] Eosinophils/100 WBC (Bld) 0.5 % Normal [facility] Comment on above: Order Comment: Speci men Type: BLOOD SPECIMEN Ordering Facility: [facility] Address: [address] [place] [address] Performed By: #### 5 7021-8 #### [facility] CLIA [id number] [address] [place] [address] [place] Erythrocyte distribution width (RBC) [Ratio] 12.5 % Normal 11.5-15.0 [facility] Comment on above: Order Comment: Speci men Type: BLOOD SPECIMEN Ordering Facility: [facility] Address: [address] [place] [address] Performed By: #### 5 7021-8 #### [facility] CLIA [id number] [address] [place] [address] [place] [place] Hematocrit (Bld) [Volume fraction] 41.9 % Normal 36.0-46.0 [facility] Comment on above: Order Comment: Speci men Type: BLOOD SPECIMEN Ordering Facility: [facility] Address: [address] [place] [address] Performed By: #### 5 7021-8 #### [facility] CLIA [id number] [address] [place] [address] [place] Hemoglobin (Bld) [Mass/Vol] 14.0 g/dL Normal 11.5-15.5 [facility] Comment on above: Order Comment: Speci men Type: BLOOD SPECIMEN Ordering Facility: [facility] Address: [address] [place] [address] Performed By: #### 5 7021-8 #### [facility] CLIA [id number] [address] [place] [address] [place] Immature granulocytes (Bld) [#/Vol] 10*3/uL Normal <0.10 [facility] Comment on above: Order Comment: Speci men Type: BLOOD SPECIMEN Ordering Facility: [facility] Address: [address] [place] [address] Performed By: #### 5 7021-8 #### [facility] CLIA [id number] [address] [place] [address] [place] Immature granulocytes/100 WBC (Bld) 0.3 % Normal [facility] Comment on above: Order Comment: Speci men Type: BLOOD SPECIMEN Ordering Facility: [facility] Address: [address] [place] [address] Performed By: #### 5 7021-8 #### [facility] CLIA [id number] [address] [place] [address] [place] Lymphocytes (Bld) [#/Vol] 1.32 10*3/uL Normal 1.00-4.00 [facility] Comment on above: Order Comment: Speci men Type: BLOOD SPECIMEN Ordering Facility: [facility] Address: [address] [place] [address] Performed By: #### 5 7021-8 #### [facility] CLIA [id number] [address] [place] [address] [place] Lymphocytes/100 WBC (Bld) 20.4 % Normal [facility] Comment on above: Order Comment: Speci men Type: BLOOD SPECIMEN Ordering Facility: [facility] Address: [address] [place] [address] Performed By: #### 5 7021-8 #### [facility] CLIA [id number] [address] [place] [address] [place] MCH (RBC) [Entitic mass] 29.4 pg Normal 26.0-34.0 [facility] Comment on above: Order Comment: Speci men Type: BLOOD SPECIMEN Ordering Facility: [facility] Address: [address] [place] [address] Performed By: #### 5 7021-8 #### [facility] CLIA [id number] [address] [place] [address] [place] MCHC (RBC) [Mass/Vol] 33.4 g/dL Normal 30.5-36.0 [facility] Comment on above: Order Comment: Speci men Type: BLOOD SPECIMEN Ordering Facility: [facility] Address: [address] [place] [address] Performed By: #### 5 7021-8 #### [facility] CLIA [id number] [address] [place] [address] [place] MCV (RBC) [Entitic vol] 88.0 fL Normal 80.0-100.0 [facility] Comment on above: Order Comment: Speci men Type: BLOOD SPECIMEN Ordering Facility: [facility] Address: [address] [place] [address] Performed By: #### 5 7021-8 #### [facility] CLIA [id number] [address] [place] [address] [place] Monocytes (Bld) [#/Vol] 0.47 10*3/uL Normal <0.87 [facility] Comment on above: Order Comment: Speci men Type: BLOOD SPECIMEN Ordering Facility: [facility] Address: [address] [place] [address] Performed By: #### 5 7021-8 #### [facility] CLIA [id number] [address] [place] [address] [place] Monocytes/100 WBC (Bld) 7.3 % Normal [facility] Comment on above: Order Comment: Speci men Type: BLOOD SPECIMEN Ordering Facility: [facility] Address: [address] [place] [address] Performed By: #### 5 7021-8 #### [facility] CLIA [id number] [address] [place] [address] [place] Neutrophils (Bld) [#/Vol] 4.58 10*3/uL Normal 1.45-7.50 [facility] Comment on above: Order Comment: Speci men Type: BLOOD SPECIMEN Ordering Facility: [facility] Address: [address] [place] [address] Performed By: #### 5 7021-8 #### [facility] CLIA [id number] [address] [place] [address] [place] Neutrophils/100 WBC (Bld) 70.7 % Normal [facility] Comment on above: Order Comment: Speci men Type: BLOOD SPECIMEN Ordering Facility: [facility] Address: [address] [place] [address] Performed By: #### 5 7021-8 #### [facility] CLIA [id number] [address] [place] [address] [place] Nucleated RBC (Bld) [#/Vol] 10*3/uL Normal <0.01 [facility] Comment on above: Order Comment: Speci men Type: BLOOD SPECIMEN Ordering Facility: [facility] Address: [address] [place] [address] Performed By: #### 5 7021-8 #### [facility] CLIA [id number] [address] [place] [address] [place] Nucleated RBC/100 WBC (Bld) [Ratio] 0.0 /100 WBC Normal [facility] Comment on above: Order Comment: Speci men Type: BLOOD SPECIMEN Ordering Facility: [facility] Address: [address] [place] [address] Performed By: #### 5 7021-8 #### [facility] CLIA [id number] [address] [place] [address] [place] Platelet mean volume (Bld) [Entitic vol] 9.3 fL Normal 9.0-12.7 [facility] Comment on above: Order Comment: Speci men Type: BLOOD SPECIMEN Ordering Facility: [facility] Address: [address] [place] [address] Performed By: #### 5 7021-8 #### [facility] CLIA [id number] [address] [place] [address] [place] Platelets (Bld) [#/Vol] 249 10*3/uL Normal 150-400 [facility] Comment on above: Order Comment: Speci men Type: BLOOD SPECIMEN Ordering Facility: [facility] Address: [address] [place] [address] Performed By: #### 5 7021-8 #### [facility] CLIA [id number] [address] [place] [address] [place] RBC (Bld) [#/Vol] 4.76 10*6/uL Normal 3.90-5.20 [facility] Comment on above: Order Comment: Speci men Type: BLOOD SPECIMEN Ordering Facility: [facility] Address: [address] [place] [address] Performed By: #### 5 7021-8 #### [facility] CLIA [id number] [address] [place] [address] [place] WBC (Bld) [#/Vol] 6.47 10*3/uL Normal 3.70-11.00 [facility] Comment on above: Order Comment: Speci men Type: BLOOD SPECIMEN Ordering Facility: [facility] Address: [address] [place] [address] Performed By: #### 5 7021-8 #### [facility] CLIA [id number] [address] [place] [address] [place] HBV surface Ag Ser Qlon 12-14 HBV surface Ag Ql (S) Negative Normal Negative [facility] Comment on above: Order Comment: Speci men Type: BLOOD SPECIMEN Ordering Facility: [facility] Address: [address] [place] [address] Performed By: #### 5 195-3, 15654-8, 68484-8 #### [facility] CLIA [id number] [address] [place] [address] [place] HCV Ab Ser Qlon 12-27-2024 HCV Ab Ql (S) Negative Normal Negative [facility] Comment on above: Order Comment: Speci men Type: BLOOD SPECIMEN Ordering Facility: [facility] Address: [address] [place] [address] Result Comment: The result suggests no evidence of infection with Hepatitis C virus. Should recent infection be suspected, repeat testing may be considered 4-6 weeks after this draw. Performed By: #### G LTGST #### [facility] CLIA [id number] [address] [place] [address] [place] HIV 1+2 Ab IA Qlon 5 HIV 1 and 2 Ab IA.rapid Nom (S/P/Bld) Normal [facility] Comment on above: Order Comment: Speci men Type: BLOOD SPECIMEN Ordering Facility: [facility] Address: [address] [place] [address] Result Comment: Test not indicated. Performed By: #### 5 195-3, 24642-7, 49088-4 #### [facility] CLIA [id number] [address] [place] [address] [place] HIV 1+2 Ab+HIV1 p24 Ag IA Ql Non-Reactive Normal Nonreactive [facility] Comment on above: Order Comment: Speci men Type: BLOOD SPECIMEN Ordering Facility: [facility] Address: [address] [place] [address] Performed By: #### 5 195-3, 00004-2, 70499-0 #### [facility] CLIA [id number] [address] [place] [address] [place] [facility] [place] HIV immunoassay testing algorithm interpretation (S/P/Bld) [Interp] Normal [facility] Comment on above: Order Comment: Speci men Type: BLOOD SPECIMEN Ordering Facility: [facility] Address: [address] [place] [address] Result Comment: No e vidence of HIV-1 or HIV-2 infection. Should recent infection be suspected, repeat testing may be considered 2-3 weeks after this draw. [place] Rev. Code 3701.243(E): This information has been [...] or diagnoses. Performed By: #### 5 195-3, 92502-2, 99247-0 #### [facility] CLIA [id number] [address] [place] [address] [place] HbA1c (Bld)on 12-27-2024 Average glucose Estimated from glycated hemoglobin (Bld) [Mass/Vol] 94 mg/dL Normal [facility] Comment on above: Order Comment: Slava cedeño Type: BLOOD SPECIMEN Ordering Facility: [facility] Address: [address] [place] [address] Result Comment: eAG: (Estimated average glucose) is a calculated value from HgbA1c and is risk control representative of the average blood glucose level in the last 2-3 month period. Performed By: #### G LTGST #### [facility] CLIA [id number] [address] [place] [address] HbA1c (Bld) [Mass fraction] 4.9 % Normal 4.3-5.6 [facility] Comment on above: Order Comment: Slava cedeño Type: BLOOD SPECIMEN Ordering Facility: [facility] Address: [address] [place] [address] Result Comment: [place] Diabetes Association guidelines indicate that patients with HgbA1c in the range 5.7-6.4% are at increased risk for development of diabetes, and intervention by lifestyle modification may be beneficial. HgbA1c greater or equal to 6.5% is considered diagnostic of diabetes. Performed By: #### G LTGST #### [facility] CLIA [id number] [address] [place] [address] [place] POC MRI ASSISTANT ULTRASOUNDon 12-28-19 25 Indication Viability; confirm cardiac [...] Read By: Donnell Romero NP MATERNAL MEDICINE [facility] Radiology Study observation (narrative) [facility] RUBELLA IGG ANTIBODYon 12-27 RUBELLA IGG AB, QUAL Negative Abnormal Positive [facility] Comment on above: Order Comment: Slava cedeño Type: BLOOD SPECIMEN Ordering Facility: [facility] Address: [address] [place] [address] Result Comment: The result suggests no history of Rubella vaccination or exposure to Rubella virus, however, some individuals with past history of Rubella vaccination may test negative using this test as immunity to Rubella virus wanes over time after vaccination. Please correlate with vaccination history if applicable. Performed By: #### 5 8410-2 #### [facility] CLIA [id number] [address] [place] [address] [place] Reagin and Treponema pallidu m IgG and IgM [Interp]on 12-27-2024 T. pallidum IgG+IgM IA Ql (S) Non-Reactive Normal Nonreactive [facility] Comment on above: Order Comment: Slava cedeño Type: BLOOD SPECIMEN Ordering Facility: [facility] Address: [address] [place] [address] Performed By: #### 5 195-3, 28554-4, 08222-0 #### [facility] CLIA [id number] [address] [place] [address] [place] Reagin+T pallidum IgG+IgM Se rPl-Impon 12-27-2024 Reagin and Treponema pallidum IgG and IgM [Interp] Cannot exclude recent Treponemal infection if specimen collected within 7-10 days after appearance of suspect lesions or 2-3 weeks after an exposure. Clinical correlation is required. Normal [facility] Comment on above: Order Comment: Speci men Type: BLOOD SPECIMEN Ordering Facility: [facility] Address: [address] [place] [address] Performed By: #### 5 195-3, 33414-6, 90744-9 #### [facility] CLIA [id number] [address] [place] [address] [place] T4 Free SerPl-mCncon 025 Free T4 [Mass/Vol] 0.9 ng/dL Normal 0.9-1.7 [facility] Comment on above: Order Comment: Speci men Type: BLOOD SPECIMEN Ordering Facility: [facility] Address: [address] [place] [address] Performed By: #### G LTGST #### [facility] CLIA [id number] [address] [place] [address] [place] TRICHOMONAS VAGINALIS NAATon 12-27-2024 T. vaginalis DNA MARY+probe Ql (Unsp spec) Not detected Normal Not detected [facility] Comment on above: Order Comment: Speci men Type: BLOOD SPECIMEN Ordering Facility: [facility] Address: [address] [place] [address] Performed By: #### 5 195-3, 42829-2, 20617-3 #### [facility] CLIA [id number] [address] [place] [address] [place] TSH SerPl-aCncon 12-27-2024 TSH Qn 2.570 m[IU]/L Normal 0.270-4.200 [facility] Comment on above: Order Comment: Speci men Type: BLOOD SPECIMEN Ordering Facility: [facility] Address: [address] [place] [address] Result Comment: If t he patient is , TSH reference range varies by gestational period: First Trimester (weeks 9-12): 0.180-2.990 mIU/L Second Trimester: 0.110-3.980 mIU/L Third Trimester: 0.480-4.710 mIU/L Gustavo Luque et al. A Practical Approach for the Verifications and Determination of Site- and Trimester-Specific Reference Intervals for Thyroid Function tests in . Thyroid, 2019:29:3:412-420. Soto Lui, et al. 2017 Guidelines of the [place] Thyroid Association for the Diagnosis and Management of Thyroid Disease during and the . Thyroid, 2017:27:3:315-389. Performed By: #### G LTGST #### [facility] CLIA [id number] [address] [place] [address] [place] TYPE + SCREEN PRENATALon ABO group Nom (Bld) O [facility] Blood group antibody screen Ql Negative [facility] Rh Nom (Bld) Positive [facility] Type and Screen Expiration 12/30/2024 23:59 [facility] ABO O Normal [facility] Comment on above: Order Comment: Speci men Type: BLOOD SPECIMEN Ordering Facility: [facility] Address: [address] [place] [address] Performed By: #### T SPN #### [facility] CLIA [id number] [address] [place] [address] [place] Rh Nom (Bld) Positive Normal [facility] Comment on above: Order Comment: Speci men Type: BLOOD SPECIMEN Ordering Facility: [facility] Address: [address] [place] [address] Performed By: #### T SPN #### [facility] CLIA [id number] [address] [place] [address] [place] TYPE AND SCREEN EXPIRATION 12/30/2024 23:59 Normal [facility] Comment on above: Order Comment: Speci men Type: BLOOD SPECIMEN Ordering Facility: [facility] Address: [address] [place] [address] Performed By: #### T SPN #### [facility] CLIA [id number] [address] [place], [place] [address] [address] [place] 36on 12-25-2024 36 Call placed to [facility] in [place], [place] at [phone], Faxed request to [facility] at [phone], they state they will provide an encrypted code to view images. Will notify provider once available. Additionally it appears patient was seen by OB on 12/20/24 and is currently . Sending to provider as FYI. [facility] CNOVon 12-20-2024 CNOV Office Visit (OBGYWM ) LOYDA BURNETTE ([id number]) 1990 F Date Time Provider Department 12/20/24 [...] behind left knee since yesterday. She contacted vocational technical education teacher nurse and was unable to go to Urgent Care or ED last night. Reports area has no redness, warmth or tenderness to touch. She is concerned she has a DVT. Patient is approximately 6 weeks gestation. 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 thyroid (DIRECTOR OF ACCOUNTS RECEIVABLE THYROID) 15 mg tablet Take 1 tablet [...] Units by mouth once daily. - thyroid (DIRECTOR OF ACCOUNTS RECEIVABLE THYROID) 15 mg tablet Take 1 tablet [...] Ricarda's dis (more content not included)... [facility] LOYDA BURNETTE ([id number]) 1990 F Date Time Provider Department 12/19/24 [...] Advised that patient could be seen at [facility] or ER tonight since office is [...] Units by mouth once daily. - thyroid (DIRECTOR OF ACCOUNTS RECEIVABLE THYROID) 15 mg tablet Take 1 tablet [...] Status:Closed by KORIN TREJO on 12/19/24 Normal [facility] ABO/Rh (Gel)on 2024 ABO/Rh Interp Positive Invalid Interpretation Code [facility] Comment on above: Performed By: #### H AC, ISAIAS, SAMANTHA, ADIFF, CBC, ABOGEL #### [address] [address] UAMICon 2024 UA Bacteria 1+ /hpf Abnormal Negative [facility] Comment on above: Performed By: #### U A, UAMIC #### [place] [id number] UA RBC Rare Normal 0-2 [facility] Comment on above: Performed By: #### U A, UAMIC #### [address] [address] UA Squam Epithelial 3-5 Normal 0-20 [facility] Comment on above: Performed By: #### U A, UAMIC #### [address] [address] UA WBC 3-5 Normal 0-5 [facility] Comment on above: Performed By: #### U A, UAMIC #### [address] [address] .Auto Diffon 12-14-2024 Basophil, Absolute 0.0 10 3/mcL Normal 0.0-0.3 [facility] Comment on above: Performed By: #### H AC, ISAIAS, SAMANTHA, ADIFF, CBC, ABOGEL #### [address] [address] Basophils/100 WBC (Bld) 0.7 % Normal 0.0-2.5 [facility] Comment on above: Performed By: #### H ISAIAS SHEN MDW, ADIFF, CBC, ABOGEL #### [place] [id number] Eosinophil, Absolute 0.1 10 3/mcL Normal 0.0-0.7 [facility] Comment on above: Performed By: #### H ISAIAS SHEN MDW, ADIFF, CBC, ABOGEL #### [address] [address] Eosinophils/100 WBC (Bld) 1.0 % Normal 0.0-6.0 [facility] Comment on above: Performed By: #### H CG, ANEU, MDW, ADIFF, CBC, ABOGEL #### [address] [address] Lymphocyte, Absolute 1.3 10 3/mcL Normal 0.9-4.3 [facility] Comment on above: Performed By: #### H CG, ANEU, MDW, ADIFF, CBC, ABOGEL #### [address] [address] Lymphocytes/100 WBC (Bld) 23.0 % Normal 20.0-40.0 [facility] Comment on above: Performed By: #### H CG, ANEU, MDW, ADIFF, CBC, ABOGEL #### [address] [address] Monocyte, Absolute 0.4 10 3/mcL Normal 0.1-1.4 [facility] Comment on above: Performed By: #### H CG, ANEU, MDW, ADIFF, CBC, ABOGEL #### [address] [address] Monocytes/100 WBC (Bld) 6.4 % Normal 2.0-13.0 [facility] Comment on above: Performed By: #### H CG, ANEU, MDW, ADIFF, CBC, ABOGEL #### [address] [address] Neutrophils/100 WBC (Bld) 68.9 % Normal 50.0-75.0 [facility] Comment on above: Performed By: #### H CG, ANEU, MDW, ADIFF, CBC, ABOGEL #### [address] [address] .MDWon 12-14-2024 Monocyte Distribution Width 16.55 Normal 0.00-20.00 [facility] Comment on above: Result Comment: For ED adult patients suspected of sepsis, MDW<=20.0 does not rule out sepsis or risk of sepsis Performed By: #### H CG, ANEU, MDW, ADIFF, CBC, ABOGEL #### [address] [address] .NEUABSon 12-14-2024 Neutrophil, Absolute 4.0 10 3/mcL Normal 2.3-8.1 [facility] Comment on above: Performed By: #### H AC, SAMANTHA ESPARZA, ADIFF, CBC, ABOGEL #### [address] [address] CBCon 12-14-2024 Erythrocyte distribution width (RBC) [Ratio] 13.1 % Normal 11.5-15.5 [facility] Comment on above: Performed By: #### H AC, SAMANTHA ESPARZA, ADIFF, CBC, ABOGEL #### [place] [address] Hematocrit (Bld) [Volume fraction] 40.1 % Normal 34.0-46.0 [facility] Comment on above: Performed By: #### H ISAIAS SHEN MDW, ADIFF, CBC, ABOGEL #### [place] [address] Hgb 13.6 G/dL Normal 12.0-16.0 [facility] Comment on above: Performed By: #### H ISAIAS SHEN MDW, ADIFF, CBC, ABOGEL #### [place] [phone] MCH (RBC) [Entitic mass] 30.1 pg Normal 27.0-33.0 [facility] Comment on above: Performed By: #### H AC, SAMANTHA ESPARZA, ADIFF, CBC, ABOGEL #### [place] [id number] MCHC 34.0 G/dL Normal 32.0-36.0 [facility] Comment on above: Performed By: #### H AC, SAMANTHA ESPARZA, ADIFF, CBC, ABOGEL #### [place] [address] MCV (RBC) [Entitic vol] 88.6 fL Normal 80.0-99.0 [facility] Comment on above: Performed By: #### H AC, ISAIAS, W, ADIFF, CBC, ABOGEL #### [place] [id number] Platelet 249 10 3/mcL Normal 150-450 [facility] Comment on above: Performed By: #### H AC, SAMANTHA ESPARZA, ADELIZABETH, CBC, ABOGEL #### [facility] [address] [place] [address] Platelet mean volume (Bld) [Entitic vol] 7.4 fL Normal 6.6-10.5 [facility] Comment on above: Performed By: #### H ISAIAS SEHN MDW, ADIFF, CBC, ABOGEL #### [facility] [address] [place] [address] RBC 4.53 10 6/mcL Normal 4.10-5.30 [facility] Comment on above: Performed By: #### H ISAIAS SHEN MDW, ADELIZABETH, CBC, ABOGEL #### [place] [id number] [place] [address] WBC 5.8 10 3/mcL Normal 4.5-10.8 [facility] Comment on above: Performed By: #### H ISAIAS SHEN MDW, ADIFF, CBC, ABOGEL #### [address] [address] HCGon 12-14-2024 Date of LMP unknown Normal [facility] Comment on above: Performed By: #### H ISAIAS SHEN MDW, ADIFF, CBC, ABOGEL #### [address] [address] hCG, quantitative 524[address].1 mIU/mL Normal [facility] Comment on above: Result Comment: [...] CG, ANEU, MDW, ADIFF, CBC, ABOGEL #### [place] [address] LABORATORYOrdered By: Martinez marina on 12-14-2024 Beta HCG ( test) Ql (U) Positive (12/14/24 10:56 PM) [facility] Work Phone: LABORATORYOrdered By: Angy Goyal on [...] % [place] [address].1 m[IU]/mL Invalid Interpretation Code ADM SS Comment [...] S UAon 12-14-2024 Color (U) Yellow Normal [facility] Comment on above: Performed By: #### U A, UAMIC #### [place] [address] Glucose (U) [Mass/Vol] Negative Normal Negative [facility] Comment on above: Performed By: #### U A, UAMIC #### [place] [address] Ketones Ql (U) Trace Normal Neg-Trace [facility] Comment on above: Performed By: #### U A, UAMIC #### [place] [address] UA Appear Clear Normal Clear [facility] Comment on above: Performed By: #### U A, UAMIC #### [place] [address] UA Blood Negative Normal Neg-Trace [facility] Comment on above: Performed By: #### U A, UAMIC #### [place] [address] UA Leuk Est Moderate Abnormal Negative [facility] Comment on above: Performed By: #### U A, UAMIC #### [place] [address] UA Nitrite Negative Normal Negative [facility] Comment on above: Performed By: #### U A, UAMIC #### [place] [address] UA pH 5.0 Normal 5.0 - 8.0 [facility] Comment on above: Performed By: #### U A, UAMIC #### [address] [place], [place] [address] UA Protein Negative Normal Negative [facility] Comment on above: Performed By: #### U A, UAMIC #### [facility] [address] [place] [address] UA Spec Grav 1.020 Normal 1.006-1.029 [facility] Comment on above: Performed By: #### U A, UAMIC #### [facility] [address] [place] [address] UA Specimen Type Clean Catch Normal [facility] Comment on above: Performed By: #### U A, UAMIC #### [facility] [address] [place] [address] UA Urobilinogen 0.2 E.U./dL Normal 0.2-1.0 [facility] Comment on above: Performed By: #### U A, UAMIC #### [place] [address] Urobilinogen (U) [Mass/Vol] Negative Normal Neg-Trace [facility] Comment on above: Performed By: #### U A, UAMIC #### [facility] [address] [place] [address] 37on 12-08-2024 37 YOUR APPOINTMENT TOHyun DIMAS WAS WITH THE [facility], COPD CLINIC, PULMONARY AND SLEEP MEDICINE OFFICE. PLEASE CALL OUR OFFICE AT [phone] IF YOU HAVE NOT RECEIVED YOUR TEST [...] to make improvements. COVID-19 VACCINATION INFORMATION: PH. [phone] HEALTH.ORG/CORONAVIRUS/ VACCINE [facility] Central Scheduling [phone] [facility] Sleep Scheduling [phone] Normal [facility] Office Visiton 12-08-2024 Follow-up visit [id number] Loyda Burnette 1990 F Date Provider Department Center 12/08/2024 [id number] [place] [facility] None Chart Close Cosign Required by: Albino Foley DO[VICKIE] Family History Problem Relation Age of Onset Breast cancer Paternal Grandmother 53 Family Status - Relation Status Age at Paternal Grandmother Level of Service:96634 [place] OFFICE/OUTPATIENT NEW MODERATE MDM 45 MINUTES (GC) Reason for Visit and Comments: New Patient [542] Normal [facility] Progress Noteon 12-08-2024 Progress Note --- Attestation signed by Albino Foley DO at 12/11/2024 5:22 PM I saw and evaluated the patient, participating in the barry portions of the service. I reviewed the resident?s note. I agree with the resident?s findings and plan. Albino Foley DO [facility] [place] [facility] NEW PATIENT VISIT REFERRING PHYSICIAN: No referring provider defined for this encounter. CHIEF COMPLAINT/REASON FOR REFERRAL: Chief Complaint Patient presents with New Patient History of Present Illness: Loyda Burnette is a 33 y.o. female with a history of hypothyroidism, right lung nodule who presents for initial evaluation of chronic cough. She previously had a CT chest in [facility] in [place], [place]. Records are not available, but appears to have been done around March 2023. She had negative CXR 01/2022, images not available but report is. She says about a year and a half ago she had cyclic fevers in [place] over a period of a few weeks. [...] to get records sent from hospital in [place] but they were unable to. Coccidioides Ab, [...] to 3 weeks may be warranted. The [employer] Cocci Ab EIA Test Kit measures the expression of Anti-TP IgM antibodies and Anti-CF IgG antibodies. Antibodies against the TP antigen become measurable early in the acute phase of infection, between the first [50%] and third [90%] weeks of onset, while antibodies against the CF antigen become measureable between the second and 28th week. Test Performed at: [facility] [address] [place] [address] Coccidioides Ab, Cf (Eia) (PHX) Negative Reference [...] that time. Was recommended by Pulmonology in [place] to get [address] chest but was lost to follow up. She is low risk as she is a never smoker with no occupational exposures. Will send message to obtain CT images from [place] if possible. Discussed risks and benefits of [...] Skin peeled Medications Current Outpatient Medications: thyroid ([place]) 30 MG tablet, Take 30 mg by mouth d (more content not included)... Normal [facility] CBC panel Auto (Bld)on 10-01 Erythrocyte distribution width (RBC) [Ratio] 12.6 % 11.5 - 15.0 % [facility] Hematocrit (Bld) [Volume fraction] 41.3 % 36.0 - 46.0 % [facility] Hemoglobin (Bld) [Mass/Vol] 13.8 g/dL 11.5 - 15.5 g/dL [facility] MCH (RBC) [Entitic mass] 29.2 pg 26.0 - 34.0 pg [facility] MCHC (RBC) [Mass/Vol] 33.4 g/dL 30.5 - 36.0 g/dL [facility] MCV (RBC) [Entitic vol] 87.5 fL 80.0 - 100.0 fL [facility] Nucleated RBC (Bld) [#/Vol] <0.01 k/uL [facility] Platelet mean volume (Bld) [Entitic vol] 9.4 fL 9.0 - 12.7 fL [facility] Platelets (Bld) [#/Vol] 263 10*3/uL 150 - 400 k/uL [facility] RBC (Bld) [#/Vol] 4.72 10*6/uL 3.90 - 5.2 0 m/uL [facility] WBC (Bld) [#/Vol] 5.39 10*3/uL 3.70 - 11. 00 k/uL [facility] HCG QUANTITATIVEon 3 HCG.beta subunit Qn <5.0 mIU/mL [facility] Patient Letteron 03-23-2023 Patient Letter (Inserted Image. Noy ble to display) March 23, 2023 LOYDA BURNETTE [address] [place] [address] Date 03/23/23 Dear Loyda, Due to a change in our schedule, your appointment with Dr. Oneil on 04/20/23 at 10;10 will have to be rescheduled. We have been trying to reach you and your mailbox is full. Please call our office at [phone] so that we may change this appointment. We are sorry for any inconvenience this may have caused. Sincerely, RUSH ONEIL MD Normal [facility] HCG QUANTITATIVEon 3 HCG.beta subunit Qn <5.0 mIU/mL [facility] BACTERIAL VAGINOSIS NAATon 0 02-11-2023 Lactobacillus crispatus+gasseri+j ensenii + Gardnerella vaginalis + Atopobium vaginae rRNA MARY+probe Ql (Vag fld) Negative Negative for bacterial vaginosis [facility] BART/TRICHOMONAS NAATon 0 02-11-2023 C. glabrata RNA MARY+probe Ql (Vag fld) Negative Negative for Bart glabrata [facility] Bart sp DNA MARY+probe Ql (Vag fld) Negative Negative for Bart species [facility] T. vaginalis DNA MARY+probe Ql (Unsp spec) Negative Negative for Trichomonas vaginalis by amplification [facility] HCG QUANTITATIVEon 3 HCG.beta subunit Qn <5.0 mIU/mL [facility] US Head and neck soft tissue on 09-19-2022 No evidence of cervi west lymphadenopathy. If there is concern for an abnormality not seen by ultrasound, contrast CT could be obtained for further evaluation. Report Dictated on Electronically Signed By: Andrea Sigala Electronically Signed Date/Time: 09/19/2022 12:46 PM [facility] Patient Name: LOYDA DELGADO Exam Date/Time: [...] Level 6 (visceral or central compartment): None [facility] Andrea Sigala MD - 09/19/2022 Patient Name: [...] Electronically Signed Date/Time: 09/19/2022 12:46 PM EST [facility] US Head and neck soft tissue Ordered By: Andrea Sigala on 09-19-2022 [facility] Work Phone: US Head and neck soft tissue on 09-18-2022 Radiology Study observation (narrative) [facility] CNOVon 09-01-2022 CNOV Office Visit (GENSF) LOYDA BURNETTE ([id number]) 1990 F Date Time Provider Department 09/01/22 [...] 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 [...] Mammograms: Yes bilateral diagnostic imaging, Date [facility]: 04/2021; results - as above Breast [...] Problems S (more content not included)... Normal [facility] D-Dimer, Innovanceon 03-19-2 022 D-Dimer, Innovance 0.37 mg/L Normal <0.19-0.50 [facility] [email or web address] Comment on above: Result Comment: Inno pittman D-Dimer values of <0.50 mg/L FEU can be used in combination with a pre-test probability model (e.g. Well's) to exclude pulmonary embolism (PE) disease, as well as an aid in the diagnosis of deep vein thrombosis (DVT). Performed By: #### D DI2 #### [facility] [address] [place] [address] D-Dimer, Quantitativeon 08-0 D-Dimer, Quant 0.37 mg/L <0.19 - 0.50 [facility] Comment on above: [employer] D-Dimer va lues of <0.50 mg/L FEU can be used in combination with a pre-test probability model (e.g. Well's) to exclude pulmonary embolism (PE) disease, as well as an aid in the diagnosis of deep vein thrombosis (DVT). Test Performed by [facility], [address] , [place], [place] [id number] [place] [address] LAB [facility] CBC W Auto Differential pane l (Bld)on 03-11-2022 Abs Immature Gran <0.03 <0.10 k/uL [facility] Basophils (Bld) [#/Vol] 0.05 10*3/uL <0.11 k/uL [facility] Basophils/100 WBC (Bld) 1.3 % [facility] Differential cell count method Nom (Bld) Auto [facility] Eosinophils (Bld) [#/Vol] 0.05 10*3/uL <0.46 k/uL [facility] Eosinophils/100 WBC (Bld) 1.3 % [facility] Erythrocyte distribution width (RBC) [Ratio] 12.7 % 11.5 - 15.0 % [facility] Hematocrit (Bld) [Volume fraction] 38.2 % 36.0 - 46.0 % [facility] Hemoglobin (Bld) [Mass/Vol] 12.4 g/dL 11.5 - 15.5 g/dL [facility] Immature Gran % 0.3 % [facility] Lymphocytes (Bld) [#/Vol] 1.56 10*3/uL 1.00 - 4.00 k/uL [facility] Lymphocytes/100 WBC (Bld) 39.5 % [facility] MCH (RBC) [Entitic mass] 29.2 pg 26.0 - 34.0 pg [facility] MCHC (RBC) [Mass/Vol] 32.5 g/dL 30.5 - 36.0 g/dL [facility] MCV (RBC) [Entitic vol] 89.9 fL 80.0 - 100.0 fL [facility] Monocytes (Bld) [#/Vol] 0.26 10*3/uL <0.87 k/uL [facility] Monocytes/100 WBC (Bld) 6.6 % [facility] Neutrophils (Bld) [#/Vol] 2.02 10*3/uL 1.45 - 7.50 k/uL [facility] Neutrophils/100 WBC (Bld) 51.0 % [facility] Nucleated RBC (Bld) [#/Vol] 10*3/uL <0.01 k/uL [facility] Nucleated RBC/100 WBC (Bld) [Ratio] 0.0 /100 WBC [facility] Platelet mean volume (Bld) [Entitic vol] 9.0 fL 9.0 - 12.7 fL [facility] Platelets (Bld) [#/Vol] 275 10*3/uL 150 - 400 k/uL [facility] RBC (Bld) [#/Vol] 4.25 10*6/uL 3.90 - 5.2 0 m/uL [facility] WBC (Bld) [#/Vol] 3.95 10*3/uL 3.70 - 11. 00 k/uL [facility] Basic Metabolic Panelon 01-14 Anion gap [Moles/Vol] 9 mmol/L Normal 3-13 [facility] Comment on above: Performed By: #### B MP3, LIPA4, HEMDF, TROPN, DDI2 #### [facility] [address] [place] [address] Calcium [Mass/Vol] 9.0 mg/dL Normal 8.4-10.4 [facility] Comment on above: Performed By: #### B MP3, LIPA4, HEMDF, TROPN, DDI2 #### [facility] [address] [place] [address] CO2 [Moles/Vol] 25 mmol/L Normal 22-30 [facility] Comment on above: Performed By: #### B MP3, LIPA4, HEMDF, TROPN, DDI2 #### [facility] [address] [place] [address] Glucose [Mass/Vol] 103 mg/dL High 70-100 [facility] Comment on above: Performed By: #### B MP3, LIPA4, HEMDF, TROPN, DDI2 #### [facility] [address] [place] [address] Urea nitrogen [Mass/Vol] 8 mg/dL Low 9-20 [facility] Comment on above: Performed By: #### B MP3, LIPA4, HEMDF, TROPN, DDI2 #### [facility] [address] [place] [address] Creatinine [Mass/Vol] 0.76 mg/dL Normal 0.52-1.25 [facility] Comment on above: Performed By: #### B MP3, LIPA4, HEMDF, TROPN, DDI2 #### [facility] [address] [place] [address] eGFR OTHER > 90.0 Normal >60 [facility] Comment on above: Result Comment: KDIG O [...] B MP3, LIPA4, HEMDF, TROPN, DDI2 #### [facility] [address] [place] [address] GFR/1.73 sq M.predicted among blacks MDRD (S/P/Bld) [Vol rate/Area] mL/min/{1.73_m2} Normal >60 [facility] Comment on above: Performed By: #### B MP3, LIPA4, HEMDF, TROPN, DDI2 #### [facility] [address] [place] [address] Chloride [Moles/Vol] 105 mmol/L Normal 98-107 [facility] Comment on above: Performed By: #### B MP3, LIPA4, HEMDF, TROPN, DDI2 #### [facility] [address] [place] [address] Potassium [Moles/Vol] 3.5 mmol/L Normal 3.5-5.1 [facility] Comment on above: Performed By: #### B MP3, LIPA4, HEMDF, TROPN, DDI2 #### [facility] [address] [place] [address] Sodium [Moles/Vol] 139 mmol/L Normal 135-145 [facility] Comment on above: Performed By: #### B MP3, LIPA4, HEMDF, TROPN, DDI2 #### [facility] [address] [place] [address] Anion gap [Moles/Vol] 9 mmol/L 3 - 13 mmol/L [facility] Work Phone: Calcium [Mass/Vol] 9.0 mg/dL 8.4 - 10. 4 mg/dL [facility] Work Phone: Chloride [Moles/Vol] 105 mmol/L 98 - 107 mmol/L [facility] Work Phone: CO2 [Moles/Vol] 25 mmol/L 22 - 30 mmol/L [facility] Work Phone: Creatinine [Mass/Vol] 0.76 mg/dL 0.52 - 1.25 mg/dL [facility] Work Phone: EGFR IF NonAfrican Senegalese >90.0 >60 mL/min [facility] Work Phone: Comment on above: KDIGO [...] MDRD (S/P/Bld) [Vol rate/Area] mL/min/{1.73_m2} >60 mL/min [facility] Work Phone: Glucose [Mass/Vol] 103 mg/dL High 70 - 100 mg/dL [facility] Work Phone: Interpretation and review of laboratory results Abnormal [facility] Work Phone: Potassium [Moles/Vol] 3.5 mmol/L 3.5 - 5.1 mmol/L [facility] Work Phone: Sodium [Moles/Vol] 139 mmol/L 135 - 145 mmol/L [facility] Work Phone: Urea nitrogen (BldV) [Mass/Vol] 8 mg/dL Low 9 - 20 mg/dL [facility] Work Phone: Test Performed by [facility], [address] [place] [id number] [place] [address] LAB [facility] Work Phone: CBC with Auto Differentialon 01-27-2022 Absolute Baso # 0.0 10*3/uL 0.0 - 0.2 10*3/uL [facility] Work Phone: Absolute Neut # 2.0 10*3/uL 1.8 - 7.0 10*3/uL [facility] Work Phone: Basophils/100 WBC (Bld) 1.2 % 0.0 - 2.0 % [facility] Work Phone: Eosinophils (Bld) [#/Vol] 0.0 10*3/uL 0.0 - 0.5 10*3/uL [facility] Work Phone: Eosinophils/100 WBC (Bld) 1.2 % 1.0 - 6.0 % [facility] Work Phone: Granulocytes/100 WBC (Bld) 53.2 % 40.0 - 80.0 % [facility] Work Phone: Hematocrit (Bld) [Volume fraction] 37.3 % 35.0 - 47.0 % [facility] Work Phone: 1 Hemoglobin (Bld) [Mass/Vol] 12.9 g/dL 11.7 - 16.0 g/dL [facility] Phone: Interpretation and review of laboratory results Abnormal [facility] Phone: Lymphocytes (Bld) [#/Vol] 1.4 10*3/uL 1.0 - 4.3 10*3/uL [facility] Work Phone: 1 Lymphocytes/100 WBC (Bld) 38.1 % 20.0 - 40.0 % [facility] Phone: MCH (RBC) [Entitic mass] 29.5 pg 26.0 - 34.0 pg [facility] Phone: MCHC (RBC) [Mass/Vol] 34.5 % 32.0 - 36.0 % [facility] Phone: MCV (RBC) [Entitic vol] 85.7 fL 79.0 - 98.0 fL [facility] Work Phone: Monocytes (Bld) [#/Vol] 0.2 10*3/uL 0.0 - 0.8 10*3/uL [facility] Phone: Monocytes/100 WBC (Bld) 6.3 % 2.0 - 10.0 % [facility] Phone: Platelet distribution width (Bld) [Ratio] 12.6 % 11.5 - 14.5 % [facility] Phone: Platelet mean volume (Bld) [Entitic vol] 7.0 fL Low 7.4 - 12.4 fL [facility] Phone: Comment on above: MPV is a calculated measurement using platelet volume ratio. Platelets (Bld) [#/Vol] 466 10*3/uL High 140 - 440 10*3/uL [facility] Work Phone: RBC (Bld) [#/Vol] 4.35 10*6/uL 3.80 - 5.2 0 10*6/uL [facility] Work Phone: WBC (Bld) [#/Vol] 3.8 10*3/uL 3.6 - 10.7 10*3/uL [facility] Work Phone: Test Performed by [facility], [address] [place] [address] [facility] [place] [facility] Work Phone: CR Chest Portableon 01-28-20 22 CR Chest Portable Patient Name: LOYDA DELGADO Diagnostic Radiology ACCESSION EXAM DATE/TIME PROCEDURE ORDERING PROVIDER [id number] 01/27/2022 19:50 EDT CR Chest Portable MD USHA, RIVER CPT code 70997 Reason For Exam (CR Chest Portable) chest [...] Transcribed Date and Time: 01/27/2022 7:56 Normal [facility] D-Dimer, Innovanceon 01-27-2 022 D-Dimer, Innovance 0.40 mg/L Normal <0.19-0.50 [facility] Comment on above: Result Comment: Inno pittman D-Dimer values of <0.50 mg/L FEU can be used in combination with a pre-test probability model (e.g. Well's) to exclude pulmonary embolism (PE) disease, as well as an aid in the diagnosis of deep vein thrombosis (DVT). Performed By: #### B MP3, LIPA4, HEMDF, TROPN, DDI2 #### [facility] [address] [place] [address] D-Dimer, Quantitativeon 01-14 D-Dimer, Quant 0.4 mg/L <0.19 - 0.50 [facility] Work Phone: Comment on above: [employer] D-Dimer va lues of <0.50 mg/L FEU can be used in combination with a pre-test probability model (e.g. Well's) to exclude pulmonary embolism (PE) disease, as well as an aid in the diagnosis of deep vein thrombosis (DVT). 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1990 Requested By: RIVER KERR Order Number: [id number] Reading MD: River Kerr Measurements Intervals Stella Rate: 102 P: 64 SC: 147 QRS: 67 QRSD: 83 T: 63 QT: 341 QTc: 445 Interpretive Statements Sinus tachycardia Rate [address] segments Electronically Signed On 01-27-2022 19:49:01 EDT by River Kerr [facility] River Kerr M D - [facility]2022 [facility] Test Date: 2022-01-27 Pat Name: LOYDA BURNETTE Department: 1CEG Room: 10 Gender: F 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1990 Requested By: RIVER KERR Order Number: [id number] Reading MD: River Kerr Measurements Intervals Stella Rate: 102 P: 64 SC: 147 QRS: 67 QRSD: 83 T: 63 QT: 341 QTc: 445 Interpretive Statements Sinus tachycardia Rate [address] segments Electronically Signed On 01-27-2022 19:49:01 EDT by River Kerr [facility] Work Phone: [facility] Work Phone: HCG,Urine Qualon 01-27-2022 Beta HCG ( test) Ql (U) Negative Normal Negative [facility] Comment on above: Result Comment: Plea se note: Very dilute urine specimens, as indicated by a low specific gravity, may not contain risk control representative levels of hCG. If is still suspected, a first morning urine specimen should be collected 48 hours later and tested. is the most common reason for HCG in urine, although choriocarcinoma, hydatidiform mole, and certain nontropho- blastic malignancies also result in detectable urinary HCG levels. Sensitivity = 20mIU/mL. Performed By: #### H CGUR #### [facility] [address] [place] [address] [facility] Urine Qual [place] 2021 Beta HCG ( test) Ql (U) Negative Negative NA [facility] Work Phone: Comment on above: Please note: Very di lute urine specimens, as indicated by a low specific gravity, may not contain risk control representative levels of hCG. If is still suspected, a first morning urine specimen should be collected 48 hours later and tested. is the most common reason for HCG in urine, although choriocarcinoma, hydatidiform mole, and certain nontropho- blastic malignancies also result in detectable urinary HCG levels. Sensitivity = 20mIU/mL. Test Performed by [facility], [address] [place] [address] [facility] Work Phone: Hemogram w/ Autodiffon 01-27 Abs Baso Cnt 0.0 10*3/uL Normal 0.0-0.2 [facility] Comment on above: Performed By: #### B MP3, LIPA4, HEMDF, TROPN, DDI2 #### [facility] [address] [place] [address] Abs Neutrophile Cnt 2.0 10*3/uL Normal 1.8-7.0 [facility] Comment on above: Performed By: #### B MP3, LIPA4, HEMDF, TROPN, DDI2 #### [facility] [address] [place] [address] Basophils/100 WBC (Bld) 1.2 % Normal 0.0-2.0 [facility] Comment on above: Performed By: #### B MP3, LIPA4, HEMDF, TROPN, DDI2 #### [address] [address] Eosinophils (Bld) [#/Vol] 0.0 10*3/uL Normal 0.0-0.5 [facility] Comment on above: Performed By: #### B MP3, LIPA4, HEMDF, TROPN, DDI2 #### [address] [address] Eosinophils/100 WBC (Bld) 1.2 % Normal 1.0-6.0 [facility] Comment on above: Performed By: #### B MP3, LIPA4, HEMDF, TROPN, DDI2 #### [address] [address] Erythrocyte distribution width (RBC) [Ratio] 12.6 % Normal 11.5-14.5 [facility] Comment on above: Performed By: #### B MP3, LIPA4, HEMDF, TROPN, DDI2 #### [address] [address] Granulocytes/100 WBC (Bld) 53.2 % Normal 40.0-80.0 [facility] Comment on above: Performed By: #### B MP3, LIPA4, HEMDF, TROPN, DDI2 #### [address] [address] Hematocrit (Bld) [Volume fraction] 37.3 % Normal 35.0-47.0 [facility] Comment on above: Performed By: #### B MP3, LIPA4, HEMDF, TROPN, DDI2 #### [address] [address] Hemoglobin (Bld) [Mass/Vol] 12.9 g/dL Normal 11.7-16.0 [facility] Comment on above: Performed By: #### B MP3, LIPA4, HEMDF, TROPN, DDI2 #### [address] [address] Lymphocytes (Bld) [#/Vol] 1.4 10*3/uL Normal 1.0-4.3 [facility] Comment on above: Performed By: #### B MP3, LIPA4, HEMDF, TROPN, DDI2 #### [facility] [address] [place] [address] Lymphocytes/100 WBC (Bld) 38.1 % Normal 20.0-40.0 [facility] Comment on above: Performed By: #### B MP3, LIPA4, HEMDF, TROPN, DDI2 #### [address] [place] [address] [place] [address] MCH (RBC) [Entitic mass] 29.5 pg Normal 26.0-34.0 [facility] Comment on above: Performed By: #### B MP3, LIPA4, HEMDF, TROPN, DDI2 #### [address] [address] [place] [address] MCHC 34.5 % Normal 32.0-36.0 [facility] Comment on above: Performed By: #### B MP3, LIPA4, HEMDF, TROPN, DDI2 #### [place] [address] [place] [address] MCV (RBC) [Entitic vol] 85.7 fL Normal 79.0-98.0 [facility] Comment on above: Performed By: #### B MP3, LIPA4, HEMDF, TROPN, DDI2 #### [place] [address] [place] [address] Monocytes (Bld) [#/Vol] 0.2 10*3/uL Normal 0.0-0.8 [facility] Comment on above: Performed By: #### B MP3, LIPA4, HEMDF, TROPN, DDI2 #### [address] [address] Monocytes/100 WBC (Bld) 6.3 % Normal 2.0-10.0 [facility] Comment on above: Performed By: #### B MP3, LIPA4, HEMDF, TROPN, DDI2 #### [address] [address] Platelet mean volume (Bld) [Entitic vol] 7.0 fL Low 7.4-12.4 [facility] Comment on above: Result Comment: MPV is a calculated measurement using platelet volume ratio. Performed By: #### B MP3, LIPA4, HEMDF, TROPN, DDI2 #### [address] [address] Platelets (Bld) [#/Vol] 466 10*3/uL High 140-440 [facility] Comment on above: Performed By: #### B MP3, LIPA4, HEMDF, TROPN, DDI2 #### [address] [address] RBC (Bld) [#/Vol] 4.35 10*6/uL Normal 3.80-5.20 [facility] Comment on above: Performed By: #### B MP3, LIPA4, HEMDF, TROPN, DDI2 #### [address] [address] WBC (Bld) [#/Vol] 3.8 10*3/uL Normal 3.6-10.7 [facility] Comment on above: Performed By: #### B MP3, LIPA4, HEMDF, TROPN, DDI2 #### [address] [address] Lipaseon 01-27-2022 Lipase [Catalytic activity/Vol] 76 U/L Normal 23-300 [facility] Comment on above: Performed By: #### B MP3, LIPA4, HEMDF, TROPN, DDI2 #### [address] [address] Lipase [Catalytic activity/Vol] 76 U/L 23 - 300 U/L [facility] Work Phone: Test Performed by [facility], [address] [place] [address] [facility] Work Phone: No Panel Informationon 01-27 Test Performed by [facility], [address] [place] [address] [facility] [place] Work Phone: Troponin Ion 01-27-2022 Troponin I.cardiac [Mass/Vol] ng/mL Normal 0.000-0.034 [facility] Comment on above: Result Comment: . Performed By: #### B MP3, LIPA4, HEMDF, TROPN, DDI2 #### [facility] [address] [place] [address] Troponin x1on 01-27-2022 Troponin I.cardiac [Mass/Vol] ng/mL 0.000 - 0.034 ng/mL [facility] Work Phone: Comment on above: . XR CHEST PORTABLEon 01-28-20 Patient Name: LOYDA DELGADO Diagnostic Radiology ACCESSION EXAM DATE/TIME PROCEDURE ORDERING PROVIDER [id number] 01/27/2022 19:50 EDT CR Chest Portable MD KERR VIJAY CPT code 88591 Reason For Exam (CR Chest Portable) chest [...] WENDELL Transcribed Date and Time: 01/27/2022 7:56 [facility] Yassine Jackson MD - 01/27/2022 Patient Name: LOYDA BURNETTE Diagnostic Radiology ACCESSION EXAM DATE/TIME PROCEDURE ORDERING PROVIDER [id number] 01/27/2022 19:50 EDT CR Chest Portable MD USHA RIVER CPT code 04707 Reason For Exam (CR Chest Portable) chest [...] Ultrasound ACCESSION EXAM DATE/TIME PROCEDURE ORDERING PROVIDER [id number] 01/20/2022 15:32 EDT US Breast Limited Right MD RHODES RACHEL NICOLE CPT code 54536 Reason For Exam (US Breast Limited Right) [...] 3:45 pm Signed by: DO RENO RACHEL [facility] US Breast Limited Righton US Breast Limited Right Patient Name: LOYDA BURNETTE Ultrasound ACCESSION EXAM DATE/TIME PROCEDURE ORDERING PROVIDER [id number] 07/18/2021 14:08 EST US Breast Limited Right MD RHODES RACHEL NICOLE CPT code 11455 Reason For Exam (US Breast Limited Right) [...] pm Signed by: MD JOE LAUREN B [facility] US ABDOMEN COMPLETEOrdered B y: Orlando Bowman on 01-20-2021 Patient Name: LOYDA DELGADO Ultrasound ACCESSION EXAM DATE/TIME PROCEDURE ORDERING PROVIDER [id number] 01/20/2021 11:15 EDT US Abdomen Complete UNASSIGNED, UNASSIGNED CPT code 44457 Reason For Exam (US Abdomen Complete) gilberts [...] Phone: [facility] Incoming Radiology Results From [facility] - 01/20/2021 1:39 PM EDT Patient Name: LOYDA BURNETTE Ultrasound ACCESSION EXAM DATE/TIME PROCEDURE ORDERING PROVIDER [id number] 01/20/2021 11:15 EDT US Abdomen Complete UNASSIGNED, UNASSIGNED CPT code 74235 Reason For Exam (US Abdomen Complete) gilberts [...] and Time: 01/20/2021 1:39 [facility] Work Phone: [facility] Work Phone: US ABDOMEN COMPLETEon 2020 US [...] cm Ascites: None. IMPRESSION: Within normal limits. Otolaryngology Rep: PSCB Transcribe Date/Time: Nov 01 2020 2:05P Dictated by : PIEDAD SPRAGUE MD This examination was interpreted and the report reviewed and electronically signed by: PIEDAD SPRAGUE MD on Nov 01 2020 2:07PM EST Normal [facility] MRI ABDOMEN W/WO CONTRASTon 06-28-2020 MRI [...] lesions. 2. Otherwise, unremarkable exam. Dictated by Public Policy Coordinator: Jose Perkins DO Reviewed and Signed by: Frank Sheridan MD ---- Electronic Signature on File ---- Signed By: Frank Sheridan MD [email or web address] Dictated: 06/28/2020 1:33 PM Signed: 06/28/2020 5:25 PM Reported By: FRANK SHERIDAN M.D. Signed By: FRANK SHERIDAN M.D. [facility] US ABDOMEN LIMITEDon 05-05- 020 US ABDOMEN [...] SHERIDAN M.D. Signed By: FRANK SHERIDAN M.D. [facility] CT Abdomen Pelvis [facility] 10-23-2019 [facility] Incoming Radiology Results From [facility] - 10/23/2019 11:21 PM EDT Patient Name: LOYDA BURNETTE ---CT--- Exam Date/Time 10/23/2019 23:06:[address] Abdomen/Pelvis (No PO, No IV) Ordering Physician JOSÉ MIGUEL ROTH Accession Number [id number] CPT4 Codes 87889 (CT Abdomen/Pelvis (No PO, No IV)) Reason [...] WENDELL Transcribed Date and Time: 10/23/2019 11:21 [place] Patient Name: LOYDA DELGADO ---CT--- Exam Date/Time 10/23/2019 23:06:[address] Abdomen/Pelvis (No PO, No IV) Ordering Physician JOSÉ MIGUEL ROTH Accession Number [id number] CPT4 Codes 99349 (CT Abdomen/Pelvis (No PO, No IV)) Reason [...] WENDELL Transcribed Date and Time: 10/23/2019 11:21 [place] Comprehensive Metabolic Pane sirisha 10-23-2019 Albumin [Mass/Vol] 5.4 g/dL High 3.5 - 5 g/dL [place], [place] ALP [Catalytic activity/Vol] 78 U/L 38 - 126 U/L [place] ALT [Catalytic activity/Vol] 22 U/L 13 - 69 U/L [place] Anion gap [Moles/Vol] 10 mmol/L [place] AST [Catalytic activity/Vol] 32 U/L 15 - 46 U/L [place] Bilirubin Ql (U) 1.8 mg/dL High 0.2 - 1.3 mg/dL [place] Calcium [Mass/Vol] 10.1 mg/dL 8.4 - 10. 4 mg/dL [place] Chloride [Moles/Vol] 103 mmol/L 98 - 107 mmol/L [place] CO2 [Moles/Vol] 26 mmol/L 22 - 30 mmol/L [place] Creatinine [Mass/Vol] 0.83 mg/dL 0.52 - 1.25 mg/dL [place] EGFR IF NonAfrican Senegalese >60.0 >60 mL/min [place] Comment on above: Source- MDRD equatio n with creatinine calibration to IDMS(NKDEP) eGFR not recommended for drug dose adjustment GFR/1.73 sq M predicted among blacks MDRD (S/P/Bld) [Vol rate/Area] mL/min/{1.73_m2} >60 mL/min [place] Glucose [Mass/Vol] 109 mg/dL High 70 - 100 mg/dL [place], [place] Interpretation and review of laboratory results Abnormal [place] Potassium [Moles/Vol] 3.8 mmol/L 3.5 - 5.1 mmol/L [place] Protein [Mass/Vol] 8.6 g/dL High 6.3 - 8.2 g/dL [place] Sodium [Moles/Vol] 139 mmol/L 135 - 145 mmol/L [place] Urea nitrogen [Mass/Vol] 16 mg/dL 7 - 20 mg/dL [place] Hemogram (CBC) w/Auto Diffon 10-23-2019 Absolute Baso # 0.1 10*3/uL 0 - 0.2 10*3/uL [place] Absolute Neut # 2.0 10*3/uL 1.8 - 7 10*3/uL [place] Basophils/100 WBC (Bld) 1.2 % 0 - 2 % [place] Eosinophils (Bld) [#/Vol] 0.0 10*3/uL 0 - 0.5 10*3/uL [place] Eosinophils/100 WBC (Bld) 1.1 % 1 - 6 % [place] Erythrocyte distribution width (RBC) [Ratio] 12.9 % 11.5 - 14.5 % [place] Granulocytes/100 WBC (Bld) 45.2 % 40 - 80 % [place] Hematocrit (Bld) [Volume fraction] 42.1 % 35 - 47 % [place] Hemoglobin (Bld) [Mass/Vol] 14.1 g/dL 11.7 - 16 g/dL [place] Interpretation and review of laboratory results Abnormal [place] Lymphocytes (Bld) [#/Vol] 1.9 10*3/uL 1 - 4.3 10*3/uL [place] Lymphocytes/100 WBC (Bld) 43.7 % High 20 - 40 % [place] MCH (RBC) [Entitic mass] 29.8 pg 26 - 34 pg [place] MCHC (RBC) [Mass/Vol] 33.3 % 32 - 36 % [place] MCV (RBC) [Entitic vol] 89.5 fL 79 - 98 fL [place] Monocytes (Bld) [#/Vol] 0.4 10*3/uL 0 - 0.8 10*3/uL [place] Monocytes/100 WBC (Bld) 8.8 % 2 - 10 % [place] Platelet mean volume (Bld) [Entitic vol] 7.2 fL Low 7.4 - 10.4 fL [place] Platelets (Bld) [#/Vol] 303 10*3/uL 140 - 440 10*3/uL [place] RBC (Bld) [#/Vol] 4.71 10*6/uL 3.8 - 5.2 10*6/uL [place] WBC (Bld) [#/Vol] 4.4 10*3/uL 3.6 - 10.7 10*3/uL [place] Test Performed by [facility], [address] , [address] Lipaseon 10-23-2019 Lipase [Catalytic activity/Vol] 167 U/L 23 - 300 U/L [place] Otheron 10-23-2019 Test Performed by [facility], [address] , [address] , URINEon 0 Beta HCG ( test) Ql (U) Negative Negative NA [place] Comment on above: is the mos t common reason for HCG in urine, although choriocarcinoma, hydatidiform mole, and certain nontropho- blastic malignancies also result in detectable urinary HCG levels. Sensitivity = 20mIU/mL. Test Performed by [facility], [address] , [address] T4, Freeon 10-23-2019 Free T4 [Mass/Vol] 0.71 ng/dL Low 0.78 - 2. 19 ng/dL [place] Interpretation and review of laboratory results Abnormal [place] Test Performed by [facility], [address] , [address] TSH without Reflexon 020 Interpretation and review of laboratory results Abnormal [place] TSH Qn 6.783 u[IU]/mL High 0.465 - 4.68 u[IU]/mL [place] Test Performed by [facility], [address] , [address] Urinalysison 10-23-2019 Appearance (U) Turbid Clear NA [place] Bacteria, UA Moderate (6-50) Negative /[HPF] [place] Bilirubin Urine Negative Negative mg/dL [place] Color (U) LIGHT YELLOW Lt. Yellow NA [place] Glucose, Ur Normal Normal (<70) mg/dL [place] Ketones Ql (U) Negative Negative mg/dL [place] LEUKOCYTES, UA Negative Negative Angel/uL [place] Mucous Threads Few Negative /[LPF] [place] Nitrite, Urine Negative Negative NA [place] Occult Blood,Urine Negative Negative mg/dL [place] pH (U) 7.0 [pH] [place] Protein (U) [Mass/Vol] Negative Negative mg/dL [place] RBC (U) [#/Vol] Negative 0 - 2 /[HPF] [place] Specific [facility], Urine 1.024 [place] Squam Epithel, UA 3-5 3 - 5 /[HPF] [place] Urobilinogen, Urine Normal Normal ( 0-1) mg/dL [place] Volume 12 ml [place] WBC, UA 3-5 0 - 5 /[HPF] [place] Test Performed by [facility], [address] , [address] HGC Urine Qual [place] 2018 Beta HCG ( test) Ql (U) Negative Negative NA [place] Comment on above: is the mos t common reason for HCG in urine, although choriocarcinoma, hydatidiform mole, and certain nontropho- blastic malignancies also result in detectable urinary HCG levels. Sensitivity = 20mIU/mL. Test Performed by [facility], [address] , [place], [place] [id number] [place] [address] Rapid Strep Screenon 019 S. pyogenes Ag Ql (Throat) see below Negative NA [place] Comment on above: NEGATIVE (presumptiv e) for Group A Streptococcus antigen. Method: Immunochromatographic assay. Confirmatory testing to follow. Confirmatory testing performed at an additional cost. Test Performed by [facility], [address] , [address] XR CHEST STANDARD (2 VW)on 08-24-2018 Patient Name: LOYDA DELGADO ---Diagnostic Radiology--- Exam Date/Time 06/24/2019 22:17:45 EST Exam CR Chest PA/LAT Ordering Physician MD USHA, RIVER Accession Number [id number] CPT4 Codes 58780 () Reason For Exam cough Report PA [...] Time: 06/24/2019 10:30 pm Signed by: MD FIGUERAO DIANE Transcribed Date and Time: 06/24/2019 10:31 [place] Zakia Zavala Incoming Rad[facility] - 06/24/2019 10:31 PM EST Patient Name: LOYDA BURNETTE ---Diagnostic Radiology--- Exam Date/Time 06/24/2019 22:17:45 EST Exam CR Chest PA/LAT Ordering Physician MD KERR VIJAY Accession Number [id number] CPT4 Codes 79568 () Reason For Exam cough Report PA [...] DIANE Transcribed Date and Time: 06/24/2019 10:31 [place] XR Neck Soft Tissueon 2018 Patient Name: LOYDA DELGADO ---Diagnostic Radiology--- Exam Date/Time 06/24/2019 22:16:59 EST Exam CR Neck Soft Tissue Ordering Physician MD KERR VIJAY Accession Number [id number] CPT4 Codes 92726 () Reason For Exam neck pain Report [...] DIANE Transcribed Date and Time: 06/24/2019 10:30 [place] [facility] Incoming Radiology Results From [facility] - 06/24/2019 10:31 PM EST Patient Name: LOYDA BURNETTE ---Diagnostic Radiology--- Exam Date/Time 06/24/2019 22:16:59 EST Exam CR Neck Soft Tissue Ordering Physician MD KERR VIJAY Accession Number [id number] CPT4 Codes 19977 () Reason For Exam neck pain Report [...] DIANE Transcribed Date and Time: 06/24/2019 10:30 [place] Vital Signs Date Time Vital Sign Value Performing Clinician Facility 04-26-2025 09:59-0400 Body mass index (BMI) [Ratio] 19.89 kg/m2 Jessenia Plotts SUPERVISOR [employer]YING[employer]CN[employer] Work Phone: [facility] 04-26-2025 09:59-0400 Body weight 57.61 kg Jessenia Plotts SUPERVISOR [employer] Work Phone: [facility] 04-26-2025 09:59-0400 Diastolic blood pressure 60 mm[Hg] Jessenia Plotts SUPERVISOR [employer] Work Phone: [facility] 04-26-2025 09:59-0400 Systolic blood pressure 108 mm[Hg] Jessenia Plotts SUPERVISOR [employer]YING[employer] Work Phone: [facility] 02-26-2025 08:13-0400 Body mass index (BMI) [Ratio] 18.48 kg/m2 Donnell Haanahi SUPERVISOR [employer] Work Phone: [facility] 02-26-2025 08:13-0400 Body weight 53.52 kg Donnell Haanahi SUPERVISOR [employer] Work Phone: [facility] 02-26-2025 08:13-0400 Diastolic blood pressure 60 mm[Hg] Donnell Haury SUPERVISOR [employer] Work Phone: [facility] 02-26-2025 08:13-0400 Systolic blood pressure 102 mm[Hg] Donnell Haury SUPERVISOR [employer]YING[employer] Work Phone: [facility] 01-25-2025 10:11-0400 Body mass index (BMI) [Ratio] 18.01 kg/m2 Marly Ashraf MD Work Phone: [facility] 01-25-2025 10:11-0400 Body weight 52.16 kg Marly Ashraf MD Work Phone: [facility] 01-25-2025 10:11-0400 Diastolic blood pressure 58 mm[Hg] Marly Ashraf MD Work Phone: [facility] 01-25-2025 10:11-0400 Systolic blood pressure 92 mm[Hg] Marly Ashraf MD Work Phone: [facility] 12-29-2024 07:14-0400 Body mass index (BMI) [Ratio] 18.17 kg/m2 Donnell Haury SUPERVISOR [employer]YING[employer] Work Phone: [facility] 12-29-2024 07:14-0400 Body weight 52.62 kg Donnell Haury SUPERVISOR [employer]YING[employer] Work Phone: [facility] 12-29-2024 07:14-0400 Diastolic blood pressure 60 mm[Hg] Donnell Haury SUPERVISOR [employer]YING[employer] Work Phone: [facility] 12-29-2024 07:14-0400 Systolic blood pressure 100 mm[Hg] Donnell Haury SUPERVISOR [employer]YING[employer] Work Phone: [facility] 12-27-2024 09:53-0400 Body height 170.2 cm Donnell Haury SUPERVISOR [employer]YING[employer] Work Phone: [facility] 12-27-2024 09:53-0400 Body mass index (BMI) [Ratio] 18.01 kg/m2 Donnell Haury SUPERVISOR [employer]YING[employer] Work Phone: [facility] 12-27-2024 09:53-0400 Body weight 52.16 kg Donnell Haury SUPERVISOR [employer]YING[employer] Work Phone: [facility] 12-27-2024 09:53-0400 Diastolic blood pressure 64 mm[Hg] Donnell Haury SUPERVISOR [employer]YING[employer] Work Phone: [facility] 12-27-2024 09:53-0400 Systolic blood pressure 108 mm[Hg] Donnell Romero SUPERVISOR [employer]YING[employer] Work Phone: [facility] 12-20-2024 14:10-0400 Body mass index (BMI) [Ratio] 18.17 kg/m2 Jessenia Valverde SUPERVISOR [employer] Work Phone: [facility] 12-20-2024 14:10-0400 Body weight 52.62 kg Jessenia Valverde SUPERVISOR [employer]YING[employer]CNM Work Phone: [facility] 12-20-2024 14:10-0400 Diastolic blood pressure 66 mm[Hg] [facility] SUPERVISOR [employer]YING[employer]M Work Phone: [facility] 12-20-2024 14:10-0400 Systolic blood pressure 100 mm[Hg] Jessenia Valverde SUPERVISOR [employer]YING[employer]M Work Phone: [facility] 2024 01:15-0400 Diastolic Blood Pressure Non-Invasive 72 mm[Hg] DR MARGARETTE HENNESSY MD [facility] 2024 01:15-0400 Heart rate 76 /min DR MARGARETTE HENNESSY MD [facility] 2024 01:15-0400 Respiratory rate 18 /min DR MARGARETTE HENNESSY MD [facility] 2024 01:15-0400 Systolic Blood Pressure Non-Invasive 104 mm[Hg] DR MARGARETTE HENNESSY MD [facility] 12-14-2024 22:27-0400 Blood Pressure Cuff Size DR MARGARETTE HENNESSY MD [facility] 12-14-2024 22:27-[address] MARGARETTE HENNESSY MD [facility] 12-14-2024 22:27-[address] MARGARETTE HENNESSY MD [facility] 12-14-2024 22:27-0400 Body temperature 98.06 [degF] DR MARGARETTE HENNESSY MD [facility] 12-14-2024 22:27-0400 Body weight [address] MARGARETTE HENNESSY MD [facility] 12-14-2024 22:27-0400 Diastolic Blood Pressure Non-Invasive 74 mm[Hg] DR MARGARETTE HENNESSY MD [facility] 12-14-2024 22:27-0400 Heart rate 66 /min DR MARGARETTE HENNESSY MD [facility] 12-14-2024 22:27-0400 Respiratory rate 18 /min DR MARGARETTE HENNESSY MD [facility] 12-14-2024 22:27-0400 Systolic Blood Pressure Non-Invasive 114 mm[Hg] DR MARGARETTE HENNESSY MD [facility] 12-08-2024 13:05-0400 Body height 173.7 cm Librado Singleton MD Work Phone: [facility] 12-08-2024 13:05-0400 Body mass index (BMI) [Ratio] 17.28 kg/m2 Librado Singleton MD Work Phone: [facility] 12-08-2024 13:05-0400 Body weight 52.16 kg Librado Singleton MD Work Phone: [facility] 12-08-2024 13:05-0400 Diastolic blood pressure 67 mm[Hg] Librado Singleton MD Work Phone: [facility] 12-08-2024 13:05-0400 Heart rate 94 /min Librado Singleton MD Work Phone: [facility] 12-08-2024 13:05-0400 Respiratory rate 14 /min Librado Singleton MD Work Phone: [facility] 12-08-2024 13:05-0400 SaO2% (BldA) [Mass fraction] 98 % Librado Singleton MD Work Phone: [facility] Comment on above: 12-08-2024 13:05-0400 Systolic blood pressure 102 mm[Hg] Librado Singleton MD Work Phone: [facility] 12-24-2023 15:46-0400 Body mass index (BMI) [Ratio] 17.54 kg/m2 Korin Cook MD Work Phone: [facility] 12-24-2023 15:46-0400 Body weight 50.8 kg Korin Cook MD Work Phone: [facility] 12-24-2023 15:46-0400 Diastolic blood pressure 64 mm[Hg] Korin Cook MD Work Phone: [facility] 12-24-2023 15:46-0400 Systolic blood pressure 98 mm[Hg] Korin Cook MD Work Phone: [facility] 10-01-2023 14:38-0500 Body weight 51.71 kg Donnell Romero SUPERVISOR [employer] Work Phone: [facility] 10-01-2023 14:38-0500 Diastolic blood pressure 60 mm[Hg] Donnell Haury SUPERVISOR [employer]YING[employer] Work Phone: [facility] 10-01-2023 14:38-0500 Systolic blood pressure 102 mm[Hg] Donnell Haury SUPERVISOR [employer]YING[employer] Work Phone: [facility] 02-11-2023 09:48-0400 Body height 170.2 cm Laura Calero APRN.WOOD BUCKER Work Phone: [facility] 02-11-2023 09:48-0400 Body weight 50.35 kg Laura Calero APRN.WO[employer]ER Work Phone: [facility] 02-11-2023 09:48-0400 Diastolic blood pressure 64 mm[Hg] Laura Frankie SUPERVISOR [employer]YING[employer] Work Phone: [facility] 02-11-2023 09:48-0400 Systolic blood pressure 98 mm[Hg] Laura Calero SUPERVISOR [employer]YING[employer]ER Work Phone: [facility] 06-26-2022 13:46-0500 Body weight 49.53 kg Vida Donald MD Work Phone: [facility] 06-26-2022 13:46-0500 Diastolic blood pressure 68 mm[Hg] Vida Donald MD Work Phone: [facility] 06-26-2022 13:46-0500 Systolic blood pressure 94 mm[Hg] Vida Donald MD Work Phone: [facility] 05-08-2022 10:41-0400 Body weight 48.99 kg Laura Calero APRN.WOOD [employer]CKER Work Phone: [facility] 05-08-2022 10:41-0400 Diastolic blood pressure 60 mm[Hg] Laura Calero APRN.WOOD BUCKER Work Phone: [facility] 05-08-2022 10:41-0400 Systolic blood pressure 96 mm[Hg] Laura Calero APRN.WOOD BUCKER Work Phone: [facility] 03-11-2022 14:12-0400 Body weight 48.53 kg Laura Calero APRN.WOOD [employer]CKER Work Phone: [facility] 03-11-2022 14:12-0400 Diastolic blood pressure 60 mm[Hg] Laura Calero SUPERVISOR [employer]YING[employer]ER Work Phone: [facility] 03-11-2022 14:12-0400 Systolic blood pressure 110 mm[Hg] Laura Calero SUPERVISOR [employer]YING[employer]ER Work Phone: [facility] 01-27-2022 21:00-0400 Diastolic blood pressure 73 mm[Hg] River Kerr MD Work Phone: [facility] 01-27-2022 21:00-0400 Heart rate 66 /min River Kerr MD Work Phone: [facility] 01-27-2022 21:00-0400 Respiratory rate 16 /min River Kerr MD Work Phone: [facility] 01-27-2022 21:00-0400 SaO2% (BldA) [Mass fraction] 98 % River Kerr MD Work Phone: [facility] 01-27-2022 21:00-0400 Systolic blood pressure 112 mm[Hg] River Kerr MD Work Phone: [facility] 01-27-2022 19:38-0400 Body mass index (BMI) [Ratio] 16.76 kg/m2 River Kerr MD Work Phone: [facility] 01-27-2022 19:38-0400 Body temperature 98.29 [degF] River Kerr MD Work Phone: [facility] 01-27-2022 19:38-0400 Body weight 48.53 kg River Kerr MD Work Phone: [facility] 10-23-2019 21:38-0400 BMI (Body Mass Index) 17.23 kg/m2 [facility] 10-23-2019 21:38-0400 Body Temperature 98.01 [degF] [facility], [place] 10-23-2019 21:38-0400 Body weight 49.9 kg [facility] [place] 10-23-2019 21:38-0400 BP Diastolic 88 mm[Hg] [facility] [place] 10-23-2019 21:38-0400 BP Systolic 127 mm[Hg] [facility] [place] 10-23-2019 21:38-0400 Height 170.2 cm [facility] [place] 10-23-2019 21:38-0400 Pulse (Heart Rate) 90 /min [facility] 10-23-2019 21:38-0400 Pulse Oximetry 100 % [facility] [place] 10-23-2019 21:38-0400 Respiratory Rate 16 /min [facility], [place] 06-24-2019 21:44-0500 Body Temperature 98.4 [degF] Riversanjiv Kerr [facility], [place] 06-24-2019 21:44-0500 BP Diastolic 90 mm[Hg] River Kerr [facility] [place] 06-24-2019 21:44-0500 BP Systolic 123 mm[Hg] River Kerr [facility] [place] 06-24-2019 21:44-0500 Pulse (Heart Rate) 89 /min River Kerr [facility], [place] 06-24-2019 21:44-0500 Pulse Oximetry 98 % River Kerr [facility], [place] 06-24-2019 21:44-0500 Respiratory Rate 20 /min [facility] [place] Encounters Encounter Date Encounter Type Care Provider Facility Start: 06-13-2025 End: 06-13-2025 ambulatory JESSENIA PLOTLILLIANA Facility:[facility] Start: 06-12-2025 End: 06-12-2025 ambulatory ANNIA GUTIERREZ Facility:[facility] Start: 05-15-2025 End: 05-15-2025 [facility] Start: 04-26-2025 End: 04-26-2025 ambulatory DONNELL ROMERO Facility:[facility] Start: 04-26-2025 End: 04-26-2025 Patient encounter procedure [...] Telephone encounter Librado Singleton MD Work Phone: [facility] [place] Comment on above: Follow-up (Testing u nable to be completed.) Start: 03-21-2025 End: 03-21-2025 ambulatory JESSENIA VALVERDE Facility:[facility] Start: 02-28-2025 End: 04-30-2025 Follow-up encounter Donnell Romero APRN.CNP Work Phone: OB/Gynecology Start: 02-26-2025 End: 02-26-2025 ambulatory DONNELL ROMERO Facility:[facility] Start: 02-26-2025 End: 02-26-2025 Patient encounter procedure Donnell Romero APRN.CNP Work Phone: OB/Gynecology Comment on above: Supervision of high risk in second trimester (HCC) (Primary Dx); 17 weeks gestation of (HCC); Thyroid disease during , first trimester (HCC); Heartburn during in second trimester (HCC) Start: 02-07-2025 End: 02-08-2025 Telephone encounter Librado Singleton MD Work Phone: [facility] Comment on above: Other (PFT) Start: [...] Start: 01-25-2025 End: 01-25-2025 ambulatory FRENCH RHODES Facility:[facility] Start: 01-23-2025 End: 01-30-2025 Telephone encounter Librado Singleton MD Work Phone: [facility] Start: 12-30-2024 End: 03-01-2025 Follow-up encounter Donnell Romero APRN.CNP Work Phone: OB/Gynecology Start: 12-29-2024 End: 12-29-2024 ambulatory DONNELL ROMERO Facility:[facility] Start: 12-29-2024 End: 12-29-2024 Patient encounter procedure Donnell Romero APRN.CNP Work Phone: OB/Gynecology Comment on above: Screen for STD (sexu ally transmitted disease) (Primary Dx) Start: 12-28-2024 End: 01-01-2025 Follow-up encounter Donnell Romero APRN.CNP Work Phone: OB/Gynecology Comment on above: Results Start: 12-27-2024 End: 02-26-2025 Follow-up encounter Donnell Romero APRN.CNP Work Phone: OB/Gynecology Start: 12-27-2024 End: 12-27-2024 ambulatory DONNELL ROMERO Facility:[facility] Start: 12-27-2024 End: 12-27-2024 Patient encounter procedure [...] End: 01-03-2025 Telephone encounter Jocelin Gonzalez RN [facility] [place] Comment on above: Care Coordination (O SF imaging) Start: 12-20-2024 End: 12-20-2024 ambulatory JESSENIA VALVERDE Facility:[facility] Start: 12-20-2024 End: 12-20-2024 Patient encounter procedure Jessenia Valverde APRN.CNM Work Phone: OB/Gynecology Comment on above: Left leg pain (Prima ry Dx); Positive blood test (HCC) Start: 12-19-2024 End: 12-19-2024 Telephone encounter Jessenia Valverde APRN.CNM Work Phone: OB/Gynecology Comment on above: Early OB Possible DV T Start: 12-16-2024 End: 12-16-2024 ambulatory Carol Calderon RN NURSE DRUM TESTER Comment on above: Information Start: 12-14-2024 End: 2024 Emergency department patient visit DR MARGARETTE HENNESSY MD [facility] Start: 12-08-2024 End: 12-08-2024 ambulatory LIBRADO SINGLETON [facility] Start: 12-08-2024 End: 12-08-2024 Office outpatient new 45 minutes Librado Singleton MD Work Phone: [facility] [place] Comment on above: Solid nodule of lung [...] periods Start: 10-04-2023 Orders Only Donnell MELO RN.WOOD BUCKER Work Phone: OB/Gynecology Comment on above: Results Start: 10-01-2023 End: 10-01-2023 Patient encounter procedure Donnell Romero APRN.WOOD BUCKER Work Phone: OB/Gynecology Comment on above: Missed menses (Prima ry Dx) Start: 09-20-2023 Telephone encounter Laura lui APRN.WOOD BUCKER Work Phone: OB/Gynecology Comment on above: Missed Menses Start: 07-27-2023 End: 05-07-2024 ambulatory Belgica White RN [facility] Clinical Communication Start: 07-27-2023 End: 05-07-2024 Patient encounter procedure [facility] Start: 05-21-2023 End: 05-21-2023 ambulatory RUSH ONEIL MD Facility:[facility] Start: 04-30-2023 End: 04-30-2023 Subsequent hospital visit by physician Us Biggs 1 [facility] Comment on above: Spotting between men ses [N92.3] Start: 04-29-2023 Telephone encounter Jessenia huerta APRN.CNM Work Phone: OB/Gynecology Comment on above: Patient Question Start: 03-25-2023 Telephone encounter Laura lui APRN.WOOD BUCKER Work Phone: OB/Gynecology Comment on above: Spotting Start: 02-19-2023 ambulatory AARTI WELLS Facility:1 [id number] Start: 02-19-2023 Telephone encounter Aarti mills MD Work Phone: OB/Gynecology Comment on above: possible Start: 02-11-2023 End: 02-11-2023 Patient encounter procedure Laura Calero APRN.WOOD BUCKER Work Phone: OB/Gynecology Comment on above: Encounter for gyneco logical examination with abnormal finding (Primary Dx); Vagina itching; Vaginal odor; Spotting between menses Start: 02-11-2023 End: 02-11-2023 Patient encounter status Laura Calero APRN.WOOD BUCKER Work Phone: OB/Gynecology Start: 11-20-2022 Telephone encounter Tasia Queen MD Work Phone: General Surgery Comment on above: Appointment Start: 11-19-2022 End: 11-19-2022 Subsequent hospital visit by physician [facility] Exam Room 1 [facility] Comment on above: Mastodynia Start: 11-18-2022 E-mail encounter fro m caregiver Celena Kellogg PA-C Work Phone: [facility] Start: 11-18-2022 Follow-up encounter Celena Frankel PA-C Work Phone: [facility] Comment on above: Mammogram/US follow- up Start: 11-02-2022 ambulatory Julia Caba RN [facility] Clinical Communication Start: 11-02-2022 Patient encounter procedure Julia Pichardoa Clinical Communication Start: 10-25-2022 ambulatory Faith ceja RN NURSE DRUM TESTER Comment on above: Opened In Error Start: 09-18-2022 End: 09-18-2022 Subsequent hospital visit by physician French Rhodes MD Work Phone: [facility] US Imaging Comment on above: Localized swelling, mass and lump, neck Start: 09-14-2022 Transcribe Orders French Rhodes MD Work Phone: [facility] Central Scheduling Comment on above: Localized swelling, mass and lump, neck (Primary Dx) Start: 09-01-2022 End: 09-01-2022 ambulatory CELENA KELLOGG Facility:[facility] Start: 06-26-2022 End: 06-26-2022 Patient encounter procedure Vida Donald MD Work Phone: OB/Gynecology Comment on above: Mastalgia (Primary D x) Start: 05-08-2022 End: 05-08-2022 Patient encounter procedure Laura Calero APRN.WOOD BUCKER Work Phone: OB/Gynecology Comment on above: Irregular menses (Pr imary Dx); Polycystic ovaries Start: 03-19-2022 End: 03-19-2022 Subsequent hospital visit by physician French Rhodes MD Work Phone: [facility] Laboratory Start: 03-17-2022 End: 03-17-2022 Subsequent hospital visit by physician French Rhodes MD Work Phone: [facility] [place] [facility] Start: 03-11-2022 End: 03-11-2022 Patient encounter procedure Laura Calero APRN.WOOD BUCKER Work Phone: OB/Gynecology Comment on above: Menorrhagia with reg ular cycle (Primary Dx); Dizziness Start: 03-11-2022 Telephone encounter Laura lui APRN.WOOD BUCKER Work Phone: OB/Gynecology Comment on above: Clinical Update Start: 03-09-2022 Telephone encounter Aarti mills MD Work Phone: OB/Gynecology Comment on above: Patient Update Start: 02-10-2022 End: 02-10-2022 Subsequent hospital visit by physician French Rhodes MD [facility] Start: 01-27-2022 End: 01-27-2022 Emergency department patient visit River Kerr MD Work Phone: [facility] Emergency Dept Comment on above: Chest pain, unspecif ied type (Primary Dx) Start: 01-20-2022 End: 01-20-2022 Subsequent hospital visit by physician French Rhodes MD Work Phone: [facility] Comment on above: Arrived Start: 01-01-2022 End: 01-01-2022 ambulatory Jessenia Valverde SUPERVISOR DRYING.CNM Work Phone: OB/Gynecology Comment on above: Spontaneous (Primary Dx); Ricarda's thyroiditis Start: 01-01-2022 End: 01-01-2022 Telemedicine consultation with patient Jessenia Valverde SUPERVISOR DRYING.CNM Work Phone: [facility] Start: 01-20-2021 End: 01-20-2021 Subsequent hospital visit by physician Mary Carrion Rm 02 MARY Carrion Comment on above: Arrived Start: 10-23-2019 End: 10-23-2019 Emergency department patient visit José Miguel Escalante Work Phone: [facility] Comment on above: Nausea (Primary Dx); Abdominal pain, left upper quadrant; Left flank pain Start: 06-24-2019 End: 06-24-2019 Emergency department patient visit River Kerr Work Phone: [facility] Comment on above: Throat pain (Primary Dx); Cough Procedures Date Procedure Procedure Detail Performing Clinician Start: 02-26-2025 Thyrotropin [Units/v olume] in Serum or Plasma Librado Singleton MD Work Phone: Start: 01-25-2025 Urnls dip stick/tabl et rgnt auto w/o microscopy Marly Ashraf MD Work Phone: Start: 01-25-2025 Us preg uterus after 1st trimest 08/16 gestation Donnell Haury SUPERVISOR DRYING.WOOD BUCKER Work Phone: Start: 12-27-2024 Antibody screen HONG VALVERDE Comment on above: Order Comment: Speci men Type: BLOOD SPECIMEN Ordering Facility: [facility] Address: [address] [place] [address] Performed By: #### T SPN #### [facility] CLIA [id number] [address] [place] [address] [place] [address] [place] Start: 12-27-2024 Us uterus l imited 1/ fetuses Donnell Romero APRN.WOOD BUCKER Work Phone: Start: 12-27-2024 Thyrotropin [Units/v olume] in Serum or Plasma Librado Singleton MD Work Phone: Start: 02-11-2023 BACTERIAL VAGINOSIS NAAT Laura Calero APRN.WOOD BUCKER Work Phone: Start: 02-11-2023 Iadna trichomonas va ginalis amplified probe tech Laura Calero APRN.WOOD BUCKER Work Phone: Start: 03-19-2022 Fibrin dgradj produc [...] pelvis w/o contrast material José Miguel Allen [employer] Work Phone: Start: 10-23-2019 Assay of free thyroxine José Miguel Allen [employer] Work Phone: Start: 10-23-2019 Assay of lipase José Miguel A [employer] Work Phone: Start: 10-23-2019 Assay of thyroid stimulating hormone tsh José Miguel Allen [employer] Work Phone: Start: 10-23-2019 Blood count complete auto&auto difrntl wbc José Miguel Allen [employer] Work Phone: Start: 10-23-2019 Comprehensive metabo lic panel José Miguel Allen [employer] Work Phone: Start: 10-23-2019 Urine test visual color cmprsn meths José Miguel Allen [employer] Work Phone: Start: 10-23-2019 Urnls dip stick/tabl et rgnt auto w/o microscopy José Miguel Allen [employer] Work Phone: Start: 06-24-2019 Urine test visual color cmprsn meths River Adnaylli Work Phone: Start: 06-24-2019 Radiologic examinati on neck soft tissue Riversita Tijerinalli Work Phone: Start: 06-24-2019 Radiologic exam ches t 2 views River Mariaa[employer]lli Work Phone: Start: 06-24-2019 Iaad ia streptococcu s group a Riversita Leroy[employer]id[employer] Work Phone: Plan of Treatment Date Care Activity Detail Author Start: 2064 RSV Immunization for Adults (1 - 1-dose 75+ series) RSV Immunization for Adults (1 - 1-dose 75+ series) [facility] Start: 2049 RSV Immunization aged 60 or older (1 - 1-dose 60+ series) RSV Immunization aged 60 or older (1 - 1-dose 60+ series) [facility] Start: 12-16-2039 Zoster Vaccines (1 of 2) Zoster Vaccines (1 of 2) [facility] Start: 12-16-2039 Shingles Vaccine (1 of 2) Shingles Vaccine (1 of 2) [facility] [place], [place] Start: 12-16-2031 PAP TESTING PAP TESTING [facility] Start: 02-26-2026 HPV TESTING HPV TESTING [facility] Start: 02-26-2026 PAP TESTING PAP TESTING [facility] Start: 02-26-2026 Screening for malignant neoplasm of cervix [facility] Start: 02-26-2026 Thyroid stimulating hormone measurement TSH Level [facility] Start: 12-27-2025 Thyroid stimulating hormone measurement TSH Level [facility] Start: 06-10-2025 RSV Vaccine (1 - Risk 1-dose series) RSV Vaccine (1 - Risk 1-dose series) [facility] Start: 05-15-2025 End: 05-15-2025 Patient encounter procedure 05/15/2025 1:00 PM EDT Routine Office Visit OB/Gynecology [address] [place] [address] Annia Gutierrez APRN.CNM [address] [place] [place] [address] OB - prefers midwives OB/Gynecology Comment on above: OB - prefers midwives Start: 05-15-2025 End: 05-15-2025 ambulatory 05/15/2025 12:45 PM EDT Results Only [facility] [address] [place] [address] glucose [facility] Comment on above: glucose Start: 04-26-2025 End: 07-26-2025 ANEMIA REFLEX PANEL ANEMIA REFLEX PANEL Lab Routine Supervision of high risk in second trimester (HCC) 25 weeks gestation of (HCC) Expected: 04/26/2025, Expires: 07/26/2025 [facility] Comment on above: Expected: 04/26/2025, Expires: Start: 04-26-2025 End: 04-26-2026 GESTATIONAL GLUCOSE SCREEN, 1-HOUR, 50 GRAM, NON-FASTING GESTATIONAL GLUCOSE SCREEN, 1-HOUR, 50 GRAM, NON-FASTING Lab Routine Screening for diabetes mellitus Supervision of high risk in second trimester (HCC) 25 weeks gestation of (HCC) Expected: 04/26/2025, Expires: 04/26/2026 [facility] Work Phone: Comment on above: Expected: 04/26/2025, Expires: Start: 04-26-2025 End: 04-26-2026 SYPHILIS TREPONEMAL W/REFLEX SYPHILIS TREPONEMAL W/REFLEX Lab Routine Supervision of high risk in second trimester (HCC) 25 weeks gestation of ([facility]) Expected: 04/26/2025, Expires: 04/26/2026 [facility] Comment on above: Expected: 04/26/2025, Expires: Start: 04-16-2025 Influenza vaccination [facility] Start: 04-06-2025 End: 04-06-2025 Patient encounter procedure [facility] [place] Start: 03-21-2025 End: 03-21-2025 Patient encounter procedure [facility] Comment on above: Anatomy Anatomy/OB Start: 02-26-2025 End: 02-26-2025 Patient encounter procedure 02/26/2025 8:00 AM EDT Routine Office Visit OB/Gynecology [address] [place] [address] Donnell Romero APRN.WOOD BUCKER [address] [place] [address] OB OB/Gynecology Comment on above: OB Start: 02-21-2025 End: 02-21-2025 Patient encounter procedure 02/21/2025 10:00 AM EDT Routine Office Visit OB/Gynecology [address] [place] [address] Lisy Gomez MD [address] [place] [address] OB OB/Gynecology Comment on above: OB Start: 02-02-2025 End: 02-02-2025 Patient encounter procedure 02/02/2025 2:15 PM EDT Appointment [facility] [address] [place] [id number] Librado Singleton MD [address] [place], [place] [id number] [facility] Start: 02-02-2025 Subsequent hospital visit by physician 02/02/2025 2:15 PM EDT Hospital Encounter [facility] [address] [place] [phone] Librado Singleton MD [address] [place], [place] [id number] [facility] Start: 01-25-2025 End: 01-25-2025 Patient encounter procedure OB/Gynecology Comment on above: Positive test Nuchal Declined pelvic exam /STD screening with new OB Start: 01-19-2025 End: 01-19-2025 Patient encounter procedure 01/19/2025 9:15 AM EDT Appointment [facility] [place] [facility] [address] [place] [address] Librado Singleton MD [address] [place], [place] [id number] [facility] Start: 12-27-2024 End: 03-28-2025 25-hydroxyvitamin D3 [Mass/volume] in Serum or Plasma [facility] Comment on above: Expected: 12/27/2024, Expires: Start: 12-27-2024 End: 03-28-2025 ANEMIA REFLEX PANEL [facility] Work Phone: Comment on above: Expected: 12/27/2024, Expires: Start: 12-27-2024 End: 03-28-2025 Hemoglobin A1c in Blood [facility] Comment on above: Expected: 12/27/2024, Expires: Start: 12-27-2024 End: 03-28-2025 Hepatitis B virus surface Ag [Presence] in Serum [facility] Comment on above: Expected: 12/27/2024, Expires: Start: 12-27-2024 End: 03-28-2025 Hepatitis C virus Ab [Presence] in Serum [facility] Comment on above: Expected: 12/27/2024, Expires: Start: 12-27-2024 End: 03-28-2025 HIV 1+2 Ab [Presence] in Serum or Plasma by Immunoassay [facility] Comment on above: Expected: 12/27/2024, Expires: Start: 12-27-2024 End: 12-27-2025 OBSTETRIC ULTRASOUND WHI OBSTETRIC ULTRASOUND WHI Anc Imaging Routine Encounter for supervision of high risk in first trimester, antepartum (HCC) Expected: 12/27/2024, Expires: 12/27/2025 [facility] Comment on above: Expected: 12/27/2024, Expires: Start: 12-27-2024 End: 03-28-2025 RUBELLA IGG ANTIBODY [facility] Comment on above: Expected: 12/27/2024, Expires: Start: 12-27-2024 End: 03-28-2025 SYPHILIS TREPONEMAL W/REFLEX [facility] Comment on above: Expected: 12/27/2024, Expires: Start: 12-27-2024 End: 03-28-2025 Thyrotropin [Units/volume] in Serum or Plasma [facility] Comment on above: Expected: 12/27/2024, Expires: Start: 12-27-2024 End: 03-28-2025 Thyroxine (T4) free [Mass/volume] in Serum or Plasma [facility] Comment on above: Expected: 12/27/2024, Expires: Start: 12-27-2024 End: 12-27-2024 Patient encounter procedure 12/27/2024 9:30 AM EDT Initial Office Visit OB/Gynecology [address] [place] [address] Donnell Romero, SUPERVISOR DRYING.WOOD BUCKER [address] [place] [address] Positive test OB/Gynecology Comment on above: Positive test Start: 12-20-2024 End: 12-20-2024 Patient encounter procedure 12/20/2024 1:45 PM EDT Office Visit OB/Gynecology [address] [place] [phone] Jessenia Valverde APRN.CNM [address] [place] [address] Early OB - rule out DVT. See phone note OB/Gynecology Comment on above: Early OB - rule out DVT. See phone note Start: 12-08-2024 End: 12-08-2025 Complete PFT pre and post bronchodilator Complete PFT pre and post bronchodilator PFT Routine History of coccidioidomycosis Expected: 12/08/2024 (Approximate), Expires: 12/08/2025 [facility] Comment on above: Expected: 12/08/2024 (Approximate), Expi res: 12/08/2025 Start: 12-08-2024 End: 12-08-2025 CT Chest for screening WO contrast CT lung screening follow up low dose Imaging Routine Pulmonary nodule, right History of coccidioidomycosis Solid nodule of lung 6 mm to 8 mm in diameter Expected: 12/08/2024, Expires: 12/08/2025 [facility] Comment on above: Expected: 12/08/2024, Expires: Start: 12-08-2024 End: 12-08-2025 HCG, quantitative, HCG, quantitative, Lab Routine Encounter for test, result unknown Expected: 12/08/2024 (Approximate), Expires: 12/08/2025 [facility] Work Phone: Comment on above: Expected: 12/08/2024 (Approximate), Expi res: 12/08/2025 Start: 04-16-2024 COVID-19 Vaccine () COVID-19 Vaccine () [facility] Start: 04-16-2024 COVID-19 Vaccine () COVID-19 Vaccine () [facility] Start: 04-16-2024 Influenza vaccination [facility] Start: 10-01-2023 End: 12-31-2023 Choriogonadotropin.beta subunit [Units/volume] in Serum or Plasma [facility] Work Phone: Comment on above: Expected: 10/01/2023, Expires: 4 Start: 10-01-2023 End: 12-31-2023 Estradiol (E2) [Mass/volume] in Serum or Plasma [facility] Work Phone: Comment on above: Expected: 10/01/2023, Expires: Start: 10-01-2023 End: 12-31-2023 Follitropin [Units/volume] in Serum or Plasma [facility] Work Phone: Comment on above: Expected: 10/01/2023, Expires: 4 Start: 10-01-2023 End: 12-31-2023 Prolactin [Mass/volume] in Serum or Plasma [facility] Work Phone: Comment on above: Expected: 10/01/2023, Expires: 4 Start: 10-01-2023 End: 12-31-2023 TESTOSTERONE, FREE AND TOTAL [facility] Work Phone: Comment on above: Expected: 10/01/2023, Expires: 4 Start: 08-16-2023 Behavioral Health Screening Behavioral Health Screening [facility] Start: 08-16-2023 Depression Assessment Depression Assessment [facility] Start: 04-16-2023 Covid-19 Vaccine () Covid-19 Vaccine () [facility] Start: 04-16-2023 Influenza vaccination [facility] Start: 03-25-2023 End: 03-25-2024 PELVIC US WHI PELVIC US WHI Anc Imaging Routine Spotting between menses Expected: 03/25/2023, Expires: 03/25/2024 [facility] Work Phone: Comment on above: Expected: 03/25/2023, Expires: 4 Start: 02-19-2023 End: 04-21-2023 Choriogonadotropin.beta subunit [Units/volume] in Serum or Plasma HCG QUANTITATIVE Lab Routine Missed menses Expected: 02/19/2023, Expires: 04/21/2023 [facility] Work Phone: Comment on above: Expected: 02/19/2023, Expires: 3 Start: 08-16-2022 DEPRESSION ASSESSMENT DEPRESSION ASSESSMENT [facility] Start: 07-01-2022 Adult depression screening assessment DEPRESSION SCREENING [facility] Start: 04-16-2022 Influenza vaccination [facility] Start: 08-16-2021 DEPRESSION ASSESSMENT DEPRESSION ASSESSMENT [facility] Start: 04-16-2021 Influenza vaccination Flu vaccine (Season Ended) [facility] Work Phone: Start: 12-16-2019 Screening for malignant neoplasm of cervix [facility] Start: 04-16-2019 Influenza vaccination Flu vaccine (#1) [place], [place] Start: 2016 HPV Vaccine (1 - 3-dose SCDM series) HPV Vaccine (1 - 3-dose SCDM series) [facility] Start: 2010 Cervical cancer screen Cervical cancer screen [place], [place] Start: 2010 Screening for malignant neoplasm of cervix [facility] Start: 2008 DTaP/Tdap/Td vaccine (1 - Tdap) DTaP/Tdap/Td vaccine (1 - Tdap) [facility] Start: 2008 DTaP/Tdap/Td Vaccines (1 - Tdap) DTaP/Tdap/Td Vaccines (1 - Tdap) [facility] Start: 2008 Hepatitis B Vaccine (1 of 3 - 19+ 3-dose series) Hepatitis B Vaccine (1 of 3 - 19+ 3-dose series) [facility] Start: 2008 Hepatitis B Vaccines (1 of 3 - 19+ 3-dose series) Hepatitis B Vaccines (1 of 3 - 19+ 3-dose series) [facility] Start: 2008 Urine microalbumin profile [facility] Start: 12-16-2007 Anxiety Screening Anxiety Screening [facility] Start: 12-16-2007 Depression Screening Depression Screening [facility] Start: 12-16-2007 HEPATITIS C SCREENING HEPATITIS C SCREENING [facility] Start: 12-16-2007 Hepatitis C screening [facility] Start: 2004 HIV screen HIV screen [place], [place] Start: 2004 HIV screening HIV screen [facility] Start: 2002 Varicella vaccination Varicella Vaccines (1 of 2 - 13+ 2-dose series) [facility] Start: 2001 COVID-19 Vaccine (1) COVID-19 Vaccine (1) [facility] Work Phone: Start: 2001 Depression Screen Depression Screen [facility] Start: 2001 Depression Screening Depression Screening [facility] Start: 2000 DTaP/Tdap/Td vaccine (1 - Tdap) DTaP/Tdap/Td vaccine (1 - Tdap) [place], [place] Start: 1994 COVID-19 VACCINE (#1) COVID-19 VACCINE (#1) [facility] Start: 1994 COVID-19 Vaccine (1) COVID-19 Vaccine (1) [facility] Start: 1990 MMR Vaccines (1 of 1 - Standard series) MMR Vaccines (1 of 1 - Standard series) [facility] Start: 1990 Varicella vaccination Varicella Vaccines (1 of 2 - 2-dose childhood series) [facility] Start: 1990 Varicella Vaccine (1 of 2 - 2-dose childhood series) Varicella Vaccine (1 of 2 - 2-dose childhood series) [facility] Start: 06-17-1990 COVID-19 VACCINE (#1) COVID-19 VACCINE (#1) [facility] Start: 1989 HEPATITIS B (1 of 3 - 3-dose series) HEPATITIS B (1 of 3 - 3-dose series) [facility] Start: 1989 Hepatitis B Vaccine (1 of 3 - 3-dose series) Hepatitis B Vaccine (1 of 3 - 3-dose series) [facility] Start: 1989 Hepatitis B Vaccines (1 of 3 - 3-dose series) Hepatitis B Vaccines (1 of 3 - 3-dose series) [facility] Start: 1989 Hepatitis C screening Hepatitis C screen [facility] Work Phone: Start: 1989 HIV screening HIV Screening [facility] Start: 1989 Thyroid stimulating hormone measurement TSH Level [facility] Bacteria identified in Urine by Culture BACTERIAL CULTURE, URINE Microbiology Routine Encounter for supervision of high risk in first trimester, antepartum (HCC) 12/27/2024 10:54 AM EDT [facility] Bacteria identified in Urine by Culture BACTERIAL CULTURE, URINE Microbiology Routine Encounter for supervision of high risk in first trimester, antepartum ([facility]) Painful urination 01/25/2025 11:17 AM T [facility] Work Phone: Chlamydia trachomatis+Neisseria gonorrhoeae DNA [Presence] in Unspecified specimen by MARY with probe detection GONORRHEA/CHLAMYDIA NAAT Lab Routine Screen for STD (sexually transmitted disease) 12/27/2024 10:54 AM T [facility] Chlamydia trachomatis+Neisseria gonorrhoeae DNA [Presence] in Unspecified specimen by MARY with probe detection GONORRHEA/CHLAMYDIA NAAT Lab Routine Screen for STD (sexually transmitted disease) Ordered: 12/29/2024 [facility] Comment on above: Ordered: 12/29/2024 End: 10-23-2019 Culture, Urine Culture, Urine Microbiology Add-On One Time for 1 Occurrences starting 10/23/2019 until 10/23/2019 [facility] on above: One Time for 1 Occurrences starting 04/2020 until 10/23/2019 End: 11-19-2022 DBT Breast - bilateral diagnostic Bilateral diagnostic mammogram with tomosynthesis Imaging Routine Mastodynia Once for 1 Occurrences starting 11/19/2022 until 11/19/2022 [facility] Work Phone: Comment on above: Once for 1 Occurrences starting 11/20/19 23 until 11/19/2022 End: 06-24-2019 Group A Strep Screen By PCR Group A Strep Screen By PCR Microbiology STAT Once for 1 Occurrences starting 06/24/2019 until 06/24/2019 [facility] Comment on above: Once for 1 Occurrences starting 06/24/20 19 until 06/24/2019 Group A Strep Screen By PCR Group A Strep Screen By PCR Microbiology STAT 06/24/2019 9:54 PM EST [facility] End: 01-27-2022 Lipase [Enzymatic activity/volume] in Serum or Plasma Lipase Lab Add-On One Time for 1 Occurrences starting 01/27/2022 until 01/27/2022 [facility] Work Phone: Comment on above: One Time for 1 Occurrences starting 01/14 until 01/27/2022 End: 06-24-2019 Respiratory Virus PCR Panel Respiratory Virus PCR Panel Microbiology Routine One Time for 1 Occurrences starting 06/24/2019 until 06/24/2019 [facility] Comment on above: One Time for 1 Occurrences starting 04/2019 until 06/24/2019 Respiratory Virus PC R Panel Respiratory Virus PCR Panel Microbiology STAT 06/24/2019 9:55 PM SER[facility] End: 02-26-2026 Thyrotropin [Units/volume] in Serum or Plasma THYROID STIMULATING HORMONE Lab Routine Thyroid disease during , first trimester ([facility]) Once per month for 5 Occurrences starting 02/26/2025 until 02/26/2026 [facility] Work Phone: Comment on above: Once per month for 5 Occurrences startin g 02/26/2025 until 02/26/2026 Thyrotropin [Units/volume] in Serum or Plasma THYROID STIMULATING HORMONE Lab Routine Thyroid disease during , first trimester ([facility]) 02/26/2025 8:43 AM T [facility] End: 02-26-2026 Thyroxine (T4) free [Mass/volume] in Serum or Plasma T4 FREE/FREE THYROXINE Lab Routine Thyroid disease during , first trimester ([facility]) Once per month for 5 Occurrences starting 02/26/2025 until 02/26/2026 [facility] Comment on above: Once per month for 5 Occurrences startin g 02/26/2025 until 02/26/2026 Thyroxine (T4) free [Mass/volume] in Serum or Plasma T4 FREE/FREE THYROXINE Lab Routine Thyroid disease during , first trimester ([facility]) 02/26/2025 8:43 AM EDT [facility] TRICHOMONAS VAGINALI S NAAT TRICHOMONAS VAGINALIS NAAT Lab Routine Screen for STD (sexually transmitted disease) 12/27/2024 10:54 AM EDT [facility] TRICHOMONAS VAGINALI S NAAT TRICHOMONAS VAGINALIS NAAT Lab Routine Screen for STD (sexually transmitted disease) Ordered: 12/29/2024 [facility] Work Phone: Comment on above: Ordered: 12/29/2024 End: 01-20-2022 US BREAST LIMITED RIGHT [facility] Work Phone: Comment on above: Once for 1 Occurrences starting 01/21/20 22 until 01/20/2022 End: 09-18-2022 US Head and neck soft tissue [facility] Work Phone: Comment on above: Once for 1 Occurrences starting 09/18/19 23 until 09/18/2022 End: 04-23-2024 Us transvaginal US FEMALE PELVIS TRANSVAG Radiology Routine Spotting between menses 1 Occurrences starting 03/25/2023 until 04/23/2024 [facility] Work Phone: Comment on above: 1 Occurrences starting 03/25/2023 until 04/23/2024 Us transvaginal US FEMALE PELVIS TRANSVAG Radiology Routine Spotting between menses 04/30/2023 1:04 PM EDT [facility] Work Phone: [facility] Immunizations Immunization Date Immunization Notes Care Provider [facility] 09-01-2019 influenza, injectabl e, quadrivalent, preservative free Jessenia Plotts SUPERVISOR DRYING.CNM Work Phone: [facility] 09-01-2019 influenza virus vacc ine, unspecified formulation French Rhodes MD Work Phone: [facility] 06-03-2018 influenza, injectabl e, quadrivalent, contains preservative Jessenia Plotts SUPERVISOR DRYING.CNM Work Phone: [facility] Payers Date Payer Category Payer Blue [place] Blue [facility] BLUE CARD POS OOS [id number] 2022 Blue [employer] - [place] BLUE CROSS [id number] 2022 Unknown [id number] 2022 Unknown [id number] 2020 Unknown MMO MMO SUPERMED PLUS [id number] 2020-Present [phone] [address] [place] [address] PPO [id number] 2020 Unknown MEDICAL MUTUAL M EDICAL MUTUAL [address] [id number] 2020-Present [address] [place] [address] [id number] 2019 Unknown [id number] 2017 Unknown [id number] 2008 Unknown [id number] 1989 Unknown [id number] 1989 Unknown [id number] Self-pay [id number] Social History Date Type Detail Facility Start: 06-24-2019 End: 06-26-2022 Tobacco smoking status NHIS Never smoker [facility] Work Phone: Start: 06-24-2019 End: 02-26-2025 Alcohol intake Ex-drinker (finding) [facility] Start: 1989 Sex Assigned At Not on file M [facility] [place] Start: 10-23-2019 End: 06-26-2022 Tobacco use and exposure Never used [facility] Start: 10-30-2021 End: 12-20-2024 Alcohol intake Current drinker of alcohol (finding) [facility] Start: 02-26-2021 History SDOH Alcohol Comment Seldom [facility] Start: 2021 End: 11-19-2022 Exposure to SARS-CoV-2 (event) Not sure [facility] Start: 1990 Sex Assigned At Female [facility] Start: 07-01-2021 End: 02-11-2023 History of Social function [facility] Start: 07-01-2021 End: 02-11-2023 Tobacco use panel [facility] Start: 04-28-2017 Adult Depression Screening Assessment 2 [facility] Start: 09-17-2022 Gender identity Identifies as female gender (finding) [facility] Start: 09-17-2022 Sexual orientation Heterosexual (fin pita) [facility] Start: 04-30-2020 End: 03-16-2022 Sex Female (finding) [facility] Tobacco smoking status [facility] Start: 11-12-2024 [facility] Goals Date Patient Goal Desired Activity /State Personal health goal Functional Status Date Assessment Result Facility 2024 Functional Status Independent [facility] 12-14-2024 Functional Status Standard Safet y ID band on, Call device within reach, Bed in low position, Wheels locked, Upper/Half-Length side-rails up, Phone within reach, personal items within reach, Bedside Cart Locked, Visitor at bedside, Safety level maintained [facility] Mental Status Date Assessment Result Facility 2024 Mental Status Orientation Oriented x 4 [facility] 12-14-2024 [facility] 12-16-2018 to 04-26-2025 Quick [...] or sooner if needed Jessenia Valverde APRN.CNM [facility] 04-26-2025 Miscellaneous Notes S: Loyda Burnette [...] Jessenia Valverde APRN.CNM documented in this encounter [facility] 04-26-2025 Instructions Diego Cornell MA - 04/26/2025 9:57 AM EDT SEQUENTIAL SCREENINGS The [facility] offers sequential screenings for women who [...] It will require an appointment with our cdl service technician. This is not an ultrasound performed [...] the above symptoms, contact our office at [phone] and ask to speak with a nurse. After hours, you can call doctors registry at [phone] OR call [facility] at [phone] and ask to have the doctor vocational technical education teacher paged. If you consider this an emergency, dial or go to your nearest emergency department. NEED HELP? Are you dealing with a violent or abusive relationship? Are you a victim of rape or sexual assult? Call [facility] ([place]) 24 hour Crisis Hotline: 444.921.4387 or 816-992-5419. MANUAL Your Guide to a Healthy manual is now on-line. Visit [email or web address] to download your free copy Oral Glucose Tolerance Test During Your provider has ordered an oral glucose tolerance test. For more information: My [facility] Oral Glucose Tolerance Test How do [...] is not advised. documented in this encounter [facility] 04-02-2025 Telephone encounter Note Attempted to [...] and testing is completed. Sending mychart msg. [facility] 04-02-2025 Miscellaneous Notes Attempted to reach [...] Sending mychart msg. documented in this encounter [facility] 02-26-2025 Progress note Formatting of t [...] Supervision of high risk in second trimester ([facility]) - ICD9: V23.9, ICD10: O09.92 (primary diagnosis) - Continue PNV - Declines LDA - Drives long distance - discussed appropriate timing/option of virtual visits 2. 17 weeks gestation of ([facility]) - ICD9: V22.2, ICD10: Z3A.17 - Anatomy ultrasound next visit 3. Thyroid disease during , first trimester ([facility]) - ICD9: 648.13, 246.9, ICD10: O99.281, E07.9 - Standing thyroid orders placed. To have done q 4-6 weeks. - Continue medication 4. Heartburn during in second trimester ([facility]) - ICD9: 646.83, 787.1, ICD10: O26.892, R12 - Discussed Tums vs Pepcid PTL precautions reviewed. RTO in 4 weeks or sooner as needed. Donnell Romero APRN.WOOD BUCKER [facility] 02-26-2025 Miscellaneous Notes EH - S: Loyda is a 34 year old female who presents at 17w1d for a routine visit. Feeling movement. Denies headache, visual changes, chest pain, shortness of breath, vaginal bleeding, leakage of fluid, or dysuria. Experiencing some heartburn. O: See flow sheet Gen: No apparent distress Abd: Gravid, nontender ASSESSMENT/PLAN: 1. Supervision of high risk in second trimester ([facility]) - ICD9: V23.9, ICD10: O09.92 (primary diagnosis) - Continue PNV - Declines LDA - Drives long distance - discussed appropriate timing/option of virtual visits 2. 17 weeks gestation of ([facility]) - ICD9: V22.2, ICD10: Z3A.17 - Anatomy ultrasound next visit 3. Thyroid disease during , first trimester ([facility]) - ICD9: 648.13, 246.9, ICD10: O99.281, E07.9 - Standing thyroid orders placed. To have done q 4-6 weeks. - Continue medication 4. Heartburn during in second trimester ([facility]) - ICD9: 646.83, 787.1, ICD10: O26.892, R12 - Discussed Tums vs Pepcid PTL precautions reviewed. RTO in 4 weeks or sooner as needed. Donnell Romero APRN.WOOD BUCKER documented in this encounter [facility] 02-26-2025 Instructions Diego Cornell MA - 02/26/2025 8:12 AM EDT SEQUENTIAL SCREENINGS The [facility] offers sequential screenings for women who [...] It will require an appointment with our cdl service technician. This is not an ultrasound performed [...] the above symptoms, contact our office at [phone] and ask to speak with a nurse. After hours, you can call doctors registry at [phone] OR call [facility] at [phone] and ask to have the doctor vocational technical education teacher paged. If you consider this an emergency, dial 4-2-7 or go to your nearest emergency department. NEED HELP? Are you dealing with a violent or abusive relationship? Are you a victim of rape or sexual assult? Call [facility] ([place]) 24 hour Crisis Hotline: 374.768.5643 or 767-804-8865. MANUAL Your Guide to a Healthy manual is now on-line. Visit [email or web address] ncyGuide to download your free copy documented in this encounter [facility] 02-07-2025 Telephone encounter Note Reason for call: Sammi, I am sending this telephone encounter to notify this office that this patient cancelled the PFT pre and post bronchodilator apt due to not wanting to take this test while and take the bronchodilator Thank you, Ziggy Harrington Central Scheduling [facility] 02-07-2025 Miscellaneous Notes Reason for call: Sammi I am sending this telephone encounter to notify this office that this patient cancelled the PFT pre and post bronchodilator apt due to not wanting to take this test while and take the bronchodilator Thank you, Ziggy [facility] Central Scheduling documented in this encounter [facility] 01-25-2025 Progress note Formatting of t [...] disease during , first trimester (HCC) Continue DIRECTOR OF ACCOUNTS RECEIVABLE thyroid History of PCOS 12 weeks gestation of (HCC) Marly Ashraf MD [facility] 01-25-2025 Miscellaneous Notes S: Loyda denies [...] disease during , first trimester (HCC) Continue DIRECTOR OF ACCOUNTS RECEIVABLE thyroid History of PCOS 12 weeks gestation of ([facility]) Marly Ashraf MD documented in this encounter [facility] 01-25-2025 Instructions Ml Yen MA - 01/25/2025 9:59 AM EDT SEQUENTIAL SCREENINGS The [facility] offers sequential screenings for women who [...] It will require an appointment with our cdl service technician. This is not an ultrasound performed [...] the above symptoms, contact our office at [phone] and ask to speak with a nurse. After hours, you can call doctors registry at [phone] OR call [facility] at [phone] and ask to have the doctor vocational technical education teacher paged. If you consider this an emergency, dial 9--1 or go to your nearest emergency department. NEED HELP? Are you dealing with a violent or abusive relationship? Are you a victim of rape or sexual assult? Call [facility] ([place]) 24 hour Crisis Hotline: 775.322.7545 or 557-546-4816. MANUAL Your Guide to a Healthy manual is now on-line. Visit [email or web address] to download your free copy documented in this encounter [facility] 01-23-2025 Telephone encounter Note Called patient to schedule a follow up appointment with Dr. Singleton. Patient is unable to complete the CT, and per Dr. Foley, patient should be seen 2-3 months after PFT test. Left My Chart message. Unable to to leave message on telephone. [facility] 01-23-2025 Miscellaneous Notes Called patient to schedule a follow up appointment with Dr. Singleton. Patient is unable to complete the CT, and per Dr. Foley, patient should be seen 2-3 months after PFT test. Left My Chart message. Unable to to leave message on telephone. documented in this encounter [facility] 12-29-2024 Note HNO ID: [id number] Author: DONNELL ROMERO APRN.WOOD BUCKER Service: ? Author Type: Nurse Practitioner Type: [...] Live Births2 Comment: 1st delivery was in [place], no or delivery complications per patient Dairy Farmer History LMP: 10/06/2024 (Approximate), Age at Menarche: Age at First : Age at Menopause: Dairy Farmer History Comments: Sexual Activity: Yes; Male Contraception: [...] ( ORAL) Take by mouth. - thyroid (DIRECTOR OF ACCOUNTS RECEIVABLE THYROID) 15 mg tablet Take 1 tablet [...] Assessed 12/29/2024 REVIEW OF SYSTEMS Expanded ROS: WASTEWATER PROJECT ENGINEER: + pink spotting Allergies and current medication updated:Yes SENSITIVE EXAM: The sensitive examination was discussed with the Patient or Patient's Authorized Senior Sales Operations Analyst. As applicable, any other physician, advance practice provider, medical student, or other health professional student that will be observing or involved in the sensitive examination for educational or training purposes was discussed with the Patient or Authorized Senior Sales Operations Analyst. The Patient or Authorized Senior Sales Operations Analyst has agreed to proceed with the sensitive examination. (Sensitive examination includes inspection and/or palpation of the breasts, pelvis, prostate and anorectal regions). EXAM: BP 100/60 Wt 116 lb (52.6kg) LMP 10/06/2024 GENERAL: pleasant, female in no apparent distress HEENT: Normocephalic, atraumatic, mucus membranes moist, and no lesions CHEST: Normal inspiratory effort PELVIC: external genitalia normal, normal Bartholin's glands, urethra, Ragan's glands, no vulvar lesions, no cervical lesions, [...] plan for treatment with Azithromycin Donnell Romero APRN.WOOD BUCKER Medical Decision Making: Problems: Low: Acute, uncomplicated illness or injury Data: Unique test(s) ordered: 2 Risk: Minimal: Minimal risk from testing/treatment Medical Decision Making Level: 3 - Low [facility] 12-29-2024 History of Present illness Narrative Loyda [...] Live Births2 Comment: 1st delivery was in [place], no or delivery complications per patient 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 thyroid (DIRECTOR OF ACCOUNTS RECEIVABLE THYROID) 15 mg tablet Take 1 tablet [...] Assessed 12/29/2024 REVIEW OF SYSTEMS Expanded ROS: WASTEWATER PROJECT ENGINEER: + pink spotting Allergies and current medication updated:Yes SENSITIVE EXAM: The sensitive examination was discussed with the Patient or Patient's Authorized Senior Sales Operations Analyst. As applicable, any other physician, advance practice provider, medical student, or other health professional student that will be observing or involved in the sensitive examination for educational or training purposes was discussed with the Patient or Authorized Senior Sales Operations Analyst. The Patient or Authorized Senior Sales Operations Analyst has agreed to proceed with the sensitive examination. (Sensitive examination includes inspection and/or palpation of the breasts, pelvis, prostate and anorectal regions). EXAM: BP 100/60 Wt 116 lb (52.6kg) LMP 10/06/2024 GENERAL: pleasant, female in no apparent distress HEENT: Normocephalic, atraumatic, mucus membranes moist, and no lesions CHEST: Normal inspiratory effort PELVIC: external genitalia normal, normal Bartholin's glands, urethra, Ragan's glands, no vulvar lesions, no cervical lesions, [...] 3 - Low documented in this encounter [facility] 12-28-2024 Miscellaneous Notes Pt notified and [...] Donnell Romero APRN.CNP documented in this encounter [facility] 12-28-2024 Telephone encounter Note Pt notified and appt scheduled at 7am with and advised Pt that if she is unable to make appt, then recommended that she go to urgent care closer to home. Ariadna Melara RN [facility] 12-28-2024 Telephone encounter Note Patient had [...] be a false positive. Donnell Romero APRN.CNP [facility] 12-27-2024 Note Addended by: DIEGO CORNELL on: 12/27/2024 10:55 AM Modules accepted: Orders [facility] 12-27-2024 Miscellaneous Notes Addended by: DIEGO CORNELL on: 12/27/2024 10:55 AM Modules accepted: Orders Addended by: DONNELL ROMERO on: 12/27/2024 10:44 AM Modules accepted: Orders Addended by: DIEGO CORNELL on: 12/27/2024 10:43 AM Modules accepted: Orders Addended by: DIEGO CORNELL on: 12/27/2024 10:42 AM Modules accepted: Orders documented in this encounter [facility] 12-27-2024 Note Addended by: DONNELL ROMERO on: 12/27/2024 10:44 AM Modules accepted: Orders [facility] 12-27-2024 Note Addended by: DIEGO CORNELL on: 12/27/2024 10:43 AM Modules accepted: Orders [facility] 12-27-2024 Note Addended by: DIEGO CORNELL on: 12/27/2024 10:42 AM Modules accepted: Orders [facility] 12-27-2024 Note HNO ID: [id number] Author: DONNELL ROMERO APRN.AFIA Service: ? Author Type: Nurse Practitioner Type: Progress Notes Filed: 12/27/2024 10:33 Note Text: Blueprint Developer offered: Patient declines. INITIAL OB ASSESSMENT HPI: Loyda is a 34 year old White here to establish Obstetrical Care. Patient's last menstrual period was 10/06/2024. from OB Dating Form. was unplanned but accepted Complaints: Abdominal pain, (pressure, slight cramping) spotting yesterday and this morning. 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 thyroid (DIRECTOR OF ACCOUNTS RECEIVABLE THYROID) 15 mg tablet Take 1 tablet [...] Wheezing + interm (more content not included)... [facility] 12-27-2024 History of Present illness Narrative Blueprint Developer offered: Patient declines. INITIAL OB ASSESSMENT HPI: Loyda is a 34 year old White here to establish Obstetrical Care. Patient's last menstrual period was 10/06/2024. from OB Dating Form. was unplanned but accepted Complaints: Abdominal pain, (pressure, slight cramping) spotting yesterday and this morning. 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 thyroid (DIRECTOR OF ACCOUNTS RECEIVABLE THYROID) 15 mg tablet Take 1 tablet [...] discussed with the Patient or Patient's Authorized Senior Sales Operations Analyst. As applicable, any other physician, advance practice provider, medical student, or other health professional student that will be observing or involved in the sensitive examination for educational or training purposes was discussed with the Patient or Authorized Senior Sales Operations Analyst. The Patient or Authorized Senior Sales Operations Analyst has agreed to proceed with the sensitive [...] Your guide to a health and the Explosive Man. Discussed hemoglobin electrophoresis. Patient: Declines Reviewed midwifery and spool sorter services that are available. 2) Screening: Hemoglobin [...] (28-30 weeks): [] Consent [] Contraception [] Corporate Services Manager [] TeamBirth handout Third trimester (36-40 weeks): [] GBS [] Presentation - [] Scheduled [] yes - Hibiclens, pre-op instructions, CBC, T&S ordered [] no [] H&P [] Preferences worksheet Multigravida of Advanced Maternal Age in First Trimester ([facility]) - 12/27/2024 Comment: December 27, 2024 Age 34 at DEB Donnell Romero APRN.AFIA With Uncertain Dates in First Trimester ([facility]) - 12/27/2024 Comment: December 27, 2024 POCUS not consistent with LMP. Confirm DEB with NT. Donnell Romero APRN.CNP Thyroid Disease During , First Trimester ([facility]) - 12/27/2024 Comment: December 27, 2024 Taking 15 mg of DIRECTOR OF ACCOUNTS RECEIVABLE thyroid. TSH/T4 ordered. Donnell Romero APRN.CNP History of Pcos - 12/27/2024 Follow up in 4 weeks or sooner prn. Plan for NT scan between 12w0d and 13w6d gestation. Donnell Romero APRN.WOOD BUCKER documented in this encounter [facility] 12-27-2024 Instructions Donnell Romero APRN.CNP - 12/27/2024 9:37 AM EDT Please select the following link to access the [facility] Your Guide to a Healthy . [email or web address] MORNING SICKNESS IN by Elisabeth Yi M.D. for [employer] As you may already know, morning sickness can often be more appropriately called evening sickness or ufygx-eiogto-ok-the-day sickness. While there are the april few, [...] medication, Doxylamine, is currently marketed as an zcjd-cov-lwqhxda sleeping pill. Ask your practitioner if creating a vitamin B6/Doxylamine combination with hmnu-sxe-zownhwu medications would be safe for you. Prescription [...] Phenergan, Compazine, Reglan documented in this encounter [facility] 12-25-2024 Telephone encounter Note Call placed to [facility] in [place], [place] at [phone], Faxed request to [facility] at [phone], they state they will provide an encrypted code to view images. Will notify provider once available. Additionally it appears patient was seen by OB on 12/20/24 and is currently . Sending to provider as FYI. [facility] 12-25-2024 Miscellaneous Notes Call placed to [facility] in [place], [place] at [phone], Faxed request to [facility] at [phone], they state they will provide an encrypted code to view images. Will notify provider once available. Additionally it appears patient was seen by OB on 12/20/24 and is currently . Sending to provider as FYI. documented in this encounter [facility] 12-20-2024 Note HNO ID: [id number] Author: JESSENIA VALVERDE APRN.CNM Service: ? Author Type: Workers' Compensation Magistrate Type: Progress Notes Filed: 12/20/2024 15:10 Note Text: Loyda Burnette is a 34 year old female who presents as an add on for problem visit of a sharp burning feeling behind left knee since yesterday. She contacted vocational technical education teacher nurse and was unable to go to Urgent Care or ED last night. Reports area has no redness, warmth or tenderness to touch. She is concerned she has a DVT. Patient is approximately 6 weeks gestation. 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 thyroid (DIRECTOR OF ACCOUNTS RECEIVABLE THYROID) 15 mg tablet Take 1 tablet [...] RTO - already scheduled RAUL Valverde APRN.CNM [facility] 12-20-2024 History of Present illness Narrative Loyda Burnette is a 34 year old female who presents as an add on for problem visit of a sharp burning feeling behind left knee since yesterday. She contacted vocational technical education teacher nurse and was unable to go to Urgent Care or ED last night. Reports area has no redness, warmth or tenderness to touch. She is concerned she has a DVT. Patient is approximately 6 weeks gestation. 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 thyroid (DIRECTOR OF ACCOUNTS RECEIVABLE THYROID) 15 mg tablet Take 1 tablet [...] RAUL Valverde APRN.CNM documented in this encounter [facility] 12-19-2024 Telephone encounter Note LMP 3/ [...] is evaluated tonight instead. Korin Trejo RN [facility] 12-19-2024 Miscellaneous Notes LMP 3/ approximately [...] Korin Trejo RN documented in this encounter [facility] 12-16-2024 Telephone encounter Note Patient calling with wants to know if it is ok to take cranberry supplement pills for urinary tract health in ? NOC is unable to make medication recommendations, recommend patient contact a local pharmacist for advice Patient denies any new or worsening symptoms of which a provider is not aware:Yes . [facility] 12-16-2024 Miscellaneous Notes Patient calling with wants to know if it is ok to take cranberry supplement pills for urinary tract health in ? NOC is unable to make medication recommendations, recommend patient contact a local pharmacist for advice Patient denies any new or worsening symptoms of which a provider is not aware:Yes . documented in this encounter [facility] 2024 Hospital Discharge instructions Patient Education [...] or as directed by your healthcare provider. [phone] [employer]. [address] [place] [address]. All rights reserved. This information is not intended as a substitute for professional medical care. Always follow your healthcare professional's instructions. Follow Up Care 12/14/2024 22:26:12 With:Follow-up with your tool liaison, return if any worsening or concerning symptoms as discussed. Address:Unknown When:2-4 days [facility] 2024 Emergency department Discharge summary Discharge Instructions Thank you for allowing [facility] to assist you with your healthcare needs. The following is important discharge information regarding your hospital visit. Diagnosis from Today's Visit Corpus luteum cyst What to Do Next Instructions from Your Care Team No qualifying data available. Post Acute Orders No qualifying data available. You Need to Schedule the Following Appointments Follow Up with Follow-up with your tool liaison, return if any worsening or concerning symptoms [...] or as directed by your healthcare provider. 9928-0855 [employer]. [address] [place] [address], [place] [address]. All rights reserved. This information is not intended as a substitute for professional medical care. Always follow your healthcare professional's instructions. Additional Information VACCINATE! IT SAVES LIVES! Members of the community who have not yet received the COVID-19 vaccine and would like to receive it can visit one of [facility] vaccine clinics. There are many vaccine clinic locations within the [facility]. For locations and available times, please visit [email or web address] It is important to note that some COVID mobile vaccine clinics are held outdoors and may be canceled in rainy or stormy conditions. To learn more about pediatric vaccinations (ages 5-11), we invite you to visit the [facility] webpage. [email or web address] [email or web address] To learn more about the COVID-19 vaccine, we invite you to visit the CDC website for a list of frequently asked questions. https://www.cdc.gov/coronavirus/2 019-ncov/vaccines/faq.html [facility] Patient Portal Access Instructions: Stay connected with your healthcare team and access your personal medical information anytime with the [facility] Patient Portal. If you would like a full copy of your medical records please contact the [facility] Medical Records Department Wednesday through Wednesday between 8a.m. and 4:30p.m. Please follow the directions below to access the portal: 1.Access the email account you provided upon registration to the hospital.2.Look for an invitation email from [facility].3.Open the email and access the invitation link: Accept Invitation to [facility].Fill in the required bruno to create your account. Sign into www.[email or web address] with your username and password that you [...] you will allow to register on the [facility] Portal for access to your information. You can also access the [facility] Patient Portal on the [employer] kei. Simply click on Health Records under Health Data and then click on the [facility] logo. HOW TO SAFELY DISPOSE OF PRESCRIPTION [...] Call your local pharmacy or go to [email or web address] to find one close to you.3.Make use of household items: Use cat litter or old coffee grounds to dispose medications if other options are not available. Mix your drugs with these household products, seal them in an airtight container and throw it into the garbage. Call [facility]: [phone] to be sure your drugs can be [...] aware that I should contact my doctor. Patient/Senior Sales Operations Analyst Signature: Date/Time: Relationship to Patient: ____ Witness Name/Signature: Date/Time: [facility] 12-08-2024 History of Present illness Narrative [facility] NEW PATIENT VISIT REFERRING PHYSICIAN: No referring provider defined for this encounter. CHIEF COMPLAINT/REASON FOR REFERRAL: Chief Complaint Patient presents with New Patient History of Present Illness: Loyda Burnette is a 33 y.o. female with a history of hypothyroidism, right lung nodule who presents for initial evaluation of chronic cough. She previously had a CT chest in [facility] in [place], [place]. Records are not available, but appears to have been done around March 2023. She had negative CXR 01/2022, images not available but report is. She says about a year and a half ago she had cyclic fevers in [place] over a period of a few weeks. [...] to get records sent from hospital in [place] but they were unable to. Coccidioides Ab, [...] to 3 weeks may be warranted. The [employer] Cocci Ab EIA Test Kit measures the expression of Anti-TP IgM antibodies and Anti-CF IgG antibodies. Antibodies against the TP antigen become measurable early in the acute phase of infection, between the first [50%] and third [90%] weeks of onset, while antibodies against the CF antigen become measureable between the second and 28th week. Test Performed at: [facility] [address] [place] [id number] Coccidioides Ab, Cf (Eia) (PHX) Negative Reference [...] that time. Was recommended by Pulmonology in [place] to get [address] chest but was lost to follow up. She is low risk as she is a never smoker with no occupational exposures. Will send message to obtain CT images from [place] if possible. Discussed risks and benefits of [...] Skin peeled Medications Current Outpatient Medications: thyroid ([place]) 30 MG tablet, Take 30 mg by [...] summarized in A/P. documented in this encounter [facility] 12-08-2024 History of Present illness Narrative [facility] NEW PATIENT VISIT REFERRING PHYSICIAN: No referring provider defined for this encounter. CHIEF COMPLAINT/REASON FOR REFERRAL: Chief Complaint Patient presents with New Patient History of Present Illness: Loyda Burnette is a 33 y.o. female with a history of hypothyroidism, right lung nodule who presents for initial evaluation of chronic cough. She previously had a CT chest in [facility] in [place], [place]. Records are not available, but appears to have been done around March 2023. She had negative CXR 01/2022, images not available but report is. She says about a year and a half ago she had cyclic fevers in [place] over a period of a few weeks. [...] to get records sent from hospital in [place] but they were unable to. Coccidioides Ab, [...] to 3 weeks may be warranted. The [employer] Cocci Ab EIA Test Kit measures the expression of Anti-TP IgM antibodies and Anti-CF IgG antibodies. Antibodies against the TP antigen become measurable early in the acute phase of infection, between the first [50%] and third [90%] weeks of onset, while antibodies against the CF antigen become measureable between the second and 28th week. Test Performed at: [facility] [address] [address] Coccidioides Ab, Cf (Eia) (PHX) Negative Reference [...] that time. Was recommended by Pulmonology in [place] to get [address] chest but was lost to follow up. She is low risk as she is a never smoker with no occupational exposures. Will send message to obtain CT images from [place] if possible. Discussed risks and benefits of [...] Skin peeled Medications Current Outpatient Medications: thyroid ([place]) 30 MG tablet, Take 30 mg by [...] Albino Foley DO documented in this encounter [facility] 12-08-2024 Instructions Beny Carey MA - 12/08/2024 1:00 PM EDT YOUR APPOINTMENT TODAY WAS WITH THE [facility] LUNG NODULE [facility], COPD CLINIC, PULMONARY AND SLEEP MEDICINE OFFICE. PLEASE CALL OUR OFFICE AT [phone] IF YOU HAVE NOT RECEIVED YOUR TEST [...] to make improvements. COVID-19 VACCINATION INFORMATION: PH. 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 thyroid (DIRECTOR OF ACCOUNTS RECEIVABLE THYROID) 15 mg tablet Take 1 tablet [...] GENERAL: No weight loss, malaise or fevers WASTEWATER PROJECT ENGINEER: Negative for abnormal vaginal bleeding, abnormal vaginal [...] Korin Cook MD documented in this encounter [facility] 12-08-2023 Telephone encounter Note Appointment recommended. Donnell Romero APRN.CNP [facility] 12-08-2023 Miscellaneous Notes Appointment recommended. Donnell Romero APRN.CNP Patient last seen in office on 10/01/23 for missed menses. Marcia John RN documented in this encounter [facility] 12-08-2023 Telephone encounter Note Patient last seen in office on 10/01/23 for missed menses. Marcia John RN [facility] 10-04-2023 Miscellaneous Notes Patient called back, [...] 2-3 days. OR can use a more intermission coordinator contraception to regulate cycles. Risk of uterine hyperplasia when going longer than 3+ months without menses. Donnell Romero APRN.CNP documented in this encounter [facility] 10-04-2023 History of Present illness Narrative Patient called back - answered additional questions about the menstrual cycle. Would like to have Provera rx if her cycle doesn't come within the next week. To follow up if cycle doesn't occur. Donnell Romero APRN.WOOD BUCKER documented in this encounter [facility] 10-01-2023 History of Present illness Narrative [...] Live Births2 Comment: 1st delivery was in [place], no or delivery complications per patient Dairy Farmer History LMP: 07/20/2023 (Within Days), Having periods Age at Menarche: Age at First : Age at Menopause: Dairy Farmer History Comments: Sexual Activity: Yes; Male Contraception: [...] 5,000 Units by mouth once daily. thyroid (DIRECTOR OF ACCOUNTS RECEIVABLE THYROID) 15 mg tablet Take 1 tablet [...] 4 - Moderate documented in this encounter [facility] 09-20-2023 Miscellaneous Notes Patient called back. [...] Korin Trejo RN documented in this encounter [facility] 07-27-2023 Telephone encounter Note S: Patient spoke with [facility] nurse regarding request to cancel OV. B: Onset of symptoms/concern: 07/28/23 A: Pt requests to have OV canceled. Pt will call back in for rescheduling. R: Canceled OV per pt's request. Patient understands care advice. No further needs at this time. Patient instructed to call back with new or worsening symptoms. Charted in [facility] eCW, routed TE to Holley Malik per practice page. Reason for Disposition [1] Follow-up call to recent contact AND [2] information only call, no triage required Protocols used: Information Only Call - No Funwep-GYYRE-ER [facility] 07-27-2023 Miscellaneous Notes S: Patient spoke with [facility] nurse regarding request to cancel OV. B: Onset of symptoms/concern: 07/28/23 A: Pt requests to have OV canceled. Pt will call back in for rescheduling. R: Canceled OV per pt's request. Patient understands care advice. No further needs at this time. Patient instructed to call back with new or worsening symptoms. Charted in [facility] eCW, routed TE to Holley Gan per practice page. Reason for Disposition [1] Follow-up call to recent contact AND [2] information only call, no triage required Protocols used: Information Only Call - No Lykutu-YDPFC-HP documented in this encounter [facility] 04-30-2023 History of Present illness Narrative [...] 2023 1:01 PM documented in this encounter [facility] 04-29-2023 Miscellaneous Notes Spoke with pt [...] Radha Bueno LPN documented in this encounter [facility] 03-29-2023 Miscellaneous Notes Patient notified. She will call back if she decides she needs it faxed elsewhere. Gisell Morales RN Attempted to notify patient. No answer and unable to leave a message. Mailbox is full. Korin Trejo RN Order filed. Laura Calero APRN.WOOD BUCKER Per 02/11/23 office note, but to have pelvic US if she has spotting. Patient called to request the ultrasound. She is having spotting. Currently out of town for a month. May or may not have the order faxed to another facility. She will let us know. Please place pelvic US order. Patient wants notified once done. Korin Trejo RN documented in this encounter [facility] 02-22-2023 Miscellaneous Notes Negative for . Message sent via AUTOFACT by provider. Korin Trejo RN Patient notified. [...] taking if . documented in this encounter [facility] 02-11-2023 History of Present illness Narrative Blueprint Developer offered: Patient declines. Loyda is a 32 [...] is benign 11/19/2022 - normal US at [facility] Sexually active: Yes History of STDS: None Patient concerns for STD exposure: No. Pain with intercourse: No Postcoital bleeding: Not usually. Increase in spotting recently with spotting over last month. OB History T1 L2 SAB0 IAB0 Ectopic0 Multiple0 Live Births2 Comment: 1st delivery was in [place], no or delivery complications per patient Dairy Farmer History LMP: 02/01/2023, Having periods Age at Menarche: Age at First : Age at Menopause: Dairy Farmer History Comments: Sexual Activity: Yes; Male Contraception: [...] external genitalia normal, normal Bartholin's glands, urethra, Ragan's glands, no vulvar lesions, no cervical lesions, [...] Laura Calero APRN.AFIA documented in this encounter [facility] 11-20-2022 Miscellaneous Notes We tried to reach Pt by phone, the mailbox was full and a message wasn not able to be left.. Dr. Leigh's recommendation below is for her to continue to follow up with [facility] and Celena Kellogg PA-C. As Dr. Leigh stated below, they are the breast specialists and are managing her care. I am trying to reach Pt to cancel appointment with Dr. Leigh for Wednesday11/23/2022 at 8am. Thank you! Delphine Lazo RN documented in this encounter [facility] 11-19-2022 Miscellaneous Notes Pt refused mammogram due to possibility of . Ultrasound only. Laura Washington RT(R)(M) documented in this encounter [facility] 11-19-2022 Note Formatting of this n ote might be different from the original. Pt refused mammogram due to possibility of . Ultrasound only. Laura Washington RT(R)(M) [facility] 11-19-2022 Note Formatting of this n ote might be different from the original. Pt refused mammogram due to possibility of . Ultrasound only. Laura Washington RT(R)(M) T [facility] 11-02-2022 Telephone encounter Note S: Patient spoke with [facility] nurse regarding palpitations B: Onset of symptoms/concern [...] Palpitations Protocols used: Heart Rate and Heartbeat [id number]-RC [facility] 11-02-2022 Miscellaneous Notes S: Patient spoke with [facility] nurse regarding palpitations B: Onset of symptoms/concern [...] Palpitations Protocols used: Heart Rate and Heartbeat Othhsufeq-PBPEF-HP documented in this encounter [facility] 10-25-2022 Miscellaneous Notes Chart opened in error documented in this encounter [facility] 09-01-2022 Note HNO ID: [id number] Author: Celena Kellogg PA-C Service: ? Author Type: Physician Antisqueak Applier Type: Progress Notes Filed: 09/01/2022 4:51 PM Note Text: MEDICAL BREAST PATIENT NAME: Loyda Burnette September 01, [birth year]22 REFERRAL: She is self-referred for an opinion regarding right breast pain. 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 [...] Mammograms: Yes bilateral diagnostic imaging, [facility]: 04/[facility]; results - as above Breast [...] Daughter Melanoma Pat (more content not included)... 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 thyroid (DIRECTOR OF ACCOUNTS RECEIVABLE THYROID) 15 mg tablet Take 1 tablet [...] Vida Donald MD documented in this encounter [facility] 05-08-2022 History of Present illness Narrative Blueprint Developer offered: Patient declines. 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 thyroid (DIRECTOR OF ACCOUNTS RECEIVABLE THYROID) 15 mg tablet Take 1 tablet [...] which included preparing to see the patient, [id number] patient care, completing clinical documentation, obtaining and/or reviewing separately obtained history, performing a medically appropriate examination, and counseling and educating the patient/family/caregiver. documented in this encounter [facility] 03-11-2022 History of Present illness Narrative Blueprint Developer offered: Patient declines. Loyda Burnette is a [...] very heavy x 2 days then getting paper inspector and now feels more like a regular menses. Was changing regular tampon every 1-2 hours on heaviest day of bleeding. Is now wearing pads since bleeding has lessened. [place] dizzy and pulse rate 113-120 this afternoon and lasted 60-90 minutes. She does sometimes have rapid heart rate with Hashimotio's when TSH below 2. TSH 3.6 one week ago at biophysics scientist. UPT negative today. Is not interested in contraception to control menses. Is happy if occurs. 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 thyroid (DIRECTOR OF ACCOUNTS RECEIVABLE THYROID) 15 mg tablet Take 1 tablet [...] external genitalia normal, normal Bartholin's glands, urethra, Ragan's glands, no vulvar lesions, no cervical lesions, [...] which included preparing to see the patient, [id number] patient care, completing clinical documentation, obtaining and/or reviewing separately obtained history, performing a medically appropriate examination, counseling and educating the patient/family/caregiver and ordering medications, tests, or procedures. documented in this encounter [facility] 03-11-2022 Miscellaneous Notes Called patient. Has [...] Laura Calero APRN.AFIA documented in this encounter [facility] 03-09-2022 Miscellaneous Notes Appointment given. Reviewed [...] Gisell Morales RN documented in this encounter [facility] 01-27-2022 Hospital Discharge instructions River Kerr MD - 01/27/2022 Return here if your symptoms get worse; Return for fever also The following attachments cannot be sent through Care Everywhere.Chest Pain (American)documented in this encounter [facility] Work Phone: 01-01-2022 History of Present illness Narrative VIRTUAL VISIT PROGRESS NOTE This is a virtual visit using [email or web address] video visit. It required patient-provider interaction for [...] DRUGS ORAL Take by mouth. 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 I spent a total of 25 minutes on the date of the service which included preparing to see the patient, [id number] patient care, completing clinical documentation, obtaining and/or reviewing separately obtained history and counseling and educating the patient/family/caregiver Jessenia Valverde APRN.CNM documented in this encounter [facility] 12-16-2018 History of Past i llness Narrative Problem Noted Date Resolved Date Positive GBS test 12/16/2018 02/07/2019 Genetic testing 06/28/2018 02/07/2019 Overview: Negative NT. Sequential screening ordered. JENNIFER Supervision of normal 06/27/2018 02/07/2019 Nausea and vomiting during 06/03/2018 02/07/2019 Overview: 06/03/18 Vitamin B6 started. SW documented as of this encounter (statuses as of 01/01/2022) [facility] History of Past illness Narrative* Problem Noted Date Resolved Date Positive GBS test 12/16/2018 02/07/2019 Genetic testing 06/28/2018 02/07/2019 Overview: Negative NT. Sequential screening ordered. JENNIFER Supervision of normal 06/27/2018 02/07/2019 Nausea and vomiting during 06/03/2018 02/07/2019 Overview: 06/03/18 Vitamin B6 started. SW documented as of this encounter (statuses as of 03/09/2022) [facility] History of Past illness Narrative* Problem Noted Date Resolved Date Positive GBS test 12/16/2018 02/07/2019 Genetic testing 06/28/2018 02/07/2019 Overview: Negative NT. Sequential screening ordered. JENNIFER Supervision of normal 06/27/2018 02/07/2019 Nausea and vomiting during 06/03/2018 02/07/2019 Overview: 06/03/18 Vitamin B6 started. SW documented as of this encounter (statuses as of 03/11/2022) [facility] History of Past illness Narrative* Problem Noted Date Resolved Date Positive GBS test 12/16/2018 02/07/2019 Genetic testing 06/28/2018 02/07/2019 Overview: Negative NT. Sequential screening ordered. SW Supervision of normal 06/27/2018 02/07/2019 Nausea and vomiting during 06/03/2018 02/07/2019 Overview: 06/03/18 Vitamin B6 started. SW documented as of this encounter (statuses as of 03/11/2022) [facility] History of Past illness Narrative* Problem Noted Date Resolved Date Positive GBS test 12/16/2018 02/07/2019 Genetic testing 06/28/2018 02/07/2019 Overview: Negative NT. Sequential screening ordered. SW Supervision of normal 06/27/2018 02/07/2019 Nausea and vomiting during 06/03/2018 02/07/2019 Overview: 06/03/18 Vitamin B6 started. SW documented as of this encounter (statuses as of 05/08/2022) [facility] History of Past illness Narrative* Problem Noted Date Resolved Date Positive GBS test 12/16/2018 02/07/2019 Genetic testing 06/28/2018 02/07/2019 Overview: Negative NT. Sequential screening ordered. SW Supervision of normal 06/27/2018 02/07/2019 Nausea and vomiting during 06/03/2018 02/07/2019 Overview: 06/03/18 Vitamin B6 started. SW documented as of this encounter (statuses as of 06/26/2022) [facility] History of Past illness Narrative* Problem Noted Date Resolved Date Positive GBS test 12/16/2018 02/07/2019 Genetic testing 06/28/2018 02/07/2019 Overview: Negative NT. Sequential screening ordered. SW Supervision of normal 06/27/2018 02/07/2019 Nausea and vomiting during 06/03/2018 02/07/2019 Overview: 06/03/18 Vitamin B6 started. SW documented as of this encounter (statuses as of 10/25/2022) [facility] History of Past illness Narrative* Problem Noted Date Resolved Date Positive GBS test 12/16/2018 02/07/2019 Genetic testing 06/28/2018 02/07/2019 Overview: Negative NT. Sequential screening ordered. SW Supervision of normal 06/27/2018 02/07/2019 Nausea and vomiting during 06/03/2018 02/07/2019 Overview: 06/03/18 Vitamin B6 started. SW documented as of this encounter (statuses as of 11/18/2022) [facility] History of Past illness Narrative* Problem Noted Date Resolved Date Positive GBS test 12/16/2018 02/07/2019 Genetic testing 06/28/2018 02/07/2019 Overview: Negative NT. Sequential screening ordered. SW Supervision of normal 06/27/2018 02/07/2019 Nausea and vomiting during 06/03/2018 02/07/2019 Overview: 06/03/18 Vitamin B6 started. SW documented as of this encounter (statuses as of 11/20/2022) [facility] History of Past illness Narrative* Problem Noted Date Resolved Date Positive GBS test 12/16/2018 02/07/2019 Genetic testing 06/28/2018 02/07/2019 Overview: Negative NT. Sequential screening ordered. SW Supervision of normal 06/27/2018 02/07/2019 Nausea and vomiting during 06/03/2018 02/07/2019 Overview: 06/03/18 Vitamin B6 started. SW documented as of this encounter (statuses as of 02/11/2023) [facility] History of Past illness Narrative* Problem Noted Date Diagnosed Date Resolved Date Positive GBS test 12/16/2018 02/07/2019 Genetic testing 06/28/2018 02/07/2019 Overview: Negative NT. Sequential screening ordered. SW Supervision of normal 06/27/2018 02/07/2019 Nausea and vomiting during 06/03/2018 02/07/2019 Overview: 06/03/18 Vitamin B6 started. SW documented as of this encounter (statuses as of 02/23/2023) [facility] History of Past illness Narrative* Problem Noted Date Diagnosed Date Resolved Date Positive GBS test 12/16/2018 02/07/2019 Genetic testing 06/28/2018 02/07/2019 Overview: Negative NT. Sequential screening ordered. SW Supervision of normal 06/27/2018 02/07/2019 Nausea and vomiting during 06/03/2018 02/07/2019 Overview: 06/03/18 Vitamin B6 started. SW documented as of this encounter (statuses as of 03/30/2023) [facility] History of Past illness Narrative* Problem Noted Date Diagnosed Date Resolved Date Positive GBS test 12/16/2018 02/07/2019 Genetic testing 06/28/2018 02/07/2019 Overview: Negative NT. Sequential screening ordered. SW Supervision of normal 06/27/2018 02/07/2019 Nausea and vomiting during 06/03/2018 02/07/2019 Overview: 06/03/18 Vitamin B6 started. SW documented as of this encounter (statuses as of 04/29/2023) [facility] History of Past illness Narrative* Problem Noted Date Diagnosed Date Resolved Date Positive GBS test 12/16/2018 02/07/2019 Genetic testing 06/28/2018 02/07/2019 Overview: Negative NT. Sequential screening ordered. SW Supervision of normal 06/27/2018 02/07/2019 Nausea and vomiting during 06/03/2018 02/07/2019 Overview: 06/03/18 Vitamin B6 started. SW documented as of this encounter (statuses as of 05/01/2023) [facility] History of Past illness Narrative* Problem Noted Date Diagnosed Date Resolved Date Positive GBS test 12/16/2018 02/07/2019 Genetic testing 06/28/2018 02/07/2019 Overview: Negative NT. Sequential screening ordered. SW Supervision of normal 06/27/2018 02/07/2019 Nausea and vomiting during 06/03/2018 02/07/2019 Overview: 06/03/18 Vitamin B6 started. SW documented as of this encounter (statuses as of 09/20/2023) [facility] History of Past illness Narrative* Problem Noted Date Diagnosed Date Resolved Date Positive GBS test 12/16/2018 02/07/2019 Genetic testing 06/28/2018 02/07/2019 Overview: Negative NT. Sequential screening ordered. SW Supervision of normal 06/27/2018 02/07/2019 Nausea and vomiting during 06/03/2018 02/07/2019 Overview: 06/03/18 Vitamin B6 started. SW documented as of this encounter (statuses as of 10/01/2023) [facility] History of Past illness Narrative* Problem Noted Date Diagnosed Date Resolved Date Positive GBS test 12/16/2018 02/07/2019 Genetic testing 06/28/2018 02/07/2019 Overview: Negative NT. Sequential screening ordered. SW Supervision of normal 06/27/2018 02/07/2019 Nausea and vomiting during 06/03/2018 02/07/2019 Overview: 06/03/18 Vitamin B6 started. SW documented as of this encounter (statuses as of 10/04/2023) [facility] History of Past illness Narrative* Problem Noted Date Diagnosed Date Resolved Date Positive GBS test 12/16/2018 02/07/2019 Genetic testing 06/28/2018 02/07/2019 Overview: Negative NT. Sequential screening ordered. JENNIFER Supervision of normal 06/27/2018 02/07/2019 Nausea and vomiting during 06/03/2018 02/07/2019 Overview: 06/03/18 Vitamin B6 started. SW documented as of this encounter (statuses as of 10/04/2023) [facility] + Plan note Future Scheduled Tests Laboratory* Thyroid Stimulating Hormone 04/24/25 * Thyroid Stimulating Hormone 01/01/25 * Free T4 01/01/25 * Vitamin D Level 04/24/25 * Complete Metabolic Panel 04/24/25 * Complete Metabolic Panel 01/01/25 [facility] Evaluation note* Diagnosis Spontaneous - Primary Unspecified spontaneous without mention of complication Ricarda's thyroiditis Chronic lymphocytic thyroiditis documented in this encounter [facility] note* Diagnosis Chest pain, unspecified type- Primary documented in this encounter [facility] Work Phone: Evaluation note* Diagnosis Menorrhagia with regular cycle- Primary Excessive or frequent menstruation Dizziness Dizziness and giddiness documented in this encounter [facility] note* Diagnosis Irregular menses- Primary Irregular menstrual cycle Polycystic ovaries documented in this encounter [facility] note* Diagnosis Mastalgia- Primary Mastodynia documented in this encounter [facility] note* Diagnosis Mastodynia documented in this encounter [facility] note* Diagnosis Localized swelling, mass and lump, neck- Primary Swelling, mass, or lump in head and neck Localized swelling, mass and lump, neck Swelling, mass, or lump in head and neck documented in this encounter [facility] note* Diagnosis Encounter for gynecological examination with abnormal finding- Primary Routine gynecological examination Vagina itching Pruritus of genital organs Vaginal odor Unspecified symptom associated with female genital organs Spotting between menses Metrorrhagia documented in this encounter [facility] note* Diagnosis Missed menses- Primary Absence of menstruation documented in this encounter [facility] note* Diagnosis Spotting between menses- Primary Metrorrhagia documented in this encounter [facility] note* Diagnosis Missed menses- Primary Absence of menstruation documented in this encounter [facility] note* Diagnosis Spotting between menses Metrorrhagia documented in this encounter [facility] note* Diagnosis Missed menses- Primary Absence of menstruation documented in this encounter [facility] note* Diagnosis Missed menses- Primary Absence of menstruation documented in this encounter [facility] note* Diagnosis Localized swelling, mass and lump, neck Swelling, mass, or lump in head and neck documented in this encounter [facility] note* Diagnosis Solid nodule of lung 6 mm to 8 mm in diameter- Primary Pulmonary nodule, right Other diseases of lung, not elsewhere classified Chronic cough Cough History of coccidioidomycosis Encounter for test, result unknown documented in this encounter [facility] note* Diagnosis Left leg pain- Primary Pain in limb Positive blood test (HCC) examination or test, positive result documented in this encounter [facility] note* Diagnosis Encounter for supervision of high risk in first trimester, antepartum (HCC)- Primary with uncertain dates in first trimester ([facility]) 8 weeks gestation of ([facility]) state, incidental Multigravida of advanced maternal age in first trimester ([facility]) History of PCOS Personal history of other genital system and obstetric disorders Thyroid disease during , first trimester ([facility]) Screen for STD (sexually transmitted disease) Screening examination for venereal disease Vitamin D deficiency Unspecified vitamin D deficiency documented in this encounter [facility] note* Diagnosis Screen for STD (sexually transmitted disease)- Primary Screening examination for venereal disease documented in this encounter [facility] note* Diagnosis Encounter for supervision of high risk in first trimester, antepartum (HCC)- Primary Multigravida of advanced maternal age in first trimester ([facility]) Vitamin D deficiency Unspecified vitamin D deficiency Thyroid disease during , first trimester ([facility]) History of PCOS Personal history of other genital system and obstetric disorders 12 weeks gestation of ([facility]) state, incidental Painful urination Dysuria * Assessment & Plan Note - Marly Ashraf MD - 01/25/2025 10:51 AM EDTAssociated Problem(s): Multigravida of advanced maternal age in first trimester (HCC) * Assessment & Plan Note - Marly Ashraf MD - 01/25/2025 10:51 AM EDTAssociated Problem(s): Thyroid disease during , first trimester (HCC) Continue DIRECTOR OF ACCOUNTS RECEIVABLE thyroid * Assessment & Plan Note - Marly Ashraf MD - 01/25/2025 10:51 AM EDTAssociated Problem(s): History of PCOS * Assessment & Plan Note - Marly Ashraf MD - 01/25/2025 10:51 AM EDTAssociated Problem(s): Encounter for supervision of high risk in first trimester, antepartum ([facility]) Urinary discomfort Orders: UA DIP, URINE (POC) BACTERIAL CULTURE, URINE [facility]* Diagnosis Encounter for supervision of high risk in first trimester, antepartum (HCC)- Primary Multigravida of advanced maternal age in first trimester ([facility]) Vitamin D deficiency Unspecified vitamin D deficiency Thyroid disease during , first trimester ([facility]) History of PCOS Personal history of other genital system and obstetric disorders 12 weeks gestation of ([facility]) state, incidental Painful urination Dysuria Multigravida of advanced maternal age in first trimester (HCC)- Primary Encounter for supervision of high risk in first trimester, antepartum ([facility]) documented [facility]* Diagnosis Encounter for supervision of high risk in first trimester, antepartum ([facility])- Primary Multigravida of advanced maternal age in first trimester ([facility]) Vitamin D deficiency Unspecified vitamin D deficiency Thyroid disease during , first trimester ([facility]) History of PCOS Personal history of other genital system and obstetric disorders 12 weeks gestation of ([facility]) state, incidental Painful urination Dysuria Supervision of high risk in second trimester ([facility])- Primary Unspecified high-risk 17 weeks gestation of ([facility]) state, incidental Thyroid disease during , first trimester ([facility]) Heartburn during in second trimester ([facility]) documented in this encounter [facility] note* Diagnosis Urine positive for Chlamydia trachomatis by PCR- Primary Encounter for supervision of high risk in first trimester, antepartum ([facility])- Primary Multigravida of advanced maternal age in first trimester ([facility]) Vitamin D deficiency Unspecified vitamin D deficiency Thyroid disease during , first trimester ([facility]) History of PCOS Personal history of other genital system and obstetric disorders 12 weeks gestation of ([facility]) state, incidental Painful urination Dysuria documented in this encounter [facility] note* Diagnosis Encounter for supervision of high risk in first trimester, antepartum ([facility])- Primary Multigravida of advanced maternal age in first trimester ([facility]) Vitamin D deficiency Unspecified vitamin D deficiency Thyroid disease during , first trimester ([facility]) History of PCOS Personal history of other genital system and obstetric disorders 12 weeks gestation of ([facility]) state, incidental Painful urination Dysuria Screening for diabetes mellitus- Primary Supervision of high risk in second trimester ([facility]) Unspecified high-risk Thyroid disease during , first trimester ([facility]) Heartburn during in second trimester ([facility]) 25 weeks gestation of ([facility]) state, incidental Thyroid disease during in second trimester ([facility]) documented in this encounter [facility] course Narrative No data available for this section [facility] Reason for referral (narrative)* Diagnostic Procedure Only (Routine) - Pending Review Specialty Diagnoses / Procedures Referred By Crispin nichole Referred To Contact [facility] Diagnoses Spotting between menses Procedures US FEMALE PELVIS TRANSVAG US TRANSVAGINAL Laura Calero APRN.WOOD BUCKER [address] [place] [address] [facility] Referral ID Status Reason Start Date Expiration Date Visits Requested Visits Authorized [id number] Pending Review Auto-Generat ed Referral 03/25/2023 04/23/2024 1 1 * Diagnostic Procedure Only (Routine) - Pending Review Specialty Diagnoses / Procedures Referred By Contac t Referred To Contact [facility] Diagnoses Spotting between menses Procedures PELVIC US WHI US PELVIC NONOBSTETRIC REAL-TIME IMAGE COMPLETE Laura Calero APRN.CNP [address] [place] [address] [facility] [address] [place] [address] Referral ID Status Reason Start Date Expiration Date Visits Requested Visits Authorized [id number] Pending Review Auto-Generat ed Referral 03/25/2023 03/24/2024 1 1 [facility] for visit Narrative* Diagnostic Procedure Only (Routine) - Closed Specialty Diagnoses / Procedures Referred By Contac t Referred To Contact [facility] Diagnoses Spotting between menses Procedures US FEMALE PELVIS TRANSVAG US TRANSVAGINAL Laura Calero APRN.WOOD BUCKER [address] [place] [address] [place] [id number] Referral ID Status Reason Start Date Expiration Date V isits Requested Visits Authorized [id number] Closed Auto-Generate d Referral 03/25/2023 04/23/2024 1 1 [facility] note* Bibi Bey: PERFORM Event Display: Patient Summary Documents Authored Date: [id number] [facility] Discharge Instructions * Instructions* River Kerr MD - 06/24/2019 Please return for fever greater than 100.4 * Attachments The following attachments cannot be sent through Care Everywhere. * Cough (American) documented in this encounter* Attachments The following attachments cannot be sent through Care Everywhere. 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 [address] Phone: tel: fax: [facility] [place] [facility] [place] [address] [place] [address] Referral ID Status Reason Start Date Expiration Date V isits Requested Visits Authorized [id number] Closed Auto-Generate d Referral 12/27/2024 12/27/2025 1 1 Reason Onset Date Comments Other 02/07/2025 PFT Reason Onset Date Comments Care 02/26/2025 Reason Onset Date Comments Follow-up 04/02/2025 Testing unable t o be completed. Reason Onset Date Comments Care 04/26/2025 INFORMATION SOURCE (unrecogn ized section and content) DATE CREATED AUTHOR 07/04/2020 [facility] [place] DATE CREATED AUTHOR AUTHOR'S ORGANIZ ATION 11/03/2020 [facility] DATE CREATED AUTHOR AUTHOR'S ORGANIZ ATION 01/31/2022 [facility] DATE CREATED AUTHOR AUTHOR'S ORGANIZ ATION 03/27/2022 [facility] DATE CREATED AUTHOR AUTHOR'S ORGANIZ ATION 09/02/2022 [facility] DATE CREATED AUTHOR AUTHOR'S ORGANIZ ATION 02/20/2023 [facility] DATE CREATED AUTHOR AUTHOR'S ORGANIZ ATION 05/24/2023 [facility] DATE CREATED AUTHOR AUTHOR'S ORGANIZ ATION 12/24/2024 [facility] DATE CREATED AUTHOR AUTHOR'S ORGANIZ ATION 04/03/2025 [facility] DATE CREATED AUTHOR AUTHOR'S ORGANIZ ATION 06/13/2025 [facility] DATE CREATED AUTHOR AUTHOR'S ORGANIZ ATION 06/15/2025 [facility] Source Comments (unrecognize d section and content) In the event this informatio n is protected by the Federal Confidentiality of Alcohol and Drug Abuse Patient Records regulations: The Federal rules restrict any use of the information to criminally investigate or prosecute any alcohol or drug abuse patient.[facility] Hospital[facility] the event this information is protected by the Federal Confidentiality of Alcohol and Drug Abuse Patient Records regulations: The Federal rules restrict any use of the information to criminally investigate or prosecute any alcohol or drug abuse patient.[facility] HospitalIn the event this information is protected by the Federal Confidentiality of Alcohol and Drug Abuse Patient Records regulations: The Federal rules restrict any use of the information to criminally investigate or prosecute any alcohol or drug abuse patient.[facility] HospitalIn the event this information is protected by the Federal Confidentiality of Alcohol and Drug Abuse Patient Records regulations: The Federal rules restrict any use of the information to criminally investigate or prosecute any alcohol or drug abuse patient.[facility] HospitalIn the event this information is protected by the Federal Confidentiality of Alcohol and Drug Abuse Patient Records regulations: The Federal rules restrict any use of the information to criminally investigate or prosecute any alcohol or drug abuse patient.[facility] HospitalIn the event this information is protected by the Federal Confidentiality of Alcohol and Drug Abuse Patient Records regulations: The Federal rules restrict any use of the information to criminally investigate or prosecute any alcohol or drug abuse patient.[facility] HospitalIn the event this information is protected by the Federal Confidentiality of Alcohol and Drug Abuse Patient Records regulations: The Federal rules restrict any use of the information to criminally investigate or prosecute any alcohol or drug abuse patient.[facility] HospitalIn the event this information is protected by the Federal Confidentiality of Alcohol and Drug Abuse Patient Records regulations: The Federal rules restrict any use of the information to criminally investigate or prosecute any alcohol or drug abuse patient.[facility] HospitalIn the event this information is protected by the Federal Confidentiality of Alcohol and Drug Abuse Patient Records regulations: The Federal rules restrict any use of the information to criminally investigate or prosecute any alcohol or drug abuse patient.[facility] HospitalIn the event this information is protected by the Federal Confidentiality of Alcohol and Drug Abuse Patient Records regulations: The Federal rules restrict any use of the information to criminally investigate or prosecute any alcohol or drug abuse patient.[facility] HospitalIn the event this information is protected by the Federal Confidentiality of Alcohol and Drug Abuse Patient Records regulations: The Federal rules restrict any use of the information to criminally investigate or prosecute any alcohol or drug abuse patient.[facility] HospitalIn the event this information is protected by the Federal Confidentiality of Alcohol and Drug Abuse Patient Records regulations: The Federal rules restrict any use of the information to criminally investigate or prosecute any alcohol or drug abuse patient.[facility] HospitalIn the event this information is protected by the Federal Confidentiality of Alcohol and Drug Abuse Patient Records regulations: The Federal rules restrict any use of the information to criminally investigate or prosecute any alcohol or drug abuse patient.[facility] HospitalIn the event this information is protected by the Federal Confidentiality of Alcohol and Drug Abuse Patient Records regulations: The Federal rules restrict any use of the information to criminally investigate or prosecute any alcohol or drug abuse patient.[facility] HospitalIn the event this information is protected by the Federal Confidentiality of Alcohol and Drug Abuse Patient Records regulations: The Federal rules restrict any use of the information to criminally investigate or prosecute any alcohol or drug abuse patient.[facility] HospitalIn the event this information is protected by the Federal Confidentiality of Alcohol and Drug Abuse Patient Records regulations: The Federal rules restrict any use of the information to criminally investigate or prosecute any alcohol or drug abuse patient.[facility] HospitalIn the event this information is protected by the Federal Confidentiality of Alcohol and Drug Abuse Patient Records regulations: The Federal rules restrict any use of the information to criminally investigate or prosecute any alcohol or drug abuse patient.[facility] HospitalIn the event this information is protected by the Federal Confidentiality of Alcohol and Drug Abuse Patient Records regulations: The Federal rules restrict any use of the information to criminally investigate or prosecute any alcohol or drug abuse patient.[facility] HospitalIn the event this information is protected by the Federal Confidentiality of Alcohol and Drug Abuse Patient Records regulations: The Federal rules restrict any use of the information to criminally investigate or prosecute any alcohol or drug abuse patient.[facility] HospitalIn the event this information is protected by the Federal Confidentiality of Alcohol and Drug Abuse Patient Records regulations: The Federal rules restrict any use of the information to criminally investigate or prosecute any alcohol or drug abuse patient.[facility] HospitalIn the event this information is protected by the Federal Confidentiality of Alcohol and Drug Abuse Patient Records regulations: The Federal rules restrict any use of the information to criminally investigate or prosecute any alcohol or drug abuse patient.[facility] HospitalIn the event this information is protected by the Federal Confidentiality of Alcohol and Drug Abuse Patient Records regulations: The Federal rules restrict any use of the information to criminally investigate or prosecute any alcohol or drug abuse patient.[facility] HospitalIn the event this information is protected by the Federal Confidentiality of Alcohol and Drug Abuse Patient Records regulations: The Federal rules restrict any use of the information to criminally investigate or prosecute any alcohol or drug abuse patient.[facility] HospitalIn the event this information is protected by the Federal Confidentiality of Alcohol and Drug Abuse Patient Records regulations: The Federal rules restrict any use of the information to criminally investigate or prosecute any alcohol or drug abuse patient.[facility] HospitalIn the event this information is protected by the Federal Confidentiality of Alcohol and Drug Abuse Patient Records regulations: The Federal rules restrict any use of the information to criminally investigate or prosecute any alcohol or drug abuse patient.[facility] HospitalIn the event this information is protected by the Federal Confidentiality of Alcohol and Drug Abuse Patient Records regulations: The Federal rules restrict any use of the information to criminally investigate or prosecute any alcohol or drug abuse patient.[facility] HospitalIn the event this information is protected by the Federal Confidentiality of Alcohol and Drug Abuse Patient Records regulations: The Federal rules restrict any use of the information to criminally investigate or prosecute any alcohol or drug abuse patient.[facility] HospitalIn the event this information is protected by the Federal Confidentiality of Alcohol and Drug Abuse Patient Records regulations: The Federal rules restrict any use of the information to criminally investigate or prosecute any alcohol or drug abuse patient.[facility] HospitalIn the event this information is protected by the Federal Confidentiality of Alcohol and Drug Abuse Patient Records regulations: The Federal rules restrict any use of the information to criminally investigate or prosecute any alcohol or drug abuse patient.[facility] HospitalIn the event this information is protected by the Federal Confidentiality of Alcohol and Drug Abuse Patient Records regulations: The Federal rules restrict any use of the information to criminally investigate or prosecute any alcohol or drug abuse patient.[facility] HospitalIn the event this information is protected by the Federal Confidentiality of Alcohol and Drug Abuse Patient Records regulations: The Federal rules restrict any use of the information to criminally investigate or prosecute any alcohol or drug abuse patient.[facility] HospitalIn the event this information is protected by the Federal Confidentiality of Alcohol and Drug Abuse Patient Records regulations: The Federal rules restrict any use of the information to criminally investigate or prosecute any alcohol or drug abuse patient.[facility] HospitalIn the event this information is protected by the Federal Confidentiality of Alcohol and Drug Abuse Patient Records regulations: The Federal rules restrict any use of the information to criminally investigate or prosecute any alcohol or drug abuse patient.[facility] HospitalIn the event this information is protected by the Federal Confidentiality of Alcohol and Drug Abuse Patient Records regulations: The Federal rules restrict any use of the information to criminally investigate or prosecute any alcohol or drug abuse patient.[facility] Care Teams (unrecognized sec tion and content) [employer] Supervisor Relationship Specialty Start Date End Date French Rhodes MD [address] [place] [id number] PCP - General Family Practice 10/09/21 [employer] Supervisor Relationship Specialty Start Date End Date Jd Giron MD [address] [place] [address] [id number] PCP - General 06/24/19 [employer] Supervisor Relationship Specialty Start Date End Date Jd Giron MD [address] [place] [address] [id number] PCP - General 06/24/19 [employer] Supervisor Relationship Specialty Start Date End Date Jd Giron MD [address] [place] [address] [place] [address] PCP - General 06/24/19 [employer] Supervisor Relationship Specialty Start Date End Date French Rhodes MD [address] [place] [id number] PCP - General Family Practice 10/09/21 [employer] Supervisor Relationship Specialty Start Date End Date French Rhodes MD [address] [place] [address] [id number] PCP - General Family Practice 10/09/21 [employer] Supervisor Relationship Specialty Start Date End Date Jd Giron MD [address] [place] [address] PCP - General 06/24/19 [employer] Supervisor Relationship Specialty Start Date End Date French Rhodes MD [address] [place] [address] [id number] PCP - General Family Medicine 10/09/21 [employer] Supervisor Relationship Specialty Start Date End Date French Rhodes MD [address] [place] [address] [id number] PCP - General Family Medicine 10/09/21 [employer] Supervisor Relationship Specialty Start Date End Date French Rhodes MD [address] [facility] [place] [address] PCP - General 01/22/22 [employer] Supervisor Relationship Specialty Start Date End Date French Rhodes MD [address] [place] [id number] PCP - General Family Medicine 10/09/21 [employer] Supervisor Relationship Specialty Start Date End Date French Rhodes MD [address] [place] [address] PCP - General 01/22/22 [employer] Supervisor Relationship Specialty Start Date End Date French Rhodes MD [address] [place] [address] PCP - General Family Medicine 10/09/21 [employer] Supervisor Relationship Specialty Start Date End Date French Rhodes MD [address] [place] [id number] PCP - General Family Medicine 10/09/21 [employer] Supervisor Relationship Specialty Start Date End Date French Rhodes MD [address] [place] [address] [id number] PCP - General Family Medicine 10/09/21 [employer] Supervisor Relationship Specialty Start Date End Date rFench Rhodes MD [address] [place] [address] [id number] PCP - General Family Medicine 10/09/21 [employer] Supervisor Relationship Specialty Start Date End Date French Rhodes MD [address] [place] [address] [id number] PCP - General Family Medicine 10/09/21 [employer] Supervisor Relationship Specialty Start Date End Date French Rhodes MD [address] [place] [id number] PCP - General Family Medicine 10/09/21 [employer] Supervisor Relationship Specialty Start Date End Date French Rhodes MD [address] [place] [id number] PCP - General Family Medicine 10/09/21 [employer] Supervisor Relationship Specialty Start Date End Date French Rhodes MD [address] [place] [address] [id number] PCP - General Family Medicine 10/09/21 [employer] Supervisor Relationship Specialty Start Date End Date French Rhodes MD [address] [place] [address] PCP - General Family Medicine 10/09/21 [employer] Supervisor Relationship Specialty Start Date End Date [facility] [place] [address] PCP - General 01/22/22 [employer] Supervisor Relationship Specialty Start Date End Date French [facility] [place] [address] PCP - General 01/22/22 [employer] Supervisor Relationship Specialty Start Date End Date French Rohdes MD [address] [place] [address] PCP - General Family Medicine 10/09/21 [employer] Supervisor Relationship Specialty Start Date End Date French Rhodes MD [address] [place] [address] PCP - General Family Medicine 10/09/21 [employer] Supervisor Relationship Specialty Start Date End Date French Rhodes MD [address] [place] [address] PCP - General Family Medicine 10/09/21 [employer] Supervisor Relationship Specialty Start Date End Date French Rhodes MD [address] [place] [address] PCP - General Family Medicine 10/09/21 [employer] Supervisor Relationship Specialty Start Date End Date French Rhodes MD [facility] [address] [facility] [place] [address] PCP - General 01/22/22 [employer] Supervisor Relationship Specialty Start Date End Date French Rhodes MD [address] [place] [address] PCP - General Family Medicine 10/09/21 [employer] Supervisor Relationship Specialty Start Date End Date French Rhodes MD [address] [place] [address] PCP - General Family Medicine 10/09/21 [employer] Supervisor Relationship Specialty Start Date End Date French Rhodes MD [address] [place] [address] PCP - General 01/22/22 [employer] Supervisor Relationship Specialty Start Date End Date French Rhodes MD [address] [place] [address] PCP - General 01/22/22 [employer] Supervisor Relationship Specialty Start Date End Date French Rhodes MD [address] [place] [address] PCP - General Family Medicine 10/09/21 [employer] Supervisor Relationship Specialty Start Date End Date French Rhodes MD [address] [place] [address] PCP - General Family Medicine 10/09/21 [employer] Supervisor Relationship Specialty Start Date End Date French Rhodes MD [address] [place] [address] PCP - General Family Medicine 10/09/21 Scheduled [...] BE BASED ON THE PRIMARY CLINICAL RECORDS. [facility]. provides no warranty or guarantee of the accuracy or completeness of information in this document.
[2025-07-20 18:39] LABS: Hematocrit 34.6 % (37-47); Hemoglobin 11.2 g/dL (12.0-15.0); Immature Granulocytes Count 0.080 X10^3/uL (0.0-0.0); Mean Corp Hgb Conc 32.4 g/dL (32-36); Mean Corpuscular Volume 88.5 fL (81-99); Mean Platelet Vol. 9.9 fl (6.2-12.0); NRBC Flagged by Analyzer 0 % (0-5); Platelet Count 300 K/mm3 (150-450); RBC Distribution Width CV 13.0 % (11.6-14.6); RBC Distribution Width SD 41.9 fl (35.1-43.9); Red Blood Count 3.91 M/mm3 (4.2-5.4); White Blood Count 7.2 K/mm3 (4.4-11.0)
[2025-07-20 18:56] LABS: Syphilis Antibodies Nonreactive (Nonreactive)
[2025-07-20] MEDS: Lactated Ringers 1,000 ML 50 ML IV ×2 (19:00→23:12)
[2025-07-20] MEDS: 0.9% Normal Saline Single 100 ML IV.SOLN. INTRA-UTER (19:10)
--- NOTE | 2025-07-20 19:45 | PCM.HP.OB ---
HPI - General General Date of Admission: 07/20/25 HPI Narrative CARMEN BURNETTE, is a 34 F at 37.5 weeks gestation presents for induction of labor for cholestasis. She was seen today in office and recent bile acid levels increased to >20. Maternal Data Information DEB Calculator Estimated Delivery Date Method Current WG Current Estimate 08/05/25 Manual 37w 5d PFSH PFSH Medical History (Updated 07/20/25 @ 19:54 by Jessenia Valverde CNM) Infertility Thyroid disorder Autoimmune disease Home Medications ?Medication ?Instructions ?Recorded ?Last Taken ?Type calcium carbonate (Tums) 200 mg PO PRN PRN Indigestion 01/05/19 Unknown History vits no.130-ferrous fum 1 ea PO DAILY 01/05/19 01/03/19 20:00 History 27 mg iron-folic acid 800 mcg tablet ( Vitamin) thyroid (pork) 15 mg tablet (BUTTERMAKER 15 mg PO DAILY 01/05/19 01/04/19 08:00 History Thyroid) ibuprofen 600 mg tablet 600 mg PO Q6H PRN PRN Mild Pain 01/07/19 Unknown Rx (-10/23) #30 tabs Allergy/AdvReac Type Severity Reaction Status Date / Time mebendazole (From Vermox) Allergy Other Verified 07/20/25 17:37 Social History Smoking Status: Never smoker History Elective abortions Hx Para 2 Spontaneous abortions Hx # Term Pregnancies Ectopic pregnancies Hx # Pregnancies Multiple births # of living children NST FHR Rate Baby A Baseline: 120 Variability:: Moderate Accelerations:: 15 x 15 Decelerations:: None NST Reactive:: Yes FHR Category:: Category I Uterine Activity:: occasional contraction ROS Eyes Eyes: Denies blurry vision, change in vision or spots in vision ENT HEENT: Denies dizziness or headache(s) Cardiovascular Cardiovascular: Denies abdominal pain, chest pain or dyspnea Respiratory/Chest Respiratory/Chest: Denies cough, dyspnea, shortness of breath at rest or shortness of breath with exertion Gastrointestinal Gastrointestinal: Denies abdominal pain, diarrhea or vomiting Genitourinary Genitourinary: Denies change in urinary stream, difficulty urinating or dysuria Musculoskeletal Musculoskeletal: Reports none Integumentary Integumentary: Denies rash Neurologic Neurologic: Denies dizziness, headache(s), memory loss or weakness Psychiatric Psychiatric: Reports none Vital Signs Vital Signs Vital Signs: 07/20/25 17:19 07/20/25 17:19 07/20/25 17:19 Temperature 99.3 F H Temperature Source Pulse Rate 93 Respiratory Rate Blood Pressure 121/79 H BP Systolic 121 BP Diastolic 79 Pulse Ox 07/20/25 17:19 07/20/25 17:19 07/20/25 17:19 Temperature 99.3 F H Temperature Source Temporal Pulse Rate Respiratory Rate 16 Blood Pressure BP Systolic BP Diastolic Pulse Ox 07/20/25 17:20 07/20/25 17:20 07/20/25 19:22 Temperature 99.0 F Temperature Source Pulse Rate 97 Respiratory Rate Blood Pressure BP Systolic BP Diastolic Pulse Ox 97 07/20/25 19:23 07/20/25 19:23 07/20/25 19:23 Temperature Temperature Source Pulse Rate 90 Respiratory Rate Blood Pressure 121/77 H BP Systolic 121 BP Diastolic 77 Pulse Ox 99 07/20/25 19:23 Temperature Temperature Source Pulse Rate Respiratory Rate 17 Blood Pressure BP Systolic BP Diastolic Pulse Ox Weight Weight: 141 lb 1.533 oz Body Mass Index (BMI) 22.1 PRE- weight 114 lb PRE- Body Mass Index 17.9 (BMI) Physical Exam Const alert, oriented x3 and no apparent distress General Appearance: cooperative Orientation / Consciousness: awake Exam Limitations: no limitations HEENT normocephalic Head and Scalp: normal to inspection Eyes General Eye: normal appearance of both eyes Neck full ROM and no lymphadenopathy Lymph Lymphatic: no lymphadenopathy noted Chest inspection of chest normal Resp normal respiratory effort, normal air movement and clear to auscultation bilaterally Effort and Inspection: able to speak in complete sentences and symmetric chest movement Cardio regular rate and regular rhythm GI normal to inspection, nondistended, normoactive bowel sounds Manual OB Exam: presentation cephalic Back/Spine normal ROM Extremity full ROM and no calf tenderness Skin no rashes or lesions noted General Skin Exam: no breakdown Neuro oriented x3 and CN's II-XII intact bilaterally Psych mental status grossly normal and thought process normal Labs Labs Labs: Blood Type O POSITIVE Antibody Screen NEGATIVE Hct, (37-47) 34.6 % L Hgb, (12.0-15.0) 11.2 g/dL L Syphilis Total Ab, (Nonreactive) Nonreactive Rhogam given: No Assessment & Plan (1) 37 weeks gestation of : (2) Cholestasis during : (3) Anxiety: (4) Encounter for induction of labor: (5) Hypothyroid: (6) Autoimmune disease: COMMENT: hashimotos (7) AMA (advanced maternal age) multigravida 35+: (8) Rubella non-immune status, antepartum: PLAN: Plan GBS negative Spoke with patient and at length about plan of care- questions answered Patient remains very tearful and anxious- requesting not to start Pitocin and only place olvera bulb. Informed patient she can refuse induction and offered patient to go home if unsure, or feeling pressured for induction. - stated wants to stay and be induced Discussed she is not having contractions, dilated to 1 cm, very posterior, and this is a medical induction and interventions will need to occur - voices understanding and agrees to interventions. CE /-3 Olvera bulb placed without difficulty AROM for clear fluid Agreed to hold off on start of Pitocin to see if body gets into contraction pattern since water ruptured Dr. Wells aware of admission and is collaborating physician
[2025-07-20] MEDS: Oxytocin 15 Units/NS 250ml 15 UNITS/250 ML IV.SOLN 2 UNITS IV (23:13)
[2025-07-21] VITALS (66 sets, daily range): BP systolic 94–133; BP diastolic 52–78; PULSE 66–104; RESP 16–17; TEMP 36.7–37.6; O2SAT 88–100
[2025-07-21] MEDS: Lactated Ringers 1,000 ML 999 ML IV (02:56)
[2025-07-21] MEDS: fentaNYL-bupivacaine (epidural) 100 ML BAG EPIDURAL (04:05)
[2025-07-21] MEDS: Lidocaine 2% (20 ml mdv) 20 ML Vial INFILT (05:00)
--- NOTE | 2025-07-21 05:21 | EX.PCM.OBVAG ---
Assessment & Plan (1) (spontaneous vaginal delivery): (2) Rubella non-immune status, antepartum: (3) AMA (advanced maternal age) multigravida 35+: (4) Autoimmune disease: COMMENT: carlos (5) Care and examination of lactating mother: Maternal Data Information DEB Calculator Estimated Delivery Date Method Current WG Current Estimate 08/05/25 Manual 37w 6d Vaginal Delivery Maternal Presentation Maternal Presentation: Medically Indicated Induction Type of Induction: Pitocin and Lundberg Bulb Medical Reason for Induction: Maternal Medical Condition: list: (cholestasis) Vaginal Delivery Information Procedure Performed: Spontaneous Vaginal Delivery Surgeon/Practitioner: Jessenia Valverde Date of Procedure: 07/21/25 Pre-Procedure Diagnosis: Term gestation, induction of labor Post-Procedure Diagnosis: , Live female infant Type of anesthesia: Epidural Estimated Blood Loss: 150 Time of Delivery: 04:59 Findings Description of procedure: Patient progressed to complete dilation. With good maternal effort, head delivered followed by anterior shoulder and remainder of body without any force, delay, or traction. Vigorous female was delivered atraumatically and placed on maternal abdomen. Pitocin IV started for active management of the third stage of labor. 3 vessel cord clamped and cut by FOB after delay and infant placed immediately skin to skin with patient. Cord blood collected. Placenta delivered spontaneously and intact. After inspection, vagina and perineum are intact. Vaginal sweep performed. Fundus is firm 2 below U and bleeding is hemostatic. Sponge and sharps counts correct. Patient and infant bonding well at this time. Dr. Wells notified of delivery. Routine post orders placed. Patient desires to take placenta. 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
[2025-07-21] MEDS: Oxytocin 15 Units/NS 250ml 15 UNITS/250 ML IV.SOLN 83 UNITS IV (05:30)
--- NOTE | 2025-07-21 14:14 | CASEMGMT ---
Social Work Assessment Labor and Delivery Unit Patient Address: [address] [place] [address] , [place] [address] Phone number: [phone] Date of Referral: 07/21/25 Time of Referral: 07:13 Referred By: Jessenia Valverde Date of Intervention: 07/21/25 Time of Intervention: 14:14 Reason for Referral: Anxiety History obtained from: Mother of baby (MOB), father of baby (MALCOLMB/Abhijit, age 36) and review of medical records. ?? Household composition: MOB, FOB, and their 3 daughters; Samantha, age 11, Florencia, age 6 and daughter (not yet named), born on 07/21/25. Patient's parent/guardian status: ???MOB and FOB have been together for 15 years and have been for 13 of those years. ?MOB denied any previous or current issues of domestic violence and described a positive relationship with the FOB. Medical History: : 3 ?Para, now 3. ?MOB received care through [facility] beginning at 8 weeks and 3 days[address] Visits took place throughout the , however there were a few times when the gaps appeared to e spread out more than usual with one being an 8 week gap in between visits. ?Apgars: 9 and 9. ?Weight: 6 lbs, 6 oz. Incident Coordinator: Dr. Jacquelyn Judd. Educational Status: MOB and FOB denied any issues with reading, writing or learning comprehension. MOB earned a Financial Status: MOB and FOB reported that their income is sufficient to meet the needs of their family at this time. MOB is currently a stay-at home-mom (SAHM) and the FOB is currently employed full-time as a CPA. Infant Supplies: MOB and FOB reported they have the supplies they need for baby at this time including but not limited to: Car seat, bassinet, diapers, bottles, breast pump (just ordered through the insurance and is on the way) and clothing. Childcare/Caregiver(s): MOB reported that as a SAHM, she will be the primary caregiver and the FOB will help provide care for during the times he is home. ??MOB and FOB denied any barriers/needs related to childcare/caregiving. Transportation: Both MOB and FOB are licensed drivers and have a reliable vehicle to get baby to and from all medical appointments. MOB and FOB denied any issues/barriers to transportation at this time. Programs/Agencies Involved: MOB and FOB denied any previous or current program/agency involvement. Children Services/Legal Issues: MOB and FOB denied any previous or current Children Services and/or legal involvement. Behavioral Health Issues: None reported/denied. ? Mental Health History: MOB FOB denied any MH history. Social Work consult was for anxiety with the MOB which MOB reported she was having a one point during /delivery which the MOB reported she suspected would be ?normal?. MOB denied any anxiety outside of that. MOB denied any current symptoms. Substance Use History: MOB and FOB denied any history or current drug and/or alcohol abuse. ? Family History: MOB and FOB denied any family history of drug and/or alcohol abuse or mental health issues on either side of their families. Drug Screens: None obtained for the MOB or baby during this admission. Family/Social Stressors:?? Denied. Support Systems: MOB identified her biggest support as the FOB, family as well as her mom who was present at the time of the visit which MOB and FOB both consented to. [place]?s maternal grandmother (MGM) is from [place] and is in town to provide support as needed. MGM stated she is not sure how long she is going to stay as she bought a one-way ticket and will stay as long as needed. Depression/Shaken Baby/Safe Sleeping: Bomb Loader provided verbal and written education on PPD, increased risk factors for PPD, Safe Sleeping and Shaken Baby.? MOB and FOB both verbalized an understanding.??? ASSESSMENT: MOB and FOB provided consent to social work visit. Upon arrival, the MOB was in the hospital bed eating lunch, the FOB was nearby on a couch and the MGM was in a chair holding . ?MOB and FOB were both verbally engaged, and cooperative. Bomb Loader observed positive interaction between the MOB and FOB as well with the MGM towards .? At the end of the assessment, where elementary school social worker requested to speak with the MOB alone, which MOB and FOB were both agreeable to with the exception of allowing the MGM to stay in the room since she was holding . Bomb Loader stated that would be fine if that is the MOB?s preference which she stated it was. MOB reported feeling safe in her home and denied any previous or current domestic violence, unmanaged mental health issues either with herself or with the FOB, and also denied any concerns with any drug or alcohol abuse either with herself or with the FOB. Safe Plan of Care for infant related to substance use: N/A PLAN: For MOB and baby to be discharged when medically ready. No other services requested or indicated. Korin Burleson, LIVE IN HOUSEKEEPER, COPRA SAMPLER
[2025-07-22 00:50] VITALS: BP 97/55; PULSE 77; RESP 16; TEMP 36.2; O2SAT 95
[2025-07-22 00:53] VITALS: BP 97/59; PULSE 75; TEMP 36.7
[2025-07-22 04:46] VITALS: BP 102/55; PULSE 74; TEMP 36.6
[2025-07-22 04:48] VITALS: BP 102/85; PULSE 78; RESP 16; TEMP 36.2; O2SAT 98
--- NOTE | 2025-07-22 07:22 | PCM.DC.SUM ---
Providers Date of Admission: 07/20/25 Primary Care Physician: Dr. Zak Giron MD Reason For Visit: VAG Diagnosis Discharge Diagnosis (1) (spontaneous vaginal delivery): Status: Acute Code(s): O80 - Encounter for full-term uncomplicated delivery (2) Rubella non-immune status, antepartum: Status: Acute Code(s): Z34.90 - Encounter for supervision of normal , unspecified, unspecified trimester; Z28.39 - Other underimmunization status (3) AMA (advanced maternal age) multigravida 35+: Status: Acute Code(s): O09.529 - Supervision of elderly multigravida, unspecified trimester (4) Autoimmune disease: Status: Acute Code(s): M35.9 - Systemic involvement of connective tissue, unspecified (5) Care and examination of lactating mother: Status: Acute Code(s): Z39.1 - Encounter for care and examination of lactating mother Plan PPD 1 - intact Tailbone /back pain- Flexeril 5 mg PO PRN TID - RX sent Continue Ibuprofen 600 mg PO - q 6 hours D/C home with follow up in office Medications at Discharge Home Medications calcium carbonate (Tums) 200 mg PO PRN PRN Indigestion 01/05/19 vits no.130-ferrous fum 27 mg iron-folic acid 800 mcg tablet ( Vitamin) 1 ea PO DAILY 01/05/19 thyroid (pork) 15 mg tablet (PROJECT CONSTRUCTION ASSISTANT MANAGER Thyroid) 15 mg PO DAILY 01/05/19 ibuprofen 600 mg tablet 600 mg PO Q6H PRN PRN Mild Pain (1-3/10) #30 tabs 01/07/19 acetaminophen 500 mg tablet 1,000 mg (2 x 500 mg) PO Q6H PRN PRN Pain 1-10 Or Fever #0 tabs 07/22/25 cyclobenzaprine 5 mg tablet 5 mg PO TID PRN Muscle Spasm #10 tabs 07/22/25 ibuprofen 600 mg tablet 600 mg PO Q6H PRN PRN Pain Score 1-10 #0 tabs 07/22/25 Hospital Course Operations None Procedures None Summary of Care Provided Minutes Spent on Discharge: 15 Hospital Course: Patient had vaginal delivery. Hospital course was uneventful. Physical Exam Narrative Patient seen at bedside. Increased tailbone/lower back pain. Having difficulty sitting and laying. Stated she felt a pop during delivery and is concerned about her tailbone. She is ambulating fine but needs assistance from sitting position. Taking Ibuprofen for pain. Lochia decreased. Desires discharge home today. Const alert and oriented x3 General Appearance: Negative for in distress HEENT normocephalic Eyes General Eye: normal appearance of both eyes Neck General: normal visual inspection Chest Chest: symmetrical chest wall rise Resp normal respiratory effort and normal air movement Effort and Inspection: symmetric chest movement; Negative for tachypneic Auscultation: clear to auscultation bilaterally Cardio regular rate and regular rhythm Peripheral Pulses: pulses 2+ throughout GI normal to inspection, nondistended, normoactive bowel sounds Narrative: Ice to perineum OB / External & Speculum: vaginal bleeding and other Lochia decreasing Uterus Palpation: uterus fundus firm (Below U) Extremity normal to inspection, full ROM and normal capillary refill Skin no rashes or lesions noted Neuro oriented x3, CN's II-XII intact bilaterally and gait normal Psych mental status grossly normal, thought process normal and activity/motor behavior normal Weight / BMI Weight Weight: 141 lb 1.533 oz Body Mass Index (BMI) 22.1 PRE- weight 114 lb PRE- Body Mass Index 17.9 (BMI) ABG / Lab / Microbiology Data 07/20/25 18:15 D/C Instructions Discharge Activity: Return to Normal Activity, No Restrictions, May Drive, May Shower and May Take a Tub Bath (Warm water only. No bath salts, soaps, bubbles) May resume sexual activity in: 6-8 weeks Weight Bearing Status: Weight bearing as tolerated Call your doctor if you observe: Fever of 101 or Higher, Inability to urinate, Using more than 1 pad per hour, Shortness of breath, Dizziness, Chest pain, Calf discomfort and Uncontrolled pain DC O2, CPAP, BIPAP Needs Home O2 Discharge instructions: No Please Follow Up With: [facility] Keri MITCHELL When: 2 weeks in office or virtual Meaningful Use Info Meaningful Use Meaningful Use Diagnoses (Choose all that apply): None applicable Discharge Plan Admission Admit Date/Time: 07/20/25 17:47 Primary Reason for Your Visit: Labor and Delivery Attending Provider: Jessenia Valverde Primary Care Provider: Zak Giron Discharge Orders/Prescriptions Prescriptions: New acetaminophen 500 mg Tablet 1,000 mg PO Q6H PRN PRN (Reason: Pain 1-10 Or Fever) Qty: 0 0RF ibuprofen 600 mg Tablet 600 mg PO Q6H PRN PRN (Reason: Pain Score 1-10) Qty: 0 0RF cyclobenzaprine 5 mg Tablet 5 mg PO TID PRN (Reason: Muscle Spasm) Qty: 10 0RF Continued vit no.[id number] [ Vitamin] 1 EACH tablet 1 ea PO DAILY No Action calcium carbonate [Tums] 200 MG tablet,chewable 200 mg PO PRN PRN (Reason: Indigestion) thyroid (pork) [PROJECT CONSTRUCTION ASSISTANT MANAGER Thyroid] 15 MG tablet 15 mg PO DAILY Rx Instructions: pt takes PROJECT CONSTRUCTION ASSISTANT MANAGER Thyroid 15mg and 7.5mg on Wednesday ibuprofen 600 MG tablet 600 mg PO Q6H PRN PRN (Reason: Mild Pain (1-3/10)) Qty: 30 0RF Referrals / Follow Up: Jessenia Valverde CNM [Med Staff - [facility] Practice Prof, Obstetrics] Zak Giron MD [Primary Care Provider, Medical] Disposition Disposition (needs filled in before D/C Order can be placed): Home, Self Care
[2025-07-22 08:43] VITALS: BP 102/58; PULSE 69; PULSE 74; O2SAT 97
[2025-07-22 08:45] VITALS: BP 102/58; PULSE 74; RESP 14; TEMP 36.6
== END 2025-07-22 13:00 | disposition home or self-care (01) | DRG 805 ==
PROVIDERS: Admitting Provider Advanced Practice Midwife; PCP Family Medicine Geriatric Medicine; Referring Provider Advanced Practice Midwife; Visit Provider Advanced Practice Midwife
DX: O26.62 Liver and biliary tract disorders in childbirth (principal); Z37.0 Single live birth; K83.1 Obstruction of bile duct; E03.9 Hypothyroidism, unspecified; E06.3 Autoimmune thyroiditis; F41.9 Anxiety disorder, unspecified; M54.50 Low back pain, unspecified; O99.893 Other specified diseases and conditions complicating puerperium; O99.344 Other mental disorders complicating childbirth; O99.284 Endocrine, nutritional and metabolic diseases complicating childbirth; O99.62 Diseases of the digestive system complicating childbirth; Z3A.37 37 weeks gestation of pregnancy
CPT/HCPCS: 59025; 59050; 85025; 86780; 86850; 86900; 86901; 99221; G0378